=== PATIENT | male | born 1940 | race Caucasian/White ===

== ENCOUNTER 2018-07-14 10:20 | Inpatient (IN) | payer BC, MEDICARE ==
[~2018-07-14] VITALS: Ht 177.8 cm; Wt 67.9 kg
[2018-07-14] MEDS ORDERED: ALPRAZolam 0.25 MG (XANAX) TAB PO PRN (17:45)
[2018-07-14] MEDS ORDERED: CALCIUM CARBONATE 500 MG (TUMS) TAB.CHEW PO PRN (17:45)
[2018-07-14] MEDS ORDERED: LOPERAMIDE 2 MG (IMODIUM) CAP PO PRN (17:45)
[2018-07-14] MEDS ORDERED: DOCUSATE SODIUM 100 MG (COLACE) CAP PO PRN (17:45)
[2018-07-14] MEDS ORDERED: ACETAMINOPHEN 500 MG TAB (TYLENOL) PO PRN (17:45)
[2018-07-14] MEDS ORDERED: diphenhydrAMINE 25 MG TAB (BENADRYL) PO PRN (17:45)
--- NOTE | 2018-07-14 21:35 | NUR ---
Fahad Spears admitted to room 231-1, with an admitting diagnosis of status post brain abcess and craniotomy, on 07/14/18 from [facility] in [place] via private automobile, accompanied by and daughter. FAHAD SPEARS introduced to surroundings, call light, bed controls, phone, TV, temperature control, lights, meal times, smoking policy, visitor policy, side rail policy, bathrooms and showers. Patient Rights given to patient in the handbook. FAHAD SPEARS verbalizes understanding that [facility] is not responsible for the loss or damage to any personal effects or valuables that are kept in the patients posession during their hospitalization. The following Patient Care Plans were discussed with the patient: Discharge Planning, impaired mobility, and self care deficit. FAHAD SPEARS verbalizes understanding of Interdisciplinary Patient Education. Patient and family were informed about the Rapid Response Team and its purpose. Patient received Patient Rights Booklet, which includes Privacy Act Statement and Data Collection Information Summary.
[2018-07-14 21:45] VITALS: BP 156/71
[2018-07-14] MEDS ORDERED: MEROPENEM 1,000 MG in WATER (STERILE) FOR INJECTION 20 ML IV SCH (22:45)
[2018-07-15] MEDS ORDERED: SULFAMETHOXAZOLE IV SCH (06:00)
[2018-07-15] MEDS ORDERED: TRIMETHOPRIM IV SCH (06:00)
[2018-07-15] MEDS: MEROPENEM 1,000 MG in NS (IVPB) 100 ML IV SCH ×3 (06:11→21:20)
[2018-07-15 06:38] LABS: BASOPHILS % (AUTO) 1 % (0-10); EOSINOPHILS # (AUTO) 0.2 10^3/uL (0.0-0.3); EOSINOPHILS % (AUTO) 15 % (0-10); HEMATOCRIT 25 % (40-54); HEMOGLOBIN 7.9 G/DL (13.3-17.7); LYMPHOCYTES # (AUTO) 0.3 X 10^3 (1.0-4.0); LYMPHOCYTES % (AUTO) 17 % (12-44); MEAN CORPUSCULAR HEMOGLOBIN 26 PG (25-34); MEAN CORPUSCULAR HGB CONC 32 G/DL (32-36); MEAN CORPUSCULAR VOLUME 80 FL (80-99); MONOCYTES # (AUTO) 0.1 X 10^3 (0.0-1.0); MONOCYTES % (AUTO) 7 % (0-12); NEUTROPHILS # (AUTO) 0.9 X 10^3 (1.8-7.8); NEUTROPHILS % (AUTO) 60 % (42-75); PLATELET COUNT 144 10^3/uL (130-400); RED CELL DISTRIBUTION WIDTH 26.9 % (10.0-14.5); WHITE BLOOD COUNT 1.6 10^3/uL (4.3-11.0)
[2018-07-15 06:54] VITALS: BP 143/64
[2018-07-15 06:59] LABS: ALANINE AMINOTRANSFERASE 61 U/L (0-55); ALBUMIN 2.6 GM/DL (3.2-4.5); ALKALINE PHOSPHATASE 60 U/L (40-136); BILIRUBIN,TOTAL 0.4 MG/DL (0.1-1.0); BUN/CREATININE RATIO 15; CALCIUM 7.9 MG/DL (8.5-10.1); CARBON DIOXIDE 24 MMOL/L (21-32); CHLORIDE 99 MMOL/L (98-107); CREATININE SERUM 0.74 MG/DL (0.60-1.30); GFR ESTIMATED > 60; GLUCOSE 86 MG/DL (70-105); POTASSIUM 3.8 MMOL/L (3.6-5.0); SODIUM 130 MMOL/L (135-145); TOTAL PROTEIN 5.7 GM/DL (6.4-8.2)
[2018-07-15 07:15] LABS: ANISOCYTOSIS MARKED; BAND NEUTROPHILS 18 %; EOSINOPHILS % (MANUAL) 16 %; HYPOCHROMASIA MODERATE; LYMPHOCYTES % (MANUAL) 6 %; MONOCYTES % (MANUAL) 8 %; NEUTROPHILS % (MANUAL) 52 %
[2018-07-15] MEDS: TRIMETHO IV SCH ×2 (08:07→16:43)
[2018-07-15] MEDS: SULFAMETHOXAZOLE IV SCH ×2 (08:07→16:43)
[2018-07-15] MEDS: D5W IV SCH ×2 (08:07→16:43)
--- NOTE | 2018-07-15 08:52 | Physical Therapy Evaluation ---
PT Evaluation-General Medical Diagnosis Admission Date Jul 14, 2018 at 21:28 Medical Diagnosis: frontal lobe mass Onset Date: Jun 29, 2018 Therapy Diagnosis Therapy Diagnosis: abnormality of gait Height/Weight Height (Feet): 5 Height (Inches): 10.00 Weight (Pounds): 157 Weight (Ounces): 1.6 Precautions Precautions/Isolations: Fall Prevention, Standard Precautions Weight Bear Status Right Lower Extremity: Right Full Weight Bearing Left Lower Extremity: Left Full Weight Bearing Social History Home: Single Level Current Living Status: Spouse Entry Into Home: Stairs Without Railing PT Steps Into Home: 2 Prior/Core FIM Prior Level of Function Therapy Code Descriptions/Definitions Functional Loyal Measure: 0=Not Assessed/NA 4=Minimal Assistance 1=Total Assistance 5=Supervision or Setup 2=Maximal Assistance 6=Modified Loyal 3=Moderate Assistance 7=Complete Loyal Therapy Quality Codes: 6 Independent with activity with or without an assistive device 5 Patient requires set up or clean up by helper. Patient completes activity by themselves 4 Supervision or touching assist (CGA). [place] provide cues , steadying assist 3 The helper provides less than half the effort to complete the activity 2 The helper provides more than half the effort to complete the activity 1 Dependent. The helper does all the effort to complete an activity 7 Patient refused to complete or attempt activity 9 The patient did not perform the activity before the current illness or injury 88 Not attempted due to Medical conditions or safety concerns Functional Abilities and Goals: Independent: Patient completed the activities by him/herself, with or without an assistive device, with no assistance from a helper. Needed Some Help: Patient needed partial assistance from another person to complete activities. Dependent: A helper completed the activities for the patient. Unknown: Not Applicable: Bed Mobility: 7 Transfers (B,C,W/C) (FIM): 7 Gait: 7 Stairs: 7 Indoor Mobility (Ambulation): Independent Stairs: Independent PT Evaluation-Current Subjective States that he had an infection in his brain and had to have surgery. Pain Numeric Pain Scale: 0-No Pain Objective Patient Orientation: Person, Place, Time, Situation ROM/Strength ROM Upper Extremities WFL ROM Lower Extremities WFL Strenght Lower Extremities 4+/5 Sensory Vision: Functional Hand Dominance: Left Sensation Right Upper Extremit: Intact Sensation Left Upper Extremity: Intact Sensation Right Lower Extremit: Intact Sensation Left Lower Extremity: Intact Transfers Therapy Code Descriptions/Definitions Functional Loyal Measure: 0=Not Assessed/NA 4=Minimal Assistance 1=Total Assistance 5=Supervision or Setup 2=Maximal Assistance 6=Modified Loyal 3=Moderate Assistance 7=Complete Loyal Therapy Quality Codes: 6 Independent with activity with or without an assistive device 5 Patient requires set up or clean up by helper. Patient completes activity by themselves 4 Supervision or touching assist (CGA). [place] provide cues , steadying assist 3 The helper provides less than half the effort to complete the activity 2 The helper provides more than half the effort to complete the activity 1 Dependent. The helper does all the effort to complete an activity 7 Patient refused to complete or attempt activity 9 The patient did not perform the activity before the current illness or injury 88 Not attempted due to Medical conditions or safety concerns Transfers (B, C, W/C) (FIM): 4 Scootin Rollin Roll Left to Right (QC): 6 Supine to/from Sit: 4 Sit to/from Stand: 5 Sit to Lying (QC): 5 Lying to Sitting/Side of Bed(Q: 5 Sit to Stand (QC): 5 Gait Does the Patient Walk?: Yes Mode of Locomotion: Walk Anticipated Mode of Locomotion: Walk Gait (FIM): 5 Distance (FIM): 3=150 ft Walk 10 feet (QC): 5 Walk 50 ft with 2 Turns(QC): 5 Walk 150 ft (QC): 5 Distance: 200' Gait Level of Assist: 5 Gait Persons Needed: 1 Gait Assistive Device: FWW Wheelchair Training Does the Pt Use a Wheelchair?: No Stairs Stairs (FIM): 5 #of Steps: 4 Level of Assist: 5 1 Step (curb) (QC): 5 4 Steps (QC): 5 12 Steps (QC): 5 Balance Sitting Static: Good Sitting Dynamic: Fair Standing Static: Fair Standing Dynamic: Fair Picking up an Object (QC): 4 Assessment/Needs The patient has good rehab potential to meet goals and be able to return home safely with the assistance of his . Rehab Potential: Good PT Short Term Goals Short Term Goals Time Frame: Jul 29, 2018 Transfers (B,C,W/C) (FIM): 6 Gait (FIM): 6 Distance (FIM): 3=150 ft Gait Distance Comment: 350' Gait Level of Assist: 6 Gait Assistive Device: FWW Stairs (FIM): 6 # of Steps: 4 Stairs Level of Assist: 6 PT Senior Care Goals Melt Helper Goals PT Melt Helper Goals Time Frame: Aug 14, 2018 Transfers (B,C,W/C) (FIM): 7 Sit to Lying (QC): 7 Lying-Sitting on Side/Bed(QC): 7 Sit to Stand (QC): 7 Rollin Roll Left to Right (QC): 7 Chair/Uvp-qd-Xavly Xfer(QC): 7 Car Transfer (QC): 7 Does the Patient Walk: Yes Gait (FIM): 6 Gait distance (FIM): 3=150 ft Distance: 1000' Walk 10 feet (QC): 7 Walk 10ft-Uneven Surface(QC): 7 Walk 50ft with 2 Turns (QC): 7 Walk 150 ft (QC): 7 Gait Level of Assist: 6 Gait Assistive Device: FWW Does the Pt use WC or Scooter?: No Stairs (FIM): 6 # of Steps: 12 1 Step (curb) (QC): 7 4 Steps (QC): 7 12 Steps (QC): 7 Stairs Level Of Assist: 6 Picking up an Object (QC): 7 PT Plan Problem List Problem List: Activity Tolerance, Functional Strength, Safety, Balance, Gait, Transfer, Bed Mobility, ROM Treatment/Plan Treatment Plan: Continue Plan of Care Treatment Plan: Bed Mobility, Concurrent Therapy, Education, Functional Activity [place], Functional Strength, Group Therapy, Gait, Safety, Therapeutic Exercise, Transfers Treatment Duration: Aug 14, 2018 Frequency: At least 5 of 7 days/Wk (IRF) Estimated Hrs Per Day: 1.5 hours per day Patient and/or Family Agrees t: Yes Safety Risks/Education Patient Education: Gait Training, Transfer Techniques, Steps, Issued Written HEP, Safety Issues Teaching Recipient: Patient Discharge Recommendations Therapy D/C Recommendations: Physical Therapy Outpatient Time/GCodes Time In: 824 Time Out: 924 Total Billed Treatment Time: 60 Total Billed Treatment 1, EV Low C x 15, GT x 15, FA x 30 G Codes Necessary: STEPHANIE Hampton PT Jul 15, 2018 08:52
[2018-07-15] MEDS ORDERED: SODIUM CHLORIDE PO SCH (09:00)
[2018-07-15] MEDS ORDERED: FLORASTOR 250 MG PO SCH (09:00)
[2018-07-15] MEDS ORDERED: POTA20TA15 PO (10:13)
[2018-07-15] MEDS: KCL 20 MEQ TAB (K-DUR) PO SCH (10:33)
--- NOTE | 2018-07-15 11:00 | Occupational Therapy Eval ---
OT Evaluation-General/PLF Medical Diagnosis Admission Date Jul 14, 2018 at 21:28 Medical Diagnosis: frontal lobe mass Onset Date: Jun 29, 2018 Therapy Diagnosis Therapy Diagnosis: decreased self care skills Height/Weight Height (Feet): 5 Height (Inches): 10.00 Weight (Pounds): 157 Weight (Ounces): 1.6 Precautions Precautions/Isolations: Fall Prevention, Standard Precautions Safety Interventions: None Medical History Additional Medical History pyelonephritis Social History Home: Single Level Current Living Status: Spouse Entry Into Home: Stairs Without Railing Steps Into Home: 2 ADL-Prior Level of Function Therapy Code Descriptions/Definitions Functional [place] Measure: 0=Not Assessed/NA 4=Minimal Assistance 1=Total Assistance 5=Supervision or Setup 2=Maximal Assistance 6=Modified [place] 3=Moderate Assistance 7=Complete [place] Therapy Quality Codes: 6 Independent with activity with or without an assistive device 5 Patient requires set up or clean up by helper. Patient completes activity by themselves 4 Supervision or touching assist (CGA). [place] provide cues , steadying assist 3 The helper provides less than half the effort to complete the activity 2 The helper provides more than half the effort to complete the activity 1 Dependent. The helper does all the effort to complete an activity 7 Patient refused to complete or attempt activity 9 The patient did not perform the activity before the current illness or injury 88 Not attempted due to Medical conditions or safety concerns Functional Abilities and Goals: Independent: Patient completed the activities by him/herself, with or without an assistive device, with no assistance from a helper. Needed Some Help: Patient needed partial assistance from another person to complete activities. Dependent: A helper completed the activities for the patient. Unknown: Not Applicable: ADL PLOF Comments Pt states he has been receiving assist as needed at home. Using cane for mobility Self Care: Needed Some Help DME/Equipment: Shower OT Current Status Subjective Pt sitting in chair, agrees to therapy. Pt has no reports of pain. Mental Status/Objective Patient Orientation: Person, Place Attachments: Roberts Catheter, IV Current Glasses/Contacts: Yes Hearing Aids: No Hand Dominance: Left Upper Extremity ROM Grossly WFL Upper Extremity Strength Grossly 4/5 ADL-Treatment ADL-Current Pt completed sponge bath while seated. Upper body bathing completed with SBA. Pt required CGA for lower body bathing. Don pullover shirt with SBA. Pt required minimal assistance for LE dressing. Doff/don socks with SBA. Pt sit to stand with CGA. Gait to bathroom with FWW. Pt stood at sink to brush teeth with SBA. Pt demonstrated ability to complete toilet transfer with CGA for safety. Pt returned to chair with needs met after session. Eating (FIM): 5 (by report) Eating (QC): 5 Grooming (FIM): 5 Oral Hygiene (QC): 4 Bathing (FIM): 4 Shower/Bathe Self (QC): 4 Upper Body Dressing (FIM): 5 Upper Body Dressing (QC): 4 Lower Body Dressing (FIM): 4 Lower Body Dressing (QC): 4 On/Off Footwear (QC): 4 Toilet/Commode Transfer (FIM): 4 Toilet Transfer (QC): 4 Education OT Patient Education: Rehab process Teaching Recipient: Patient Teaching Methods: Discussion Response to Teaching: Verbalize Understanding OT Short Term Goals Short Term Goals Transfers (B,C,W/C) (FIM): 6 1=Demonstrate adherence to instructed precautions during ADL tasks. 2=Patient will verbalize/demonstrate understanding of assistive devices/ modifications for ADL. 3=Patient will improve strength/tolerance for activity to enable patient to perform ADL's. OT It Security Project Manager Goals Half-Way Goals Time Frame: Aug 05, 2018 Eating (FIM): 6 Eating (QC): 6 Groomin Oral Hygiene (QC): 6 Bathing(FIM): 6 Shower/Bathe Self (QC): 6 Upper Body Dressing(FIM): 6 Upper Body Dressing (QC): 6 Lower Body Dressing(FIM): 6 Lower Body Dressing (QC): 6 On/Off Footwear (QC): 6 Toileting(FIM): 6 Toileting Hygiene (QC): 6 Toilet/Commode Transfer(FIM): 6 Toilet/Commode Transfer (QC): 6 Shower Transfer(FIM): 6 Additional Goals: 1-Demonstrate ADL Tasks, 2-Verbalize Understanding, 3- ImproveStrength/[place] 1=Demonstrate adherence to instructed precautions during ADL tasks. 2=Patient will verbalize/demonstrate understanding of assistive devices/ modifications for ADL. 3=Patient will improve strength/tolerance for activity to enable patient to perform ADL's. OT Education/Plan Problem List/Assessment Assessment: Decreased Activ Tolerance, Decreased UE Strength, Dependent Transfers, Impaired Self-Care Skills Pt to benefit from skilled OT intervention for ADL training, transfers, strengthening, and safety education to increase independence and allow safe discharge. Discharge Recommendations Plan/Recommendations: Continue POC Treatment Plan/Plan of Care Treatment,Training & Education: Yes Patient would benefit from OT for education, treatment and training to promote independence in ADL's, mobility, safety and/or upper extremity function for ADL' s. Plan of Care: ADL Retraining, Functional Mobility, Group Exercise/Act as Ind, UE Funct Exercise/Act Treatment Duration: Aug 05, 2018 Frequency: Modified Program (IRF) Estimated Hrs Per Day: 1.5 hours per day Agreement: Yes Rehab Potential: Good Time/GCodes Start Time: 09:30 Stop Time: 10:30 Total Time Billed (hr/min): 60 Billed Treatment Time 1 visit, EVL(15minutes), ADLx3(45minutes) LUPIS MAZA OT Jul 15, 2018 11:00
--- NOTE | 2018-07-15 11:06 | PM&R H&P / Post Admit Assess ---
History of Present Illness HPI/Chief Complaint CC: Brain abscess status post craniotomy HPI: This is a 78-year-old white male clinic patient of in [facility] who presents from [facility] after admitted on 06/29/18 from [facility] then [facility] for renal abscess on the left then diagnosed brain abscess status post craniotomy and diagnosed Nocardia infection UTI and brain abscess. He was seen by multiple consultants while hospitalized and [place] and is currently in need of antibiotics for an additional 34 days and intense rehabilitation with physical therapy. He still remains with a Dhaliwal catheter in place and I consulted Dr. Monroe to facilitate retention resolution. I have also contacted cardiology for elevated BNP and right bundle branch block. I have also asked for Dr. Fenton for consultation for neutropenia and anemia. I have added on iron level. We're in the midst of reconciliation of home medications including IV antibiotics and nocardia treatment. Source: patient, old records Exam Limitations: clinical condition Date Seen 07/15/18 Time Seen by a Provider: 10:00 Attending Physician Martha Hernandes Pankaj K MD Referring Physician Date of Admission Jul 14, 2018 at 21:28 Home Medications & Allergies Home Medications Reviewed patient Home Medication Reconciliation performed by pharmacy medication reconciliations sterilization technician and/or nursing. Patients Allergies have been reviewed. Allergies Allergies Coded Allergies mushroom (Unverified Allergy, Mild, RASH, 07/15/18) Past Skcnbbg-Qvcoso-Juaiws Hx Past Med/Social Hx: Reviewed Nursing Past Med/Soc Hx, Reviewed and Corrections made Patient Social History Marrital Status: Employed/Student: retired ([employer] 27 years) Alcohol Use: Denies Use Recreational Drug Use: No Smoking Status: Never a Smoker Physical Abuse Screen: No Sexual Abuse: No Recent Foreign Travel: No Contact w/other who traveled: No Recent Hopitalizations: Yes Recent Infectious Disease Expo: No Immunizations Up To Date Date of Influenza Vaccine: Apr 13, 2018 Seasonal Allergies Seasonal Allergies: No Past Medical History Surgeries: Abdominal Currently Using CPAP: No Currently Using BIPAP: No Sexually Transmitted Disease: No HIV/AIDS: No Genitourinary: Kidney Infection, Prostate Problems, Bladder Infection Gastrointestinal: Hemorrhoids, Hiatal Hernia Musculoskeletal: Back Injury, Gout HEENT: Cataract, Glaucoma Psychosocial: Depression History of Blood Disorders: No Adverse Reaction to Blood Blake: No Family History Alzheimer's disease 19 MOTHER FH: breast cancer 19 MOTHER FH: leukemia 19 FATHER Hiatal hernia 19 FATHER Review of Systems Constitutional: see HPI, dizziness, malaise, weakness EENTM: no symptoms reported Respiratory: no symptoms reported Cardiovascular: no symptoms reported Gastrointestinal: no symptoms reported Genitourinary: other (retention) Musculoskeletal: no symptoms reported Skin: no symptoms reported Psychiatric/Neurological: Other (confusion) Physical Exam Exam Vital Signs Vital Signs Date Time Temp Pulse Resp B/P (MAP) Pulse Ox O2 Delivery O2 Flow Rate FiO2 07/15/18 09:00 94 Room Air 07/15/18 06:54 99.3 79 18 143/64 (90) Capillary Refill : General Appearance: No Apparent Distress, WD/WN, Chronically ill, Thin HEENT: PERRL/EOMI, Normal ENT Inspection, Pharynx Normal, Moist Mucous Membranes Neck: Full Range of Motion, Normal Inspection, Non Tender, Supple Respiratory: Chest Non Tender, Lungs Clear, Normal Breath Sounds, No Accessory Muscle Use, No Respiratory Distress Cardiovascular: Regular Rate, Rhythm, No Edema, No Gallop, No JVD, No Murmur Gastrointestinal: Normal Bowel Sounds, No Organomegaly, No Pulsatile Mass, Non Tender, Soft Rectal: Normal Exam, Normal Rectal Tone Genital/Rectal: Normal Genital Exam, Normal Rectal Exam, Normal Rectal Tone, Normal Vaginal Exam, Other (dhaliwal cath in place) Back: Normal Inspection, No CVA Tenderness, No Vertebral Tenderness Extremity: Normal Capillary Refill, Normal Inspection, Normal Range of Motion, Non Tender, No Calf Tenderness, No Pedal Edema Neurologic/Psychiatric: Alert, Oriented x3, No Motor/Sensory Deficits, Normal Mood/Affect, Disoriented (subtle) Skin: Normal Color, Warm/Dry Lymphatic: No Adenopathy Results Results/Procedures Labs Laboratory Tests 07/15/18 06:25 Patient resulted labs reviewed. Assessment/Plan Assessment and Plan Assess & Plan/Chief Complaint Assessment: Status post craniotomy Brain abscess Kidney abscess Nocardia infection Urinary retention Dhaliwal catheter in place Right bundle branch block Elevated BNP Neutropenia Anemia Hyponatremia Frail status Plan: Check labs in a.m. Cardiology consultation is appreciated Urology consultation is appreciated Hematology consultation is appreciated Check EKG Check ECHO in am Home meds IV abx Monitor closely (1) Brain abscess (2) Nocardia infection (3) Pyelonephritis (4) Renal abscess (5) Neutropenia (6) Anemia (7) Hyponatremia (8) Weakness acquired in ICU (9) UTI (urinary tract infection) (10) PICC (peripherally inserted central catheter) in place (11) Urinary retention (12) Dhaliwal catheter in place (13) Right bundle branch block (14) Elevated brain natriuretic peptide (BNP) level (15) Cerebral edema (16) Focal neurological deficit (17) S/P craniotomy Post Admission Physician Asses Date seen by provider: Jul 15, 2018 Time seen by provider: 10:00 The preadmission screen agrees with the post admission assessment that the patient is a good candidate for inpatient rehabilitation. The patient will have a comprehensive program of inpatient rehabilitation with a goal of maximizing level of functional independence prior to discharge home with family. The patient will have PT/OT ninety minutes per day, each discipline, five days a week for gait, strengthening, conditioning, balance, ADLs, any patient/family/caregiver training as necessary. Speech therapy to do cognitive assessment and treat as indicated. Rehabilitation nursing to assist with bowel, bladder, skin, wound care, medication administration, pain management. Bleach Mixer to assist with discharge planning, community reentry. SCD's for DVT prophylaxis. He appears to be well motivated to participate in three hours of therapy a day. He should be able to tolerate three hours of therapy a day from a medical standpoint. He should benefit from the three hours of therapy a day. He has a reasonable discharge plan, reasonable discharge rehabilitation goals and a supportive family. He has various comorbidities that need to be closely monitored with medications and treatments adjusted on a daily basis as needed. These include: Barriers to discharge for this patient who had been independent prior to this are for him to be modified independent to supervision for ADLs and mobility skills prior to discharge home with [family], so as to lessen the burden of the caregivers. Risks for this patient include: 1. Fall 2. Fracture 3. DVT 4. Pulmonary embolism 5. Wound infection 6. Skin breakdown 7. Contractures 8. Poorly controlled pain 9. Urinary retention 10. UTI 11. Respiratory infection 12. Aspiration Estimated Length of Stay: 21 days Prognosis: Rehab prognosis appears good for goal of discharge home with family modified independent to supervision for ADLs and mobility skills. General: Alert, Oriented X3, Cooperative, No Acute Distress, Other (subtle delay and misses social cues) HEENT: Atraumatic, PERRLA Neck: Supple, No JVD, No Thyromegaly, +2 Carotid Pulse No Bruit, No LAD Lungs: Clear to Auscultation, Normal Air Movement Heart: Regular Rate, Normal S1, Normal S2, No Murmurs Abdomen: Normal Bowel Sounds, Soft, No Tenderness, No Hepatosplenomegaly, No Masses Extremities: No Clubbing, No Cyanosis, No Edema, Normal Pulses, No Tenderness/ Swelling Skin: No Rashes, No Breakdown, No Significant Lesion Neuro: Normal Speech, Other (global weakness all extremities) Psych/Mental Status: Mood NL, Other (subtle cognitive deficit) MARTHA HERNANDES DO Jul 15, 2018 11:06
[2018-07-15] MEDS ORDERED: PATIENT MAY USE OWN MED,SINGLE MED PO SCH (11:15)
[2018-07-15] MEDS ORDERED: TOLVAPTAN 30 MG TAB PO SCH (12:00)
--- NOTE | 2018-07-15 12:00 | NUR ---
PHARMACY UNABLE TO GET TOLVAPTAN 15MG PO DAILY, INSTRUCTED NURSE NOT AVAILABLE FROM SUPPLIER OR AREA PHARMACIES, INSTRUCTED NURSE THAT THERE IS A REFILL ON PATIENTS BOTTLE AND SEE IF FAMILY COULD GO TO [place] AND HAVE IT FILLED. PATIENT INSTRUCTED NURSE THAT IT WOULD NOT BE POSSIBLE, ATTEMPTED TO CALL PATIENTS .
[2018-07-15] MEDS: SODIUM CHLORIDE 1 GM TAB (NON-FORMULARY) PO SCH ×2 (12:19→21:06)
[2018-07-15] MEDS: MINOCYCLINE 100 MG TABLET (NON-FORMULARY) PO SCH ×2 (12:20→21:05)
--- NOTE | 2018-07-15 15:40 | NUR ---
EKG DONE AND RESULTS FAXED TO DR HERNANDES, ATTEMPTED TO NOTIFY DR RADFORD OF NEW CONSULT, MESSAGE LEFT
[2018-07-15] MEDS: TAMSULOSIN 0.4 MG (FLOMAX) CAP PO SCH (16:44)
[2018-07-15] MEDS: LACTOBACILLUS ACIDOPHILUS (PROBIOTIC) CAPSULE PO SCH (16:45)
[2018-07-15 18:43] VITALS: BP 158/69
--- NOTE | 2018-07-15 19:53 | Consultation-Cardiology ---
HPI-Cardiology Cardiology Consultation: Date of Consultation 07/15/18 Time Seen by a Provider: 19:30 Date of Admission Attending Physician Martha Guevara DO Admitting Physician Kedar Guerrier MD Consulting Physician PAM TURPIN MD, MA, FACP, FACC, FSCAI, CCDS Physician requesting consult: Dr Guevara HPI: Chief Complaint: Reason for consultation: RBBB on ECG HPI: 78 yo man who is recovering from interventions for kidney and brain abscesses and is under the care of Dr Guevara who has asked us to see him for RBBB. Mr Spears does not report cp or palp or syncope or shortness of breath. Notes gen malaise. Denies leg swelling Review of Systems-Cardiology Review of Systems Constitutional: malaise, tiredness Eyes: No vision change Ears/Nose/Throat: No ear discharge, No nasal drainage, No recent hearing loss Respiratory: As described under HPI Cardiovascular: As described under HPI Gastrointestinal: No diarrhea, No nausea, No vomiting Genitourinary: No dysuria, No hematuria Musculoskeletal: No back pain, No joint pain Skin: No rash, No ulcerations Psychiatric/Neurological: No focal weakness Hematologic: No bleeding abnormalities ULZ-[id number]-Pvussj Hx Patient Social History Marrital Status: Employed/Student: retired ([employer] 27 years) Alcohol Use: Denies Use Recreational Drug Use: No Smoking Status: Never a Smoker Recent Foreign Travel: No Recent Infectious Disease Expo: No Hospitalization with Isolation: Denies Physical Abuse Screen: No Sexual Abuse: No Immunizations Up To Date Date of Influenza Vaccine: Apr 13, 2018 Past Medical History PMH As described under Assessment. Family Medical History Family History: Alzheimer's disease 19 MOTHER FH: breast cancer 19 MOTHER FH: leukemia 19 FATHER Hiatal hernia 19 FATHER Allergies and Home Medications Allergies Coded Allergies: mushroom (Unverified Allergy, Mild, RASH, 07/15/18) Home Medications Potassium Chloride 20 Meq Tab.er.prt, 20 MEQ PO DAILY, (Reported) Patient Home Medication List Home Medication List Reviewed: Yes Physical Exam-Cardiology Physical Exam Vital Signs/I&O 07/15/18 07/15/18 09:00 18:43 Temp 96.6 Pulse 91 Resp 18 B/P (MAP) 158/69 (98) Pulse Ox 94 94 O2 Delivery Room Air Room Air Capillary Refill : Constitutional: AAO x 3, well-developed, well-nourished HEENT: EOMI; No xanthelasmas are seen Neck: carotid pulses are 2 + bilaterally, with good upstrokes Respiratory: No accessory muscle use; lungs clear to percussion, lungs clear to auscultation Cardiovascular: regular rate-rhythm, S1 and S2, systolic murmur (soft YOMI at card base) Gastrointestinal: No tender; soft; No guarding, No rebound; audible bowel sounds Extremities: No clubbing, No cyanosis, No significant edema Neurologic/Psychiatric: oriented x 3, grossly intact Skin: No rash on exposed areas, No ulcerations on exposed areas Data Review Labs Laboratory Tests 07/15/18 06:25: White Blood Count 1.6L, Red Blood Count 3.10L, Hemoglobin 7.9L, Hematocrit 25L, Mean Corpuscular Volume 80, Mean Corpuscular Hemoglobin 26, Mean Corpuscular Hemoglobin Concent 32, Red Cell Distribution Width 26.9H, Platelet Count 144, Mean Platelet Volume , Neutrophils (%) (Auto) 60, Lymphocytes (%) (Auto) 17, Monocytes (%) (Auto) 7, Eosinophils (%) (Auto) 15H, Basophils (%) (Auto) 1, Neutrophils # (Auto) 0.9L, Lymphocytes # (Auto) 0.3L, Monocytes # (Auto) 0.1, Eosinophils # (Auto) 0.2, Basophils # (Auto) 0.0, Neutrophils % (Manual) 52, Lymphocytes % (Manual) 6, Monocytes % (Manual) 8, Eosinophils % (Manual) 16, Band Neutrophils 18, Hypochromasia MODERATE, Anisocytosis MARKED, Sodium Level 130L, Potassium Level 3.8, Chloride Level 99, Carbon Dioxide Level 24, Anion Gap 7, Blood Urea Nitrogen 11, Creatinine 0.74, Estimat Glomerular Filtration Rate > 60, BUN/Creatinine Ratio 15, Glucose Level 86, Calcium Level 7.9L, Corrected Calcium 9.0, Total Bilirubin 0.4, Aspartate Amino Transf (AST/SGOT) 96H, Alanine Aminotransferase (ALT/SGPT) 61H, Alkaline Phosphatase 60, Total Protein 5.7L, Albumin 2.6L Laboratory Tests 07/15/18 06:25 A/P-Cardiology Assessment/Admission Diagnosis 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 No clinical evidence of decomp CHF Neutropenia and anemia of undetermined etiology, managed by Dr Guevara Hyponatremia, managed by Dr Guevara Discussion and Recomendations * Multiple comorbidities that are outlined above * Monitor labs and correct abnormalities * Echo Clinical Quality Measures DVT/VTE Risk/Contraindication: Risk Factor Score Per Nursin RFS Level Per Nursing on Admit: 4+=Very High PAM TURPIN MD FACP FAC CCDS Jul 15, 2018 19:53
[2018-07-15] MEDS: MELATONIN 3 MG TABLET PO PRN (21:05)
[2018-07-16] MEDS: D5W IV SCH ×4 (00:03→23:58)
[2018-07-16] MEDS: TRIMETHO IV SCH ×4 (00:03→23:58)
[2018-07-16] MEDS: SULFAMETHOXAZOLE IV SCH ×4 (00:03→23:58)
[2018-07-16 06:00] VITALS: BP 148/70
[2018-07-16] MEDS: LACTOBACILLUS ACIDOPHILUS (PROBIOTIC) CAPSULE PO SCH ×2 (06:21→17:58)
[2018-07-16] MEDS: MEROPENEM 1,000 MG in NS (IVPB) 100 ML IV SCH ×3 (06:22→22:10)
[2018-07-16 07:11] LABS: BASOPHILS % (AUTO) 0 % (0-10); EOSINOPHILS # (AUTO) 0.3 10^3/uL (0.0-0.3); EOSINOPHILS % (AUTO) 12 % (0-10); HEMATOCRIT 24 % (40-54); HEMOGLOBIN 7.8 G/DL (13.3-17.7); LYMPHOCYTES # (AUTO) 0.3 X 10^3 (1.0-4.0); LYMPHOCYTES % (AUTO) 12 % (12-44); MEAN CORPUSCULAR HEMOGLOBIN 26 PG (25-34); MEAN CORPUSCULAR HGB CONC 32 G/DL (32-36); MEAN CORPUSCULAR VOLUME 80 FL (80-99); MONOCYTES # (AUTO) 0.2 X 10^3 (0.0-1.0); MONOCYTES % (AUTO) 7 % (0-12); NEUTROPHILS # (AUTO) 1.7 X 10^3 (1.8-7.8); NEUTROPHILS % (AUTO) 69 % (42-75); PLATELET COUNT 169 10^3/uL (130-400); RED CELL DISTRIBUTION WIDTH 27.6 % (10.0-14.5); WHITE BLOOD COUNT 2.4 10^3/uL (4.3-11.0)
[2018-07-16 07:18] LABS: ALANINE AMINOTRANSFERASE 61 U/L (0-55); ALBUMIN 2.6 GM/DL (3.2-4.5); ALKALINE PHOSPHATASE 67 U/L (40-136); BILIRUBIN,TOTAL 0.3 MG/DL (0.1-1.0); BUN/CREATININE RATIO 16; CALCIUM 7.7 MG/DL (8.5-10.1); CARBON DIOXIDE 22 MMOL/L (21-32); CHLORIDE 102 MMOL/L (98-107); CREATININE SERUM 0.77 MG/DL (0.60-1.30); GFR ESTIMATED > 60; GLUCOSE 87 MG/DL (70-105); POTASSIUM 3.8 MMOL/L (3.6-5.0); SODIUM 134 MMOL/L (135-145); TOTAL PROTEIN 5.5 GM/DL (6.4-8.2)
[2018-07-16] MEDS: KCL 20 MEQ TAB (K-DUR) PO SCH (08:55)
[2018-07-16 09:25] VITALS: BP 131/65
[2018-07-16] MEDS: SODIUM CHLORIDE 1 GM TAB (NON-FORMULARY) PO SCH ×3 (10:21→20:33)
[2018-07-16] MEDS: MINOCYCLINE 100 MG TABLET (NON-FORMULARY) PO SCH ×2 (10:22→20:32)
--- NOTE | 2018-07-16 12:17 | Oncology Consultation ---
Visit Information Visit Information Date of Admission Jul 14, 2018 at 21:28 Attending Physician Martha Guevara DO Admitting Physician Kedar Guerrier MD Chief Complaint Leukopenia, anemia and Nocardia abscess. Interval History Mr. 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 He presented to local hospital with cough, short of breath and weight loss and was hospitalized 04/2018 for antibiotics for pyelonephritis. He got better and then got worse. Further work up showed leukocytosis without left shift, anemia, hyponatremia, hyperglycemia, pyuria. Scan showed left frontal lobe lesion and multiple renal lesions/abscesses. He had multiple courses of antibiotics. No malignancy ever found anywhere. He was transferred to [place] for craniotomy with drainage. 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 Then changed to IV Bactrim and Meropenem. He had WBC 23.9, Hb 10 and Plt 368k MCV 84 and normal LFTs on 06-29-2018. Since he was transferred to her, family reported that he is more talkative and often repeating the same talking. This is new. I consulted the patient on: 07/16/18 12:11 Time Seen by Provider: 12:11 Review of Systems Constitutional: weakness Respiratory: see HPI Cardiovascular: no symptoms reported Genitourinary: other (dhaliwal) Psychiatric/Neurological: Other (somewhat confused per family report) Health Status Allergies Coded Allergies: mushroom (Unverified Allergy, Mild, RASH, 07/15/18) Home Medications No Active Prescriptions or Reported Meds [id number]-Oddqhu-Rtisbm Hx Patient Social History Marrital Status: Employed/Student: retired ([employer] 27 years) Alcohol Use: Denies Use Recreational Drug Use: No Smoking Status: Never a Smoker Recent Foreign Travel: No Contact w/other who traveled: No Recent Infectious Disease Expo: No Recent Hopitalizations: Yes Physical Abuse Screen: No Sexual Abuse: No Immunizations Up To Date Date of Influenza Vaccine: Apr 13, 2018 Family Medical History Family History: Alzheimer's disease 19 MOTHER FH: breast cancer 19 MOTHER FH: leukemia 19 FATHER Hiatal hernia 19 FATHER Physical Exam Vital Signs Vital Signs - First Documented 07/14/18 21:45 Temp 99.2 Pulse 96 Resp 20 B/P (MAP) 156/71 (99) Pulse Ox 94 O2 Delivery Room Air Capillary Refill : Height, Weight, BMI Height: 5'10.00" Weight: 157lbs. 1.6oz. 71.913489az; 22.5 BMI Method: General Appearance: No Apparent Distress HEENT: PERRL/EOMI Neck: Non Tender, Supple Respiratory: Chest Non Tender, Lungs Clear, No Accessory Muscle Use, No Respiratory Distress Cardiovascular: Regular Rate, Rhythm, No Edema Gastrointestinal: Non Tender, Soft Extremity: Non Tender, No Calf Tenderness, No Pedal Edema Neurologic/Psychiatric: Alert, Oriented x3 Data Review Labs Laboratory Tests 07/18/18 05:55 Laboratory Tests 07/16/18 06:28: White Blood Count 2.4L, Red Blood Count 3.05L, Hemoglobin 7.8L, Hematocrit 24L, Red Cell Distribution Width 27.6H, Eosinophils (%) (Auto) 12H, Neutrophils # ( Auto) 1.7L, Lymphocytes # (Auto) 0.3L, Sodium Level 134L, Calcium Level 7.7L, Aspartate Amino Transf (AST/SGOT) 83H, Alanine Aminotransferase (ALT/SGPT) 61H, Total Protein 5.5L, Albumin 2.6L 07/18/18 05:55: White Blood Count 2.3L, Red Blood Count 3.17L, Hemoglobin 8.1L, Hematocrit 25L, Red Cell Distribution Width 27.7H, Eosinophils (%) (Auto) 11H, Neutrophils # ( Auto) 1.5L, Lymphocytes # (Auto) 0.3L, Sodium Level 129L, Calcium Level 7.8L, Aspartate Amino Transf (AST/SGOT) 64H, Alanine Aminotransferase (ALT/SGPT) 58H, Total Protein 5.8L, Albumin 2.7L, Mean Corpuscular Volume 79L, Chloride Level 97L Impression & Plan Impression & Plan IMP: 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 On IV Bactrim and Meropenem. Pt is more confused per family report. 2. Leukopenia. Pt had WBC 23.9, Hb 10 and Plt 368k MCV 84 on 06-29-2018. I am concerning the leukopenia is related to IV Bactrim treatment. However, we need to consult to ID specialist and pharmacist what other treatment options we can use rather than Bactrim for Nocardia. We need to get the culture and sensitivity results. 4. Anemia, most likely chronic illness and infection. Transfuse RBC to keep Hb above 7. 5. Elevated LFTs, ?etiology. He had normal LFTs on 06-29-2018 with ALT 71, AST 16 and Bili 0.6. We may need liver ultra sound or CT scan evaluation to make sure pt is not progressing and developing new lesions in the liver. 6. Check serum Ig levels since this is an unusual infection. 7. This is a very complicated case and we need to have to review more records from previous hospitals, specially his antibiotics and culture sensitivities of nocardia. 8. I will be out off office on Tuesday and will be back on Tue. I will f/u with you. MORALES RADFORD MD Jul 16, 2018 12:17
--- NOTE | 2018-07-16 12:52 | PM&R Progress Note ---
Subjective HPI/CC On Admission Date Seen by Provider: Jul 16, 2018 Time Seen by Provider: 12:30 CC: Brain abscess status post craniotomy HPI: This is a 78-year-old white male clinic patient of in [facility] who presents from [facility] after admitted on 06/29/18 from [facility] then [facility] for renal abscess on the left then diagnosed brain abscess status post craniotomy and diagnosed Nocardia infection UTI and brain abscess. He was seen by multiple consultants while hospitalized and [place] and is currently in need of antibiotics for an additional 34 days and intense rehabilitation with physical therapy. He still remains with a Dhaliwal catheter in place and I consulted Dr. Monroe to facilitate retention resolution. I have also contacted cardiology for elevated BNP and right bundle branch block. I have also asked for Dr. Fenton for consultation for neutropenia and anemia. I have added on iron level. We're in the midst of reconciliation of home medications including IV antibiotics and nocardia treatment. Subjective/Events-last exam Patient doing well Poor appetite Frail status at baseline Appreciate Dr Fenton expertise wbc 2.4 and hgb 7.8 ECHO ordered RBBB on EKG Dr Monroe consulted and cysto will be performed this week Pt talks a lot about caodaism Doesn't tack picker on social cues with conversation likely residual from craniotomy Review of Systems General: Fatigue Neurological: Confusion Objective Exam Vital Signs Vital Signs Date Time Temp Pulse Resp B/P (MAP) Pulse Ox O2 Delivery O2 Flow Rate FiO2 07/16/18 09:32 Room Air 07/16/18 09:25 97.5 79 18 131/65 (87) 94 Capillary Refill : General Appearance: No Apparent Distress, WD/WN, Chronically ill, Thin HEENT: PERRL/EOMI, Normal ENT Inspection, Pharynx Normal, Moist Mucous Membranes Neck: Full Range of Motion, Normal Inspection, Non Tender, Supple Respiratory: Chest Non Tender, Lungs Clear, Normal Breath Sounds, No Accessory Muscle Use, No Respiratory Distress Cardiovascular: Regular Rate, Rhythm, No Edema, No Gallop, No JVD, No Murmur Gastrointestinal: Normal Bowel Sounds, No Organomegaly, No Pulsatile Mass, Non Tender, Soft Rectal: Normal Exam, Normal Rectal Tone Genital/Rectal: Normal Genital Exam, Normal Rectal Exam, Normal Rectal Tone, Normal Vaginal Exam, Other (dhaliwal cath in place) Back: Normal Inspection, No CVA Tenderness, No Vertebral Tenderness Extremity: Normal Capillary Refill, Normal Inspection, Normal Range of Motion, Non Tender, No Calf Tenderness, No Pedal Edema Neurologic/Psychiatric: Alert, Oriented x3, No Motor/Sensory Deficits, Normal Mood/Affect, Disoriented (subtle) Skin: Normal Color, Warm/Dry Lymphatic: No Adenopathy Results/Procedures Lab Laboratory Tests 07/16/18 06:28 Patient resulted labs reviewed. Assessment/Plan Assessment and Plan Assess & Plan/Chief Complaint Assessment: Status post craniotomy Brain abscess Kidney abscess Nocardia infection Urinary retention Dhaliwal catheter in place Right bundle branch block Elevated BNP Neutropenia Anemia Hyponatremia Frail status Plan: Check labs in a.m. Cardiology consultation is appreciated Urology consultation is appreciated Hematology consultation is appreciated Reviewed EKG Check ECHO Home meds IV abx Monitor closely Cysto tomorrow (1) Brain abscess (2) Nocardia infection (3) Pyelonephritis (4) Renal abscess (5) Neutropenia (6) Anemia (7) Hyponatremia (8) Weakness acquired in ICU (9) UTI (urinary tract infection) (10) PICC (peripherally inserted central catheter) in place (11) Urinary retention (12) Dhaliwal catheter in place (13) Right bundle branch block (14) Elevated brain natriuretic peptide (BNP) level (15) Cerebral edema (16) Focal neurological deficit (17) S/P craniotomy Clinical Quality Measures DVT/VTE Risk/Contraindication: Risk Factor Score Per Nursin RFS Level Per Nursing on Admit: 4+=Very High GERTRUDIS HERNANDES DO Jul 16, 2018 12:52
--- NOTE | 2018-07-16 14:52 | NUR ---
Pt states that he doesn't have an appetite, refused offers to eat breakfast, did agree to try chocolate milkshake at lunch, this was ordered, & pt taking drinks of it.. Pt had company earlier this AM, states that it was his ex-. They brought in food from [email or web address] for pt, which he states that he took a few bites.
--- NOTE | 2018-07-16 16:14 | Progress Note-Cardiology ---
Cardiology SOAP Progress Note Subjective: No cp or palp or syncope or shortness of breath Gen malaise and weakness present Objective: I&O/Vital Signs 07/16/18 07/16/18 07/16/18 06:00 09:25 09:32 Temp 97.7 97.5 Pulse 90 79 Resp 18 18 B/P (MAP) 148/70 (96) 131/65 (87) Pulse Ox 83 94 O2 Delivery Room Air Room Air Room Air 07/16/18 00:00 Intake Total 700 ml Output Total 1850 ml Balance -1150 ml Weight (Pounds): 157 Weight (Ounces): 1.6 Weight (Calculated Kilograms): 71.112017 Constitutional: AAO x 3, well-developed, well-nourished Respiratory: No accessory muscle use; lungs clear to percussion, lungs clear to auscultation Cardiovascular: regular rate-rhythm, S1 and S2, systolic murmur (soft YOMI at card base) Gastrointestional: No tender; soft; No guarding, No rebound; audible bowel sounds Extremities: No clubbing, No cyanosis, No significant edema Neurologic/Psychiatric: oriented x 3, grossly intact Skin: No rash on exposed areas, No ulcerations on exposed areas Results/Procedures: Labs Laboratory Tests 07/16/18 06:28: White Blood Count 2.4L, Red Blood Count 3.05L, Hemoglobin 7.8L, Hematocrit 24L, Mean Corpuscular Volume 80, Mean Corpuscular Hemoglobin 26, Mean Corpuscular Hemoglobin Concent 32, Red Cell Distribution Width 27.6H, Platelet Count 169, Mean Platelet Volume , Neutrophils (%) (Auto) 69, Lymphocytes (%) (Auto) 12, Monocytes (%) (Auto) 7, Eosinophils (%) (Auto) 12H, Basophils (%) (Auto) 0, Neutrophils # (Auto) 1.7L, Lymphocytes # (Auto) 0.3L, Monocytes # (Auto) 0.2, Eosinophils # (Auto) 0.3, Basophils # (Auto) 0.0, Sodium Level 134L, Potassium Level 3.8, Chloride Level 102, Carbon Dioxide Level 22, Anion Gap 10, Blood Urea Nitrogen 12, Creatinine 0.77, Estimat Glomerular Filtration Rate > 60, BUN/ Creatinine Ratio 16, Glucose Level 87, Calcium Level 7.7L, Corrected Calcium 8.8 , Total Bilirubin 0.3, Aspartate Amino Transf (AST/SGOT) 83H, Alanine Aminotransferase (ALT/SGPT) 61H, Alkaline Phosphatase 67, Total Protein 5.5L, Albumin 2.6L Laboratory Tests 07/15/18 06:25 07/16/18 06:28 A/P: Assessment: 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 No clinical evidence of decomp CHF Neutropenia and anemia of undetermined etiology, managed by Dr Guevara Hyponatremia, managed by Dr Guevara Plan: * Multiple comorbidities that are outlined above * Monitor labs and correct abnormalities * I discussed his echo findings with him and his and I answered their CV- related questions PAM TURPIN MD FACP FAC CCDS Jul 16, 2018 16:14
[2018-07-16 17:22] VITALS: BP 140/68
[2018-07-16] MEDS: TAMSULOSIN 0.4 MG (FLOMAX) CAP PO SCH (17:58)
--- NOTE | 2018-07-16 19:26 | NUR ---
bedside report received from JUAN EASON, assume care of pt
--- NOTE | 2018-07-16 20:00 | NUR ---
called orders for bedside cysto tomorrow, called informed her of bedside cysto, telephone consent obtained
--- NOTE | 2018-07-16 20:55 | CONSULTATION REPORT ---
DATE OF SERVICE: 07/16/2018 ATTENDING PHYSICIAN: Martha Guevara DO SUMMARY: This 78-year-old white man transferred for rehabilitation and IV antibiotic after he sustained a kidney abscess followed by brain abscess, treated in [facility] coming from [place]. The patient was feeling better. He is on IV Bactrim. He does take Flomax. He does admit to voiding symptoms prior to this episode. He has never seen a urologist. He has not had any surgery on his kidney bladder or prostate before. Physical examination was deferred at the time of cystoscopy. The patient has a Roberts catheter draining clear urine. ASSESSMENT: Benign prostatic hyperplasia with prostatism and urinary retention with history of renal abscess with brain abscess. PLAN: Continue the Flomax. Cystoscopy at bedside and flexible under local. Try to do that tomorrow or Tuesday at the latest depending on the surgical schedule. The plan was fully explained to the patient. Job ID: [id number] DocumentID: [id number] Dictated Date: 07/16/2018 16:26:34 [place] Date: 07/16/2018 20:54:39 Dictated By: CHAVA CERVANTES MD
--- NOTE | 2018-07-16 21:00 | NUR ---
assessments & interventions completed, see assessments & interventions, pt thought he was at [facility], advised in hospital at [place], [place] advised of date & time & that will do cystoscopy tomorrow, pt verbalized understanding but will need reinforcement of info
--- NOTE | 2018-07-16 21:30 | NUR ---
back to bed, side rails up x4, bed alarm on
[2018-07-17 05:00] VITALS: BP 145/74
--- NOTE | 2018-07-17 05:15 | NUR ---
bed bath with chlorhexidine completed, pt in gown for procedure, vital signs stable
[2018-07-17] MEDS: MEROPENEM 1,000 MG in NS (IVPB) 100 ML IV SCH ×3 (06:06→21:21)
--- NOTE | 2018-07-17 07:26 | NUR ---
bedside report given to FIDELIA EASON
[2018-07-17] MEDS: SULFAMETHOXAZOLE IV SCH ×3 (08:10→23:43)
[2018-07-17] MEDS: D5W IV SCH ×3 (08:10→23:43)
[2018-07-17] MEDS: TRIMETHO IV SCH ×3 (08:10→23:43)
[2018-07-17] MEDS ORDERED: LIDOCAINE UROJET 2% GEL 10 ML PKG ONE (08:18)
--- NOTE | 2018-07-17 08:18 | PM&R Progress Note ---
Subjective HPI/CC On Admission Date Seen by Provider: Jul 17, 2018 Time Seen by Provider: 08:00 CC: Brain abscess status post craniotomy HPI: This is a 78-year-old white male clinic patient of in [facility] who presents from [facility] after admitted on 06/29/18 from [facility] then [facility] for renal abscess on the left then diagnosed brain abscess status post craniotomy and diagnosed Nocardia infection UTI and brain abscess. He was seen by multiple consultants while hospitalized and [place] and is currently in need of antibiotics for an additional 34 days and intense rehabilitation with physical therapy. He still remains with a Dhaliwal catheter in place and I consulted Dr. Monroe to facilitate retention resolution. I have also contacted cardiology for elevated BNP and right bundle branch block. I have also asked for Dr. Fenton for consultation for neutropenia and anemia. I have added on iron level. We're in the midst of reconciliation of home medications including IV antibiotics and nocardia treatment. Subjective/Events-last exam Patient stable Poor appetite continues and that could certainly give rise to further decline Frail status at baseline Appreciate Dr Fenton expertise Wbc 2.4 and hgb 7.8 yesterday ECHO ordered RBBB on EKG Dr Monroe consulted and cysto will be performed today Pt talks a lot about methodist so druze support will be provided Doesn't sweet pickle maker on social cues with conversation likely residual from craniotomy Reviewing all records regarding the antibiotic duration and dosing and frequency Per dissipating in all therapies Needs cognitive cues Review of Systems General: Fatigue Neurological: Confusion Objective Exam Vital Signs Vital Signs Date Time Temp Pulse Resp B/P (MAP) Pulse Ox O2 Delivery O2 Flow Rate FiO2 07/17/18 05:00 97.7 83 18 145/74 (97) 92 Room Air Capillary Refill : General Appearance: No Apparent Distress, WD/WN, Chronically ill, Cachetic, Thin HEENT: PERRL/EOMI, Normal ENT Inspection, Pharynx Normal, Moist Mucous Membranes Neck: Full Range of Motion, Normal Inspection, Non Tender, Supple Respiratory: Chest Non Tender, Lungs Clear, Normal Breath Sounds, No Accessory Muscle Use, No Respiratory Distress Cardiovascular: Regular Rate, Rhythm, No Edema, No Gallop, No JVD, No Murmur Gastrointestinal: Normal Bowel Sounds, No Organomegaly, No Pulsatile Mass, Non Tender, Soft Rectal: Normal Exam, Normal Rectal Tone Genital/Rectal: Normal Genital Exam, Normal Rectal Exam, Normal Rectal Tone, Normal Vaginal Exam, Other (dhaliwal cath in place) Back: Normal Inspection, No CVA Tenderness, No Vertebral Tenderness Extremity: Normal Capillary Refill, Normal Inspection, Normal Range of Motion, Non Tender, No Calf Tenderness, No Pedal Edema Neurologic/Psychiatric: Alert, Oriented x3, No Motor/Sensory Deficits, Normal Mood/Affect, Disoriented (subtle) Skin: Normal Color, Warm/Dry Lymphatic: No Adenopathy Results/Procedures Lab Patient resulted labs reviewed. Assessment/Plan Assessment and Plan Assess & Plan/Chief Complaint Assessment: Status post craniotomy Brain abscess Kidney abscess Nocardia infection Urinary retention Dhaliwal catheter in place Right bundle branch block Elevated BNP Neutropenia Anemia Hyponatremia Frail status Plan: Check labs Cardiology consultation is appreciated Urology consultation is appreciated Hematology consultation is appreciated Check ECHO Home meds IV abx Monitor closely Cysto today (1) Brain abscess (2) Nocardia infection (3) Pyelonephritis (4) Renal abscess (5) Neutropenia (6) Anemia (7) Hyponatremia (8) Weakness acquired in ICU (9) UTI (urinary tract infection) (10) PICC (peripherally inserted central catheter) in place (11) Urinary retention (12) Dhaliwal catheter in place (13) Right bundle branch block (14) Elevated brain natriuretic peptide (BNP) level (15) Cerebral edema (16) Focal neurological deficit (17) S/P craniotomy Clinical Quality Measures DVT/VTE Risk/Contraindication: Risk Factor Score Per Nursin RFS Level Per Nursing on Admit: 4+=Very High GERTRUDIS HERNANDES DO Jul 17, 2018 08:18
--- NOTE | 2018-07-17 08:51 | Progress Note-Pre Operative ---
Pre-Operative Progress Note H&P Reviewed The H&P was reviewed, patient examined and no changes noted. Date Seen by Provider: Jul 17, 2018 Time Seen by Provider: 08:50 Date H&P Reviewed: Jul 17, 2018 Time H&P Reviewed: 08:50 Pre-Operative Diagnosis: URINE RETENTION CHAVA CERVANTES MD Jul 17, 2018 08:51
[2018-07-17] MEDS: ONDANSETRON 4 MG (ZOFRAN) ORAL DISSOLVE TAB PO PRN (09:15)
--- NOTE | 2018-07-17 10:24 | Progress Note-Post Operative ---
Post-Operative Progess Note Surgeon (s)/Healthcare Specialist (s) Surgeon CHAVA CERVANTES MD Healthcare Specialist: NONE Pre-Operative Diagnosis URINE RETENTION Post-Operative Diagnosis SAME Procedure & Operative Findings Date of Procedure 07/17/18 Procedure Performed/Findings CYSTOSCOPY Anesthesia Type LOCAL Estimated Blood Loss Estimated blood loss (mL): NONE Specimens/Packing Specimens Removed NONE Packing: NONE CHAVA CERVANTES MD Jul 17, 2018 10:23
[2018-07-17] MEDS: KCL 20 MEQ TAB (K-DUR) PO SCH (10:47)
[2018-07-17] MEDS: LACTOBACILLUS ACIDOPHILUS (PROBIOTIC) CAPSULE PO SCH ×2 (10:48→18:10)
[2018-07-17] MEDS: MINOCYCLINE 100 MG TABLET (NON-FORMULARY) PO SCH ×2 (10:48→21:19)
[2018-07-17] MEDS: SODIUM CHLORIDE 1 GM TAB (NON-FORMULARY) PO SCH ×3 (10:50→21:19)
--- NOTE | 2018-07-17 11:00 | Physical Therapy Daily Note ---
PT Daily Note-Current Subjective Patient in bed pre tx, sleep, hard to wake up. After waking, he agrees to PT, no complaints of pain. Patient needs to get dressed upper and lower, he puts on his shirt with SBA but needs assist with both legs on the pants and assist pulling pants up. Appearance Patient in bed post tx with nurse call, having a procedure done, nurse in the room. Mental Status Patient Orientation: Person, Confused Attachments: IV Transfers Therapy Code Descriptions/Definitions Functional [place] Measure: 0=Not Assessed/NA 4=Minimal Assistance 1=Total Assistance 5=Supervision or Setup 2=Maximal Assistance 6=Modified [place] 3=Moderate Assistance 7=Complete [place] Therapy Quality Codes: 6 Independent with activity with or without an assistive device 5 Patient requires set up or clean up by helper. Patient completes activity by themselves 4 Supervision or touching assist (CGA). [place] provide cues , steadying assist 3 The helper provides less than half the effort to complete the activity 2 The helper provides more than half the effort to complete the activity 1 Dependent. The helper does all the effort to complete an activity 7 Patient refused to complete or attempt activity 9 The patient did not perform the activity before the current illness or injury 88 Not attempted due to Medical conditions or safety concerns Transfers (B, C, W/C) (FIM): 3 Scootin Rollin Supine to/from Sit: 3 Bed to/from Chair: 5 Patient needs assist with both legs getting into bed, cues for hand placement and safety Weight Bearing Right Lower Extremity: Right Full Weight Bearing Left Lower Extremity: Left Full Weight Bearing Gait Training Gait (FIM): 5 Distance: 200'x2 Gait Level of Assist: 5 Gait Persons Needed: 1 Gait Assistive Device: FWW Patient ambulates slowly but steady, no LOB. Patient needs cues for direction and how to get around obstacles. Gets distracted easily. Exercises Standing: Heel/toe raises, Marching, Mini squats Standing Reps: 15 LAQ alternating for 5 min Treatments bed mobility and transfers, ambulation, functional strengthening Assessment Current Status: Fair Progress Patient is confused and needs constant cues to stay on task, gets distracted easily, needs cues on how to get around obstacles. Performs all mobility very slowly, needs extra time for all activities. PT Short Term Goals Short Term Goals Time Frame: Jul 29, 2018 Transfers (B,C,W/C) (FIM): 6 Gait (FIM): 6 Distance (FIM): 3=150 ft Gait Distance Comment: 350' Gait Level of Assist: 6 Gait Assistive Device: FWW Stairs (FIM): 6 # of Steps: 4 Stairs Level of Assist: 6 PT Feather Stitcher Goals Alf Goals PT Alf Goals Time Frame: Aug 14, 2018 Transfers (B,C,W/C) (FIM): 7 Sit to Lying (QC): 7 Lying-Sitting on Side/Bed(QC): 7 Sit to Stand (QC): 7 Rollin Roll Left to Right (QC): 7 Chair/Nfr-vm-Xlvtc Xfer(QC): 7 Car Transfer (QC): 7 Does the Patient Walk: Yes Gait (FIM): 6 Gait distance (FIM): 3=150 ft Distance: 1000' Walk 10 feet (QC): 7 Walk 10ft-Uneven Surface(QC): 7 Walk 50ft with 2 Turns (QC): 7 Walk 150 ft (QC): 7 Gait Level of Assist: 6 Gait Assistive Device: FWW Does the Pt use WC or Scooter?: No Stairs (FIM): 6 # of Steps: 12 1 Step (curb) (QC): 7 4 Steps (QC): 7 12 Steps (QC): 7 Stairs Level Of Assist: 6 Picking up an Object (QC): 7 PT Plan Problem List Problem List: Activity Tolerance, Functional Strength, Safety, Balance, Gait, Transfer, Bed Mobility Treatment/Plan Treatment Plan: Continue Plan of Care Treatment Plan: Bed Mobility, Concurrent Therapy, Education, Functional Activity [place], Functional Strength, Group Therapy, Gait, Safety, Therapeutic Exercise, Transfers Treatment Duration: Aug 14, 2018 Frequency: At least 5 of 7 days/Wk (IRF) Estimated Hrs Per Day: 1.5 hours per day Patient and/or Family Agrees t: Yes Safety Risks/Education Patient Education: Gait Training, Transfer Techniques, Correct Positioning, Safety Issues Teaching Recipient: Patient Teaching Methods: Demonstration, Discussion Response to Teaching: Reinforcement Needed Time/GCodes Time In: 0900 Time Out: 1000 Total Billed Treatment Time: 60 Total Billed Treatment 1 visit FA 15' EX 20' GT 25'' CHANDANA BANEGAS PT Jul 17, 2018 11:00
--- NOTE | 2018-07-17 12:02 | Occupational Ther Daily Note ---
OT Current Status-Daily Note Subjective Pt lying in bed , was sitting in recliner. Pt agree for OT. Pt's said he needs a shower today. When asked to the patient , he said yes I need a shower today. Pain Numeric Pain Scale: 0-No Pain Mental Status/Objective Patient Orientation: Person, Place, Time Therapy Code Descriptions/Definitions Functional [place] Measure: 0=Not Assessed/NA 4=Minimal Assistance 1=Total Assistance 5=Supervision or Setup 2=Maximal Assistance 6=Modified [place] 3=Moderate Assistance 7=Complete [place] Attachments: IV ADL-Treatment Pt walk with FWW with gait belt with SBA to the shower room. Transfered in to the bath Tub with min A & by holding grab bar. .Pt reached back & sits on bath bench with Min A. Pt undress Pajama & shirt & socks with min A . Pt needs max A in soaking bady , liquid soap & washing UB, LB chest, abdomen, back, buttock & perineal .Pt little confuse & was'nt able to hold shower-head in hand Or applying liquid soap on the body using wash rag. Pt needs max A in drying Upper & Lower body, back abdomen, chest, legs & buttocks, & mod A in LB dresssing & min A in UB dressing garments. Pt comb hairs with SBA. Participated in arm bike ex for 20 min & 25 reps x 2 sets x 2 lb wts, 30 reps with red theraband BUE in all planes of motion, Hand gripper ex to increase strength in Both hands . Pt & pt's been educated for safety precautions to prevent fall. Therapy Code Descriptions/Definitions Functional [place] Measure: 0=Not Assessed/NA 4=Minimal Assistance 1=Total Assistance 5=Supervision or Setup 2=Maximal Assistance 6=Modified [place] 3=Moderate Assistance 7=Complete [place] Therapy Quality Codes: 6 Independent with activity with or without an assistive device 5 Patient requires set up or clean up by helper. Patient completes activity by themselves 4 Supervision or touching assist (CGA). [place] provide cues , steadying assist 3 The helper provides less than half the effort to complete the activity 2 The helper provides more than half the effort to complete the activity 1 Dependent. The helper does all the effort to complete an activity 7 Patient refused to complete or attempt activity 9 The patient did not perform the activity before the current illness or injury 88 Not attempted due to Medical conditions or safety concerns Eating (FIM): 6 Eating (QC): 6 Grooming (FIM): 5 Oral Hygiene (QC): 5 Bathing (FIM): 2 Bathing Location: L Arm, R Arm, L Upper Leg, R Upper Leg, L Lower Leg ( including foot), R Lower Leg (including foot), Chest, Abdomen, Buttocks, Perineal Area Shower/Bathe Self (QC): 2 Upper Body (FIM): 4 Upper Body Dressing (QC): 4 Lower Body Dressing (FIM): 3 Lower Body Dressing (QC): 3 Transfers (B, C, W/C) (FIM): 5 Tub Transfer(FIM): 4 Shower Transfer(FIM): 4 Education OT Patient Education: Correct positioning, Instructions to caregiver, Safety issues, Transfer techniques Teaching Recipient: Patient, Family Teaching Methods: Demonstration, Discussion Response to Teaching: Verbalize Understanding OT Short Term Goals Short Term Goals Transfers (B,C,W/C) (FIM): 6 1=Demonstrate adherence to instructed precautions during ADL tasks. 2=Patient will verbalize/demonstrate understanding of assistive devices/ modifications for ADL. 3=Patient will improve strength/tolerance for activity to enable patient to perform ADL's. OT Safety Sitter Goals Residential Goals Time Frame: Aug 05, 2018 Eating (FIM): 6 Eating (QC): 6 Groomin Oral Hygiene (QC): 6 Bathing(FIM): 6 Shower/Bathe Self (QC): 6 Upper Body Dressing(FIM): 6 Upper Body Dressing (QC): 6 Lower Body Dressing(FIM): 6 Lower Body Dressing (QC): 6 On/Off Footwear (QC): 6 Toileting(FIM): 6 Toileting Hygiene (QC): 6 Toilet/Commode Transfer(FIM): 6 Toilet/Commode Transfer (QC): 6 Shower Transfer(FIM): 6 Additional Goals: 1-Demonstrate ADL Tasks, 2-Verbalize Understanding, 3- ImproveStrength/[place] 1=Demonstrate adherence to instructed precautions during ADL tasks. 2=Patient will verbalize/demonstrate understanding of assistive devices/ modifications for ADL. 3=Patient will improve strength/tolerance for activity to enable patient to perform ADL's. OT Education/Plan Problem List/Assessment Assessment: Decreased Activ Tolerance, Decreased Safety Aware, Decreased UE Strength, Dependent Transfers, Impaired Bed Mobility, Impaired Funct Balance, Impaired Self-Care Skills Pt to benefit from skilled OT intervention for ADL training, transfers, strengthening, and safety education to increase independence and allow safe discharge. Discharge Recommendations Plan/Recommendations: Continue POC Therapy D/C Recommendations: Home w/ Family Support, Occupational Therapy Home Care Equpiment Recommendations-D/C: Bath Chair, Extended Shower Sprayer, Crematory Operator Treatment Plan/Plan of Care Treatment,Training & Education: Yes Patient would benefit from OT for education, treatment and training to promote independence in ADL's, mobility, safety and/or upper extremity function for ADL' s. Plan of Care: ADL Retraining, Functional Mobility, Group Exercise/Act as Ind, UE Funct Exercise/Act Treatment Duration: Aug 05, 2018 Frequency: Modified Program (IRF) Estimated Hrs Per Day: 1.5 hours per day Agreement: Yes Rehab Potential: Good Time/GCodes Start Time: 10:00 (7194-6139 =90 min ) Stop Time: 13:30 (0206-4234 = 30 min) Total Time Billed (hr/min): 120 (90 min + 30 min = 120 min) Billed Treatment Time 1, ADLs 90 min, Ex 30 min 30 Total 120 min JEREMÍAS MACIAS OT Jul 17, 2018 12:02
--- NOTE | 2018-07-17 13:23 | ST Cognitive Linguistic Eval ---
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 He was independent for most of his daily needs. Subjective Patient was pleasant and cooperative during the cognitive evaluation. Language Eval: Auditory Comprehends Simple Yes/No Ques: Mild Indent/Objects Multiple Johnson: Functional Ident/Pics in Multiple Johnson: Functional Follows 1-Step Commands: Mild Follows Complex Directions: Moderate Follows General Conversations: Mild Language Eval: Verbal Language Completes Spontaneous Greeting: Functional Produces Auto, Serial Info: Mild Imitates Simple Words/Phrases: Functional Word Finding: Moderate Requests Basic Needs: Mild States Basic Personal Info: Moderate Expresses Complex Ideas: Moderate Objective Cognitive Domain Attention: Mild Memory: Moderate Problem Solving: Moderate Executive Functions: Moderate Objective Formal/Standardized Tests [facility] Cognitive/Communication Results Memory: Immediate 3/3, Delayed with cues 1/3, Orientation 2/5, Problem Solving: Simple 4/5, Complex 2/5, Auditory Processin/5 Oral Motor/Speech Production WIthin Functional Limits Impression Patient is a pleasant 78 year old man who was admitted to the ARU for skilled therapies post brain surgery. Patient was cooperative with clinician requests during the evaluation, He exhibits mild to moderate deficits in most areas of memory and problem solving. Patient is also noted to have difficulty with attention to task. Communication/Social Cognition Comprehension: 2 Speech-Plan Treatment Plan Rehab Potential: VISHNU Chandler Jul 17, 2018 13:23
--- NOTE | 2018-07-17 13:35 | ST Cognitive Linguistic Eval ---
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 Subjective Patient was pleasant and cooperative with the evaluation. Language Eval: Auditory Comprehends Simple Yes/No Ques: Mild Indent/Objects Multiple Johnson: Mild Ident/Pics in Multiple Johnson: Mild Follows 1-Step Commands: Functional Follows Complex Directions: Moderate Follows General Conversations: Mild Language Eval: Verbal Language Completes Spontaneous Greeting: Functional Produces Auto, Serial Info: Mild Imitates Simple Words/Phrases: Mild Word Finding: Moderate Requests Basic Needs: Mild States Basic Personal Info: Moderate Expresses Complex Ideas: Moderate Objective Cognitive Domain Attention: Moderate Memory: Moderate Problem Solving: Moderate Executive Functions: Moderate Objective Formal/Standardized Tests [facility] Cognitive-Communication Results Memory: Immediate 3/3, Delayed with cues /3, Orientation: 3/5, Problem Solving : Simple 4/5, Complex 2/5 Auditory Processin/5 Communication/Social Cognition Comprehension: 2 Expression: 2 Social Interaction: 5 Problem Solvin Memory: 2 Speech Patient Assess Expression of Ideas/Wants: Frequently (2) Understanding Verbal Content: Sometimes Understands(2) Brief Interview-Mental Status: Yes Repetition of Three Words: Two (2) Temporal Orientation: Year: Correct (3) Temporal Orientation: Day: Correct (1) Recall : Wear to say "Sock": Yes, no cue required (2) Recall : Color: Yes, after cueing (1) Recall : Bed: Yes,after cueing (1) Speech Short Term Goals Short Term Goals Short Term Goals 1) Patient will complete memory tasks at 80% or greater with minimal cues. 2) Patient willbe able to follow simple 2-3 step directions with 80% or greater with minimal cues. 3) Patient will be able to increase his attention to task with 80% or greater with minimal redirection. Speech Physical Therapist Goals Intermediate Goals Patient will increase cognitive communication skills for improved safety and independence. Speech-Plan Patient/Family Goals Patient/Family Goals: Patient plans to return home with his post rehab. Treatment Plan Speech Therapy Treatment Plan: Continue Plan of Care Patient is recommended for skilled therapy services. Treatment Duration: Jul 17, 2018 Frequency: 5 times per week Estimated Hrs Per Day: .5 hour per day Rehab Potential: Good Barriers to Learning: Patient has decreased cognition. Pt/Family Agrees to Plan: Yes Safety Risks/Education Teaching Recipient: Patient, Significant Other Teaching Methods: Discussion Response to Teaching: Verbalize Understanding Education Topics Provided: Safety within his room. Time Speech Therapy Time In: 11:30 Speech Therapy Time Out: 11:45 Total Billed Time: 15 Billed Treatment Time 1, VISHNU Kennedy Jul 17, 2018 13:35
--- NOTE | 2018-07-17 14:36 | Physical Therapy Daily Note ---
PT Daily Note-Current Subjective Pt sitting in Therapy Gym after just finishing OT tx. upon arrival. Pt agrees to PT. Pt is easily distracted and needs VC to stay on task per dx. Pain Location: No Pain Reported Mental Status Patient Orientation: Person, Confused Transfers Therapy Code Descriptions/Definitions Functional [place] Measure: 0=Not Assessed/NA 4=Minimal Assistance 1=Total Assistance 5=Supervision or Setup 2=Maximal Assistance 6=Modified [place] 3=Moderate Assistance 7=Complete [place] Therapy Quality Codes: 6 Independent with activity with or without an assistive device 5 Patient requires set up or clean up by helper. Patient completes activity by themselves 4 Supervision or touching assist (CGA). [place] provide cues , steadying assist 3 The helper provides less than half the effort to complete the activity 2 The helper provides more than half the effort to complete the activity 1 Dependent. The helper does all the effort to complete an activity 7 Patient refused to complete or attempt activity 9 The patient did not perform the activity before the current illness or injury 88 Not attempted due to Medical conditions or safety concerns Scootin Rollin Supine to/from Sit: 3 Sit to/from Stand: 4 Sit to Lying (QC): 4 Sit to Stand (QC): 4 Weight Bearing Right Lower Extremity: Right Full Weight Bearing Left Lower Extremity: Left Full Weight Bearing Gait Training Does the Patient Walk?: Yes Distance (FIM): 7=699-81 ft Distance: 100' Walk 10 feet (QC): 4 Walk 50 ft with 2 Turns(QC): 4 Gait Level of Assist: 4 Gait Persons Needed: 1 Gait Assistive Device: FWW Pt needs VC to stay on task or redirect. Wheelchair Training Does the Pt Use a Wheelchair?: No Exercises Supine Ex: Ankle pumps, Quad Set, Glut sets, Heel Slides, Straight leg raise, Hip abd/add Supine Reps: 15 Treatments Pt transfers from chair to standing and ambulates to EOM in Therapy Gym. Pt transfers to Supine on mat and completes Supine Ex with VC and at times AAROM. Pt transfers to standing and ambulates back to room. Wound Care & Nurse check pt's sacral wound. Pt transfers back to Supine in bed at end of tx with all needs met. Assessment Current Status: Fair Progress Pt is confused and needs redirection to complete tasks due to cognitive status of dx. PT Short Term Goals Short Term Goals Time Frame: Jul 29, 2018 Transfers (B,C,W/C) (FIM): 6 Gait (FIM): 6 Distance (FIM): 3=150 ft Gait Distance Comment: 350' Gait Level of Assist: 6 Gait Assistive Device: FWW Stairs (FIM): 6 # of Steps: 4 Stairs Level of Assist: 6 PT Axle Turner Goals Mcfp Goals PT Mcfp Goals Time Frame: Aug 14, 2018 Transfers (B,C,W/C) (FIM): 7 Sit to Lying (QC): 7 Lying-Sitting on Side/Bed(QC): 7 Sit to Stand (QC): 7 Rollin Roll Left to Right (QC): 7 Chair/Tkv-po-Dcrdm Xfer(QC): 7 Car Transfer (QC): 7 Does the Patient Walk: Yes Gait (FIM): 6 Gait distance (FIM): 3=150 ft Distance: 1000' Walk 10 feet (QC): 7 Walk 10ft-Uneven Surface(QC): 7 Walk 50ft with 2 Turns (QC): 7 Walk 150 ft (QC): 7 Gait Level of Assist: 6 Gait Assistive Device: FWW Does the Pt use WC or Scooter?: No Stairs (FIM): 6 # of Steps: 12 1 Step (curb) (QC): 7 4 Steps (QC): 7 12 Steps (QC): 7 Stairs Level Of Assist: 6 Picking up an Object (QC): 7 PT Plan Problem List Problem List: Activity Tolerance, Functional Strength, Safety, Balance, Gait, Transfer Treatment/Plan Treatment Plan: Continue Plan of Care Treatment Plan: Bed Mobility, Concurrent Therapy, Education, Functional Activity [place], Functional Strength, Group Therapy, Gait, Safety, Therapeutic Exercise, Transfers Treatment Duration: Aug 14, 2018 Frequency: At least 5 of 7 days/Wk (IRF) Estimated Hrs Per Day: 1.5 hours per day Patient and/or Family Agrees t: Yes Safety Risks/Education Patient Education: Gait Training, Transfer Techniques, Correct Positioning, Safety Issues Teaching Recipient: Patient Teaching Methods: Discussion Response to Teaching: Reinforcement Needed Time/GCodes Time In: 1330 Time Out: 1415 Total Billed Treatment Time: 45 Total Billed Treatment 1, EX (20m), GT (15m) & FA (10m) G Codes Necessary: BAILEY Dick ACOUSTICAL INSTALLER Jul 17, 2018 14:36
--- NOTE | 2018-07-17 16:13 | NUR ---
Pastoral care visit. I shared with pt the availability and support of Chaplains.
--- NOTE | 2018-07-17 17:58 | OPERATIVE REPORT ---
DATE OF SERVICE: 07/17/2018 PREOPERATIVE DIAGNOSIS: Urinary retention. POSTOPERATIVE DIAGNOSIS: Urinary retention. OPERATION PERFORMED: Cystoscopy. SURGEON: Esteban Cervantes MD. ANESTHESIA: Local. COMPLICATIONS: None. DESCRIPTION OF PROCEDURE: With the patient supine in his bed after removing the catheter, the genitalia were prepped and draped in the usual sterile fashion. The urethra was infiltrated with 2% lidocaine jelly and a penile clamp was applied. This was then removed and a flexible cystoscope was introduced under vision. Anterior urethra was normal. The prostate was somewhat enlarged not significantly with some bladder neck obstruction. Bladder revealed some trabeculation. Ureteric orifices were normal. No foreign body, bladder tumor or stone visualized. Cystoscopy confirmed an antegrade fashion. The cystoscope was removed. The patient tolerated the procedure and anesthesia well and remained in his bed in stable condition. I went ahead and examined him. The phallus has adequate meatus, uncircumcised, testes down the scrotum. He has a right inguinal hernia. Rectal exam; flat, benign, nontender elastic prostate. PLAN: Continue Flomax. Trial of voiding and manage accordingly. Plans were explained to the patient and his . Job ID: [id number] DocumentID: [id number] Dictated Date: 07/17/2018 10:26:02 Television Cabinet Finisher Date: 07/17/2018 17:57:33 Dictated By: ESTEBAN CERVANTES MD
[2018-07-17 18:00] VITALS: BP 142/74
--- NOTE | 2018-07-17 19:41 | Individualized Plan of Care ---
Individualized Plan of Care Rehab Nursing IPOC Order Admission Date Jul 14, 2018 at 21:28 Current Orders Orders Admission Order(Inpt,Obs,Sdc) (07/14/18 17:42) Vital Signs: Routine (Order) 08,16,00 (07/14/18 17:42) Film Composer-Inpt Rehab Con (07/14/18 17:42) Rehab Nursing Orders-Ipoc (07/14/18 17:42) Physical Therapy Rehab Orders (07/14/18 17:42) Occupational Therapy Rehab Ord (07/14/18 17:42) Speech Therapy Rehab Orders (07/14/18 17:42) Intake & Output 06,14,22 (07/14/18 17:42) Precautions (Aru) (07/14/18 17:42) Weekly Weight (Lbs) WEEK (07/14/18 17:42) Rehab-Intensity Of Therapy (07/14/18 17:42) Initiate Admission Nursing Pro .admission (07/14/18 17:42) Acetaminophen Tablet (Tylenol Tablet) (07/14/18 17:45) Alprazolam Tablet (Xanax Tablet) (07/14/18 17:45) Calcium Carbonate Chew Tablet (Antacid C (07/14/18 17:45) Diphenhydramine Tablet (Benadryl Tablet) (07/14/18 17:45) Docusate Sodium Capsule (Colace Capsule) (07/14/18 17:45) Loperamide Capsule (Imodium Capsule) (07/14/18 17:45) Melatonin Tablet (Melatonin Tablet) (07/14/18 17:45) Ondansetron Oral Dissolve Tab (Zofran (07/14/18 17:45) Cbc With Automated Diff (07/15/18 06:00) Comprehensive Metabolic Panel (07/15/18 06:00) Meropenem (Merrem 1000 Mg) (07/14/18 22:45) Minocycline (Non-Formulary) (Minocin (No (07/15/18 12:15) Potassium Chloride (Tablet) (K Dur Table (07/15/18 08:00) (Nf) Florastor (07/15/18 09:00) (Nf) Sodium Chloride (07/15/18 09:00) Tamsulosin Capsule (Flomax Capsule) (07/15/18 18:00) (Nf) Tolvaptan (07/15/18 09:00) (Nf) Bactrim (07/15/18 06:00) General/Regular (07/15/18 Breakfast) Ensure Plus (07/15/18 Breakfast) Meropenem (Merrem 1000 Mg) (07/15/18 06:00) Ambulate 08,12,20 (07/15/18 00:55) Sequential Compression Device 08,20 (07/15/18 00:55) Dvt/Vte Risk - Notifiy Physici 08 (07/15/18 00:55) Activity As Ordered (07/15/18 02:12) Nursing Communication (Order) (07/15/18 02:12) Rt Request For Service (07/15/18 02:12) Manual Differential (07/15/18 06:25) Sulfamethoxazole/Trimetho Inj (Bactrim I (07/15/18 08:00) Lactobacillus Acidophilus Cap (Acidophil (07/15/18 17:00) Patient May Use Own Med,Single (Patient (07/15/18 11:15) Na Chloride Tab (Non-Formulary (Sodium C (07/15/18 13:00) (Nf) Tolvaptan (07/15/18 12:00) Patient Visit (07/15/18 ) Pt Eval Low Complexity (07/15/18 ) Functional Activities, Ea 15 (07/15/18 ) Gait Training, Ea 15 Min (07/15/18 ) Exercise Therap, Ea 15 Min (07/15/18 ) Consult Physician (07/15/18 14:21) Cbc With Automated Diff (07/16/18 06:00) Comprehensive Metabolic Panel (07/16/18 06:00) Consult Physician (07/15/18 14:21) Iron Test (Fe) (07/15/18 14:22) Ekg Tracing (07/15/18 14:36) Echo W Doppler/Color Flow (07/16/18 06:00) Consult Cardiology (07/15/18 19:18) Consent-Obtain Consent For (07/16/18 11:12) Preop Checklist (07/16/18 11:12) Mrsa Screen (Icu,Preop,Cath) (07/16/18 19:53) Pastoral Consult (07/16/18 14:31) Lidocaine 2% (Urojet) (Xylocaine Urojet) (07/17/18 08:18) Patient Visit (07/17/18 ) Gait Training, Ea 15 Min (07/17/18 ) Functional Activities, Ea 15 (07/17/18 ) Exercise Therap, Ea 15 Min (07/17/18 ) Patient Visit (07/17/18 ) Speech Sound Lang Comp (07/17/18 ) Patient Visit (07/17/18 ) Exercise Therap, Ea 15 Min (07/17/18 ) Gait Training, Ea 15 Min (07/17/18 ) Functional Activities, Ea 15 (07/17/18 ) Straight Cath (Urinary) (07/17/18 17:51) Tamsulosin Capsule (Flomax Capsule) (07/17/18 18:00) Loratadine Tablet (Claritin Tablet) (07/17/18 21:00) Cbc With Automated Diff (07/18/18 06:00) Comprehensive Metabolic Panel (07/18/18 06:00) Rehab Nursing Orders: Ongoing Assess. of Function Status, Bladder Management, Bladder Scan, Bladder Training, Bowel Management, Bowel Training, Disease Management & Educaiton, DVT Prophylaxis, Fall Prevention, Fluid/Electrolyte/ Nutrition Mgmt, Infection Prevention, Medication Management & Education, Management of Skin Intergrity, Nutrition Management, Pain Management, Patient/ Family Support, Safety Management Intensity of Therapy to be met Patient to be seen: Min.3h per day/5 of 7d PT IPOC Problem List: Activity Tolerance, Functional Strength, Safety, Balance, Gait, Transfer Treatment Plan: Continue Plan of Care Bed Mobility, Concurrent Therapy, Education, Functional Activity [place], Functional Strength, Group Therapy, Gait, Safety, Therapeutic Exercise, Transfers Treatment Duration: Aug 14, 2018 Frequency: At least 5 of 7 days/Wk (IRF) Estimated Hrs Per Day: 1.5 hours per day OT IPOC Problems: Decreased Activ Tolerance, Decreased Safety Aware, Decreased UE Strength, Dependent Transfers, Impaired Bed Mobility, Impaired Funct Balance, Impaired Self-Care Skills OT Treatment, Training and Edu: Yes OT Problems Pt to benefit from skilled OT intervention for ADL training, transfers, strengthening, and safety education to increase independence and allow safe discharge. Plan of Care: ADL Retraining, Functional Mobility, Group Exercise/Act as Ind, UE Funct Exercise/Act Treatment Duration: Aug 05, 2018 Frequency: Modified Program (IRF) Estimated Hrs Per Day: 1.5 hours per day [facility] Speech Therapy Treatment Plan: Continue Plan of Care Treatment Duration: Jul 17, 2018 Frequency: 5 times per week Estimated Hrs Per Day: .5 hour per day Film Composer/Case Mgmt Film Composer/Case Managemen: Discharge Planning Dietitian/Salt Plant Operator Dietitian/Salt Plant Operator to monitor nutritional status and make changes and/or recommendations as needed and work with speech pathology on dietary upgrades as the occur. Physician [facility] Medical Issues being managed closely and that require the 24 hour availability of a physician: IV medication for infectious process along with bladder issues with urinary retention in addition to confusion with fall risk and poor nutrition and loss of appetite Medical Issues: Bowel/Bladder Function, DVT Prophylaxis, Falls Precautions, Fluid/Electrolyte/Nutrition Balance, Infection Protection, Pain Management Brief Synthesis of Preadmission Screen, Post-Admission Evaluation, and Therapy Evaluations: Physical therapy will work on ambulation and gait strengthening Occupational therapy will improve independent ADL function Speech therapy will work on cognition Medical Prognosis: Good Anticipated Length of Stay: 20 days GERTRUDIS HERNANDES DO Jul 17, 2018 19:41
--- NOTE | 2018-07-17 20:41 | NUR ---
Shift Summary: At Approximately 1600, Patient had not voided post catheter removal by Dr. Monroe. Bladder scan shows [address] Monroe gave orders to straight cath patient and increase Flomax to two tabs. 475 cc drained from bladder via straight cath at approx 1730. Patient has not had very much intake this shift. Staff and family have encouraged patient to drink and eat, without success. Alerted Dr. Guevara. Patient showing redness to arms and legs without fever, Dr. Guevara notified, orders received to start Claritin BID. Patient is confused intermittently and does not always answer questions appropriately. At times, is able to discern where he is at and why.
[2018-07-17] MEDS: TAMSULOSIN 0.4 MG (FLOMAX) CAP PO SCH (21:19)
[2018-07-17] MEDS: LORATADINE (CLARITIN) 10 MG TAB PO SCH (21:19)
--- NOTE | 2018-07-18 02:44 | NUR ---
Notified Dr. Monroe that patient had some incontinence and voided 100 ml in urinal but bladder scan still estimated > 900 ml. Order received to straight cath PRN. Patient straight cathed using sterile technique. 925 ml of clear julián urine obtained. Patient tolerated procedure well.
[2018-07-18] MEDS: MEROPENEM 1,000 MG in NS (IVPB) 100 ML IV SCH (05:42)
[2018-07-18] MEDS: LACTOBACILLUS ACIDOPHILUS (PROBIOTIC) CAPSULE PO SCH ×2 (05:43→16:28)
[2018-07-18 06:01] VITALS: BP 148/75
[2018-07-18 06:04] LABS: BASOPHILS % (AUTO) 0 % (0-10); EOSINOPHILS # (AUTO) 0.3 10^3/uL (0.0-0.3); EOSINOPHILS % (AUTO) 11 % (0-10); HEMATOCRIT 25 % (40-54); HEMOGLOBIN 8.1 G/DL (13.3-17.7); LYMPHOCYTES # (AUTO) 0.3 X 10^3 (1.0-4.0); LYMPHOCYTES % (AUTO) 13 % (12-44); MEAN CORPUSCULAR HEMOGLOBIN 26 PG (25-34); MEAN CORPUSCULAR HGB CONC 32 G/DL (32-36); MEAN CORPUSCULAR VOLUME 79 FL (80-99); MONOCYTES # (AUTO) 0.2 X 10^3 (0.0-1.0); MONOCYTES % (AUTO) 10 % (0-12); NEUTROPHILS # (AUTO) 1.5 X 10^3 (1.8-7.8); NEUTROPHILS % (AUTO) 66 % (42-75); PLATELET COUNT 155 10^3/uL (130-400); RED CELL DISTRIBUTION WIDTH 27.7 % (10.0-14.5); WHITE BLOOD COUNT 2.3 10^3/uL (4.3-11.0)
[2018-07-18 06:26] LABS: ALANINE AMINOTRANSFERASE 58 U/L (0-55); ALBUMIN 2.7 GM/DL (3.2-4.5); ALKALINE PHOSPHATASE 73 U/L (40-136); BILIRUBIN,TOTAL 0.4 MG/DL (0.1-1.0); BUN/CREATININE RATIO 15; CALCIUM 7.8 MG/DL (8.5-10.1); CARBON DIOXIDE 23 MMOL/L (21-32); CHLORIDE 97 MMOL/L (98-107); CREATININE SERUM 0.71 MG/DL (0.60-1.30); GFR ESTIMATED > 60; GLUCOSE 90 MG/DL (70-105); SODIUM 129 MMOL/L (135-145); TOTAL PROTEIN 5.8 GM/DL (6.4-8.2)
--- NOTE | 2018-07-18 08:30 | NUR ---
PATIENT DENIED NEEDING TO VOID, BUT WALKED TO BATHROOM TO TRY TO. UNABLE TO VOID. BLADDER SCANNER SHOWS 301 CC.
[2018-07-18] MEDS: LORATADINE (CLARITIN) 10 MG TAB PO SCH ×2 (08:39→21:14)
[2018-07-18] MEDS: MINOCYCLINE 100 MG TABLET (NON-FORMULARY) PO SCH ×2 (08:39→21:15)
[2018-07-18] MEDS: SODIUM CHLORIDE 1 GM TAB (NON-FORMULARY) PO SCH ×3 (08:39→21:14)
[2018-07-18] MEDS: TRIMETHO IV SCH ×3 (08:41→23:41)
[2018-07-18] MEDS: D5W IV SCH ×3 (08:41→23:41)
[2018-07-18] MEDS: SULFAMETHOXAZOLE IV SCH ×3 (08:41→23:41)
[2018-07-18] MEDS: KCL 20 MEQ TAB (K-DUR) PO SCH (08:49)
--- NOTE | 2018-07-18 09:09 | Speech Therapy Daily Note ---
Speech Daily Progress Note Subjective Date Seen by Provider: Jul 18, 2018 Time Seen by Provider: 00:30 Patient exhibited increased level of alert and orientation this am. Objective Patient was able to follow simple directions with 80% accuracy given minimal cues. Assessment Assessment Current Status: Good Progress Treatment Plan Continue Plan of Care Communication Comprehension: 2 Expression: 2 Social Cognition Social Interaction: 5 Problem Solvin Memory: 2 Speech Short Term Goals Short Term Goals Short Term Goals 1) Patient will complete memory tasks at 80% or greater with minimal cues. 2) Patient willbe able to follow simple 2-3 step directions with 80% or greater with minimal cues. 3) Patient will be able to increase his attention to task with 80% or greater with minimal redirection. Speech Shelter Goals Fiberglass Boat Maker Goals Patient will increase cognitive communication skills for improved safety and independence. Speech-Plan Patient/Family Goals Patient/Family Goals: Patient plans to return home with his post rehab. Treatment Plan Speech Therapy Treatment Plan: Continue Plan of Care Patient is making progress as a result of skilled ST services. Treatment Duration: Jul 21, 2018 Frequency: 5 times per week Estimated Hrs Per Day: .5 hour per day Rehab Potential: Good Barriers to Learning: Patient has some memory deficit. Pt/Family Agrees to Plan: Yes Safety Risks/Education Teaching Recipient: Patient Teaching Methods: Discussion Response to Teaching: Verbalize Understanding Education Topics Provided: Safety within his room and utilization of call light. Time Speech Therapy Time In: 08:30 Speech Therapy Time Out: 09:00 Total Billed Time: 30 Billed Treatment Time 1, VISHNU Merrill Jul 18, 2018 09:09
--- NOTE | 2018-07-18 09:31 | PM&R Progress Note ---
Subjective HPI/CC On Admission Date Seen by Provider: Jul 18, 2018 Time Seen by Provider: 09:00 CC: Brain abscess status post craniotomy HPI: This is a 78-year-old white male clinic patient of in [facility] who presents from [facility] after admitted on 06/29/18 from [facility] then [facility] for renal abscess on the left then diagnosed brain abscess status post craniotomy and diagnosed Nocardia infection UTI and brain abscess. He was seen by multiple consultants while hospitalized and [place] and is currently in need of antibiotics for an additional 34 days and intense rehabilitation with physical therapy. He still remains with a Dhaliwal catheter in place and I consulted Dr. Monroe to facilitate retention resolution. I have also contacted cardiology for elevated BNP and right bundle branch block. I have also asked for Dr. Fenton for consultation for neutropenia and anemia. I have added on iron level. We're in the midst of reconciliation of home medications including IV antibiotics and nocardia treatment. 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 Monroe consulted and Pt needed a catheter in and out type but failed that Pt denies pains Pt is walking around with physical therapy good Confusion persists Review of Systems General: Fatigue Genitourinary: Retention Objective Exam Vital Signs Vital Signs Date Time Temp Pulse Resp B/P (MAP) Pulse Ox O2 Delivery O2 Flow Rate FiO2 07/18/18 18:00 98.2 107 20 133/73 (93) 93 Room Air Capillary Refill : General Appearance: No Apparent Distress, WD/WN, Chronically ill, Cachetic, Thin HEENT: PERRL/EOMI, Normal ENT Inspection, Pharynx Normal, Moist Mucous Membranes Neck: Full Range of Motion, Normal Inspection, Non Tender, Supple Respiratory: Chest Non Tender, Lungs Clear, Normal Breath Sounds, No Accessory Muscle Use, No Respiratory Distress Cardiovascular: Regular Rate, Rhythm, No Edema, No Gallop, No JVD, No Murmur Gastrointestinal: Normal Bowel Sounds, No Organomegaly, No Pulsatile Mass, Non Tender, Soft Rectal: Normal Exam, Normal Rectal Tone Genital/Rectal: Normal Genital Exam, Normal Rectal Exam, Normal Rectal Tone, Normal Vaginal Exam, Other (dhaliwal cath in place) Back: Normal Inspection, No CVA Tenderness, No Vertebral Tenderness Extremity: Normal Capillary Refill, Normal Inspection, Normal Range of Motion, Non Tender, No Calf Tenderness, No Pedal Edema Neurologic/Psychiatric: Alert, Oriented x3, No Motor/Sensory Deficits, Normal Mood/Affect, Disoriented (subtle) Skin: Normal Color, Warm/Dry Lymphatic: No Adenopathy Results/Procedures Lab Laboratory Tests 07/18/18 05:55 Patient resulted labs reviewed. Assessment/Plan Assessment and Plan Assess & Plan/Chief Complaint Assessment: Status post craniotomy Brain abscess Kidney abscess Nocardia infection Urinary retention Dhaliwal catheter in place Right bundle branch block Elevated BNP Neutropenia Anemia Hyponatremia Frail status Plan: Monitor labs Cardiology consultation is appreciated Urology consultation is appreciated Hematology consultation is appreciated IV abx Monitor closely Cath replaced today since failed in/out cath (1) Brain abscess (2) Nocardia infection (3) Pyelonephritis (4) Renal abscess (5) Neutropenia (6) Anemia (7) Hyponatremia (8) Weakness acquired in ICU (9) UTI (urinary tract infection) (10) PICC (peripherally inserted central catheter) in place (11) Urinary retention (12) Dhaliwal catheter in place (13) Right bundle branch block (14) Elevated brain natriuretic peptide (BNP) level (15) Cerebral edema (16) Focal neurological deficit (17) S/P craniotomy Clinical Quality Measures DVT/VTE Risk/Contraindication: Risk Factor Score Per Nursin RFS Level Per Nursing on Admit: 4+=Very High GERTRUDIS HERNANDES DO Jul 18, 2018 09:31
--- NOTE | 2018-07-18 09:56 | Physical Therapy Daily Note ---
PT Daily Note-Current Subjective Patient in bed pre tx, no complaints of pain, doesn't want to participate in therapy. Patient wants therapist to help get him more comfortable in bed, doesn 't seem to understand that it is time for physical therapy. A lot of encouragement is required to get patient to participate and just sit up in bed. Needs dressed lowers, min assist. Appearance Patient in recliner post tx with nurse call, phone, tray, chair alarm on. Mental Status Patient Orientation: Person, Confused Attachments: IV Transfers Therapy Code Descriptions/Definitions Functional [place] Measure: 0=Not Assessed/NA 4=Minimal Assistance 1=Total Assistance 5=Supervision or Setup 2=Maximal Assistance 6=Modified [place] 3=Moderate Assistance 7=Complete [place] Therapy Quality Codes: 6 Independent with activity with or without an assistive device 5 Patient requires set up or clean up by helper. Patient completes activity by themselves 4 Supervision or touching assist (CGA). [place] provide cues , steadying assist 3 The helper provides less than half the effort to complete the activity 2 The helper provides more than half the effort to complete the activity 1 Dependent. The helper does all the effort to complete an activity 7 Patient refused to complete or attempt activity 9 The patient did not perform the activity before the current illness or injury 88 Not attempted due to Medical conditions or safety concerns Transfers (B, C, W/C) (FIM): 4 Scootin Rollin Supine to/from Sit: 4 Sit to/from Stand: 4 Bed to/from Chair: 4 Min assist for supine to sit, CGA for transfers. Patient needs cues for safety , poor hand positioning during transfers. Weight Bearing Right Lower Extremity: Right Full Weight Bearing Left Lower Extremity: Left Full Weight Bearing Gait Training Gait (FIM): 4 Distance: 200'x2 Gait Level of Assist: 4 Gait Persons Needed: 1 Gait Assistive Device: FWW Patient ambulates very slowly, tends to drift to the left side, needs constant cues for direction. No nausea today. Exercises NuStep Minutes: 15 NuStep Workload: 4 Treatments bed mobility and transfers, ambulation, functional strengthening Assessment Current Status: Poor Progress Patient seems more confused today and more resistant to participating in therapy , he need constant encouragement to participate and to stay on task. Needs extra time to complete any activity. PT Short Term Goals Short Term Goals Time Frame: Jul 29, 2018 Transfers (B,C,W/C) (FIM): 6 Gait (FIM): 6 Distance (FIM): 3=150 ft Gait Distance Comment: 350' Gait Level of Assist: 6 Gait Assistive Device: FWW Stairs (FIM): 6 # of Steps: 4 Stairs Level of Assist: 6 PT Half-Way Goals Syruper Goals PT Syruper Goals Time Frame: Aug 14, 2018 Transfers (B,C,W/C) (FIM): 7 Sit to Lying (QC): 7 Lying-Sitting on Side/Bed(QC): 7 Sit to Stand (QC): 7 Rollin Roll Left to Right (QC): 7 Chair/[id number] Xfer(QC): 7 Car Transfer (QC): 7 Does the Patient Walk: Yes Gait (FIM): 6 Gait distance (FIM): 3=150 ft Distance: 1000' Walk 10 feet (QC): 7 Walk 10ft-Uneven Surface(QC): 7 Walk 50ft with 2 Turns (QC): 7 Walk 150 ft (QC): 7 Gait Level of Assist: 6 Gait Assistive Device: FWW Does the Pt use WC or Scooter?: No Stairs (FIM): 6 # of Steps: 12 1 Step (curb) (QC): 7 4 Steps (QC): 7 12 Steps (QC): 7 Stairs Level Of Assist: 6 Picking up an Object (QC): 7 PT Plan Problem List Problem List: Activity Tolerance, Functional Strength, Safety, Balance, Gait, Transfer, Bed Mobility Treatment/Plan Treatment Plan: Continue Plan of Care Treatment Plan: Bed Mobility, Concurrent Therapy, Education, Functional Activity [place], Functional Strength, Group Therapy, Gait, Safety, Therapeutic Exercise, Transfers Treatment Duration: Aug 14, 2018 Frequency: At least 5 of 7 days/Wk (IRF) Estimated Hrs Per Day: 1.5 hours per day Patient and/or Family Agrees t: Yes Safety Risks/Education Patient Education: Gait Training, Transfer Techniques, Correct Positioning, Safety Issues Teaching Recipient: Patient Teaching Methods: Demonstration, Discussion Response to Teaching: Reinforcement Needed Time/GCodes Time In: 0900 Time Out: 1000 Total Billed Treatment Time: 60 Total Billed Treatment 1 visit GT 20' EX 15' FA 25' CHANDANA BANEGAS PT Jul 18, 2018 09:56
--- NOTE | 2018-07-18 10:45 | NUR ---
STILL UNABLE TO VOID AND WILL NOT TRY TO. BLADDER SCANNER SHOWS 550 CC. ATTEMPTED TO STRAIGHT CATH, BUT MET A LARGE AMOUNT OF RESISTANCE AND UNABLE TO. DR. CERVANTES NOTIFIED.
--- NOTE | 2018-07-18 11:03 | Progress Note-Urology ---
Progress Note-Urology Progress Notes/Assess & Plan Progress/Assessment & Plan UNABLE TO VOID ON HIS OWN NEEDING CATH. FLOMAX INCREASED TO 2 A DAY. PLAN INSERT SINGLETARY AND START URECHOLINE CHAVA CERVANTES MD Jul 18, 2018 11:03
--- NOTE | 2018-07-18 11:58 | Occupational Ther Daily Note ---
OT Current Status-Daily Note Subjective Pt in recliner & agree for OT . " Pt stated , I dont want shower today. Pt ready for sponge bath." Pain Numeric Pain Scale: 0-No Pain Mental Status/Objective Patient Orientation: Person, Place, Normal For Age Therapy Code Descriptions/Definitions Functional [place] Measure: 0=Not Assessed/NA 4=Minimal Assistance 1=Total Assistance 5=Supervision or Setup 2=Maximal Assistance 6=Modified [place] 3=Moderate Assistance 7=Complete [place] ADL-Treatment Patient participated in sponge bath. Pt wiped his body with warm READY-BATH Wipes UB & LB, around neck, abdomen, chest, back, perineal & buttock. Don shirt with CGA -Mod I , Pt comb hairs with set up. Sit to stand with SBA & ambulate with FWW to bed . Pt got in bed with SBA . Charge Nurse came & told patient that a Doctor is going to place dhaliwal's catheter now . Pt will be seen again by OT in afternoon after placement of Catheter. Afternoon session. Pt been positioned in recliner with comfortable position . Pt performed 30 reps x 2 sets x 2 lb wts ,, 30 reps with each arm using Hand gripper to strengthen hand resident care associate & 30 reps with red theraband in all planes of motion. Therapy Code Descriptions/Definitions Functional [place] Measure: 0=Not Assessed/NA 4=Minimal Assistance 1=Total Assistance 5=Supervision or Setup 2=Maximal Assistance 6=Modified [place] 3=Moderate Assistance 7=Complete [place] Therapy Quality Codes: 6 Independent with activity with or without an assistive device 5 Patient requires set up or clean up by helper. Patient completes activity by themselves 4 Supervision or touching assist (CGA). [place] provide cues , steadying assist 3 The helper provides less than half the effort to complete the activity 2 The helper provides more than half the effort to complete the activity 1 Dependent. The helper does all the effort to complete an activity 7 Patient refused to complete or attempt activity 9 The patient did not perform the activity before the current illness or injury 88 Not attempted due to Medical conditions or safety concerns Eating (FIM): 7 Eating (QC): 6 Grooming (FIM): 6 Oral Hygiene (QC): 6 Bathing (FIM): 4 Bathing Location: L Arm, R Arm, L Upper Leg, R Upper Leg, L Lower Leg ( including foot), R Lower Leg (including foot), Chest, Abdomen, Buttocks, Perineal Area Shower/Bathe Self (QC): 4 Upper Body (FIM): 5 Upper Body Dressing (QC): 5 Lower Body Dressing (FIM): 4 Lower Body Dressing (QC): 4 On/Off Footwear (QC): 4 Toileting (FIM): 4 Toileting Hygiene (QC): 4 Transfers (B, C, W/C) (FIM): 5 Toilet/Commode Transfer (FIM): 5 Toilet Transfer (QC): 5 Tub Transfer(FIM): 4 Shower Transfer(FIM): 4 Education OT Patient Education: Correct positioning, Safety issues Teaching Recipient: Patient Teaching Methods: Demonstration Response to Teaching: Verbalize Understanding OT Short Term Goals Short Term Goals Transfers (B,C,W/C) (FIM): 6 1=Demonstrate adherence to instructed precautions during ADL tasks. 2=Patient will verbalize/demonstrate understanding of assistive devices/ modifications for ADL. 3=Patient will improve strength/tolerance for activity to enable patient to perform ADL's. OT Correction Goals Trim Setter Helper Goals Time Frame: Aug 05, 2018 Eating (FIM): 6 Eating (QC): 6 Groomin Oral Hygiene (QC): 6 Bathing(FIM): 6 Shower/Bathe Self (QC): 6 Upper Body Dressing(FIM): 6 Upper Body Dressing (QC): 6 Lower Body Dressing(FIM): 6 Lower Body Dressing (QC): 6 On/Off Footwear (QC): 6 Toileting(FIM): 6 Toileting Hygiene (QC): 6 Toilet/Commode Transfer(FIM): 6 Toilet/Commode Transfer (QC): 6 Shower Transfer(FIM): 6 Additional Goals: 1-Demonstrate ADL Tasks, 2-Verbalize Understanding, 3- ImproveStrength/[place] 1=Demonstrate adherence to instructed precautions during ADL tasks. 2=Patient will verbalize/demonstrate understanding of assistive devices/ modifications for ADL. 3=Patient will improve strength/tolerance for activity to enable patient to perform ADL's. OT Education/Plan Problem List/Assessment Assessment: Decreased Activ Tolerance, Decreased Safety Aware, Decreased UE Strength, Dependent Transfers, Impaired Bed Mobility, Impaired Funct Balance, Impaired Self-Care Skills Pt to benefit from skilled OT intervention for ADL training, transfers, strengthening, and safety education to increase independence and allow safe discharge. Discharge Recommendations Plan/Recommendations: Continue POC Therapy D/C Recommendations: Home w/ Family Support, Occupational Therapy Home Care Equpiment Recommendations-D/C: Bath Chair, Extended Shower Sprayer, Retirement Sales Consultant Patient/Family Goals To return home with spouse Independently. Treatment Plan/Plan of Care Treatment,Training & Education: Yes Patient would benefit from OT for education, treatment and training to promote independence in ADL's, mobility, safety and/or upper extremity function for ADL' s. Plan of Care: ADL Retraining, Functional Mobility, Group Exercise/Act as Ind, UE Funct Exercise/Act Treatment Duration: Aug 05, 2018 Frequency: Modified Program (IRF) Estimated Hrs Per Day: 1.5 hours per day Agreement: Yes Rehab Potential: Good Time/GCodes Start Time: 10:00 (10:00 am-11:00am) Stop Time: 13:30 (1980-7770 = 30 min ) Total Time Billed (hr/min): 90 Billed Treatment Time 1, ADLs x 60 min , Ex 30 min. Total 90 min. JEREMÍAS MACIAS OT Jul 18, 2018 11:58
--- NOTE | 2018-07-18 12:10 | NUR ---
DR. CERVANTES HERE TO SEE PATIENT AND INSERTED #16 FR. SINGLETARY CATHETER TO DEPENDENT DRAINAGE. DERIAN'D WITH DR. HERNANDES FOR PATIENT TO START ON URECHOLINE.
--- NOTE | 2018-07-18 13:57 | Physical Therapy Daily Note ---
PT Daily Note-Current Subjective Patient in recliner pre tx, at first refuses stating that he was doing things his way and that he was backwards from everyone else and he would get stronger without therapy. No complaints of pain. Patient eventually agrees to PT after a lot of encouragement. Appearance Patient in recliner post tx with nurse call, phone, tray, all needs met, chair alarm on. Mental Status Patient Orientation: Person, Confused Transfers Therapy Code Descriptions/Definitions Functional [place] Measure: 0=Not Assessed/NA 4=Minimal Assistance 1=Total Assistance 5=Supervision or Setup 2=Maximal Assistance 6=Modified [place] 3=Moderate Assistance 7=Complete [place] Therapy Quality Codes: 6 Independent with activity with or without an assistive device 5 Patient requires set up or clean up by helper. Patient completes activity by themselves 4 Supervision or touching assist (CGA). [place] provide cues , steadying assist 3 The helper provides less than half the effort to complete the activity 2 The helper provides more than half the effort to complete the activity 1 Dependent. The helper does all the effort to complete an activity 7 Patient refused to complete or attempt activity 9 The patient did not perform the activity before the current illness or injury 88 Not attempted due to Medical conditions or safety concerns Transfers (B, C, W/C) (FIM): 4 Sit to/from Stand: 4 Bed to/from Chair: 4 cues for safety and hand placement, min assist to stand from low surfaces Weight Bearing Right Lower Extremity: Right Full Weight Bearing Left Lower Extremity: Left Full Weight Bearing Gait Training Gait (FIM): 4 Distance: 150'x2 Gait Level of Assist: 4 Gait Persons Needed: 1 Gait Assistive Device: FWW slow but steady ambulation Treatments transfers, ambulation Assessment Current Status: Poor Progress Patient much more confused and uncooperative. PT Short Term Goals Short Term Goals Time Frame: Jul 29, 2018 Transfers (B,C,W/C) (FIM): 6 Gait (FIM): 6 Distance (FIM): 3=150 ft Gait Distance Comment: 350' Gait Level of Assist: 6 Gait Assistive Device: FWW Stairs (FIM): 6 # of Steps: 4 Stairs Level of Assist: 6 PT Sap Data Analyst Goals Sap Data Analyst Goals PT Group Home Goals Time Frame: Aug 14, 2018 Transfers (B,C,W/C) (FIM): 7 Sit to Lying (QC): 7 Lying-Sitting on Side/Bed(QC): 7 Sit to Stand (QC): 7 Rollin Roll Left to Right (QC): 7 Chair/Jmh-ic-Uatli Xfer(QC): 7 Car Transfer (QC): 7 Does the Patient Walk: Yes Gait (FIM): 6 Gait distance (FIM): 3=150 ft Distance: 1000' Walk 10 feet (QC): 7 Walk 10ft-Uneven Surface(QC): 7 Walk 50ft with 2 Turns (QC): 7 Walk 150 ft (QC): 7 Gait Level of Assist: 6 Gait Assistive Device: FWW Does the Pt use WC or Scooter?: No Stairs (FIM): 6 # of Steps: 12 1 Step (curb) (QC): 7 4 Steps (QC): 7 12 Steps (QC): 7 Stairs Level Of Assist: 6 Picking up an Object (QC): 7 PT Plan Problem List Problem List: Activity Tolerance, Functional Strength, Safety, Balance, Gait, Transfer, Bed Mobility, ROM Treatment/Plan Treatment Plan: Continue Plan of Care Treatment Plan: Bed Mobility, Concurrent Therapy, Education, Functional Activity [place], Functional Strength, Group Therapy, Gait, Safety, Therapeutic Exercise, Transfers Treatment Duration: Aug 14, 2018 Frequency: At least 5 of 7 days/Wk (IRF) Estimated Hrs Per Day: 1.5 hours per day Patient and/or Family Agrees t: Yes Safety Risks/Education Patient Education: Gait Training, Transfer Techniques, Correct Positioning, Safety Issues Teaching Recipient: Patient Teaching Methods: Demonstration, Discussion Response to Teaching: Reinforcement Needed Time/GCodes Time In: 1330 Time Out: 1355 Total Billed Treatment Time: 25 Total Billed Treatment 1 visit GT 25' CHANDANA BANEGAS PT Jul 18, 2018 13:57
[2018-07-18] MEDS: MEROPENEM 1,000 MG in WATER (STERILE) FOR INJECTION 20 ML IV SCH ×2 (14:16→21:22)
[2018-07-18] MEDS: BETHANECHOL 25 MG (URECHOLINE) TAB PO SCH ×2 (16:28→21:13)
--- NOTE | 2018-07-18 16:38 | NUR ---
UPDATED MED REC TO NO HOME MEDS AT THIS TIME. THE DISCHARGE MED LIST FROM [facility] STATES TO START SEVERAL MEDICATIONS BUT THERE ARE NO ORDERS TO STOP OR CONTINUE ANYTHING. [facility] [place] [facility] ANYTHING MAINTENANCE, JUST ANTIBIOTICS. NOTE THE FOLLOWING CHANGES WERE MADE WHEN THE PATIENT WAS DISCHARGED THAT ARE NOT CURRENTLY REFLECTED ON THE HOME MED REC. START TAKING: MEROPENEM 1000MG IV Q8H MINOCYCLINE 100MG Q12H X 24 DAYS POTASSIUM 20MEQ DAILY FLORASTOR BID SODIUM CHLORIDE 1000MG TID TAMSULOSIN 0.4MG DAILY SAMSCA 15MG DAILY BACTRIM 350MG IV Q8H FOR 35 DAYS
--- NOTE | 2018-07-18 16:45 | NUR ---
DR. HERNANDES INFORMED OF PATIENT'S INCREASED CONFUSION. SAYING VERY INAPPROPRIATE THINGS. NOT MAKING ANY SENSE. TO START ON FLUID RESTRICTION. ON CALORIE COUNT. TALKED TO ABOUT A PEG - SHE STATES SHE WILL THINK ABOUT IT. BROUGHT IN 9 PILLS OF TOLVAPTAN TO START ON DAILY.
--- NOTE | 2018-07-18 17:00 | Physician Progress Note ---
Progress Note Assessment/Plan Date Seen by Provider: Jul 18, 2018 Time Seen by Provider: 16:58 Events since last exam Patient is more confused per family He is sitting up in a chair and talking almost non-stop. No fever. 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 On IV Bactrim and Meropenem. Pt is more confused per family report. 2. Leukopenia. Pt had WBC 23.9, Hb 10 and Plt 368k MCV 84 on 06-29-2018. I am concerning the leukopenia is related to IV Bactrim treatment. However, when I discussed with pharmacist Jose Roberto. He suggested the Bactrim is a main stage of treatment of Nocardia with TIRE CENTER SUPERVISOR involvement. I think we need to consult to ID specialist in [place] again what other treatment options we can use rather than Bactrim for Nocardia. 4. Anemia, most likely chronic illness and infection. Transfuse RBC to keep Hb above 7. 5. Elevated LFTs, ?etiology. He had normal LFTs on 06-29-2018 with ALT 71, AST 16 and Bili 0.6. We may need liver ultra sound or CT scan evaluation to make sure pt is not progressing and developing new lesions in the liver. 6. Check serum Ig levels since this is an unusual infection. 7. This is a very complicated case and we need to have to review more records from previous hospitals, specially his antibiotics and culture sensitivities of nocardia. Vitals Last set of Vitals Signs Vital Signs Date Time Temp Pulse Resp B/P (MAP) Pulse Ox O2 Delivery O2 Flow Rate FiO2 07/18/18 09:00 Room Air 07/18/18 06:01 97.7 77 18 148/75 (99) 90 I&O I&O Intake and Output 07/18/18 00:00 Intake Total 1171.875 ml Output Total 1325 ml Balance -153.125 ml Intake Oral 450 ml IV Total 721.875 ml Output Urine Total 1325 ml Labs Laboratory Tests 07/18/18 05:55 Laboratory Tests 07/18/18 05:55: White Blood Count 2.3L, Red Blood Count 3.17L, Hemoglobin 8.1L, Hematocrit 25L, Mean Corpuscular Volume 79L, Mean Corpuscular Hemoglobin 26, Mean Corpuscular Hemoglobin Concent 32, Red Cell Distribution Width 27.7H, Platelet Count 155, Mean Platelet Volume , Neutrophils (%) (Auto) 66, Lymphocytes (%) (Auto) 13, Monocytes (%) (Auto) 10, Eosinophils (%) (Auto) 11H, Basophils (%) (Auto) 0, Neutrophils # (Auto) 1.5L, Lymphocytes # (Auto) 0.3L, Monocytes # (Auto) 0.2, Eosinophils # (Auto) 0.3, Basophils # (Auto) 0.0, Sodium Level 129L, Potassium Level 4.0, Chloride Level 97L, Carbon Dioxide Level 23, Anion Gap 9, Blood Urea Nitrogen 11, Creatinine 0.71, Estimat Glomerular Filtration Rate > 60, BUN/ Creatinine Ratio 15, Glucose Level 90, Calcium Level 7.8L, Corrected Calcium 8.8 , Total Bilirubin 0.4, Aspartate Amino Transf (AST/SGOT) 64H, Alanine Aminotransferase (ALT/SGPT) 58H, Alkaline Phosphatase 73, Total Protein 5.8L, Albumin 2.7L Microbiology 07/16/18 MRSA Screen - Final, Complete MRSA not isolated Clinical Quality Measures DVT/VTE Risk/Contraindication: Risk Factor Score Per Nursin RFS Level Per Nursing on Admit: 4+=Very High MORALES RADFORD MD Jul 18, 2018 17:00
[2018-07-18] MEDS: TOLVAPTAN 15 MG TABLET PO SCH (17:36)
[2018-07-18] MEDS: TAMSULOSIN 0.4 MG (FLOMAX) CAP PO SCH (17:36)
[2018-07-18 18:00] VITALS: BP 133/73
--- NOTE | 2018-07-18 18:25 | NUR ---
SEPSIS SCREENING SHOWS A SEVERE RISK. DR. HERNANDES NOTIFIED. TO MONITOR ONLY.
[2018-07-19 05:12] VITALS: BP 146/85
[2018-07-19] MEDS: LACTOBACILLUS ACIDOPHILUS (PROBIOTIC) CAPSULE PO SCH ×2 (06:10→16:50)
[2018-07-19] MEDS: MEROPENEM 1,000 MG in WATER (STERILE) FOR INJECTION 20 ML IV SCH ×3 (06:10→21:17)
[2018-07-19] MEDS: BETHANECHOL 25 MG (URECHOLINE) TAB PO SCH ×4 (06:10→21:15)
--- NOTE | 2018-07-19 08:00 | NUR ---
MORE COOPERATIVE THIS AM COMPARED TO YESTERDAY AFTERNOON. REMAINS ON CALORIE COUNT. EATING POORLY. DENIES NAUSEA.
--- NOTE | 2018-07-19 08:30 | Progress Note-Urology ---
Progress Note-Urology Progress Notes/Assess & Plan Progress/Assessment & Plan TOLERATES URECHOLINE WELL. TOV TOMORROW Final Diagnosis URINE RETENTION CHAVA CERVANTES MD Jul 19, 2018 08:30
[2018-07-19] MEDS ORDERED: BISACODYL 10 MG SUPP (DULCOLAX) PR PRN (08:45)
[2018-07-19] MEDS: LORATADINE (CLARITIN) 10 MG TAB PO SCH ×2 (08:45→21:15)
[2018-07-19] MEDS: SODIUM CHLORIDE 1 GM TAB (NON-FORMULARY) PO SCH ×3 (08:45→21:15)
[2018-07-19] MEDS: KCL 20 MEQ TAB (K-DUR) PO SCH (08:45)
[2018-07-19] MEDS: MINOCYCLINE 100 MG TABLET (NON-FORMULARY) PO SCH ×2 (08:45→21:15)
[2018-07-19] MEDS: TRIMETHO IV SCH (08:48)
[2018-07-19] MEDS: SULFAMETHOXAZOLE IV SCH (08:48)
[2018-07-19] MEDS: D5W IV SCH (08:48)
[2018-07-19] MEDS ORDERED: BISACODYL 10 MG SUPP (DULCOLAX) PR NR (09:02)
[2018-07-19] MEDS: SENNA W/DOCUSATE (SENOKOT S) TABLET PO SCH ×2 (09:07→20:07)
--- NOTE | 2018-07-19 09:16 | PM&R Progress Note ---
Subjective HPI/CC On Admission Date Seen by Provider: Jul 19, 2018 Time Seen by Provider: 08:30 CC: Brain abscess status post craniotomy HPI: This is a 78-year-old white male clinic patient of in [facility] who presents from [facility] after admitted on 06/29/18 from [facility] then [facility] for renal abscess on the left then diagnosed brain abscess status post craniotomy and diagnosed Nocardia infection UTI and brain abscess. He was seen by multiple consultants while hospitalized and [place] and is currently in need of antibiotics for an additional 34 days and intense rehabilitation with physical therapy. He still remains with a Dhaliwal catheter in place and I consulted Dr. Monroe to facilitate retention resolution. I have also contacted cardiology for elevated BNP and right bundle branch block. I have also asked for Dr. Fenton for consultation for neutropenia and anemia. I have added on iron level. We're in the midst of reconciliation of home medications including IV antibiotics and nocardia treatment. Subjective/Events-last exam Pt will definitely need a a peg tube for nutrition or he will need skilled therapy because he needs nutrition and calories to be able to participate in therapy He had 4500 cc in his dhaliwal after medication was started for hyponatremia He was a little bit sexually inappropriate last night and with a frontal lobe brain abscess craniotomy that is not surprising BMP rechecked and sodium level from 129 to 134 Bactirm was discontinued after I spoke with Dr. Garnica at infectious disease out of [place] due to bone marrow suppression and I did speak with Dr. Eliceo Fowler regarding that update. Review of Systems General: Fatigue, Malaise Objective Exam Vital Signs Vital Signs Date Time Temp Pulse Resp B/P (MAP) Pulse Ox O2 Delivery O2 Flow Rate FiO2 07/19/18 18:00 98.4 101 18 150/84 (106) 93 Room Air Capillary Refill : General Appearance: No Apparent Distress, WD/WN, Chronically ill, Cachetic, Thin HEENT: PERRL/EOMI, Normal ENT Inspection, Pharynx Normal, Moist Mucous Membranes Neck: Full Range of Motion, Normal Inspection, Non Tender, Supple Respiratory: Chest Non Tender, Lungs Clear, Normal Breath Sounds, No Accessory Muscle Use, No Respiratory Distress Cardiovascular: Regular Rate, Rhythm, No Edema, No Gallop, No JVD, No Murmur Gastrointestinal: Normal Bowel Sounds, No Organomegaly, No Pulsatile Mass, Non Tender, Soft Rectal: Normal Exam, Normal Rectal Tone Genital/Rectal: Normal Genital Exam, Normal Rectal Exam, Normal Rectal Tone, Normal Vaginal Exam, Other (dhaliwal cath in place) Back: Normal Inspection, No CVA Tenderness, No Vertebral Tenderness Extremity: Normal Capillary Refill, Normal Inspection, Normal Range of Motion, Non Tender, No Calf Tenderness, No Pedal Edema Neurologic/Psychiatric: Alert, Oriented x3, No Motor/Sensory Deficits, Normal Mood/Affect, Disoriented (subtle) Skin: Normal Color, Warm/Dry Lymphatic: No Adenopathy Results/Procedures Lab Laboratory Tests 07/19/18 09:10 Patient resulted labs reviewed. Assessment/Plan Assessment and Plan Assess & Plan/Chief Complaint Assessment: Status post craniotomy Brain abscess Kidney abscess Nocardia infection Urinary retention Dhaliwal catheter in place Right bundle branch block Elevated BNP Neutropenia Anemia Hyponatremia Frail status Loss of weight and poor appetite Plan: Monitor labs Cardiology consultation is appreciated Urology consultation is appreciated Hematology consultation is appreciated IV abx Monitor closely Cath replaced today since failed in/out cath Dc Bactrim PEG tube to be placed tomorrow by Dr Arndt (1) Brain abscess (2) Nocardia infection (3) Pyelonephritis (4) Renal abscess (5) Neutropenia (6) Anemia (7) Hyponatremia (8) Weakness acquired in ICU (9) UTI (urinary tract infection) (10) PICC (peripherally inserted central catheter) in place (11) Urinary retention (12) Dhaliwal catheter in place (13) Right bundle branch block (14) Elevated brain natriuretic peptide (BNP) level (15) Cerebral edema (16) Focal neurological deficit (17) S/P craniotomy (18) Appetite loss (19) Weight loss (20) Cachexia (21) Malnutrition Clinical Quality Measures DVT/VTE Risk/Contraindication: Risk Factor Score Per Nursin RFS Level Per Nursing on Admit: 4+=Very High GERTRUDIS HERNANDES DO Jul 19, 2018 09:16
[2018-07-19 09:42] LABS: BUN/CREATININE RATIO 14; CALCIUM 8.4 MG/DL (8.5-10.1); CARBON DIOXIDE 25 MMOL/L (21-32); CHLORIDE 100 MMOL/L (98-107); CREATININE SERUM 0.87 MG/DL (0.60-1.30); GFR ESTIMATED > 60; GLUCOSE 100 MG/DL (70-105); POTASSIUM 4.3 MMOL/L (3.6-5.0); SODIUM 134 MMOL/L (135-145)
--- NOTE | 2018-07-19 10:41 | Occupational Ther Daily Note ---
OT Current Status-Daily Note Subjective Pt in bed ,RN present, given suppository . Pt ready for shower. Pain Numeric Pain Scale: 0-No Pain Mental Status/Objective Patient Orientation: Person, Confused, Place Therapy Code Descriptions/Definitions Functional [place] Measure: 0=Not Assessed/NA 4=Minimal Assistance 1=Total Assistance 5=Supervision or Setup 2=Maximal Assistance 6=Modified [place] 3=Moderate Assistance 7=Complete [place] Attachments: IV, Saline Lock ADL-Treatment Patient participated in bed mobility, func toilet transfers, toilet hyeigine, undressing, shower retraining , dressing garments & theraex BUE. Pt needs SBA - Min A supine to sit in bed today. Pt very week & fatigue. sit to stand with SBA & stand to sit on toilet comode Independently, Pt good amount of stool .Pt wiped buttock with set up & with warm wipes. Flush comode & walk back up to bath bench. Reached back & sit. Today pt mildly confused .Pt need Mod. A in shower, washing & drying UB, LB, Chest, abdomen, buttocks, back, face, hairs, legs . Pt back to his bed & dress shirt with SBA & Pajama with Mod A .Pt has dhaliwal"s catheter . Completed 25 repsx 2 sets x 2 lb wts Flex/ext of both elbow & shoulders , 30 reps with red theraband, & hand gripper ex 30 reps each hand. Therapy Code Descriptions/Definitions Functional [place]y Measure: 0=Not Assessed/NA 4=Minimal Assistance 1=Total Assistance 5=Supervision or Setup 2=Maximal Assistance 6=Modified [place] 3=Moderate Assistance 7=Complete [place] Therapy Quality Codes: 6 Independent with activity with or without an assistive device 5 Patient requires set up or clean up by helper. Patient completes activity by themselves 4 Supervision or touching assist (CGA). [place] provide cues , steadying assist 3 The helper provides less than half the effort to complete the activity 2 The helper provides more than half the effort to complete the activity 1 Dependent. The helper does all the effort to complete an activity 7 Patient refused to complete or attempt activity 9 The patient did not perform the activity before the current illness or injury 88 Not attempted due to Medical conditions or safety concerns Eating (FIM): 7 Eating (QC): 6 Grooming (FIM): 5 Oral Hygiene (QC): 5 Bathing (FIM): 3 Bathing Location: L Arm, R Arm, L Upper Leg, R Upper Leg, L Lower Leg ( including foot), R Lower Leg (including foot), Chest, Abdomen, Buttocks, Perineal Area Shower/Bathe Self (QC): 3 Upper Body (FIM): 5 Upper Body Dressing (QC): 3 Lower Body Dressing (FIM): 3 Lower Body Dressing (QC): 3 On/Off Footwear (QC): 3 Toileting (FIM): 5 Toileting Hygiene (QC): 5 Transfers (B, C, W/C) (FIM): 5 Toilet/Commode Transfer (FIM): 5 Toilet Transfer (QC): 5 Shower Transfer(FIM): 5 Education OT Patient Education: Correct positioning, Energy conservation, Safety issues Teaching Recipient: Patient Teaching Methods: Demonstration, Discussion Response to Teaching: Verbalize Understanding OT Short Term Goals Short Term Goals Transfers (B,C,W/C) (FIM): 6 1=Demonstrate adherence to instructed precautions during ADL tasks. 2=Patient will verbalize/demonstrate understanding of assistive devices/ modifications for ADL. 3=Patient will improve strength/tolerance for activity to enable patient to perform ADL's. OT Embroiderer Goals Usp Goals Time Frame: Aug 05, 2018 Eating (FIM): 6 Eating (QC): 6 Groomin Oral Hygiene (QC): 6 Bathing(FIM): 6 Shower/Bathe Self (QC): 6 Upper Body Dressing(FIM): 6 Upper Body Dressing (QC): 6 Lower Body Dressing(FIM): 6 Lower Body Dressing (QC): 6 On/Off Footwear (QC): 6 Toileting(FIM): 6 Toileting Hygiene (QC): 6 Toilet/Commode Transfer(FIM): 6 Toilet/Commode Transfer (QC): 6 Shower Transfer(FIM): 6 Additional Goals: 1-Demonstrate ADL Tasks, 2-Verbalize Understanding, 3- ImproveStrength/[place] 1=Demonstrate adherence to instructed precautions during ADL tasks. 2=Patient will verbalize/demonstrate understanding of assistive devices/ modifications for ADL. 3=Patient will improve strength/tolerance for activity to enable patient to perform ADL's. OT Education/Plan Problem List/Assessment Assessment: Decreased Activ Tolerance, Decreased Safety Aware, Decreased UE Strength, Dependent Transfers, Impaired Bed Mobility, Impaired Funct Balance, Impaired Self-Care Skills Pt to benefit from skilled OT intervention for ADL training, transfers, strengthening, and safety education to increase independence and allow safe discharge. Discharge Recommendations Plan/Recommendations: Continue POC Therapy D/C Recommendations: Home w/ Family Support, Occupational Therapy Home Care Equpiment Recommendations-D/C: Bath Chair, Extended Shower Sprayer, Planning Director Barriers to Progress confusion, weakness, unsteady standing balance., fatigue soon. Patient/Family Goals To return Home with spouse Independently.with AD. Treatment Plan/Plan of Care Treatment,Training & Education: Yes Patient would benefit from OT for education, treatment and training to promote independence in ADL's, mobility, safety and/or upper extremity function for ADL' s. Plan of Care: ADL Retraining, Functional Mobility, Group Exercise/Act as Ind, UE Funct Exercise/Act Treatment Duration: Aug 05, 2018 Frequency: Modified Program (IRF) Estimated Hrs Per Day: 1.5 hours per day Agreement: Yes Rehab Potential: Good Time/GCodes Start Time: 09:00 Stop Time: 10:30 Total Time Billed (hr/min): 90 Billed Treatment Time 1, ADLs 60 min, FA 30 min. Total 90 minutes. JEREMÍAS MACIAS OT Jul 19, 2018 10:41
--- NOTE | 2018-07-19 11:33 | Speech Therapy Daily Note ---
Speech Daily Progress Note Subjective Date Seen by Provider: Jul 19, 2018 Time Seen by Provider: 00:30 Patient was tired and required verbal prompts to stay awake. Objective Patient completed general information tasks at 60% with moderate verbal cues and /or repetitions. Assessment Assessment Current Status: Fair Progress Treatment Plan Continue Plan of Care Communication Comprehension: 2 Expression: 2 Social Cognition Social Interaction: 5 Problem Solvin Memory: 2 Speech Short Term Goals Short Term Goals Short Term Goals 1) Patient will complete memory tasks at 80% or greater with minimal cues. 2) Patient willbe able to follow simple 2-3 step directions with 80% or greater with minimal cues. 3) Patient will be able to increase his attention to task with 80% or greater with minimal redirection. Speech Mechanical Design Technician Goals Mechanical Design Technician Goals Patient will increase cognitive communication skills for improved safety and independence. Speech-Plan Patient/Family Goals Patient/Family Goals: Patient plans to return home with his post rehab. Treatment Plan Speech Therapy Treatment Plan: Continue Plan of Care Patient stated he was tired today. Treatment Duration: Jul 21, 2018 Frequency: 5 times per week Estimated Hrs Per Day: .5 hour per day Rehab Potential: Good Barriers to Learning: Patient has decreased memory for new information. Pt/Family Agrees to Plan: Yes Safety Risks/Education Teaching Recipient: Patient Teaching Methods: Discussion Response to Teaching: Verbalize Understanding Education Topics Provided: Safety within his room. Time Speech Therapy Time In: 10:30 Speech Therapy Time Out: 11:00 Total Billed Time: 30 Billed Treatment Time 1JESSIE BETHAN[address] ST Jul 19, 2018 11:33
[2018-07-19] MEDS: TOLVAPTAN 15 MG TABLET PO SCH (12:04)
--- NOTE | 2018-07-19 12:16 | Physical Therapy Daily Note ---
PT Daily Note-Current Subjective Pt laying Supine in bed upon arrival. Pt needs encouragement to participate with Therapy. Pt reports "he was told to stay in bed". MORGUE ATTENDANT explains benefits of PT and helping to get home, pt complies. Pain Location: No Pain Reported Mental Status Patient Orientation: Person, Confused, Place Transfers Therapy Code Descriptions/Definitions Functional [place] Measure: 0=Not Assessed/NA 4=Minimal Assistance 1=Total Assistance 5=Supervision or Setup 2=Maximal Assistance 6=Modified [place] 3=Moderate Assistance 7=Complete [place] Therapy Quality Codes: 6 Independent with activity with or without an assistive device 5 Patient requires set up or clean up by helper. Patient completes activity by themselves 4 Supervision or touching assist (CGA). [place] provide cues , steadying assist 3 The helper provides less than half the effort to complete the activity 2 The helper provides more than half the effort to complete the activity 1 Dependent. The helper does all the effort to complete an activity 7 Patient refused to complete or attempt activity 9 The patient did not perform the activity before the current illness or injury 88 Not attempted due to Medical conditions or safety concerns Scootin Rollin Supine to/from Sit: 5 Sit to/from Stand: 4 Sit to Lying (QC): 5 Sit to Stand (QC): 4 Weight Bearing Right Lower Extremity: Right Full Weight Bearing Left Lower Extremity: Left Full Weight Bearing Gait Training Does the Patient Walk?: Yes Distance (FIM): 3=150 ft Distance: 150' Walk 10 feet (QC): 5 Walk 50 ft with 2 Turns(QC): 5 Walk 150 ft (QC): 5 Gait Level of Assist: 5 Gait Persons Needed: 1 Gait Assistive Device: FWW MORGUE ATTENDANT stays close SBA while ambulating due to safety. Wheelchair Training Does the Pt Use a Wheelchair?: No Stair Training Stair Training: Handrails/: 2 handrails #of Steps: 4 1 Step (curb) (QC): 5 4 Steps (QC): 5 Stairs: Pattern: Reciprocal Level of Assist: 5 Pt fatigues and needs rest break after 1 set of 4 steps. Exercises Seated Therapy Exercises: Ankle pumps, Long arc quads, Hip flexion, Kicking activity Seated Reps: 20 NuStep Minutes: 10 NuStep Workload: 5 Treatments Pt transfers from bed to standing using FWW at [facility]. Pt ambulates in hallway to Therapy Gym. Pt uses NuStep for 10m at [facility] 5. Pt takes short rest break then completes Seated Ex in chair. Pt again ambulates in hallway on way to room. Pt returns to room to rest and order lunch. Pt has all needs met at end of tx. Assessment Current Status: Fair Progress Pt needs encouragement to complete tx. Pt wants to go home but continues to demonstrate cognitive deficits. PT Short Term Goals Short Term Goals Time Frame: Jul 29, 2018 Transfers (B,C,W/C) (FIM): 6 Gait (FIM): 6 Distance (FIM): 3=150 ft Gait Distance Comment: 350' Gait Level of Assist: 6 Gait Assistive Device: FWW Stairs (FIM): 6 # of Steps: 4 Stairs Level of Assist: 6 PT Skilled Nursing Goals Skilled Nursing Goals PT Behavioral Assistant Goals Time Frame: Aug 14, 2018 Transfers (B,C,W/C) (FIM): 7 Sit to Lying (QC): 7 Lying-Sitting on Side/Bed(QC): 7 Sit to Stand (QC): 7 Rollin Roll Left to Right (QC): 7 Chair/Sda-sf-Nqsyc Xfer(QC): 7 Car Transfer (QC): 7 Does the Patient Walk: Yes Gait (FIM): 6 Gait distance (FIM): 3=150 ft Distance: 1000' Walk 10 feet (QC): 7 Walk 10ft-Uneven Surface(QC): 7 Walk 50ft with 2 Turns (QC): 7 Walk 150 ft (QC): 7 Gait Level of Assist: 6 Gait Assistive Device: FWW Does the Pt use WC or Scooter?: No Stairs (FIM): 6 # of Steps: 12 1 Step (curb) (QC): 7 4 Steps (QC): 7 12 Steps (QC): 7 Stairs Level Of Assist: 6 Picking up an Object (QC): 7 PT Plan Problem List Problem List: Activity Tolerance, Functional Strength, Safety, Balance, Gait Treatment/Plan Treatment Plan: Continue Plan of Care Treatment Plan: Bed Mobility, Concurrent Therapy, Education, Functional Activity [place], Functional Strength, Group Therapy, Gait, Safety, Therapeutic Exercise, Transfers Treatment Duration: Aug 14, 2018 Frequency: At least 5 of 7 days/Wk (IRF) Estimated Hrs Per Day: 1.5 hours per day Patient and/or Family Agrees t: Yes Safety Risks/Education Patient Education: Gait Training, Transfer Techniques, Correct Positioning, Safety Issues Teaching Recipient: Patient Teaching Methods: Discussion Response to Teaching: Reinforcement Needed Time/GCodes Time In: 1100 Time Out: 1200 Total Billed Treatment Time: 60 Total Billed Treatment 1, GT (15m), EX x2 (30m) & FA (15m) G Codes Necessary: BAILEY Dick PTA Jul 19, 2018 12:16
--- NOTE | 2018-07-19 12:21 | NUR ---
CALORIE COUNT: (07/18) 895 KCAL, 49 GRAMS PROTEIN. PT FAR FROM MEETING NEEDS WITH PO INTAKE. PT DRINKING ENLIVE WHICH IS PROVIDING MOST OF NUTRITION. CONT TO DOCUMENT KCAL CT.
[2018-07-19] MEDS: ZINC OXIDE 16% OINT (BUTT PASTE) 113 GM TUBE TOP PRN ×2 (13:53→19:57)
--- NOTE | 2018-07-19 14:00 | NUR ---
DR. RADFORD HERE TO SEE PATIENT.
--- NOTE | 2018-07-19 14:16 | Physical Therapy Daily Note ---
PT Daily Note-Current Subjective Pt laying supine in bed upon arrival. Pt reports not wanting to complete PT today. TECHNICIAN AUTOMATIC encourages pt and pt reluctantly agrees. Pain Location: No Pain Reported Mental Status Patient Orientation: Person, Confused, Place Transfers Therapy Code Descriptions/Definitions Functional [place] Measure: 0=Not Assessed/NA 4=Minimal Assistance 1=Total Assistance 5=Supervision or Setup 2=Maximal Assistance 6=Modified [place] 3=Moderate Assistance 7=Complete [place] Therapy Quality Codes: 6 Independent with activity with or without an assistive device 5 Patient requires set up or clean up by helper. Patient completes activity by themselves 4 Supervision or touching assist (CGA). [place] provide cues , steadying assist 3 The helper provides less than half the effort to complete the activity 2 The helper provides more than half the effort to complete the activity 1 Dependent. The helper does all the effort to complete an activity 7 Patient refused to complete or attempt activity 9 The patient did not perform the activity before the current illness or injury 88 Not attempted due to Medical conditions or safety concerns Weight Bearing Right Lower Extremity: Right Full Weight Bearing Left Lower Extremity: Left Full Weight Bearing Exercises Supine Ex: Ankle pumps, Quad Set Supine Reps: 15 Treatments Pt completes AP & QS in bed for Supine EX. Nurse arrives to give Sodium pill and pt refuses to take. Pt then asks TECHNICIAN AUTOMATIC to leave. "I'm not doing anymore therapy today." TECHNICIAN AUTOMATIC explains benefits of PT and why pt is on ARU. Pt again refuses. TECHNICIAN AUTOMATIC will give pt some time and try again. TECHNICIAN AUTOMATIC returns at 1505 and pt again refuses anymore Therapy today. Pt has refused food, medication, water & Therapy this afternoon. Nurse is notified. Assessment Current Status: Fair Progress Pt is confused at times and is not socially aware of why pt is on ARU and deficits that are displayed. PT Short Term Goals Short Term Goals Time Frame: Jul 29, 2018 Transfers (B,C,W/C) (FIM): 6 Gait (FIM): 6 Distance (FIM): 3=150 ft Gait Distance Comment: 350' Gait Level of Assist: 6 Gait Assistive Device: FWW Stairs (FIM): 6 # of Steps: 4 Stairs Level of Assist: 6 PT Senior Living Goals Senior Living Goals PT Dean Of Student Services Goals Time Frame: Aug 14, 2018 Transfers (B,C,W/C) (FIM): 7 Sit to Lying (QC): 7 Lying-Sitting on Side/Bed(QC): 7 Sit to Stand (QC): 7 Rollin Roll Left to Right (QC): 7 Chair/Voz-vh-Nbrtt Xfer(QC): 7 Car Transfer (QC): 7 Does the Patient Walk: Yes Gait (FIM): 6 Gait distance (FIM): 3=150 ft Distance: 1000' Walk 10 feet (QC): 7 Walk 10ft-Uneven Surface(QC): 7 Walk 50ft with 2 Turns (QC): 7 Walk 150 ft (QC): 7 Gait Level of Assist: 6 Gait Assistive Device: FWW Does the Pt use WC or Scooter?: No Stairs (FIM): 6 # of Steps: 12 1 Step (curb) (QC): 7 4 Steps (QC): 7 12 Steps (QC): 7 Stairs Level Of Assist: 6 Picking up an Object (QC): 7 PT Plan Problem List Problem List: Activity Tolerance, Functional Strength, Safety Treatment/Plan Treatment Plan: Continue Plan of Care Treatment Plan: Bed Mobility, Concurrent Therapy, Education, Functional Activity [place], Functional Strength, Group Therapy, Gait, Safety, Therapeutic Exercise, Transfers Treatment Duration: Aug 14, 2018 Frequency: At least 5 of 7 days/Wk (IRF) Estimated Hrs Per Day: 1.5 hours per day Patient and/or Family Agrees t: Yes Safety Risks/Education Patient Education: Gait Training, Transfer Techniques, Correct Positioning, Safety Issues Teaching Recipient: Patient Teaching Methods: Discussion Response to Teaching: Reinforcement Needed Time/GCodes Time In: 1330 Time Out: 1340 Total Billed Treatment Time: 10 Total Billed Treatment 1, FA (10m) 1, no tx rendered (1505) BAILEY CALLAWAY TECHNICIAN AUTOMATIC Jul 19, 2018 14:16
--- NOTE | 2018-07-19 14:21 | Physician Progress Note ---
Progress Note Assessment/Plan Date Seen by Provider: Jul 19, 2018 Time Seen by Provider: 14:15 Events since last exam Pt was comfortably sleeping when I went into his room According to nurse report, he is less confused today, more coherent. Dr Guevraa stopped IV Bactrim today after consulting ID specialist in [place]. He is only on Meropenem single agent 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 IV Bactrim stopped 07-19-18 after consulting ID specialist in [place]. He is only IV Meropenem now. Will repeat CBC and CMP in 2 days to see if his CBC and LFTs improving after we stop the Bactrim. 2. Leukopenia. most likely related to IV Bactrim. Will repeat CBC in 2 days. 4. Anemia, most likely chronic illness and infection. Transfuse RBC to keep Hb above 7. 5. Elevated LFTs, ?etiology. He had normal LFTs on 06-29-2018 with ALT 71, AST 16 and Bili 0.6. We may need liver ultra sound or CT scan evaluation to make sure pt is not progressing and developing new lesions in the liver. 6. Check serum Ig levels since this is an unusual infection. 7. This is a very complicated case and we need to have to review more records from previous hospitals, specially his antibiotics and culture sensitivities of nocardia. Vitals Last set of Vitals Signs Vital Signs Date Time Temp Pulse Resp B/P (MAP) Pulse Ox O2 Delivery O2 Flow Rate FiO2 07/19/18 09:00 Room Air 07/19/18 05:12 98.5 93 16 146/85 (105) 93 I&O I&O Intake and Output 07/19/18 00:00 Intake Total 1451.875 ml Output Total 1975 ml Balance -523.125 ml Intake Oral 830 ml IV Total 621.875 ml Output Urine Total 1975 ml Bladder Scan Volume Amount 931 ml 301 ml 550 ml Labs Laboratory Tests 07/19/18 09:10: Sodium Level 134L, Potassium Level 4.3, Chloride Level 100, Carbon Dioxide Level 25, Anion Gap 9, Blood Urea Nitrogen 12, Creatinine 0.87, Estimat Glomerular Filtration Rate > 60, BUN/Creatinine Ratio 14, Glucose Level 100, Calcium Level 8.4L Microbiology 07/16/18 MRSA Screen - Final, Complete MRSA not isolated Clinical Quality Measures DVT/VTE Risk/Contraindication: Risk Factor Score Per Nursin RFS Level Per Nursing on Admit: 4+=Very High MORALES RADFORD MD Jul 19, 2018 14:21
--- NOTE | 2018-07-19 15:00 | NUR ---
AGREES TO PEG PLACEMENT.
--- NOTE | 2018-07-19 15:30 | NUR ---
DR. TORRES NOTIFIED OF CONSULT FOR PEG PLACEMENT BY DR. HERNANDES. PATIENT IS STARTING TO REFUSE MORE TREATMENTS. REFUSED SODIUM CHLORIDE TABLET, REFUSED TO TURN TO SIDE, AND REFUSED THERAPY. REFUSING TO EAT OR DRINK MUCH.
--- NOTE | 2018-07-19 15:33 | Physical Therapy Daily Note ---
PT Daily Note-Current Subjective Pt. in bed laying very still, refuses therapies repeatedly. Pt. speaks nonsensical stating at 1st he has been told to go home and he" will not be having anymore of these therapies" . Pt. was gently encouraged to participate explaining that participation is required and that the Physician has ordered PT OT and CLINICAL PHYSICIAN ASSISTANT for 3 hours a day with certain goals in mind before DC. Pt. states " I am in a state of wellbeing in my mind and spirit and Dr Guevara told me not to have any more therapy" Transfers Therapy Code Descriptions/Definitions Functional [place] Measure: 0=Not Assessed/NA 4=Minimal Assistance 1=Total Assistance 5=Supervision or Setup 2=Maximal Assistance 6=Modified [place] 3=Moderate Assistance 7=Complete [place] Therapy Quality Codes: 6 Independent with activity with or without an assistive device 5 Patient requires set up or clean up by helper. Patient completes activity by themselves 4 Supervision or touching assist (CGA). [place] provide cues , steadying assist 3 The helper provides less than half the effort to complete the activity 2 The helper provides more than half the effort to complete the activity 1 Dependent. The helper does all the effort to complete an activity 7 Patient refused to complete or attempt activity 9 The patient did not perform the activity before the current illness or injury 88 Not attempted due to Medical conditions or safety concerns Weight Bearing Right Lower Extremity: Right Full Weight Bearing Left Lower Extremity: Left Full Weight Bearing Assessment Current Status: Refused Treatment pt. adamantly refuses all attempts from 2 different therapists this PM. pt. uncooperative for medications, food and water per nursing PT Short Term Goals Short Term Goals Time Frame: Jul 29, 2018 Transfers (B,C,W/C) (FIM): 6 Gait (FIM): 6 Distance (FIM): 3=150 ft Gait Distance Comment: 350' Gait Level of Assist: 6 Gait Assistive Device: FWW Stairs (FIM): 6 # of Steps: 4 Stairs Level of Assist: 6 PT Penitentiary Goals Penitentiary Goals PT Penitentiary Goals Time Frame: Aug 14, 2018 Transfers (B,C,W/C) (FIM): 7 Sit to Lying (QC): 7 Lying-Sitting on Side/Bed(QC): 7 Sit to Stand (QC): 7 Rollin Roll Left to Right (QC): 7 Chair/Xhp-rh-Emzse Xfer(QC): 7 Car Transfer (QC): 7 Does the Patient Walk: Yes Gait (FIM): 6 Gait distance (FIM): 3=150 ft Distance: 1000' Walk 10 feet (QC): 7 Walk 10ft-Uneven Surface(QC): 7 Walk 50ft with 2 Turns (QC): 7 Walk 150 ft (QC): 7 Gait Level of Assist: 6 Gait Assistive Device: FWW Does the Pt use WC or Scooter?: No Stairs (FIM): 6 # of Steps: 12 1 Step (curb) (QC): 7 4 Steps (QC): 7 12 Steps (QC): 7 Stairs Level Of Assist: 6 Picking up an Object (QC): 7 PT Plan Treatment/Plan Treatment Plan: Continue Plan of Care Treatment Plan: Bed Mobility, Concurrent Therapy, Education, Functional Activity [place], Functional Strength, Group Therapy, Gait, Safety, Therapeutic Exercise, Transfers Treatment Duration: Aug 14, 2018 Frequency: At least 5 of 7 days/Wk (IRF) Estimated Hrs Per Day: 1.5 hours per day Patient and/or Family Agrees t: Yes Time/GCodes Time In: 1515 Time Out: 1530 Total Billed Treatment Time: 0 Total Billed Treatment 1, No Rx, no Chg G Codes Necessary: No LOW ARBOLEDA GASOLINE LOCOMOTIVE CRANE OPERATOR Jul 19, 2018 15:33
--- NOTE | 2018-07-19 16:51 | NUR ---
INFORMED OF PATIENT REFUSING FOOD, DRINK AND MEDS. SHE STATES SHE WILL CONSENT TO PEG PER PHONE CONSENT EVEN THOUGH PATIENT REFUSES IT. PATIENT REMAINS CONFUSED. STATES CONFUSION STARTED ON TUESDAY.
[2018-07-19 18:00] VITALS: BP 150/84
[2018-07-19] MEDS: TAMSULOSIN 0.4 MG (FLOMAX) CAP PO SCH (18:24)
--- NOTE | 2018-07-19 19:00 | NUR ---
SINCE PEG PLACEMENT IS SCHEDULED FOR TOMORROW, DR. CERVANTES STATES TO HOLD OFF ON DISCONTINUING SINGLETARY.
[2018-07-20] MEDS: LACTOBACILLUS ACIDOPHILUS (PROBIOTIC) CAPSULE PO SCH ×2 (02:18→17:01)
[2018-07-20] MEDS: BETHANECHOL 25 MG (URECHOLINE) TAB PO SCH ×4 (02:18→22:19)
[2018-07-20 05:01] VITALS: BP 117/70
[2018-07-20] MEDS: MEROPENEM 1,000 MG in WATER (STERILE) FOR INJECTION 20 ML IV SCH ×3 (05:45→22:41)
[2018-07-20] MEDS: LORATADINE (CLARITIN) 10 MG TAB PO SCH ×2 (09:00→22:19)
[2018-07-20] MEDS: SENNA W/DOCUSATE (SENOKOT S) TABLET PO SCH ×2 (09:00→22:19)
[2018-07-20] MEDS: SODIUM CHLORIDE 1 GM TAB (NON-FORMULARY) PO SCH ×3 (09:00→22:19)
--- NOTE | 2018-07-20 09:45 | Occupational Ther Daily Note ---
OT Current Status-Daily Note Subjective Pt in bed, alert, oriented & cheerful today. Pt states that < " I am doing good. " Agree for OT. Pain Numeric Pain Scale: 0-No Pain Mental Status/Objective Patient Orientation: Person, Place, Time, Situation Therapy Code Descriptions/Definitions Functional [place] Measure: 0=Not Assessed/NA 4=Minimal Assistance 1=Total Assistance 5=Supervision or Setup 2=Maximal Assistance 6=Modified [place] 3=Moderate Assistance 7=Complete [place] Attachments: Roberts Catheter, IV, Saline Lock ADL-Treatment Eating (FIM): 7 Grooming (FIM): 5 Bathing (FIM): 4 Bathing Location: L Arm, R Arm, L Upper Leg, R Upper Leg, L Lower Leg ( including foot), R Lower Leg (including foot), Chest, Abdomen, Buttocks, Perineal Area Upper Body (FIM): 6 Lower Body Dressing (FIM): 4 Toileting (FIM): 5 Transfers (B, C, W/C) (FIM): 5 Toilet/Commode Transfer (FIM): 5 Shower Transfer(FIM): 5 Education OT Patient Education: Correct positioning, Safety issues Teaching Recipient: Patient Teaching Methods: Demonstration Response to Teaching: Verbalize Understanding OT Short Term Goals Short Term Goals Transfers (B,C,W/C) (FIM): 6 1=Demonstrate adherence to instructed precautions during ADL tasks. 2=Patient will verbalize/demonstrate understanding of assistive devices/ modifications for ADL. 3=Patient will improve strength/tolerance for activity to enable patient to perform ADL's. OT Hotel Services Supervisor Goals Hotel Services Supervisor Goals Time Frame: Aug 05, 2018 Eating (FIM): 6 Grooming(FIM): 6 Bathing(FIM): 6 Upper Body Dressing(FIM): 6 Lower Body Dressing(FIM): 6 Toileting(FIM): 6 Toilet/Commode Transfer(FIM): 6 Shower Transfer(FIM): 6 Additional Goals: 1-Demonstrate ADL Tasks, 2-Verbalize Understanding, 3- ImproveStrength/[place] 1=Demonstrate adherence to instructed precautions during ADL tasks. 2=Patient will verbalize/demonstrate understanding of assistive devices/ modifications for ADL. 3=Patient will improve strength/tolerance for activity to enable patient to perform ADL's. OT Education/Plan Problem List/Assessment Assessment: Decreased Activ Tolerance, Decreased Safety Aware, Decreased UE Strength, Impaired Bed Mobility, Impaired Funct Balance, Impaired Self-Care Skills Pt to benefit from skilled OT intervention for ADL training, transfers, strengthening, and safety education to increase independence and allow safe discharge. Discharge Recommendations Plan/Recommendations: Continue POC Therapy D/C Recommendations: Home w/ Family Support, Occupational Therapy Home Care Equpiment Recommendations-D/C: Extended Bath Bench, Extended Shower Sprayer, Fuel Cell Engineer Barriers to Progress distracts very easily, fatigue soon, weakness & fair endurance. Patient/Family Goals To return home with spouse Independently. Treatment Plan/Plan of Care Treatment,Training & Education: Yes Patient would benefit from OT for education, treatment and training to promote independence in ADL's, mobility, safety and/or upper extremity function for ADL' s. Plan of Care: ADL Retraining, Functional Mobility, Group Exercise/Act as Ind, UE Funct Exercise/Act Treatment Duration: Aug 05, 2018 Frequency: Modified Program (IRF) Estimated Hrs Per Day: 1.5 hours per day Agreement: Yes Rehab Potential: Good Time/GCodes Start Time: 08:15 Stop Time: 09:30 Total Time Billed (hr/min): 75 Billed Treatment Time 1, ADLs 60 min , Ex 15 min. Total 75 min . JEREMÍAS MACIAS OT Jul 20, 2018 09:45
--- NOTE | 2018-07-20 09:45 | PM&R Progress Note ---
Subjective HPI/CC On Admission Date Seen by Provider: Jul 20, 2018 Time Seen by Provider: 09:30 CC: Brain abscess status post craniotomy HPI: This is a 78-year-old white male clinic patient of in [facility] who presents from [facility] after admitted on 06/29/18 from [facility] then [facility] for renal abscess on the left then diagnosed brain abscess status post craniotomy and diagnosed Nocardia infection UTI and brain abscess. He was seen by multiple consultants while hospitalized and [place] and is currently in need of antibiotics for an additional 34 days and intense rehabilitation with physical therapy. He still remains with a Dhaliwal catheter in place and I consulted Dr. Monroe to facilitate retention resolution. I have also contacted cardiology for elevated BNP and right bundle branch block. I have also asked for Dr. Fenton for consultation for neutropenia and anemia. I have added on iron level. We're in the midst of reconciliation of home medications including IV antibiotics and nocardia treatment. Subjective/Events-last exam Pt scheduled for a peg tube for nutrition today per Dr Arndt since he cannot tolerate enough nutrition to recover from neurological condition He had 4500 cc in his dhaliwal after medication was started for hyponatremia yesterday Confusion comes and goes s/p frontal lobe brain abscess craniotomy that is not surprising BMP will be rechecked periodically Review of Systems General: Fatigue Genitourinary: Retention Neurological: Confusion Objective Exam Vital Signs Vital Signs Date Time Temp Pulse Resp B/P (MAP) Pulse Ox O2 Delivery O2 Flow Rate FiO2 07/20/18 09:00 Room Air 07/20/18 05:01 98.7 98 16 117/70 (86) 91 Capillary Refill : General Appearance: No Apparent Distress, WD/WN, Chronically ill, Cachetic, Thin HEENT: PERRL/EOMI, Normal ENT Inspection, Pharynx Normal, Moist Mucous Membranes Neck: Full Range of Motion, Normal Inspection, Non Tender, Supple Respiratory: Chest Non Tender, Lungs Clear, Normal Breath Sounds, No Accessory Muscle Use, No Respiratory Distress Cardiovascular: Regular Rate, Rhythm, No Edema, No Gallop, No JVD, No Murmur Gastrointestinal: Normal Bowel Sounds, No Organomegaly, No Pulsatile Mass, Non Tender, Soft Rectal: Normal Exam, Normal Rectal Tone Genital/Rectal: Normal Genital Exam, Normal Rectal Exam, Normal Rectal Tone, Normal Vaginal Exam, Other (dhaliwal cath in place) Back: Normal Inspection, No CVA Tenderness, No Vertebral Tenderness Extremity: Normal Capillary Refill, Normal Inspection, Normal Range of Motion, Non Tender, No Calf Tenderness, No Pedal Edema Neurologic/Psychiatric: Alert, Oriented x3, No Motor/Sensory Deficits, Normal Mood/Affect, Disoriented (subtle) Skin: Normal Color, Warm/Dry Lymphatic: No Adenopathy Results/Procedures Lab Patient resulted labs reviewed. Assessment/Plan Assessment and Plan Assess & Plan/Chief Complaint Assessment: Status post craniotomy Brain abscess Kidney abscess Nocardia infection Urinary retention Dhaliwal catheter in place Right bundle branch block Elevated BNP Neutropenia Anemia Hyponatremia Frail status Loss of weight and poor appetite s/p PEG tube placement Plan: Monitor labs Cardiology consultation is appreciated Urology consultation is appreciated Hematology consultation is appreciated IV abx Monitor closely Cath replaced today since failed in/out cath DC Bactrim PEG tube per Dr Arndt Check labs in am (1) Brain abscess (2) Nocardia infection (3) Pyelonephritis (4) Renal abscess (5) Neutropenia (6) Anemia (7) Hyponatremia (8) Weakness acquired in ICU (9) UTI (urinary tract infection) (10) PICC (peripherally inserted central catheter) in place (11) Urinary retention (12) Dhaliwal catheter in place (13) Right bundle branch block (14) Elevated brain natriuretic peptide (BNP) level (15) Cerebral edema (16) Focal neurological deficit (17) S/P craniotomy (18) Appetite loss (19) Weight loss (20) Cachexia (21) Malnutrition (22) Status post insertion of percutaneous endoscopic gastrostomy (PEG) tube Clinical Quality Measures DVT/VTE Risk/Contraindication: Risk Factor Score Per Nursin RFS Level Per Nursing on Admit: 4+=Very High GERTRUDIS HERNANDES DO Jul 20, 2018 09:45
--- NOTE | 2018-07-20 10:50 | Consultation ---
History of Present Illness History of Present Illness Patient Consulted On(mic/time) 07/20/18 10:44 Time Seen by Provider: 10:31 History of Present Illness Surgery asked to consult regarding Malnutrition, Inability to eat secondary to Neurologic deficit. HPI per IM: HPI: This is a 78-year-old white male clinic patient of in [facility] who presents from [facility] after admitted on 06/29 from [facility] then [facility] for renal abscess on the left then diagnosed brain abscess status post craniotomy and diagnosed Nocardia infection UTI and brain abscess. He was seen by multiple consultants while hospitalized and [place] and is currently in need of antibiotics for an additional 34 days and intense rehabilitation with physical therapy. He still remains with a Roberts catheter in place and I consulted Dr. Monroe to facilitate retention resolution. I have also contacted cardiology for elevated BNP and right bundle branch block. I have also asked for Dr. Fenton for consultation for neutropenia and anemia. I have added on iron level. We're in the midst of reconciliation of home medications including IV antibiotics and nocardia treatment. When I spoke to pt today he actually seemed alert and was answering questions, he said he understood why we were doing procedure. According to nurses he was very confused yesterday and refusing everything. Pt denies pain. Allergies and Home Medications Allergies Coded Allergies: mushroom (Unverified Allergy, Mild, RASH, 07/15/18) Home Medications No Active Prescriptions or Reported Meds Patient Home Medication List Home Medication List Reviewed: Yes Past Xcpzmrj-Wolwvo-Mruzta Hx Patient Social History Alcohol Use: Denies Use Recreational Drug Use: No Smoking Status: Never a Smoker Recent Foreign Travel: No Contact w/Someone Who Travel: No Recent Infectious Disease Expo: No Recent Hopitalizations: Yes Physical Abuse Screen: No Sexual Abuse: No Immunizations Up To Date Date of Influenza Vaccine: Apr 13, 2018 Seasonal Allergies Seasonal Allergies: No Surgeries History of Surgeries: Yes (craniotomy) Surgeries: Abdominal Respiratory History of Respiratory Disorde: No Cardiovascular History of Cardiac Disorders: No Neurological History of Neurological Disord: Yes Reproductive System Sexually Transmitted Disease: No HIV/AIDS: No Genitourinary History of Genitourinary Disor: Yes Genitourinary Disorders: Kidney Infection, Prostate Problems, Bladder Infection Gastrointestinal History of Gastrointestinal Di: Yes Gastrointestinal Disorders: Hemorrhoids, Hiatal Hernia Musculoskeletal History of Musculoskeletal Dis: Yes Musculoskeletal Disorders: Back Injury, Gout Endocrine History of Endocrine Disorders: No HEENT History of HEENT Disorders: Yes HEENT Disorders: Cataract, Glaucoma Cancer History of Cancer: No Psychosocial History of Psychiatric Problem: Yes Behavioral Health Disorders: Depression Integumentary History of Skin or Integumenta: No Blood Transfusions History of Blood Disorders: No Adverse Reaction to a Blood Tr: No Family Medical History Significant Family History: Cancer (Father Leukemia), Diabetes (Mother) Family Medial History: Alzheimer's disease 19 MOTHER FH: breast cancer 19 MOTHER FH: leukemia 19 FATHER Hiatal hernia 19 FATHER Review of Systems-General Constitutional: No chills, No diaphoresis; malaise, weakness, weight loss EENTM: No blurred vision, No double vision, No mouth pain, No mouth swelling, No epistaxis Respiratory: No cough, No dyspnea on exertion, No hemoptysis Cardiovascular: No chest pain, No edema, No palpitations Gastrointestinal: No abdominal pain, No constipation; dysphagia; No jaundice Genitourinary: dysuria, frequency; No hematuria; hesitancy, incontinence Musculoskeletal: joint pain, joint swelling, muscle pain, muscle stiffness Skin: dryness; No lesions, No pruritus Psychiatric/Neurological: Emotional Problems, Pre-Existing Deficit; Denies Weakness Other pt does not have history of abnormal bleeding or bruising Physical Exam-General Problems Physical Exam Vital Signs Vital Signs - First Documented 07/14/18 21:45 Temp 99.2 Pulse 96 Resp 20 B/P (MAP) 156/71 (99) Pulse Ox 94 O2 Delivery Room Air Capillary Refill : General Appearance: no apparent distress, cachetic Eyes: Bilateral Eye PERRL, Bilateral Eye EOMI HEENT: pharynx normal; No scleral icterus (R), No scleral icterus (L) Respiratory: chest non-tender, lungs clear, normal breath sounds, no respiratory distress, no accessory muscle use Cardiovascular: regular rate, rhythm, no murmur Gastrointestinal: normal bowel sounds, non tender, soft, no organomegaly, no pulsatile mass Back: no CVA tenderness, no vertebral tenderness Extremities: no pedal edema, no calf tenderness, normal capillary refill Neurologic/Psychiatric: alert, normal mood/affect Skin: normal color, warm/dry Lymphatic: no adenopathy (neck, axilla or groin) Data Review Labs Microbiology 2/19 MRSA Screen - Final, Complete MRSA not isolated Assessment/Plan Assessment/Plan Assessment/Plan Malnutrition Inability to eat secondary to Neurologic Deficit. Plan for PEG tube placement so pt can get nutrition; which will help healing. Maximum medical care. 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 IV Bactrim stopped 07-19-18 after consulting ID specialist in [place]. He is only IV Meropenem now. Will repeat CBC and CMP in 2 days to see if his CBC and LFTs improving after we stop the Bactrim. 2. Leukopenia. most likely related to IV Bactrim. Will repeat CBC in 2 days. 4. Anemia, most likely chronic illness and infection. Transfuse RBC to keep Hb above 7. 5. Elevated LFTs, ?etiology. He had normal LFTs on 06-29-2018 with ALT 71, AST 16 and Bili 0.6. We may need liver ultra sound or CT scan evaluation to make sure pt is not progressing and developing new lesions in the liver. 6. Check serum Ig levels since this is an unusual infection. 7. This is a very complicated case and we need to have to review more records from previous hospitals, specially his antibiotics and culture sensitivities of nocardia. Clinical Quality Measures DVT/VTE Risk/Contraindication: Risk Factor Score Per Nursin RFS Level Per Nursing on Admit: 4+=Very High SAWYER TORRES DO Jul 20, 2018 10:50
[2018-07-20] MEDS ORDERED: PROPOFOL INJECTION 50 ML IV ONE (11:42)
[2018-07-20] MEDS ORDERED: ceFAZolin INJECTION 1,000 MG ONE (11:58)
[2018-07-20] MEDS ORDERED: ceFAZolin INJECTION 1,000 MG in WATER (STERILE) FOR INJECTION 10 ML IV ONE (12:15)
--- NOTE | 2018-07-20 12:15 | Physical Therapy Daily Note ---
PT Daily Note-Current Subjective Pt laying Supine in bed upon arrival. Pt is pleasant and agrees to PT. Mental Status Patient Orientation: Person, Confused, Place Transfers Therapy Code Descriptions/Definitions Functional [place] Measure: 0=Not Assessed/NA 4=Minimal Assistance 1=Total Assistance 5=Supervision or Setup 2=Maximal Assistance 6=Modified [place] 3=Moderate Assistance 7=Complete [place] Therapy Quality Codes: 6 Independent with activity with or without an assistive device 5 Patient requires set up or clean up by helper. Patient completes activity by themselves 4 Supervision or touching assist (CGA). [place] provide cues , steadying assist 3 The helper provides less than half the effort to complete the activity 2 The helper provides more than half the effort to complete the activity 1 Dependent. The helper does all the effort to complete an activity 7 Patient refused to complete or attempt activity 9 The patient did not perform the activity before the current illness or injury 88 Not attempted due to Medical conditions or safety concerns Scootin Rollin Supine to/from Sit: 5 Sit to/from Stand: 5 Sit to Lying (QC): 5 Sit to Stand (QC): 5 Weight Bearing Right Lower Extremity: Right Full Weight Bearing Left Lower Extremity: Left Full Weight Bearing Gait Training Does the Patient Walk?: Yes Distance (FIM): 3=150 ft Distance: 250' Walk 10 feet (QC): 5 Walk 50 ft with 2 Turns(QC): 5 Walk 150 ft (QC): 5 Gait Level of Assist: 5 Gait Persons Needed: 1 Gait Assistive Device: FWW Wheelchair Training Does the Pt Use a Wheelchair?: No Exercises Seated Therapy Exercises: Ankle pumps, Long arc quads, Hip flexion, Kicking activity, Hip abd/add Seated Reps: 15 NuStep Minutes: 10 NuStep Workload: 5 Treatments Pt transfers at [facility] and pt ambulates in hallway using FWW at [facility]. Pt uses NuStep for 10m at [facility] 5 then completes Seated Ex. After rest, pt again ambulates then returns to room to rest before procedure. Pt has all needs met at end of tx. Assessment Current Status: Good Progress Pt remains confused. PT Short Term Goals Short Term Goals Time Frame: Jul 29, 2018 Transfers (B,C,W/C) (FIM): 6 Gait (FIM): 6 Distance (FIM): 3=150 ft Gait Distance Comment: 350' Gait Level of Assist: 6 Gait Assistive Device: FWW Stairs (FIM): 6 # of Steps: 4 Stairs Level of Assist: 6 PT Asphalt Plant Operator Goals Asphalt Plant Operator Goals PT Custodial Goals Time Frame: Aug 14, 2018 Transfers (B,C,W/C) (FIM): 7 Sit to Lying (QC): 7 Lying-Sitting on Side/Bed(QC): 7 Sit to Stand (QC): 7 Rollin Roll Left to Right (QC): 7 Chair/Irp-gp-Pkape Xfer(QC): 7 Car Transfer (QC): 7 Does the Patient Walk: Yes Gait (FIM): 6 Gait distance (FIM): 3=150 ft Distance: 1000' Walk 10 feet (QC): 7 Walk 10ft-Uneven Surface(QC): 7 Walk 50ft with 2 Turns (QC): 7 Walk 150 ft (QC): 7 Gait Level of Assist: 6 Gait Assistive Device: FWW Does the Pt use WC or Scooter?: No Stairs (FIM): 6 # of Steps: 12 1 Step (curb) (QC): 7 4 Steps (QC): 7 12 Steps (QC): 7 Stairs Level Of Assist: 6 Picking up an Object (QC): 7 PT Plan Problem List Problem List: Activity Tolerance, Functional Strength, Safety Treatment/Plan Treatment Plan: Continue Plan of Care Treatment Plan: Bed Mobility, Concurrent Therapy, Education, Functional Activity [place], Functional Strength, Group Therapy, Gait, Safety, Therapeutic Exercise, Transfers Treatment Duration: Aug 14, 2018 Frequency: At least 5 of 7 days/Wk (IRF) Estimated Hrs Per Day: 1.5 hours per day Patient and/or Family Agrees t: Yes Safety Risks/Education Patient Education: Gait Training, Transfer Techniques, Correct Positioning Teaching Recipient: Patient Teaching Methods: Discussion Response to Teaching: Verbalize Understanding Time/GCodes Time In: 930 Time Out: 1030 Total Billed Treatment Time: 60 Total Billed Treatment 1, GT (15m), EX x2 (30m) & FA (15m) G Codes Necessary: BAIELY Dick FREIGHT FLOW SALES LEADER Jul 20, 2018 12:15
[2018-07-20] MEDS ORDERED: LIDOCAINE 1% INJ 20 ML 20 ML VIAL ONE (12:22)
[2018-07-20] MEDS ORDERED: BUP/EPI 0.5% 1:200,000 (SENSORCAINE) 30 ML VIAL ONE (12:22)
[2018-07-20] MEDS ORDERED: PHENYLEPHRINE 100 MCG/ML 10 ML (ANESTHESIA) SYR ONE (12:28)
[2018-07-20] MEDS ORDERED: ONDANSETRON 4 MG/2 ML (SDV) Z0FRAN ONE (12:28)
[2018-07-20] MEDS ORDERED: SUCCINYLCHOLINE INJ 100 MG/5 ML SYR ONE (12:28)
[2018-07-20] MEDS ORDERED: SEVOFLURANE (ULTANE) 15 ML INHAL SOLN ONE ×2 (12:31)
[2018-07-20] MEDS ORDERED: ROCURONIUM 10 MG/ML 5 ML SYRINGE IV ONE (12:35)
[2018-07-20] MEDS ORDERED: NEOSTIGMINE 1 MG/ML 5 ML SYRINGE ONE (12:35)
[2018-07-20] MEDS ORDERED: GLYCOPYRROLATE 0.2 MG/ML (ROBINUL) 2 ML VIAL ONE (12:35)
--- NOTE | 2018-07-20 12:49 | Progress Note-Post Operative ---
Post-Operative Progess Note Surgeon (s)/Woodworking Machine Offbearer (s) Surgeon SAWYER TORRES DO Woodworking Machine Offbearer: Dr. Bentley Pre-Operative Diagnosis Malnutrition, Inability to eat secondary to Neurologic disorder Post-Operative Diagnosis Same Procedure & Operative Findings Date of Procedure 07/20/18 Procedure Performed/Findings Laparoscopic Assisted PEG tube placement Anesthesia Type GET Estimated Blood Loss Estimated blood loss (mL): scant Specimens/Packing Specimens Removed none SAWYER TORRES DO Jul 20, 2018 12:49
[2018-07-20] MEDS ORDERED: HYDROmorphone 2 MG/ML VIAL (DILAUDID) IV ONE (13:00)
[2018-07-20] MEDS ORDERED: ONDANSETRON 4 MG/2 ML (SDV) Z0FRAN IVP PRN (13:00)
--- NOTE | 2018-07-20 14:25 | Physical Therapy Progress Note ---
Therapy Progress Note Pt out for procedure at afternoon scheduled PT time. Pt returns for Peg tube procedure. Nurse advises pt is given General anesthesia and is sleeping right now. PT will attempt later this afternoon to check on pt. 1 visit, no tx rendered BAILEY CALLAWAY PTA Jul 20, 2018 14:25
--- NOTE | 2018-07-20 15:06 | Physician Progress Note ---
Progress Note Assessment/Plan Date Seen by Provider: Jul 20, 2018 Time Seen by Provider: 14:00 Events since last exam Pt is gone for PEG tube placement for inadequate PO intake and malnutrition Assessment/Plan 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 He is on IV Meropenem. 2. Leukopenia. most likely related to IV Bactrim. IV Bactrim stopped 07-19-18 after consulting ID specialist in [place]. Will repeat CBC and CMP tomorrow. 4. Anemia, most likely chronic illness and infection. Transfuse RBC to keep Hb above 7. 5. Elevated LFTs, ?etiology. He had normal LFTs on 06-29-2018 with ALT 71, AST 16 and Bili 0.6. We may need liver ultra sound or CT scan evaluation to make sure pt is not progressing and developing new lesions in the liver. Vitals Last set of Vitals Signs Vital Signs Date Time Temp Pulse Resp B/P (MAP) Pulse Ox O2 Delivery O2 Flow Rate FiO2 07/20/18 09:00 Room Air 07/20/18 05:01 98.7 98 16 117/70 (86) 91 I&O I&O Intake and Output 07/20/18 00:00 Intake Total 1220 ml Output Total 6100 ml Balance -4880 ml Intake Oral 700 ml IV Total 520 ml Output Urine Total 6100 ml # Bowel Movements 1 Labs Microbiology 07/16/18 MRSA Screen - Final, Complete MRSA not isolated Clinical Quality Measures DVT/VTE Risk/Contraindication: Risk Factor Score Per Nursin RFS Level Per Nursing on Admit: 4+=Very High MORALES RADFORD MD Jul 20, 2018 15:06
[2018-07-20] MEDS: MINOCYCLINE 100 MG TABLET (NON-FORMULARY) PO SCH ×2 (15:34→22:19)
[2018-07-20] MEDS: KCL 20 MEQ TAB (K-DUR) PO SCH (15:35)
[2018-07-20] MEDS: TOLVAPTAN 15 MG TABLET PO SCH (15:35)
--- NOTE | 2018-07-20 15:42 | Speech Therapy Daily Note ---
Speech Daily Progress Note Subjective Date Seen by Provider: Jul 20, 2018 Time Seen by Provider: 00:30 Patient was just waking up from having a PEG tube placement. He was pleasant and very talkative. Assessment Assessment Current Status: Good Progress Treatment Plan Continue Plan of Care Communication Comprehension: 2 Expression: 2 Social Cognition Social Interaction: 5 Problem Solvin Memory: 2 Speech Short Term Goals Short Term Goals Short Term Goals 1) Patient will complete memory tasks at 80% or greater with minimal cues. 2) Patient willbe able to follow simple 2-3 step directions with 80% or greater with minimal cues. 3) Patient will be able to increase his attention to task with 80% or greater with minimal redirection. Speech Director Drug Goals Fpc Goals Patient will increase cognitive communication skills for improved safety and independence. Speech-Plan Patient/Family Goals Patient/Family Goals: Patient plans to return home with his post rehab. Treatment Plan Speech Therapy Treatment Plan: Continue Plan of Care Patient is progressing well as a result of skilled ST services. Treatment Duration: Jul 26, 2018 Frequency: 5 times per week Estimated Hrs Per Day: .5 hour per day Rehab Potential: Good Barriers to Learning: Patient has decreased short term memory. Pt/Family Agrees to Plan: Yes Safety Risks/Education Teaching Recipient: Patient Teaching Methods: Discussion Response to Teaching: Verbalize Understanding Education Topics Provided: Safety procedures within his room. Time Speech Therapy Time In: 14:30 Speech Therapy Time Out: 15:15 Total Billed Time: 45 Billed Treatment Time 1JESSIE BETHANIA ST Jul 20, 2018 15:41
[2018-07-20] MEDS ORDERED: LACTATED RINGERS 1,000 ML IV SCH (15:45)
--- NOTE | 2018-07-20 15:56 | NUR ---
Patient taken to Surgery for PEG placement at 1130. Returned at 1355 on Room Air. Patient alert and able to answer questions appropriately. Instructions from Dr. Arndt include to start LR at 125 ml/hr and maintain NPO, meds with sips of water until 24 hrs. post op (1300 on 07/21/18). Patient's , Kiley, updated on patient status before and after surgery.
[2018-07-20] MEDS: TAMSULOSIN 0.4 MG (FLOMAX) CAP PO SCH (18:02)
[2018-07-20] MEDS: NS IV 1000 ML 1,000 ML IV SCH (18:02)
[2018-07-20 18:22] VITALS: BP 152/80
--- NOTE | 2018-07-20 19:53 | OPERATIVE REPORT ---
DATE OF SERVICE: PREOPERATIVE DIAGNOSES: 1. Malnutrition. 2. Inability to eat secondary to neurologic deficit, brain abscess. POSTOPERATIVE DIAGNOSES: 1. Malnutrition. 2. Inability to eat secondary to neurologic deficit, brain abscess. PROCEDURE: Laparoscopic-assisted PEG tube placement. SURGEON: Donato Arndt DO. SENIOR BEHAVIORAL SCIENTIST: Mauro Bentley DO. ANESTHESIA: General endotracheal tube. BLOOD LOSS: Scant. FLUIDS: Per anesthesia. POSTOPERATIVE CONDITION: Stable. SPECIMENS: None. INDICATION FOR PROCEDURE: The patient is a 78-year-old male who unfortunately with the brain surgery and he has been able to eat enough to maintain his weight much less recovered becoming malnourished and needs a PEG tube for nutrition. FINDINGS: The patient had attempted PEG tube placement and unable to get the needle go into the stomach, so laparoscopic-assisted PEG gastrostomy tube placement. PROCEDURE NOTE: After informed consent was obtained, the patient was brought to the operating room, placed on the table in supine position. First attempted, got an EGD pushed down the mouth through the esophagus into the stomach, insufflated the stomach. Dr. Bentley then prepped to the stomach and made a small stab incision with #11 blade and then advanced to the needle, but after multiple attempts advancing at least 3 attempts could not get the needle into the stomach even and had a buried had a hard time visualizing the light from the inside and because we placed the needle and a few times elected to now make changed over to a laparoscopic-assisted. The patient was then sterilely prepped and draped in normal fashion and made an incision above the umbilicus with a #11 blade, carried down to the skin into subcutaneous tissue, then deepened down to subcutaneous tissue with Bovie electrocautery down to fascia. Fascia incised with Bovie electrocautery, placed 11 mm trocar port under direct visualization, created pneumoperitoneum. Placed the scope into abdomen could see the stomach. Placed a grasper through the 10-port and used a 5 mm camera and a 5 mm grasper, able to grasp the stomach. Dr. Bentley then went and placed the EGD scope down the mouth, passed the esophagus into the stomach. You could see the light from the inside. I then directed the needle watched to come through the abdominal wall and then watched it go into the stomach had pulled the stomach down a little bit to pull it closer and make cannulation easier. Once we saw the needle, Dr. Bentley then able to grasp around the needle and I placed a wire through the needle easily, he grasped the wire and then pulled this out through the mouth. Then attached this to the PEG tube in place a PEG tube down the mouth and pull this gently into the mouth, down the esophagus into the stomach and pulled it out through the abdominal wall. It came in nicely, took 2 pictures on the inside to easily rotate this PEG tube and could see it moved. It was said about 3 cm looked saw what looked like some small petechia from where the needle had missed one right in between the stomach and the transverse colon. At this point, I elected the pneumoperitoneum out, the stomach was nicely adhered to the abdominal wall. Did not appear to have any tension and at this point, then placed the bolster on to hold the PEG tube in place. Again, it was about 3 cm, possibly 2-1/2 and then removed the balloon trocar port and then closed the fascia was closed with 0 Vicryl [id number] suture. Obtained hemostasis and incision and then closed the incision with 4-0 undyed Monocryl. Two interrupted subcuticular stitches. Area was cleaned and dried and Dermabond placed as well as a Band-Aid. The patient tolerated procedure and transferred to recovery room in stable condition. Sponge, instrument and needle count correct at the end of the case. Dr. Bentley assisted in this case helping with the making the incision and then during the EGD portion of the top to get the PEG tube in place. Job ID: [id number] DocumentID: [id number] Dictated Date: 07/20/2018 12:48:21 Radar Systems Engineer Date: 07/20/2018 19:52:46 Dictated By: DO JHONATHAN HARRIS
[2018-07-21] MEDS: NS IV 1000 ML 1,000 ML IV SCH ×2 (04:13→13:03)
[2018-07-21 05:20] VITALS: BP 147/75
[2018-07-21] MEDS: LACTOBACILLUS ACIDOPHILUS (PROBIOTIC) CAPSULE PO SCH ×2 (05:58→17:04)
[2018-07-21] MEDS: MEROPENEM 1,000 MG in WATER (STERILE) FOR INJECTION 20 ML IV SCH ×3 (05:58→22:00)
[2018-07-21] MEDS: BETHANECHOL 25 MG (URECHOLINE) TAB PO SCH ×4 (05:58→21:58)
[2018-07-21 06:14] LABS: BASOPHILS % (AUTO) 0 % (0-10); EOSINOPHILS # (AUTO) 0.3 10^3/uL (0.0-0.3); EOSINOPHILS % (AUTO) 5 % (0-10); HEMATOCRIT 29 % (40-54); HEMOGLOBIN 9.1 G/DL (13.3-17.7); LYMPHOCYTES # (AUTO) 0.7 X 10^3 (1.0-4.0); LYMPHOCYTES % (AUTO) 14 % (12-44); MEAN CORPUSCULAR HEMOGLOBIN 25 PG (25-34); MEAN CORPUSCULAR HGB CONC 31 G/DL (32-36); MEAN CORPUSCULAR VOLUME 82 FL (80-99); MEAN PLATELET VOLUME 10.8 FL (7.4-10.4); MONOCYTES # (AUTO) 0.6 X 10^3 (0.0-1.0); MONOCYTES % (AUTO) 12 % (0-12); NEUTROPHILS # (AUTO) 3.1 X 10^3 (1.8-7.8); NEUTROPHILS % (AUTO) 68 % (42-75); PLATELET COUNT 197 10^3/uL (130-400); RED CELL DISTRIBUTION WIDTH 27.9 % (10.0-14.5); WHITE BLOOD COUNT 4.6 10^3/uL (4.3-11.0)
[2018-07-21 06:34] LABS: ALANINE AMINOTRANSFERASE 36 U/L (0-55); ALKALINE PHOSPHATASE 75 U/L (40-136); BILIRUBIN,TOTAL 0.9 MG/DL (0.1-1.0); BUN/CREATININE RATIO 24; CALCIUM 8.1 MG/DL (8.5-10.1); CARBON DIOXIDE 25 MMOL/L (21-32); CHLORIDE 101 MMOL/L (98-107); CREATININE SERUM 0.72 MG/DL (0.60-1.30); GFR ESTIMATED > 60; GLUCOSE 84 MG/DL (70-105); POTASSIUM 4.3 MMOL/L (3.6-5.0); SODIUM 135 MMOL/L (135-145); TOTAL PROTEIN 6.1 GM/DL (6.4-8.2)
[2018-07-21] MEDS: KCL 20 MEQ TAB (K-DUR) PO SCH (08:36)
[2018-07-21] MEDS: LORATADINE (CLARITIN) 10 MG TAB PO SCH ×2 (08:36→21:58)
[2018-07-21] MEDS: SENNA W/DOCUSATE (SENOKOT S) TABLET PO SCH ×2 (08:36→21:58)
[2018-07-21] MEDS: TOLVAPTAN 15 MG TABLET PO SCH (08:37)
[2018-07-21] MEDS: MINOCYCLINE 100 MG TABLET (NON-FORMULARY) PO SCH ×2 (08:46→21:59)
--- NOTE | 2018-07-21 08:47 | PM&R Progress Note ---
Subjective HPI/CC On Admission Date Seen by Provider: Jul 21, 2018 Time Seen by Provider: 09:00 CC: Brain abscess status post craniotomy HPI: This is a 78-year-old white male clinic patient of in [facility] who presents from [facility] after admitted on 06/29/18 from [facility] then [facility] for renal abscess on the left then diagnosed brain abscess status post craniotomy and diagnosed Nocardia infection UTI and brain abscess. He was seen by multiple consultants while hospitalized and [place] and is currently in need of antibiotics for an additional 34 days and intense rehabilitation with physical therapy. He still remains with a Dhaliwal catheter in place and I consulted Dr. Monroe to facilitate retention resolution. I have also contacted cardiology for elevated BNP and right bundle branch block. I have also asked for Dr. Fenton for consultation for neutropenia and anemia. I have added on iron level. We're in the midst of reconciliation of home medications including IV antibiotics and nocardia treatment. Subjective/Events-last exam Pt s/p peg tube for nutrition yesterday per Dr Arndt since he could not tolerate enough nutrition to recover from neurological condition Dhaliwal cath maintained Confusion comes and goes s/p frontal lobe brain abscess craniotomy that is not surprising but appears improved Maintained on IV abx and minocycline Patient appears to be more lucid today TF to begin today Coccyx hurts and there is a pressure area that will be closely monitored Sodium level 135 today CBC much improved since stopping the Bactrim Review of Systems General: Fatigue, Appetite (loss) Neurological: Confusion Objective Exam Vital Signs Vital Signs Date Time Temp Pulse Resp B/P (MAP) Pulse Ox O2 Delivery O2 Flow Rate FiO2 07/21/18 09:39 Room Air 07/21/18 05:20 98.2 89 18 147/75 (99) 92 Capillary Refill : General Appearance: No Apparent Distress, WD/WN, Chronically ill, Cachetic, Thin HEENT: PERRL/EOMI, Normal ENT Inspection, Pharynx Normal, Moist Mucous Membranes Neck: Full Range of Motion, Normal Inspection, Non Tender, Supple Respiratory: Chest Non Tender, Lungs Clear, Normal Breath Sounds, No Accessory Muscle Use, No Respiratory Distress Cardiovascular: Regular Rate, Rhythm, No Edema, No Gallop, No JVD, No Murmur Gastrointestinal: Normal Bowel Sounds, No Organomegaly, No Pulsatile Mass, Non Tender, Soft, Other (PEG site without erythema) Rectal: Normal Exam, Normal Rectal Tone Genital/Rectal: Normal Genital Exam, Normal Rectal Exam, Normal Rectal Tone, Normal Vaginal Exam, Other (dhaliwal cath in place) Back: Normal Inspection, No CVA Tenderness, No Vertebral Tenderness Extremity: Normal Capillary Refill, Normal Inspection, Normal Range of Motion, Non Tender, No Calf Tenderness, No Pedal Edema Neurologic/Psychiatric: Alert, Oriented x3, No Motor/Sensory Deficits, Normal Mood/Affect, Disoriented (subtle) Skin: Normal Color, Warm/Dry Lymphatic: No Adenopathy Results/Procedures Lab Laboratory Tests 07/21/18 06:00 Patient resulted labs reviewed. Assessment/Plan Assessment and Plan Assess & Plan/Chief Complaint Assessment: Status post craniotomy Brain abscess Kidney abscess Nocardia infection Urinary retention Dhaliwal catheter in place Right bundle branch block Elevated BNP Neutropenia Anemia Hyponatremia Frail status Loss of weight and poor appetite s/p PEG tube placement Plan: Monitor labs occasionally Cardiology consultation is appreciated Urology consultation is appreciated Hematology consultation is appreciated IV abx Monitor closely Cath dhaliwal maintained since failed in/out cath DC Bactrim due to bone marrow suppression PEG tube per Dr Arndt will start PEG tube feedings today Checked labs today and reviewed (1) Brain abscess (2) Nocardia infection (3) Pyelonephritis (4) Renal abscess (5) Neutropenia (6) Anemia (7) Hyponatremia (8) Weakness acquired in ICU (9) UTI (urinary tract infection) (10) PICC (peripherally inserted central catheter) in place (11) Urinary retention (12) Dhaliwal catheter in place (13) Right bundle branch block (14) Elevated brain natriuretic peptide (BNP) level (15) Cerebral edema (16) Focal neurological deficit (17) S/P craniotomy (18) Appetite loss (19) Weight loss (20) Cachexia (21) Malnutrition (22) Status post insertion of percutaneous endoscopic gastrostomy (PEG) tube Clinical Quality Measures DVT/VTE Risk/Contraindication: Risk Factor Score Per Nursin RFS Level Per Nursing on Admit: 4+=Very High GERTRUDIS HERNANDES DO Jul 21, 2018 08:47
[2018-07-21] MEDS: SODIUM CHLORIDE 1 GM TAB (NON-FORMULARY) PO SCH ×3 (09:55→21:59)
--- NOTE | 2018-07-21 09:57 | Physician Progress Note ---
Progress Note Assessment/Plan Date Seen by Provider: Jul 21, 2018 Time Seen by Provider: 09:51 Events since last exam Pt is doing better, more alter. WBC is coming up to 4.0 and Hb is up from 7.8 to 9.1 today LFTs are also improving to almost normal. PEG tube placed yesterday. A/P It is clear now that the leukopenia and abnormal LFTs are related to Bactrim toxicity. I anticipate these will continue improving after we stopped the Bactrim. His anemia should resolve once the infection resolves. If not, we can do work up later time. He is on the right track. I will sign off for now. Please call me if you ever need any more help. Thank you for the consultation. Assessment/Plan 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 He is on IV Meropenem. 2. Leukopenia. most likely related to IV Bactrim. IV Bactrim stopped 07-19-18 after consulting ID specialist in [place]. Will repeat CBC and CMP tomorrow. 4. Anemia, most likely chronic illness and infection. Transfuse RBC to keep Hb above 7. 5. Elevated LFTs, ?etiology. He had normal LFTs on 06-29-2018 with ALT 71, AST 16 and Bili 0.6. We may need liver ultra sound or CT scan evaluation to make sure pt is not progressing and developing new lesions in the liver. Vitals Last set of Vitals Signs Vital Signs Date Time Temp Pulse Resp B/P (MAP) Pulse Ox O2 Delivery O2 Flow Rate FiO2 07/21/18 09:39 Room Air 07/21/18 05:20 98.2 89 18 147/75 (99) 92 I&O I&O Intake and Output 07/21/18 00:00 Intake Total 665 ml Output Total 800 ml Balance -135 ml Intake Oral 530 ml IV Total 135 ml Output Urine Total 800 ml # Bowel Movements 1 Labs Laboratory Tests 07/21/18 06:00 Laboratory Tests 07/21/18 06:00: White Blood Count 4.6, Red Blood Count 3.58L, Hemoglobin 9.1L, Hematocrit 29L, Mean Corpuscular Volume 82, Mean Corpuscular Hemoglobin 25, Mean Corpuscular Hemoglobin Concent 31L, Red Cell Distribution Width 27.9H, Platelet Count 197, Mean Platelet Volume 10.8H, Neutrophils (%) (Auto) 68, Lymphocytes (%) (Auto) 14 , Monocytes (%) (Auto) 12, Eosinophils (%) (Auto) 5, Basophils (%) (Auto) 0, Neutrophils # (Auto) 3.1, Lymphocytes # (Auto) 0.7L, Monocytes # (Auto) 0.6, Eosinophils # (Auto) 0.3, Basophils # (Auto) 0.0, Sodium Level 135, Potassium Level 4.3, Chloride Level 101, Carbon Dioxide Level 25, Anion Gap 9, Blood Urea Nitrogen 17, Creatinine 0.72, Estimat Glomerular Filtration Rate > 60, BUN/ Creatinine Ratio 24, Glucose Level 84, Calcium Level 8.1L, Corrected Calcium 8.9 , Total Bilirubin 0.9, Aspartate Amino Transf (AST/SGOT) 36H, Alanine Aminotransferase (ALT/SGPT) 36, Alkaline Phosphatase 75, Total Protein 6.1L, Albumin 3.0L Microbiology 07/19/18 MRSA Screen - Final, Complete MRSA not isolated Clinical Quality Measures DVT/VTE Risk/Contraindication: Risk Factor Score Per Nursin RFS Level Per Nursing on Admit: 4+=Very High MORALES RADFORD MD Jul 21, 2018 09:57
--- NOTE | 2018-07-21 10:00 | Occupational Ther Daily Note ---
OT Current Status-Daily Note Subjective Pt in bed , not very cheerful due to Peg Tube in placed surgically yesterday. Pt not ready for shower but agreed for sponge-Bath in Bed. Pain Numeric Pain Scale: 4 Location: Soft Tissue Location Body Site: Sacrum Pain Description: Ache, Acute Mental Status/Objective Patient Orientation: Person, Place, Time, Situation Therapy Code Descriptions/Definitions Functional [place] Measure: 0=Not Assessed/NA 4=Minimal Assistance 1=Total Assistance 5=Supervision or Setup 2=Maximal Assistance 6=Modified [place] 3=Moderate Assistance 7=Complete [place] Attachments: Roberts Catheter, IV, Polar Pack, Saline Lock ADL-Treatment Patient got up from supine to sit at corner of bed with min A . Wash UB, LB, around neck, face , hairs, chest with warm Ready-Wash Warm Wipes. [place] his hairs, & participated gently in strengthening Ex to BUE to increase strength, endurance & activity tolerance to participate in BADL. Completed 20 reps x 2 sets x 2 lb wts, , 20 reps with red theraband & hand gripper ex to strengthen hand rn flight. . Pt has a pressure sore on sacral area.& thus positioned on side lying to avoid pressure on back . Every two hours pt needs to be reposition side to side . Therapy Code Descriptions/Definitions Functional [place] Measure: 0=Not Assessed/NA 4=Minimal Assistance 1=Total Assistance 5=Supervision or Setup 2=Maximal Assistance 6=Modified [place] 3=Moderate Assistance 7=Complete [place] Therapy Quality Codes: 6 Independent with activity with or without an assistive device 5 Patient requires set up or clean up by helper. Patient completes activity by themselves 4 Supervision or touching assist (CGA). [place] provide cues , steadying assist 3 The helper provides less than half the effort to complete the activity 2 The helper provides more than half the effort to complete the activity 1 Dependent. The helper does all the effort to complete an activity 7 Patient refused to complete or attempt activity 9 The patient did not perform the activity before the current illness or injury 88 Not attempted due to Medical conditions or safety concerns Oral Hygiene (QC): 6 Bathing (FIM): 4 Bathing Location: L Arm, R Arm, L Upper Leg, R Upper Leg, L Lower Leg ( including foot), R Lower Leg (including foot), Chest, Abdomen Upper Body (FIM): 6 Upper Body Dressing (QC): 6 Lower Body Dressing (FIM): 4 Lower Body Dressing (QC): 4 Toileting (FIM): 6 Toileting Hygiene (QC): 5 Transfers (B, C, W/C) (FIM): 5 Toilet/Commode Transfer (FIM): 5 Toilet Transfer (QC): 5 Education OT Patient Education: Correct positioning, Purpose of tx/functional activities , Reviewed precautions, Safety issues Teaching Recipient: Patient Teaching Methods: Demonstration, Discussion Response to Teaching: Verbalize Understanding, Return Demonstration OT Short Term Goals Short Term Goals Transfers (B,C,W/C) (FIM): 6 1=Demonstrate adherence to instructed precautions during ADL tasks. 2=Patient will verbalize/demonstrate understanding of assistive devices/ modifications for ADL. 3=Patient will improve strength/tolerance for activity to enable patient to perform ADL's. OT Global Transportation Manager Goals Global Transportation Manager Goals Time Frame: Aug 05, 2018 Eating (FIM): 6 Eating (QC): 6 Groomin Oral Hygiene (QC): 6 Bathing(FIM): 6 Shower/Bathe Self (QC): 6 Upper Body Dressing(FIM): 6 Upper Body Dressing (QC): 6 Lower Body Dressing(FIM): 6 Lower Body Dressing (QC): 6 On/Off Footwear (QC): 6 Toileting(FIM): 6 Toileting Hygiene (QC): 6 Toilet/Commode Transfer(FIM): 6 Toilet/Commode Transfer (QC): 6 Shower Transfer(FIM): 6 Additional Goals: 1-Demonstrate ADL Tasks, 2-Verbalize Understanding, 3- ImproveStrength/[place] 1=Demonstrate adherence to instructed precautions during ADL tasks. 2=Patient will verbalize/demonstrate understanding of assistive devices/ modifications for ADL. 3=Patient will improve strength/tolerance for activity to enable patient to perform ADL's. OT Education/Plan Problem List/Assessment Assessment: Decreased Activ Tolerance, Decreased Safety Aware, Decreased UE Strength, Impaired Bed Mobility, Impaired Funct Balance, Impaired Self-Care Skills Pt to benefit from skilled OT intervention for ADL training, transfers, strengthening, and safety education to increase independence and allow safe discharge. Discharge Recommendations Plan/Recommendations: Continue POC Therapy D/C Recommendations: Home w/ Family Support, Occupational Therapy Home Care Equpiment Recommendations-D/C: Extended Bath Bench, Extended Shower Sprayer, University Registrar Treatment Plan/Plan of Care Treatment,Training & Education: Yes Patient would benefit from OT for education, treatment and training to promote independence in ADL's, mobility, safety and/or upper extremity function for ADL' s. Plan of Care: ADL Retraining, Functional Mobility, Group Exercise/Act as Ind, UE Funct Exercise/Act Treatment Duration: Aug 05, 2018 Frequency: Modified Program (IRF) Estimated Hrs Per Day: 1.5 hours per day Agreement: Yes Rehab Potential: Good Time/GCodes Start Time: 08:30 Stop Time: 09:30 Total Time Billed (hr/min): 60 Billed Treatment Time 1, ADLs 45 min. FA 15 min . Total 60 minutes. JEREMÍAS MACIAS OT Jul 21, 2018 10:00
--- NOTE | 2018-07-21 10:51 | Physical Therapy Daily Note ---
PT Daily Note-Current Subjective Patient in bed pre tx, initially refuses therapy because he says he needs to stay in bed laying on his side. Apparently the OT who saw him earlier correctly told him that he needs to lay on his side when in bed for pressure relief and the patient now thinks he cannot get out of bed. Patient refuses to listen to PT and the OT who told him to lay on his side originally has to come in and tell him that he does not have to stay in bed and needs to participate in therapies. Patient then agrees to PT. Patient has no complaints of pain at rest. Appearance Patient in recliner post tx with nurse call, phone, tray, chair alarm on. Mental Status Patient Orientation: Person, Confused Attachments: PEG Tube, Roberts Catheter, IV Transfers Therapy Code Descriptions/Definitions Functional [place] Measure: 0=Not Assessed/NA 4=Minimal Assistance 1=Total Assistance 5=Supervision or Setup 2=Maximal Assistance 6=Modified [place] 3=Moderate Assistance 7=Complete [place] Therapy Quality Codes: 6 Independent with activity with or without an assistive device 5 Patient requires set up or clean up by helper. Patient completes activity by themselves 4 Supervision or touching assist (CGA). [place] provide cues , steadying assist 3 The helper provides less than half the effort to complete the activity 2 The helper provides more than half the effort to complete the activity 1 Dependent. The helper does all the effort to complete an activity 7 Patient refused to complete or attempt activity 9 The patient did not perform the activity before the current illness or injury 88 Not attempted due to Medical conditions or safety concerns Transfers (B, C, W/C) (FIM): 5 Scootin Rollin Supine to/from Sit: 5 Sit to/from Stand: 5 Bed to/from Chair: 5 Weight Bearing Right Lower Extremity: Right Full Weight Bearing Left Lower Extremity: Left Full Weight Bearing Gait Training Gait (FIM): 5 Distance: 200'x2 Gait Level of Assist: 5 Gait Persons Needed: 1 Gait Assistive Device: FWW Slow but steady ambulation, occasional cues for direction. Exercises LAQ alternating for 5 min. NuStep Minutes: 15 NuStep Workload: 5 Treatments bed mobility and transfers, ambulation, functional strengthening Assessment Current Status: Fair Progress improving endurance and strength PT Short Term Goals Short Term Goals Time Frame: Jul 29, 2018 Transfers (B,C,W/C) (FIM): 6 Gait (FIM): 6 Distance (FIM): 3=150 ft Gait Distance Comment: 350' Gait Level of Assist: 6 Gait Assistive Device: FWW Stairs (FIM): 6 # of Steps: 4 Stairs Level of Assist: 6 PT Top Precipitator Operator Helper Goals Senior Living Goals PT Top Precipitator Operator Helper Goals Time Frame: Aug 14, 2018 Transfers (B,C,W/C) (FIM): 7 Sit to Lying (QC): 7 Lying-Sitting on Side/Bed(QC): 7 Sit to Stand (QC): 7 Rollin Roll Left to Right (QC): 7 Chair/Kyj-ku-Sliit Xfer(QC): 7 Car Transfer (QC): 7 Does the Patient Walk: Yes Gait (FIM): 6 Gait distance (FIM): 3=150 ft Distance: 1000' Walk 10 feet (QC): 7 Walk 10ft-Uneven Surface(QC): 7 Walk 50ft with 2 Turns (QC): 7 Walk 150 ft (QC): 7 Gait Level of Assist: 6 Gait Assistive Device: FWW Does the Pt use WC or Scooter?: No Stairs (FIM): 6 # of Steps: 12 1 Step (curb) (QC): 7 4 Steps (QC): 7 12 Steps (QC): 7 Stairs Level Of Assist: 6 Picking up an Object (QC): 7 PT Plan Problem List Problem List: Activity Tolerance, Functional Strength, Safety, Balance, Gait, Transfer, Bed Mobility Treatment/Plan Treatment Plan: Continue Plan of Care Treatment Plan: Bed Mobility, Concurrent Therapy, Education, Functional Activity [place], Functional Strength, Group Therapy, Gait, Safety, Therapeutic Exercise, Transfers Treatment Duration: Aug 14, 2018 Frequency: At least 5 of 7 days/Wk (IRF) Estimated Hrs Per Day: 1.5 hours per day Patient and/or Family Agrees t: Yes Safety Risks/Education Patient Education: Gait Training, Transfer Techniques, Correct Positioning, Safety Issues Teaching Recipient: Patient Teaching Methods: Demonstration, Discussion Response to Teaching: Reinforcement Needed Time/GCodes Time In: 1000 Time Out: 1055 Total Billed Treatment Time: 55 Total Billed Treatment 1 visit EX 20' FA 10' GT 25' CHANDANA BANEGAS PT Jul 21, 2018 10:51
--- NOTE | 2018-07-21 12:02 | NUR ---
PT S/P PEG PLACEMENT. TO CONTINUE TO ENCOURAGE PO INTAKE, WE WILL PROVIDE JEVITY 1.5, 1 CAN AFTER EACH MEAL, AND 1 CAN AT BEDTIME (4 CANS EACH DAY), TO PROVIDE 1420 KCAL, 60 GRAMS PROTEIN, 720 ML FREE WATER. PT IS ON IVF, SO FLUSH TO KEEP LINE CLEAN. WILL REASSESS NEXT WEEK AND ADJUST NEEDED.
--- NOTE | 2018-07-21 14:38 | Progress Note-Urology ---
Progress Note-Urology Progress Notes/Assess & Plan Progress/Assessment & Plan TOV TOMORROW Final Diagnosis URINE RETENTION CHAVA CERVANTES MD Jul 21, 2018 14:38
--- NOTE | 2018-07-21 14:52 | Therapy Group Daily Note ---
Therapy Daily Group Note Patient Education Topic Home Safety Exercises LE Seated Exercise, UE Exercise Other/Notes Pt participated in group therapy with 4 to 1 ratio. Goals of session: Verbalize or acknowledge understanding of ARU description/ expectation, (met). Complete UE/LE seated exercises without difficulty, (met). Verbalize or acknowledge understanding of home safety and home equipment, ( ongoing) OT/PT group consisted of introductions (name, place living, reason for being at ARU), socialization, UE/LE seated exercises, home safety education and equipment that can be used and home safety trivia game. Pt introduced self appropriately then actively listened to peers. Pt contributed to conversations and initiated questions/answers throughout group. Pt completed UE/LE exercises without difficulty. Pt was able to verbalize understanding of educational topics by answering questions accurately and giving stating own experiences. Pt acknowledged understanding of ARU by gestures in agreement. Pt benefitted from group by using knowledge gained during daily activity and situations at home. After therapy, pt sitting in ARU commons area with visitor. All needs met. Start Time: 13:00 Stop Time: 14:05 Total Billed Treatment Time: 65 Total Billed Treatment 1-GRP DAIJA BELLE Jul 21, 2018 14:52
--- NOTE | 2018-07-21 15:41 | Speech Therapy Daily Note ---
Speech Daily Progress Note Subjective Date Seen by Provider: Jul 21, 2018 Time Seen by Provider: 00:30 Patient is doing very well today. Objective Patient completed memory activities at 90% accuracy with decreased verbal cues. Assessment Assessment Current Status: Good Progress Treatment Plan Continue Plan of Care Communication Comprehension: 2 Expression: 2 Social Cognition Social Interaction: 5 Problem Solvin Memory: 2 Speech Short Term Goals Short Term Goals Short Term Goals 1) Patient will complete memory tasks at 80% or greater with minimal cues. 2) Patient willbe able to follow simple 2-3 step directions with 80% or greater with minimal cues. 3) Patient will be able to increase his attention to task with 80% or greater with minimal redirection. Speech Retirement Goals Retirement Goals Patient will increase cognitive communication skills for improved safety and independence. Speech-Plan Patient/Family Goals Patient/Family Goals: Patient plans to return home with his post rehab. Treatment Plan Speech Therapy Treatment Plan: Continue Plan of Care Patient is making good progress as a result of skilled ST. Treatment Duration: Jul 26, 2018 Frequency: 5 times per week Estimated Hrs Per Day: .5 hour per day Rehab Potential: Good Barriers to Learning: Patient has memory and problem solving deficits. Pt/Family Agrees to Plan: Yes Safety Risks/Education Teaching Recipient: Patient Teaching Methods: Discussion Response to Teaching: Verbalize Understanding Education Topics Provided: Safety within his room. Time Speech Therapy Time In: 14:30 Speech Therapy Time Out: 15:00 Total Billed Time: 30 Billed Treatment Time 1JESSIE BETHANIA ST Jul 21, 2018 15:41
[2018-07-21] MEDS: TAMSULOSIN 0.4 MG (FLOMAX) CAP PO SCH (17:04)
[2018-07-21 18:36] VITALS: BP 142/72
[2018-07-22] MEDS: NS IV 1000 ML 1,000 ML IV SCH ×2 (00:01→09:05)
[2018-07-22] MEDS: BETHANECHOL 25 MG (URECHOLINE) TAB PO SCH ×4 (06:09→21:20)
[2018-07-22] MEDS: LACTOBACILLUS ACIDOPHILUS (PROBIOTIC) CAPSULE PO SCH ×2 (06:09→17:28)
[2018-07-22] MEDS: MEROPENEM 1,000 MG in WATER (STERILE) FOR INJECTION 20 ML IV SCH ×3 (06:10→21:20)
[2018-07-22 06:30] VITALS: BP 158/82
[2018-07-22] MEDS: KCL 20 MEQ TAB (K-DUR) PO SCH (08:58)
[2018-07-22] MEDS: LORATADINE (CLARITIN) 10 MG TAB PO SCH ×2 (08:59→21:20)
[2018-07-22] MEDS: SENNA W/DOCUSATE (SENOKOT S) TABLET PO SCH ×2 (08:59→21:21)
[2018-07-22] MEDS: MINOCYCLINE 100 MG TABLET (NON-FORMULARY) PO SCH ×2 (08:59→21:21)
[2018-07-22] MEDS: SODIUM CHLORIDE 1 GM TAB (NON-FORMULARY) PO SCH ×3 (08:59→21:20)
[2018-07-22] MEDS: TOLVAPTAN 15 MG TABLET PO SCH (09:00)
--- NOTE | 2018-07-22 10:48 | PM&R Progress Note ---
Subjective HPI/CC On Admission Date Seen by Provider: Jul 22, 2018 Time Seen by Provider: 10:45 CC: Brain abscess status post craniotomy HPI: This is a 78-year-old white male clinic patient of in [facility] who presents from [facility] after admitted on 06/29/18 from [facility] then [facility] for renal abscess on the left then diagnosed brain abscess status post craniotomy and diagnosed Nocardia infection UTI and brain abscess. He was seen by multiple consultants while hospitalized and [place] and is currently in need of antibiotics for an additional 34 days and intense rehabilitation with physical therapy. He still remains with a Dhaliwal catheter in place and I consulted Dr. Monroe to facilitate retention resolution. I have also contacted cardiology for elevated BNP and right bundle branch block. I have also asked for Dr. Fenton for consultation for neutropenia and anemia. I have added on iron level. We're in the midst of reconciliation of home medications including IV antibiotics and nocardia treatment. Subjective/Events-last exam Pt s/p peg tube for nutrition per Dr Arndt since he could not tolerate enough nutrition to recover from neurological condition and now he is eating on his own 100% of his meals and we are supplementing him with tube feedings Dhaliwal cath DC today and patient now able to void on his own so will monitor that very closely Confusion comes and goes s/p frontal lobe brain abscess craniotomy that is not surprising but appears improved and today he is very lucid Maintained on IV abx and minocycline TF tolerated well Coccyx hurts and there is a pressure area that will be closely monitored CBC much improved since stopping the Bactrim Review of Systems General: Fatigue Genitourinary: Retention Neurological: Weakness, Confusion Objective Exam Vital Signs Vital Signs Date Time Temp Pulse Resp B/P (MAP) Pulse Ox O2 Delivery O2 Flow Rate FiO2 07/22/18 09:00 Room Air 07/22/18 06:30 98.0 95 18 158/82 (107) 95 Capillary Refill : General Appearance: No Apparent Distress, WD/WN, Chronically ill, Cachetic, Thin, Other (much improved Tuesday) HEENT: PERRL/EOMI, Normal ENT Inspection, Pharynx Normal, Moist Mucous Membranes Neck: Full Range of Motion, Normal Inspection, Non Tender, Supple Respiratory: Chest Non Tender, Lungs Clear, Normal Breath Sounds, No Accessory Muscle Use, No Respiratory Distress Cardiovascular: Regular Rate, Rhythm, No Edema, No Gallop, No JVD, No Murmur Gastrointestinal: Normal Bowel Sounds, No Organomegaly, No Pulsatile Mass, Non Tender, Soft, Other (PEG site without erythema) Genital/Rectal: Other (dhaliwal cath in place) Back: Normal Inspection, No CVA Tenderness, No Vertebral Tenderness Extremity: Normal Capillary Refill, Normal Inspection, Normal Range of Motion, Non Tender, No Calf Tenderness, No Pedal Edema Neurologic/Psychiatric: Alert, Oriented x3, No Motor/Sensory Deficits, Normal Mood/Affect, Disoriented (subtle) Skin: Normal Color, Warm/Dry Lymphatic: No Adenopathy Results/Procedures Lab Patient resulted labs reviewed. Assessment/Plan Assessment and Plan Assess & Plan/Chief Complaint Assessment: Status post craniotomy Brain abscess Kidney abscess Nocardia infection Urinary retention will monitor closely and we appreciate Dr Monroe s/p Dhaliwal catheter now DC 07/22/18 Right bundle branch block Elevated BNP Neutropenia-improved since DC Bactrim Anemia Hyponatremia improved on fluid restriction and meds Frail status Loss of weight and poor appetite s/p PEG tube placement POD # 2 Plan: Monitor labs occasionally Cardiology consultation is appreciated Urology consultation is appreciated Hematology consultation is appreciated IV abx Monitor closely DC dhaliwal DC Bactrim due to bone marrow suppression PEG tube per Dr Arndt will started PEG tube feedings yesterday and now eating 100% of meals (1) Brain abscess (2) Nocardia infection (3) Pyelonephritis (4) Renal abscess (5) Neutropenia (6) Anemia (7) Hyponatremia (8) Weakness acquired in ICU (9) UTI (urinary tract infection) (10) PICC (peripherally inserted central catheter) in place (11) Urinary retention (12) Dhaliwal catheter in place (13) Right bundle branch block (14) Elevated brain natriuretic peptide (BNP) level (15) Cerebral edema (16) Focal neurological deficit (17) S/P craniotomy (18) Appetite loss (19) Weight loss (20) Cachexia (21) Malnutrition (22) Status post insertion of percutaneous endoscopic gastrostomy (PEG) tube Clinical Quality Measures DVT/VTE Risk/Contraindication: Risk Factor Score Per Nursin RFS Level Per Nursing on Admit: 4+=Very High GERTRUDIS HERNANDES DO Jul 22, 2018 10:48
--- NOTE | 2018-07-22 11:18 | Physical Therapy Daily Note ---
PT Daily Note-Current Subjective Pt agreeable to PT this morning Pain Numeric Pain Scale: 0-No Pain Appearance At beginning of session, pt in bed resting, easily aroused At end of session, pt sitting up in recliner with chair alarm set and call light , phone and bedside table within reach Transfers Therapy Code Descriptions/Definitions Functional [place] Measure: 0=Not Assessed/NA 4=Minimal Assistance 1=Total Assistance 5=Supervision or Setup 2=Maximal Assistance 6=Modified [place] 3=Moderate Assistance 7=Complete [place] Therapy Quality Codes: 6 Independent with activity with or without an assistive device 5 Patient requires set up or clean up by helper. Patient completes activity by themselves 4 Supervision or touching assist (CGA). [place] provide cues , steadying assist 3 The helper provides less than half the effort to complete the activity 2 The helper provides more than half the effort to complete the activity 1 Dependent. The helper does all the effort to complete an activity 7 Patient refused to complete or attempt activity 9 The patient did not perform the activity before the current illness or injury 88 Not attempted due to Medical conditions or safety concerns Transfers (B, C, W/C) (FIM): 5 Supine to/from Sit: 5 (bed flat, uses bedrail) Sit to/from Stand: 5 Pt demonstrating bed mobility and transfers safely and correctly requiring only supervision this date Weight Bearing Right Lower Extremity: Right Full Weight Bearing Left Lower Extremity: Left Full Weight Bearing Gait Training Does the Patient Walk?: Yes Gait (FIM): 5 Distance (FIM): 3=150 ft Distance: 300 Gait Level of Assist: 5 Gait Persons Needed: 1 Gait Assistive Device: FWW smooth steady gait SBA, not LOB or unsteadiness, pt demonstrating ability to maneuver walker while opening and walking through doorways Treatments safety gait and transfer training, bed mobility Assessment Current Status: Good Progress PT Short Term Goals Short Term Goals Time Frame: Jul 29, 2018 Transfers (B,C,W/C) (FIM): 6 Gait (FIM): 6 Distance (FIM): 3=150 ft Gait Distance Comment: 350' Gait Level of Assist: 6 Gait Assistive Device: FWW Stairs (FIM): 6 # of Steps: 4 Stairs Level of Assist: 6 PT Skilled Nursing Goals Elevator Repairer Helper Goals PT Skilled Nursing Goals Time Frame: Aug 14, 2018 Transfers (B,C,W/C) (FIM): 7 Sit to Lying (QC): 7 Lying-Sitting on Side/Bed(QC): 7 Sit to Stand (QC): 7 Rollin Roll Left to Right (QC): 7 Chair/Ajv-hj-Acgbf Xfer(QC): 7 Car Transfer (QC): 7 Does the Patient Walk: Yes Gait (FIM): 6 Gait distance (FIM): 3=150 ft Distance: 1000' Walk 10 feet (QC): 7 Walk 10ft-Uneven Surface(QC): 7 Walk 50ft with 2 Turns (QC): 7 Walk 150 ft (QC): 7 Gait Level of Assist: 6 Gait Assistive Device: FWW Does the Pt use WC or Scooter?: No Stairs (FIM): 6 # of Steps: 12 1 Step (curb) (QC): 7 4 Steps (QC): 7 12 Steps (QC): 7 Stairs Level Of Assist: 6 Picking up an Object (QC): 7 PT Plan Problem List Problem List: Safety, Transfer Treatment/Plan Treatment Plan: Continue Plan of Care Treatment Plan: Bed Mobility, Concurrent Therapy, Education, Functional Activity [place], Functional Strength, Group Therapy, Gait, Safety, Therapeutic Exercise, Transfers Treatment Duration: Aug 14, 2018 Frequency: At least 5 of 7 days/Wk (IRF) Estimated Hrs Per Day: 1.5 hours per day Patient and/or Family Agrees t: Yes Safety Risks/Education Patient Education: Gait Training, Transfer Techniques, Safety Issues Teaching Recipient: Patient Teaching Methods: Demonstration, Discussion Response to Teaching: Verbalize Understanding, Return Demonstration Time/GCodes Time In: 825 Time Out: 850 Total Billed Treatment Time: 25 Total Billed Treatment 1 visit GT x15' FA x10' BERRY WILLIAM PARTITION MAKING MACHINE OPERATOR Jul 22, 2018 11:18
[2018-07-22] MEDS: TAMSULOSIN 0.4 MG (FLOMAX) CAP PO SCH (17:28)
[2018-07-22 18:09] VITALS: BP 112/71
[2018-07-23 05:14] VITALS: BP 137/71
[2018-07-23] MEDS: MEROPENEM 1,000 MG in WATER (STERILE) FOR INJECTION 20 ML IV SCH ×3 (06:12→21:06)
[2018-07-23] MEDS: LACTOBACILLUS ACIDOPHILUS (PROBIOTIC) CAPSULE PO SCH ×2 (06:12→17:16)
[2018-07-23] MEDS: BETHANECHOL 25 MG (URECHOLINE) TAB PO SCH ×4 (06:12→21:07)
--- NOTE | 2018-07-23 06:29 | PM&R Progress Note ---
Subjective HPI/CC On Admission Date Seen by Provider: Jul 23, 2018 Time Seen by Provider: 06:15 CC: Brain abscess status post craniotomy HPI: This is a 78-year-old white male clinic patient of in [facility] who presents from [facility] after admitted on 06/29/18 from [facility] then [facility] for renal abscess on the left then diagnosed brain abscess status post craniotomy and diagnosed Nocardia infection UTI and brain abscess. He was seen by multiple consultants while hospitalized and [place] and is currently in need of antibiotics for an additional 34 days and intense rehabilitation with physical therapy. He still remains with a Dhaliwal catheter in place and I consulted Dr. Monroe to facilitate retention resolution. I have also contacted cardiology for elevated BNP and right bundle branch block. I have also asked for Dr. Fenton for consultation for neutropenia and anemia. I have added on iron level. We're in the midst of reconciliation of home medications including IV antibiotics and nocardia treatment. Subjective/Events-last exam Pt s/p peg tube for nutrition per Dr Arndt since he could not tolerate enough nutrition to recover from neurological condition and now he is eating on his own 100% of his meals and we are supplementing him with tube feedings and he has already made a dramatic improvement Dhaliwal cath DC yesterday and patient now able to void on his own so will monitor that very closely Confusion comes and goes s/p frontal lobe brain abscess craniotomy that is not surprising but appears improved and continues to be lucid Maintained on IV Meropenem and minocycline TF tolerated well Coccyx hurts and there is a pressure area that will be closely monitored CBC much improved since stopping the Bactrim but will check labs in am Review of Systems General: Fatigue Neurological: Confusion Objective Exam Vital Signs Vital Signs Date Time Temp Pulse Resp B/P (MAP) Pulse Ox O2 Delivery O2 Flow Rate FiO2 07/23/18 09:00 Room Air 07/23/18 05:14 99.6 105 18 137/71 (93) 90 Capillary Refill : General Appearance: No Apparent Distress, WD/WN, Chronically ill, Cachetic, Thin, Other (much improved Tuesday) HEENT: PERRL/EOMI, Normal ENT Inspection, Pharynx Normal, Moist Mucous Membranes Neck: Full Range of Motion, Normal Inspection, Non Tender, Supple Respiratory: Chest Non Tender, Lungs Clear, Normal Breath Sounds, No Accessory Muscle Use, No Respiratory Distress Cardiovascular: Regular Rate, Rhythm, No Edema, No Gallop, No JVD, No Murmur Gastrointestinal: Normal Bowel Sounds, No Organomegaly, No Pulsatile Mass, Non Tender, Soft, Other (PEG site without erythema) Genital/Rectal: Other (dhaliwal cath in place) Back: Normal Inspection, No CVA Tenderness, No Vertebral Tenderness Extremity: Normal Capillary Refill, Normal Inspection, Normal Range of Motion, Non Tender, No Calf Tenderness, No Pedal Edema Neurologic/Psychiatric: Alert, Oriented x3, No Motor/Sensory Deficits, Normal Mood/Affect, Disoriented (subtle) Skin: Normal Color, Warm/Dry Lymphatic: No Adenopathy Results/Procedures Lab Patient resulted labs reviewed. Assessment/Plan Assessment and Plan Assess & Plan/Chief Complaint Assessment: Status post craniotomy Brain abscess Kidney abscess Nocardia infection Urinary retention will monitor closely and we appreciate Dr Monroe but now voiding well since catheter removed s/p Dhaliwal catheter now DC 07/22/18 Right bundle branch block Elevated BNP Neutropenia-improved since DC Bactrim Anemia Hyponatremia improved on fluid restriction and meds Frail status Loss of weight and poor appetite s/p PEG tube placement POD # 3 Plan: Monitor labs occasionally and will check tomorrow Cardiology consultation is appreciated Urology consultation is appreciated Hematology consultation is appreciated IV abx Monitor closely DC'ed Bactrim due to bone marrow suppression PEG tube per Dr Arndt and will maintain PEG tube feedings and now eating 100% of meals (1) Brain abscess (2) Nocardia infection (3) Pyelonephritis (4) Renal abscess (5) Neutropenia (6) Anemia (7) Hyponatremia (8) Weakness acquired in ICU (9) UTI (urinary tract infection) (10) PICC (peripherally inserted central catheter) in place (11) Urinary retention (12) Dhaliwal catheter in place (13) Right bundle branch block (14) Elevated brain natriuretic peptide (BNP) level (15) Cerebral edema (16) Focal neurological deficit (17) S/P craniotomy (18) Appetite loss (19) Weight loss (20) Cachexia (21) Malnutrition (22) Status post insertion of percutaneous endoscopic gastrostomy (PEG) tube Clinical Quality Measures DVT/VTE Risk/Contraindication: Risk Factor Score Per Nursin RFS Level Per Nursing on Admit: 4+=Very High GERTRUDIS HERNANDES DO Jul 23, 2018 06:29
[2018-07-23] MEDS: SENNA W/DOCUSATE (SENOKOT S) TABLET PO SCH ×2 (09:00→21:07)
[2018-07-23] MEDS: KCL 20 MEQ TAB (K-DUR) PO SCH (09:55)
[2018-07-23] MEDS: LORATADINE (CLARITIN) 10 MG TAB PO SCH ×2 (09:55→21:07)
[2018-07-23] MEDS: TOLVAPTAN 15 MG TABLET PO SCH (09:55)
[2018-07-23] MEDS: SODIUM CHLORIDE 1 GM TAB (NON-FORMULARY) PO SCH ×3 (09:56→21:07)
[2018-07-23] MEDS: MINOCYCLINE 100 MG TABLET (NON-FORMULARY) PO SCH ×2 (11:41→21:07)
[2018-07-23] MEDS: TAMSULOSIN 0.4 MG (FLOMAX) CAP PO SCH (17:16)
[2018-07-23 18:04] VITALS: BP 122/74
--- NOTE | 2018-07-23 18:36 | NUR ---
Dr. Monroe called for update on patient. Patient has been voiding on his own in large amounts. No complaint or signs of pain, distention, or discomfort. Dr. Monroe requested a post-void scan. Post void amount was greater than [address] Monroe. Dr. Monroe would like for staff to continue to monitor output and perform another post void bladder scan on 07/24/18 and report results to him.
[2018-07-24 05:20] VITALS: BP 141/77
[2018-07-24] MEDS: MEROPENEM 1,000 MG in WATER (STERILE) FOR INJECTION 20 ML IV SCH ×3 (06:13→21:10)
[2018-07-24] MEDS: BETHANECHOL 25 MG (URECHOLINE) TAB PO SCH ×4 (06:13→21:09)
[2018-07-24] MEDS: LACTOBACILLUS ACIDOPHILUS (PROBIOTIC) CAPSULE PO SCH ×2 (06:13→16:13)
[2018-07-24 06:41] LABS: BASOPHILS % (AUTO) 1 % (0-10); EOSINOPHILS # (AUTO) 0.1 10^3/uL (0.0-0.3); EOSINOPHILS % (AUTO) 3 % (0-10); HEMATOCRIT 28 % (40-54); HEMOGLOBIN 8.7 G/DL (13.3-17.7); LYMPHOCYTES # (AUTO) 1.1 X 10^3 (1.0-4.0); LYMPHOCYTES % (AUTO) 29 % (12-44); MEAN CORPUSCULAR HEMOGLOBIN 26 PG (25-34); MEAN CORPUSCULAR HGB CONC 31 G/DL (32-36); MEAN CORPUSCULAR VOLUME 83 FL (80-99); MEAN PLATELET VOLUME 10.6 FL (7.4-10.4); MONOCYTES # (AUTO) 0.7 X 10^3 (0.0-1.0); MONOCYTES % (AUTO) 17 % (0-12); NEUTROPHILS # (AUTO) 1.9 X 10^3 (1.8-7.8); NEUTROPHILS % (AUTO) 50 % (42-75); PLATELET COUNT 247 10^3/uL (130-400); RED CELL DISTRIBUTION WIDTH 28.2 % (10.0-14.5); WHITE BLOOD COUNT 3.8 10^3/uL (4.3-11.0)
[2018-07-24 06:59] LABS: ALANINE AMINOTRANSFERASE 26 U/L (0-55); ALBUMIN 3.2 GM/DL (3.2-4.5); ALKALINE PHOSPHATASE 82 U/L (40-136); BILIRUBIN,TOTAL 1.2 MG/DL (0.1-1.0); BUN/CREATININE RATIO 30; CALCIUM 8.7 MG/DL (8.5-10.1); CARBON DIOXIDE 27 MMOL/L (21-32); CHLORIDE 103 MMOL/L (98-107); CREATININE SERUM 0.67 MG/DL (0.60-1.30); GFR ESTIMATED > 60; GLUCOSE 93 MG/DL (70-105); SODIUM 140 MMOL/L (135-145); TOTAL PROTEIN 6.4 GM/DL (6.4-8.2)
--- NOTE | 2018-07-24 08:05 | NUR ---
Dr. Monroe notified pt voided 325ml and post void bladder scan results 875. Per Dr. Monroe, straight cath pt and increase urecholine to 50 mg QID, AC/HS.
--- NOTE | 2018-07-24 08:23 | NUR ---
Dr. Guevara notified pt eating 100-75% meals. Order obtained to continue Jevity as ordered. Fluid restriction D/C'd.
--- NOTE | 2018-07-24 08:45 | PM&R Progress Note ---
Subjective HPI/CC On Admission Date Seen by Provider: Jul 24, 2018 Time Seen by Provider: 08:30 CC: Brain abscess status post craniotomy HPI: This is a 78-year-old white male clinic patient of in [facility] who presents from [facility] after admitted on 06/29/18 from [facility] then [facility] [place] for renal abscess on the left then diagnosed brain abscess status post craniotomy and diagnosed Nocardia infection UTI and brain abscess. He was seen by multiple consultants while hospitalized and [place] and is currently in need of antibiotics for an additional 34 days and intense rehabilitation with physical therapy. He still remains with a Dhaliwal catheter in place and I consulted Dr. Monroe to facilitate retention resolution. I have also contacted cardiology for elevated BNP and right bundle branch block. I have also asked for Dr. Fenton for consultation for neutropenia and anemia. I have added on iron level. We're in the midst of reconciliation of home medications including IV antibiotics and nocardia treatment. Subjective/Events-last exam Dramatic improvement since he is now eating 100% of his meals supplemented with tube feedings. Labs were normal although Neutropenia is still persisting at times. Urinary retention will be managed with post void residual checks and in and out catheter and increased Urecholine by Dr. Monroe. We will lift the sodium restrictions since his sodium level is 140. Pt reports doing much better. Minimal confusion. Review of Systems General: Fatigue Objective Exam Vital Signs Vital Signs Date Time Temp Pulse Resp B/P (MAP) Pulse Ox O2 Delivery O2 Flow Rate FiO2 07/24/18 18:07 98.6 109 20 125/71 (89) 96 Room Air Capillary Refill : General Appearance: No Apparent Distress, WD/WN, Chronically ill, Cachetic, Thin, Other (much improved Tuesday) HEENT: PERRL/EOMI, Normal ENT Inspection, Pharynx Normal, Moist Mucous Membranes Neck: Full Range of Motion, Normal Inspection, Non Tender, Supple Respiratory: Chest Non Tender, Lungs Clear, Normal Breath Sounds, No Accessory Muscle Use, No Respiratory Distress Cardiovascular: Regular Rate, Rhythm, No Edema, No Gallop, No JVD, No Murmur Gastrointestinal: Normal Bowel Sounds, No Organomegaly, No Pulsatile Mass, Non Tender, Soft, Other (PEG site without erythema) Genital/Rectal: Other (dhaliwal cath in place) Back: Normal Inspection, No CVA Tenderness, No Vertebral Tenderness Extremity: Normal Capillary Refill, Normal Inspection, Normal Range of Motion, Non Tender, No Calf Tenderness, No Pedal Edema Neurologic/Psychiatric: Alert, Oriented x3, No Motor/Sensory Deficits, Normal Mood/Affect Skin: Normal Color, Warm/Dry Lymphatic: No Adenopathy Results/Procedures Lab Laboratory Tests 07/24/18 06:25 Patient resulted labs reviewed. Assessment/Plan Assessment and Plan Assess & Plan/Chief Complaint Assessment: Status post craniotomy Brain abscess Kidney abscess Nocardia infection Urinary retention will monitor closely and we appreciate Dr Monroe but now voiding well since catheter removed but still with retention and requiring in/ out caths s/p Dhaliwal catheter now DC 07/22/18 Right bundle branch block Elevated BNP Neutropenia-improved since DC Bactrim Anemia Hyponatremia improved on fluid restriction and meds Frail status Loss of weight and poor appetite s/p PEG tube placement POD # 4 Plan: Monitor labs occasionally and will check tomorrow Cardiology consultation is appreciated Urology consultation is appreciated Hematology consultation is appreciated IV abx Monitor closely DC'ed Bactrim due to bone marrow suppression PEG tube per Dr Arndt and will maintain PEG tube feedings and now eating 100% of meals In/Out cath (1) Brain abscess (2) Nocardia infection (3) Pyelonephritis (4) Renal abscess (5) Neutropenia (6) Anemia (7) Hyponatremia (8) Weakness acquired in ICU (9) UTI (urinary tract infection) (10) PICC (peripherally inserted central catheter) in place (11) Urinary retention (12) Dhaliwal catheter in place (13) Right bundle branch block (14) Elevated brain natriuretic peptide (BNP) level (15) Cerebral edema (16) Focal neurological deficit (17) S/P craniotomy (18) Appetite loss (19) Weight loss (20) Cachexia (21) Malnutrition (22) Status post insertion of percutaneous endoscopic gastrostomy (PEG) tube Clinical Quality Measures DVT/VTE Risk/Contraindication: Risk Factor Score Per Nursin RFS Level Per Nursing on Admit: 4+=Very High GERTRUDIS HERNANDES DO Jul 24, 2018 08:45
--- NOTE | 2018-07-24 09:31 | Occupational Ther Daily Note ---
OT Current Status-Daily Note Subjective Pt in bed, alert, cooperative. Agreed for OT treatment. Pt states that, " I am doing very good today compare to other days." Pain Numeric Pain Scale: 0-No Pain Mental Status/Objective Patient Orientation: Person, Place, Time, Eyes Open, Situation Therapy Code Descriptions/Definitions Functional [place] Measure: 0=Not Assessed/NA 4=Minimal Assistance 1=Total Assistance 5=Supervision or Setup 2=Maximal Assistance 6=Modified [place] 3=Moderate Assistance 7=Complete [place] Attachments: PEG Tube ADL-Treatment Patient participated in bathin/shower retraining , dressing/undressing garments , bed mobility, func transfers, grooming activity, safety education to prevent fall & strengthening Ex to BUE .& mobility with FWW. Pt needs min A in bathing & drying body with towels, Set up with grooming activity, SBA in supine to sit in bed, fatigue soon. 20 min on arm sales secretary & 20 reps x 2 sets x 2 lb wts, 25 reps with red theraband with BUE in all plane of motion. Pt needs frequent rest periods between each activity. Therapy Code Descriptions/Definitions Functional [place] Measure: 0=Not Assessed/NA 4=Minimal Assistance 1=Total Assistance 5=Supervision or Setup 2=Maximal Assistance 6=Modified [place] 3=Moderate Assistance 7=Complete [place] Therapy Quality Codes: 6 Independent with activity with or without an assistive device 5 Patient requires set up or clean up by helper. Patient completes activity by themselves 4 Supervision or touching assist (CGA). [place] provide cues , steadying assist 3 The helper provides less than half the effort to complete the activity 2 The helper provides more than half the effort to complete the activity 1 Dependent. The helper does all the effort to complete an activity 7 Patient refused to complete or attempt activity 9 The patient did not perform the activity before the current illness or injury 88 Not attempted due to Medical conditions or safety concerns Eating (FIM): 7 Eating (QC): 6 Grooming (FIM): 6 Oral Hygiene (QC): 5 Bathing (FIM): 4 Bathing Location: L Arm, R Arm, L Upper Leg, R Upper Leg, L Lower Leg ( including foot), R Lower Leg (including foot), Chest, Abdomen, Buttocks, Perineal Area Shower/Bathe Self (QC): 4 Upper Body (FIM): 6 Upper Body Dressing (QC): 6 Lower Body Dressing (FIM): 5 Lower Body Dressing (QC): 5 On/Off Footwear (QC): 5 Toileting (FIM): 5 Toileting Hygiene (QC): 5 Transfers (B, C, W/C) (FIM): 5 Toilet/Commode Transfer (FIM): 5 Toilet Transfer (QC): 5 Tub Transfer(FIM): 5 Shower Transfer(FIM): 5 Education OT Patient Education: Correct positioning, Energy conservation, Safety issues Teaching Recipient: Patient Teaching Methods: Demonstration, Discussion Response to Teaching: Verbalize Understanding, Return Demonstration OT Short Term Goals Short Term Goals Transfers (B,C,W/C) (FIM): 6 1=Demonstrate adherence to instructed precautions during ADL tasks. 2=Patient will verbalize/demonstrate understanding of assistive devices/ modifications for ADL. 3=Patient will improve strength/tolerance for activity to enable patient to perform ADL's. OT Fci Goals Fci Goals Time Frame: Aug 05, 2018 Eating (FIM): 6 Eating (QC): 6 Groomin Oral Hygiene (QC): 6 Bathing(FIM): 6 Shower/Bathe Self (QC): 6 Upper Body Dressing(FIM): 6 Upper Body Dressing (QC): 6 Lower Body Dressing(FIM): 6 Lower Body Dressing (QC): 6 On/Off Footwear (QC): 6 Toileting(FIM): 6 Toileting Hygiene (QC): 6 Toilet/Commode Transfer(FIM): 6 Toilet/Commode Transfer (QC): 6 Shower Transfer(FIM): 6 Additional Goals: 1-Demonstrate ADL Tasks, 2-Verbalize Understanding, 3- ImproveStrength/[place] 1=Demonstrate adherence to instructed precautions during ADL tasks. 2=Patient will verbalize/demonstrate understanding of assistive devices/ modifications for ADL. 3=Patient will improve strength/tolerance for activity to enable patient to perform ADL's. OT Education/Plan Problem List/Assessment Assessment: Decreased Activ Tolerance, Decreased Safety Aware, Decreased UE Strength, Impaired Bed Mobility, Impaired Funct Balance, Impaired Self-Care Skills Pt to benefit from skilled OT intervention for ADL training, transfers, strengthening, and safety education to increase independence and allow safe discharge. Discharge Recommendations Plan/Recommendations: Continue POC Therapy D/C Recommendations: Home w/ Family Support, Occupational Therapy Home Care Equpiment Recommendations-D/C: Extended Bath Bench, Extended Shower Sprayer, Community Outreach Advocate Barriers to Progress Fatigue soon, Needs frequent rest periods between each activity. ,Weakness. Patient/Family Goals To return home with spouse Independently. Treatment Plan/Plan of Care Treatment,Training & Education: Yes Patient would benefit from OT for education, treatment and training to promote independence in ADL's, mobility, safety and/or upper extremity function for ADL' s. Plan of Care: ADL Retraining, Functional Mobility, Group Exercise/Act as Ind, UE Funct Exercise/Act Treatment Duration: Aug 05, 2018 Frequency: Modified Program (IRF) Estimated Hrs Per Day: 1.5 hours per day Agreement: Yes Rehab Potential: Good Time/GCodes Start Time: 08:00 Stop Time: 09:30 Total Time Billed (hr/min): 90 Billed Treatment Time 1, ADLs 60 min , FA 30 min. Total 90 minutes. JEREMÍAS MACIAS OT Jul 24, 2018 09:30
[2018-07-24] MEDS ORDERED: LIDOCAINE UROJET 2% GEL 10 ML PKG ONE ×2 (09:57→10:12)
[2018-07-24] MEDS: SENNA W/DOCUSATE (SENOKOT S) TABLET PO SCH ×2 (10:14→21:10)
[2018-07-24] MEDS: KCL 20 MEQ TAB (K-DUR) PO SCH (10:14)
[2018-07-24] MEDS: LORATADINE (CLARITIN) 10 MG TAB PO SCH ×2 (10:15→21:09)
[2018-07-24] MEDS: MINOCYCLINE 100 MG TABLET (NON-FORMULARY) PO SCH ×2 (10:16→21:08)
[2018-07-24] MEDS: TOLVAPTAN 15 MG TABLET PO SCH (10:16)
[2018-07-24] MEDS: SODIUM CHLORIDE 1 GM TAB (NON-FORMULARY) PO SCH ×3 (10:17→21:09)
--- NOTE | 2018-07-24 11:10 | NUR ---
Dr. Monroe unable to straight cath patient after attempts x [address] Monroe advised not to cause further trauma and encourage pt to void.
--- NOTE | 2018-07-24 11:37 | NUR ---
HAND TIRE TRIMMER send updated clinical information to insurance, [facility]. Discharge date will be discussed at team conference on 07/26. Patient continues to require tube feeding, IV antibiotics and supervision for therapy tasks. HAND TIRE TRIMMER will send team conference updates to insurance provider.
--- NOTE | 2018-07-24 11:56 | Physical Therapy Daily Note ---
PT Daily Note-Current Subjective Patient in bed pre tx, agrees to PT, has some discomfort in his groin due to multiple attempts by nursing to cath him. Appearance Patient sitting in recliner post tx with nurse call, phone, tray, all needs met. Chair alarm on. Mental Status Patient Orientation: Person, Confused, Situation Transfers Therapy Code Descriptions/Definitions Functional [place] Measure: 0=Not Assessed/NA 4=Minimal Assistance 1=Total Assistance 5=Supervision or Setup 2=Maximal Assistance 6=Modified [place] 3=Moderate Assistance 7=Complete [place] Therapy Quality Codes: 6 Independent with activity with or without an assistive device 5 Patient requires set up or clean up by helper. Patient completes activity by themselves 4 Supervision or touching assist (CGA). [place] provide cues , steadying assist 3 The helper provides less than half the effort to complete the activity 2 The helper provides more than half the effort to complete the activity 1 Dependent. The helper does all the effort to complete an activity 7 Patient refused to complete or attempt activity 9 The patient did not perform the activity before the current illness or injury 88 Not attempted due to Medical conditions or safety concerns Transfers (B, C, W/C) (FIM): 5 Scootin Rollin Supine to/from Sit: 5 Sit to/from Stand: 5 Bed to/from Chair: 5 Weight Bearing Right Lower Extremity: Right Full Weight Bearing Left Lower Extremity: Left Full Weight Bearing Gait Training Gait (FIM): 5 Distance: 400'x2 Gait Level of Assist: 5 Gait Persons Needed: 1 Gait Assistive Device: FWW Slow but steady ambulation, no LOB, occasional cues for direction. Exercises LAQ alternating for 5 min NuStep Minutes: 15 NuStep Workload: 4 Treatments bed mobility and transfers, ambulation, functional strengthening Assessment Current Status: Fair Progress improving general mobility and strength. Patient gets SOB with activity ( ambulatio, NuStep), even more so when he is talking PT Short Term Goals Short Term Goals Time Frame: Jul 29, 2018 Transfers (B,C,W/C) (FIM): 6 Gait (FIM): 6 Distance (FIM): 3=150 ft Gait Distance Comment: 350' Gait Level of Assist: 6 Gait Assistive Device: FWW Stairs (FIM): 6 # of Steps: 4 Stairs Level of Assist: 6 PT Mcfp Goals Mcfp Goals PT Grain Trimmer Goals Time Frame: Aug 14, 2018 Transfers (B,C,W/C) (FIM): 7 Sit to Lying (QC): 7 Lying-Sitting on Side/Bed(QC): 7 Sit to Stand (QC): 7 Rollin Roll Left to Right (QC): 7 Chair/Djq-fq-Fzvay Xfer(QC): 7 Car Transfer (QC): 7 Does the Patient Walk: Yes Gait (FIM): 6 Gait distance (FIM): 3=150 ft Distance: 1000' Walk 10 feet (QC): 7 Walk 10ft-Uneven Surface(QC): 7 Walk 50ft with 2 Turns (QC): 7 Walk 150 ft (QC): 7 Gait Level of Assist: 6 Gait Assistive Device: FWW Does the Pt use WC or Scooter?: No Stairs (FIM): 6 # of Steps: 12 1 Step (curb) (QC): 7 4 Steps (QC): 7 12 Steps (QC): 7 Stairs Level Of Assist: 6 Picking up an Object (QC): 7 PT Plan Problem List Problem List: Activity Tolerance, Functional Strength, Safety, Balance, Gait, Transfer, Bed Mobility Treatment/Plan Treatment Plan: Continue Plan of Care Treatment Plan: Bed Mobility, Concurrent Therapy, Education, Functional Activity [place], Functional Strength, Group Therapy, Gait, Safety, Therapeutic Exercise, Transfers Treatment Duration: Aug 14, 2018 Frequency: At least 5 of 7 days/Wk (IRF) Estimated Hrs Per Day: 1.5 hours per day Patient and/or Family Agrees t: Yes Safety Risks/Education Patient Education: Gait Training, Transfer Techniques, Correct Positioning, Safety Issues Teaching Recipient: Patient Teaching Methods: Demonstration, Discussion Response to Teaching: Reinforcement Needed Time/GCodes Time In: 1100 Time Out: 1200 Total Billed Treatment Time: 60 Total Billed Treatment 1 visit EX 20' FA 10' GT 30' CHANDANA BANEGAS PT Jul 24, 2018 11:56
--- NOTE | 2018-07-24 12:00 | NUR ---
Pt voided 400ml.
--- NOTE | 2018-07-24 14:08 | Speech Therapy Daily Note ---
Speech Daily Progress Note Subjective Date Seen by Provider: Jul 24, 2018 Time Seen by Provider: 00:30 Patient was sitting up in his recliner resting while waiting for the ST session to begin. Patient c/o tailbone hurting. Objective Patient completed memory tasks at 80% with minimal cues. Assessment Assessment Current Status: Good Progress Treatment Plan Continue Plan of Care Communication Comprehension: 2 Expression: 2 Social Cognition Social Interaction: 5 Problem Solvin Memory: 2 Speech Short Term Goals Short Term Goals Short Term Goals 1) Patient will complete memory tasks at 80% or greater with minimal cues. 2) Patient willbe able to follow simple 2-3 step directions with 80% or greater with minimal cues. 3) Patient will be able to increase his attention to task with 80% or greater with minimal redirection. Speech Circle Saw Operator Goals Circle Saw Operator Goals Patient will increase cognitive communication skills for improved safety and independence. Speech-Plan Patient/Family Goals Patient/Family Goals: Patient plans on returning home with his and other family support post rehab. Treatment Plan Speech Therapy Treatment Plan: Continue Plan of Care Patient is progressing as a result of skilled ST services. Treatment Duration: Aug 02, 2018 Frequency: 5 times per week Estimated Hrs Per Day: .5 hour per day Rehab Potential: Good Barriers to Learning: Patient has a complex medical history. Pt/Family Agrees to Plan: Yes Safety Risks/Education Teaching Recipient: Patient Teaching Methods: Discussion Response to Teaching: Verbalize Understanding Education Topics Provided: Safety Time Speech Therapy Time In: 13:00 Speech Therapy Time Out: 13:30 Total Billed Time: 30 Billed Treatment Time 1, VISHNU Merrill Jul 24, 2018 14:08
--- NOTE | 2018-07-24 16:05 | Physical Therapy Daily Note ---
PT Daily Note-Current Subjective Agrees to PT., No complaints. Transfers Therapy Code Descriptions/Definitions Functional [place] Measure: 0=Not Assessed/NA 4=Minimal Assistance 1=Total Assistance 5=Supervision or Setup 2=Maximal Assistance 6=Modified [place] 3=Moderate Assistance 7=Complete [place] Therapy Quality Codes: 6 Independent with activity with or without an assistive device 5 Patient requires set up or clean up by helper. Patient completes activity by themselves 4 Supervision or touching assist (CGA). [place] provide cues , steadying assist 3 The helper provides less than half the effort to complete the activity 2 The helper provides more than half the effort to complete the activity 1 Dependent. The helper does all the effort to complete an activity 7 Patient refused to complete or attempt activity 9 The patient did not perform the activity before the current illness or injury 88 Not attempted due to Medical conditions or safety concerns Weight Bearing Right Lower Extremity: Right Full Weight Bearing Left Lower Extremity: Left Full Weight Bearing Treatments SBA with all sit to stand transfers. Pt ambulated x 200 ft x 2; up/down a curb step x 6 with FWW with CGA. Pt then walked 50 ft x 3 with FWW with CGA. Pt transferred sit to supine wiht SBA. Pt in bed, turned to his left post treatment with needs met. Assessment Current Status: Good Progress Progressing well. Increasing safety and functional mobiltiy. PT Short Term Goals Short Term Goals Time Frame: Jul 29, 2018 Transfers (B,C,W/C) (FIM): 6 Gait (FIM): 6 Distance (FIM): 3=150 ft Gait Distance Comment: 350' Gait Level of Assist: 6 Gait Assistive Device: FWW Stairs (FIM): 6 # of Steps: 4 Stairs Level of Assist: 6 PT Health Education Specialist Goals Health Education Specialist Goals PT Residential Goals Time Frame: Aug 14, 2018 Transfers (B,C,W/C) (FIM): 7 Sit to Lying (QC): 7 Lying-Sitting on Side/Bed(QC): 7 Sit to Stand (QC): 7 Rollin Roll Left to Right (QC): 7 Chair/Buv-ta-Trctw Xfer(QC): 7 Car Transfer (QC): 7 Does the Patient Walk: Yes Gait (FIM): 6 Gait distance (FIM): 3=150 ft Distance: 1000' Walk 10 feet (QC): 7 Walk 10ft-Uneven Surface(QC): 7 Walk 50ft with 2 Turns (QC): 7 Walk 150 ft (QC): 7 Gait Level of Assist: 6 Gait Assistive Device: FWW Does the Pt use WC or Scooter?: No Stairs (FIM): 6 # of Steps: 12 1 Step (curb) (QC): 7 4 Steps (QC): 7 12 Steps (QC): 7 Stairs Level Of Assist: 6 Picking up an Object (QC): 7 PT Plan Problem List Problem List: Activity Tolerance, Functional Strength, Safety, Balance, Gait, Transfer, Bed Mobility Treatment/Plan Treatment Plan: Continue Plan of Care Treatment Plan: Bed Mobility, Concurrent Therapy, Education, Functional Activity [place], Functional Strength, Group Therapy, Gait, Safety, Therapeutic Exercise, Transfers Treatment Duration: Aug 14, 2018 Frequency: At least 5 of 7 days/Wk (IRF) Estimated Hrs Per Day: 1.5 hours per day Patient and/or Family Agrees t: Yes Safety Risks/Education Patient Education: Safety Issues Teaching Recipient: Patient Teaching Methods: Discussion Response to Teaching: Reinforcement Needed Time/GCodes Time In: 1345 Time Out: 1409 Total Billed Treatment Time: 24 Total Billed Treatment visit GT 24 DAIJA BRASWELL PT Jul 24, 2018 16:05
[2018-07-24] MEDS: ZINC OXIDE 16% OINT (BUTT PASTE) 113 GM TUBE TOP PRN (16:20)
--- NOTE | 2018-07-24 17:00 | NUR ---
Bladder scan shows 713cc. [address] Monroe notified.
--- NOTE | 2018-07-24 17:30 | NUR ---
#16 fr. dhaliwal catheter inserted by Dr. Monroe.
[2018-07-24] MEDS: TAMSULOSIN 0.4 MG (FLOMAX) CAP PO SCH (17:42)
[2018-07-24 18:07] VITALS: BP 125/71
[2018-07-25 05:48] VITALS: BP 134/71
[2018-07-25] MEDS: LACTOBACILLUS ACIDOPHILUS (PROBIOTIC) CAPSULE PO SCH ×2 (06:10→16:20)
[2018-07-25] MEDS: MEROPENEM 1,000 MG in WATER (STERILE) FOR INJECTION 20 ML IV SCH ×3 (06:10→21:09)
[2018-07-25] MEDS: BETHANECHOL 25 MG (URECHOLINE) TAB PO SCH ×4 (06:11→21:23)
[2018-07-25] MEDS: KCL 20 MEQ TAB (K-DUR) PO SCH (07:39)
[2018-07-25] MEDS: LORATADINE (CLARITIN) 10 MG TAB PO SCH ×2 (07:39→21:09)
[2018-07-25] MEDS: TOLVAPTAN 15 MG TABLET PO SCH (07:40)
[2018-07-25] MEDS: SENNA W/DOCUSATE (SENOKOT S) TABLET PO SCH ×2 (07:40→21:09)
[2018-07-25] MEDS: MINOCYCLINE 100 MG TABLET (NON-FORMULARY) PO SCH ×2 (07:42→21:22)
[2018-07-25] MEDS: SODIUM CHLORIDE 1 GM TAB (NON-FORMULARY) PO SCH ×3 (07:42→21:22)
--- NOTE | 2018-07-25 08:22 | NUR ---
Dr. Guevara here and aware of increased appetite. Eating 75-100% of meals. States that patient will need double feedings for awhile. Continue with current tube feeding schedule.
--- NOTE | 2018-07-25 08:38 | PM&R Progress Note ---
Subjective HPI/CC On Admission Date Seen by Provider: Jul 25, 2018 Time Seen by Provider: 08:30 CC: Brain abscess status post craniotomy HPI: This is a 78-year-old white male clinic patient of in [facility] who presents from [facility] after admitted on 06/29/18 from [facility] then [facility] for renal abscess on the left then diagnosed brain abscess status post craniotomy and diagnosed Nocardia infection UTI and brain abscess. He was seen by multiple consultants while hospitalized and [place] and is currently in need of antibiotics for an additional 34 days and intense rehabilitation with physical therapy. He still remains with a Dhaliwal catheter in place and I consulted Dr. Monroe to facilitate retention resolution. I have also contacted cardiology for elevated BNP and right bundle branch block. I have also asked for Dr. Fenton for consultation for neutropenia and anemia. I have added on iron level. We're in the midst of reconciliation of home medications including IV antibiotics and nocardia treatment. Subjective/Events-last exam Dhaliwal catheter was placed back in Increased Urecholine dosing Eating much better Initiating tube feedings after meals Overall dramatic improvement Review of Systems General: Fatigue Genitourinary: Retention Objective Exam Vital Signs Vital Signs Date Time Temp Pulse Resp B/P (MAP) Pulse Ox O2 Delivery O2 Flow Rate FiO2 07/25/18 17:18 98.1 117 18 131/69 (89) 95 Room Air Capillary Refill : General Appearance: No Apparent Distress, WD/WN, Chronically ill, Cachetic, Thin, Other (much improved Tuesday) HEENT: PERRL/EOMI, Normal ENT Inspection, Pharynx Normal, Moist Mucous Membranes Neck: Full Range of Motion, Normal Inspection, Non Tender, Supple Respiratory: Chest Non Tender, Lungs Clear, Normal Breath Sounds, No Accessory Muscle Use, No Respiratory Distress Cardiovascular: Regular Rate, Rhythm, No Edema, No Gallop, No JVD, No Murmur Gastrointestinal: Normal Bowel Sounds, No Organomegaly, No Pulsatile Mass, Non Tender, Soft, Other (PEG site without erythema) Genital/Rectal: Other (dhaliwal cath in place) Back: Normal Inspection, No CVA Tenderness, No Vertebral Tenderness Extremity: Normal Capillary Refill, Normal Inspection, Normal Range of Motion, Non Tender, No Calf Tenderness, No Pedal Edema Neurologic/Psychiatric: Alert, Oriented x3, No Motor/Sensory Deficits, Normal Mood/Affect Skin: Normal Color, Warm/Dry Lymphatic: No Adenopathy Results/Procedures Lab Patient resulted labs reviewed. Assessment/Plan Assessment and Plan Assess & Plan/Chief Complaint Assessment: Status post craniotomy Brain abscess Kidney abscess Nocardia infection Urinary retention will monitor closely and we appreciate Dr Monroe but now voiding well since catheter removed but still with retention and requiring another catheter placement s/p Dhaliwal catheter now DC 07/22/18 Right bundle branch block Elevated BNP Neutropenia-improved since DC Bactrim Anemia Hyponatremia improved on fluid restriction and meds Frail status Loss of weight and poor appetite s/p PEG tube placement POD # 5 Plan: Monitor labs occasionally and will check tomorrow Cardiology consultation is appreciated Urology consultation is appreciated Hematology consultation is appreciated IV abx Monitor closely DC'ed Bactrim due to bone marrow suppression PEG tube per Dr Arndt and will maintain PEG tube feedings and now eating 100% of meals Dhaliwal cath (1) Brain abscess (2) Nocardia infection (3) Pyelonephritis (4) Renal abscess (5) Neutropenia (6) Anemia (7) Hyponatremia (8) Weakness acquired in ICU (9) UTI (urinary tract infection) (10) PICC (peripherally inserted central catheter) in place (11) Urinary retention (12) Dhaliwal catheter in place (13) Right bundle branch block (14) Elevated brain natriuretic peptide (BNP) level (15) Cerebral edema (16) Focal neurological deficit (17) S/P craniotomy (18) Appetite loss (19) Weight loss (20) Cachexia (21) Malnutrition (22) Status post insertion of percutaneous endoscopic gastrostomy (PEG) tube Clinical Quality Measures DVT/VTE Risk/Contraindication: Risk Factor Score Per Nursin RFS Level Per Nursing on Admit: 4+=Very High GERTRUDIS HERNANDES DO Jul 25, 2018 08:38
--- NOTE | 2018-07-25 09:13 | Progress Note-Urology ---
Progress Note-Urology Progress Notes/Assess & Plan Progress/Assessment & Plan DOING WELL AFTER I INSERTED SINGLETARY IN LAST EVENING. TOLERATES URECHOLINE 50 WELL. TOV IN AM TOMORROW Final Diagnosis URINE RETENTION CHAVA CERVANTES MD Jul 25, 2018 09:13
--- NOTE | 2018-07-25 09:26 | Occupational Ther Daily Note ---
OT Current Status-Daily Note Subjective Patient in recliner, cheerful mood, alert, oriented . Pt stated , " I am feeling different & lot better today." Pain Numeric Pain Scale: 0-No Pain Mental Status/Objective Patient Orientation: Person, Place, Time, Situation Therapy Code Descriptions/Definitions Functional [place] Measure: 0=Not Assessed/NA 4=Minimal Assistance 1=Total Assistance 5=Supervision or Setup 2=Maximal Assistance 6=Modified [place] 3=Moderate Assistance 7=Complete [place] Attachments: Roberts Catheter, PEG Tube ADL-Treatment Therapy Code Descriptions/Definitions Functional [place] Measure: 0=Not Assessed/NA 4=Minimal Assistance 1=Total Assistance 5=Supervision or Setup 2=Maximal Assistance 6=Modified [place] 3=Moderate Assistance 7=Complete [place] Therapy Quality Codes: 6 Independent with activity with or without an assistive device 5 Patient requires set up or clean up by helper. Patient completes activity by themselves 4 Supervision or touching assist (CGA). [place] provide cues , steadying assist 3 The helper provides less than half the effort to complete the activity 2 The helper provides more than half the effort to complete the activity 1 Dependent. The helper does all the effort to complete an activity 7 Patient refused to complete or attempt activity 9 The patient did not perform the activity before the current illness or injury 88 Not attempted due to Medical conditions or safety concerns Bathing (FIM): 4 Bathing Location: L Arm, R Arm, L Upper Leg, R Upper Leg, L Lower Leg ( including foot), R Lower Leg (including foot), Chest, Abdomen, Buttocks, Perineal Area Shower/Bathe Self (QC): 4 Upper Body (FIM): 7 Upper Body Dressing (QC): 6 Lower Body Dressing (FIM): 4 Lower Body Dressing (QC): 4 On/Off Footwear (QC): 5 Toileting (FIM): 6 Toileting Hygiene (QC): 5 Transfers (B, C, W/C) (FIM): 6 Toilet/Commode Transfer (FIM): 6 Toilet Transfer (QC): 5 Tub Transfer(FIM): 5 Shower Transfer(FIM): 6 Education OT Patient Education: Correct positioning, Reviewed precautions, Safety issues Teaching Recipient: Patient Teaching Methods: Demonstration Response to Teaching: Verbalize Understanding, Return Demonstration OT Short Term Goals Short Term Goals Transfers (B,C,W/C) (FIM): 6 1=Demonstrate adherence to instructed precautions during ADL tasks. 2=Patient will verbalize/demonstrate understanding of assistive devices/ modifications for ADL. 3=Patient will improve strength/tolerance for activity to enable patient to perform ADL's. OT Fdc Goals Fdc Goals Time Frame: Aug 05, 2018 Eating (FIM): 6 Eating (QC): 6 Groomin Oral Hygiene (QC): 6 Bathing(FIM): 6 Shower/Bathe Self (QC): 6 Upper Body Dressing(FIM): 6 Upper Body Dressing (QC): 6 Lower Body Dressing(FIM): 6 Lower Body Dressing (QC): 6 On/Off Footwear (QC): 6 Toileting(FIM): 6 Toileting Hygiene (QC): 6 Toilet/Commode Transfer(FIM): 6 Toilet/Commode Transfer (QC): 6 Shower Transfer(FIM): 6 Additional Goals: 1-Demonstrate ADL Tasks, 2-Verbalize Understanding, 3- ImproveStrength/[place] 1=Demonstrate adherence to instructed precautions during ADL tasks. 2=Patient will verbalize/demonstrate understanding of assistive devices/ modifications for ADL. 3=Patient will improve strength/tolerance for activity to enable patient to perform ADL's. OT Education/Plan Problem List/Assessment Assessment: Decreased Activ Tolerance, Decreased Safety Aware, Decreased UE Strength, Impaired Bed Mobility, Impaired Self-Care Skills Pt to benefit from skilled OT intervention for ADL training, transfers, strengthening, and safety education to increase independence and allow safe discharge. Discharge Recommendations Plan/Recommendations: Continue POC Therapy D/C Recommendations: Home w/ Family Support, Occupational Therapy Home Care Equpiment Recommendations-D/C: Extended Shower Sprayer, Sustainability Director Barriers to Progress fatigue soon, weakness. Patient/Family Goals To return home with spouse Independently with AD. Treatment Plan/Plan of Care Treatment,Training & Education: Yes Patient would benefit from OT for education, treatment and training to promote independence in ADL's, mobility, safety and/or upper extremity function for ADL' s. Plan of Care: ADL Retraining, Functional Mobility, Group Exercise/Act as Ind, UE Funct Exercise/Act, UE Neuromus Re-Ed/Coord Treatment Duration: Aug 05, 2018 Frequency: Modified Program (IRF) Estimated Hrs Per Day: 1.5 hours per day Agreement: Yes Rehab Potential: Good Time/GCodes Start Time: 08:00 Stop Time: 09:30 Total Time Billed (hr/min): 90 Billed Treatment Time 1, ADLs 58 min , FA 32 min. Total 90 min. JEREMÍAS MACIAS OT Jul 25, 2018 09:26
--- NOTE | 2018-07-25 10:04 | Speech Therapy Daily Note ---
Speech Daily Progress Note Subjective Date Seen by Provider: Jul 25, 2018 Time Seen by Provider: 00:30 Patient was up in his recliner. He stated he was able to get the catheter put in yesterday and was feeling much better. Objective Patient completed memory tasks with 90% accuracy with minimal verbal cues. Assessment Assessment Current Status: Excellent Progress Treatment Plan Continue Plan of Care Communication Comprehension: 2 Expression: 2 Social Cognition Social Interaction: 5 Problem Solvin Memory: 2 Speech Short Term Goals Short Term Goals Short Term Goals 1) Patient will complete memory tasks at 80% or greater with minimal cues. 2) Patient willbe able to follow simple 2-3 step directions with 80% or greater with minimal cues. 3) Patient will be able to increase his attention to task with 80% or greater with minimal redirection. Speech Lamination Assembler Goals Shelter Goals Patient will increase cognitive communication skills for improved safety and independence. Speech-Plan Patient/Family Goals Patient/Family Goals: Patient plans to return home with his post rehab. Treatment Plan Speech Therapy Treatment Plan: Continue Plan of Care Patient is making excellent progress as a result of skilled therapy. Treatment Duration: Aug 02, 2018 Frequency: 5 times per week Estimated Hrs Per Day: .5 hour per day Rehab Potential: Good Barriers to Learning: Patient continues to recover from his bacterial infection. Pt/Family Agrees to Plan: Yes Safety Risks/Education Teaching Recipient: Patient Teaching Methods: Discussion Response to Teaching: Verbalize Understanding Education Topics Provided: Safety within his room. Time Speech Therapy Time In: 09:30 Speech Therapy Time Out: 10:00 Total Billed Time: 30 Billed Treatment Time 1JESSIE BETHANIA ST Jul 25, 2018 10:04
--- NOTE | 2018-07-25 10:20 | NUR ---
Pastoral care visit, offered support and prayer, pt shared much of life story and struggles with recent illness.
--- NOTE | 2018-07-25 10:30 | NUR ---
PT STARTED ON FEEDINGS, 4 CANS PER DAY, BUT NOT ALL FEEDINGS BEING DOCUMENTED. PT NOW EATING MUCH BETTER, 83% MEALS AND ORDERING NORMAL AMOUNTS OF FOOD. NO INCREASE IN WEIGHT YET. CONTINUE FEEDINGS ORDERED (AND DOCUMENT APPROPRIATELY) AND WILL REASSESS PERIODICALLY TO DETERMINE IF APPROPRIATE TO DC ENTERAL FEEDINGS.
--- NOTE | 2018-07-25 11:39 | NUR ---
EYEGLASS LENS GRINDER met with patient to discuss any concerns or questions to be brought up tomorrow in team conference meeting. Patient believes he is progressing well in therapy and has requested a day pass on Tuesday. EYEGLASS LENS GRINDER spoke with therapy staff regarding safety of day pass, therapy is in agreement. EYEGLASS LENS GRINDER has conveyed request to Dr. Guevara. EYEGLASS LENS GRINDER also contacted insurance claims examiner to ensure updated clinical information was received yesterday, tentative discharge date will be discussed tomorrow in team conference.
--- NOTE | 2018-07-25 12:07 | Physical Therapy Daily Note ---
PT Daily Note-Current Subjective Pt sitting in recliner upon arrival. Pt remains confused, trying to make phone call through call light as OUTSIDE [employer] SALES arrives. Pt agrees to PT. Mental Status Patient Orientation: Person, Confused, Place Attachments: PEG Tube, Roberts Catheter Transfers Therapy Code Descriptions/Definitions Functional [place] Measure: 0=Not Assessed/NA 4=Minimal Assistance 1=Total Assistance 5=Supervision or Setup 2=Maximal Assistance 6=Modified [place] 3=Moderate Assistance 7=Complete [place] Therapy Quality Codes: 6 Independent with activity with or without an assistive device 5 Patient requires set up or clean up by helper. Patient completes activity by themselves 4 Supervision or touching assist (CGA). [place] provide cues , steadying assist 3 The helper provides less than half the effort to complete the activity 2 The helper provides more than half the effort to complete the activity 1 Dependent. The helper does all the effort to complete an activity 7 Patient refused to complete or attempt activity 9 The patient did not perform the activity before the current illness or injury 88 Not attempted due to Medical conditions or safety concerns Scootin Sit to/from Stand: 5 Sit to Stand (QC): 5 Weight Bearing Right Lower Extremity: Right Full Weight Bearing Left Lower Extremity: Left Full Weight Bearing Gait Training Does the Patient Walk?: Yes Distance (FIM): 3=150 ft Distance: 150' Walk 10 feet (QC): 5 Walk 50 ft with 2 Turns(QC): 5 Walk 150 ft (QC): 5 Gait Level of Assist: 5 Gait Persons Needed: 1 Gait Assistive Device: FWW Wheelchair Training Does the Pt Use a Wheelchair?: No Exercises NuStep Minutes: 15 NuStep Workload: 5 Treatments Pt transfers and ambulates using FWW at A. Pt uses NuStep for 15m at 5. Pt ambulates in hallway before returning to room at end of tx with all needs met. Assessment Current Status: Good Progress Pt continues to demonstrate confusion at times. PT Short Term Goals Short Term Goals Time Frame: Jul 29, 2018 Transfers (B,C,W/C) (FIM): 6 Gait (FIM): 6 Distance (FIM): 3=150 ft Gait Distance Comment: 350' Gait Level of Assist: 6 Gait Assistive Device: FWW Stairs (FIM): 6 # of Steps: 4 Stairs Level of Assist: [address] Administrator Goals Long-Term Goals PT Long-Term Goals Time Frame: Aug 14, 2018 Transfers (B,C,W/C) (FIM): 7 Sit to Lying (QC): 7 Lying-Sitting on Side/Bed(QC): 7 Sit to Stand (QC): 7 Rollin Roll Left to Right (QC): 7 Chair/Vwt-zt-Fbcpm Xfer(QC): 7 Car Transfer (QC): 7 Does the Patient Walk: Yes Gait (FIM): 6 Gait distance (FIM): 3=150 ft Distance: 1000' Walk 10 feet (QC): 7 Walk 10ft-Uneven Surface(QC): 7 Walk 50ft with 2 Turns (QC): 7 Walk 150 ft (QC): 7 Gait Level of Assist: 6 Gait Assistive Device: FWW Does the Pt use WC or Scooter?: No Stairs (FIM): 6 # of Steps: 12 1 Step (curb) (QC): 7 4 Steps (QC): 7 12 Steps (QC): 7 Stairs Level Of Assist: 6 Picking up an Object (QC): 7 PT Plan Problem List Problem List: Activity Tolerance, Safety Treatment/Plan Treatment Plan: Continue Plan of Care Treatment Plan: Bed Mobility, Concurrent Therapy, Education, Functional Activity [place], Functional Strength, Group Therapy, Gait, Safety, Therapeutic Exercise, Transfers Treatment Duration: Aug 14, 2018 Frequency: At least 5 of 7 days/Wk (IRF) Estimated Hrs Per Day: 1.5 hours per day Patient and/or Family Agrees t: Yes Safety Risks/Education Patient Education: Gait Training, Transfer Techniques, Correct Positioning, Safety Issues Teaching Recipient: Patient Teaching Methods: Discussion Response to Teaching: Verbalize Understanding, Reinforcement Needed Time/GCodes Time In: 1115 Time Out: 1200 Total Billed Treatment Time: 45 Total Billed Treatment 1, GT (20m), EX (15m) & FA (10m) G Codes Necessary: BAILEY Dick OUTSIDE B2[employer] SALES Jul 25, 2018 12:07
--- NOTE | 2018-07-25 15:35 | Physical Therapy Daily Note ---
PT Daily Note-Current Subjective Pt sitting in recliner upon arrival. Pt is receiving Antibiotics from Nurse upon arrival. Pt agrees to PT. Pain Numeric Pain Scale: 3 Location Body Site: Sacrum Pain Description: Ache, Pressure Mental Status Patient Orientation: Person, Place, Situation Attachments: Roberts Catheter Transfers Therapy Code Descriptions/Definitions Functional [place] Measure: 0=Not Assessed/NA 4=Minimal Assistance 1=Total Assistance 5=Supervision or Setup 2=Maximal Assistance 6=Modified [place] 3=Moderate Assistance 7=Complete [place] Therapy Quality Codes: 6 Independent with activity with or without an assistive device 5 Patient requires set up or clean up by helper. Patient completes activity by themselves 4 Supervision or touching assist (CGA). [place] provide cues , steadying assist 3 The helper provides less than half the effort to complete the activity 2 The helper provides more than half the effort to complete the activity 1 Dependent. The helper does all the effort to complete an activity 7 Patient refused to complete or attempt activity 9 The patient did not perform the activity before the current illness or injury 88 Not attempted due to Medical conditions or safety concerns Scootin Weight Bearing Right Lower Extremity: Right Full Weight Bearing Left Lower Extremity: Left Full Weight Bearing Wheelchair Training Does the Pt Use a Wheelchair?: No Exercises Seated Therapy Exercises: Ankle pumps, Long arc quads, Hip flexion, Kicking activity Seated Reps: 15 Treatments Pt completes Seated Ex in recliner. Pt is able to reposition self in chair. Pt , Nurse & PLANT INSPECTOR discuss education items such as pt's diet and eating habits affecting Peg tube. Pt is resting in recliner at end of tx with all needs met. Assessment Current Status: Good Progress Pt reports wanting to DC YOLANDA. Pt is trying to take steps to improve for DC. PT Short Term Goals Short Term Goals Time Frame: Jul 29, 2018 Transfers (B,C,W/C) (FIM): 6 Gait (FIM): 6 Distance (FIM): 3=150 ft Gait Distance Comment: 350' Gait Level of Assist: 6 Gait Assistive Device: FWW Stairs (FIM): 6 # of Steps: 4 Stairs Level of Assist: 6 PT Residential Goals Workforce Development Assistant Goals PT Workforce Development Assistant Goals Time Frame: Aug 14, 2018 Transfers (B,C,W/C) (FIM): 7 Sit to Lying (QC): 7 Lying-Sitting on Side/Bed(QC): 7 Sit to Stand (QC): 7 Rollin Roll Left to Right (QC): 7 Chair/Doe-gq-Zeurj Xfer(QC): 7 Car Transfer (QC): 7 Does the Patient Walk: Yes Gait (FIM): 6 Gait distance (FIM): 3=150 ft Distance: 1000' Walk 10 feet (QC): 7 Walk 10ft-Uneven Surface(QC): 7 Walk 50ft with 2 Turns (QC): 7 Walk 150 ft (QC): 7 Gait Level of Assist: 6 Gait Assistive Device: FWW Does the Pt use WC or Scooter?: No Stairs (FIM): 6 # of Steps: 12 1 Step (curb) (QC): 7 4 Steps (QC): 7 12 Steps (QC): 7 Stairs Level Of Assist: 6 Picking up an Object (QC): 7 PT Plan Problem List Problem List: Activity Tolerance, Safety Treatment/Plan Treatment Plan: Continue Plan of Care Treatment Plan: Bed Mobility, Concurrent Therapy, Education, Functional Activity [place], Functional Strength, Group Therapy, Gait, Safety, Therapeutic Exercise, Transfers Treatment Duration: Aug 14, 2018 Frequency: At least 5 of 7 days/Wk (IRF) Estimated Hrs Per Day: 1.5 hours per day Patient and/or Family Agrees t: Yes Safety Risks/Education Patient Education: Transfer Techniques, Correct Positioning, Disease Process, Safety Issues Teaching Recipient: Patient Teaching Methods: Discussion Response to Teaching: Verbalize Understanding Time/GCodes Time In: 1330 Time Out: 1400 Total Billed Treatment Time: 30 Total Billed Treatment 1, FA (10m) & EX (20m) G Codes Necessary: BAILEY Dick PTA Jul 25, 2018 15:35
[2018-07-25 17:18] VITALS: BP 131/69
[2018-07-25] MEDS: TAMSULOSIN 0.4 MG (FLOMAX) CAP PO SCH (17:19)
[2018-07-25] MEDS: ZINC OXIDE 16% OINT (BUTT PASTE) 113 GM TUBE TOP PRN (18:25)
[2018-07-26] MEDS: LACTOBACILLUS ACIDOPHILUS (PROBIOTIC) CAPSULE PO SCH ×2 (05:18→16:58)
[2018-07-26] MEDS: BETHANECHOL 25 MG (URECHOLINE) TAB PO SCH ×4 (05:18→21:28)
[2018-07-26] MEDS: MEROPENEM 1,000 MG in WATER (STERILE) FOR INJECTION 20 ML IV SCH ×3 (05:18→21:28)
[2018-07-26 05:43] VITALS: BP 137/71
[2018-07-26] MEDS: ONDANSETRON 4 MG (ZOFRAN) ORAL DISSOLVE TAB PO PRN (07:26)
--- NOTE | 2018-07-26 08:35 | PM&R Progress Note ---
Subjective HPI/CC On Admission Date Seen by Provider: Jul 26, 2018 Time Seen by Provider: 08:45 CC: Brain abscess status post craniotomy HPI: This is a 78-year-old white male clinic patient of in [facility] who presents from [facility] after admitted on 06/29/18 from [facility] then [facility] for renal abscess on the left then diagnosed brain abscess status post craniotomy and diagnosed Nocardia infection UTI and brain abscess. He was seen by multiple consultants while hospitalized and [place] and is currently in need of antibiotics for an additional 34 days and intense rehabilitation with physical therapy. He still remains with a Dhaliwal catheter in place and I consulted Dr. Monroe to facilitate retention resolution. I have also contacted cardiology for elevated BNP and right bundle branch block. I have also asked for Dr. Fenton for consultation for neutropenia and anemia. I have added on iron level. We're in the midst of reconciliation of home medications including IV antibiotics and nocardia treatment. Subjective/Events-last exam Discharge date: 08/01/18 if [place] antibiotic is arranged. Once a day past this weekend. Will stop tube feeding on Tuesday and allow him to go to [facility]. Pt is on standby assist. OT is standby assist. Speech is working with him. Antibiotics last day is August 19. Pt complains and dizziness and not feeling well today. Labs were checked and all were stable. Discontinue catheter today by urology. Review of Systems General: Fatigue Genitourinary: Retention Neurological: Weakness, Incoordination, Confusion Objective Exam Vital Signs Vital Signs Date Time Temp Pulse Resp B/P (MAP) Pulse Ox O2 Delivery O2 Flow Rate FiO2 07/26/18 18:00 97.9 111 18 128/73 (91) 92 Room Air Capillary Refill : General Appearance: No Apparent Distress, WD/WN, Chronically ill, Cachetic, Thin, Other (much improved Tuesday) HEENT: PERRL/EOMI, Normal ENT Inspection, Pharynx Normal, Moist Mucous Membranes Neck: Full Range of Motion, Normal Inspection, Non Tender, Supple Respiratory: Chest Non Tender, Lungs Clear, Normal Breath Sounds, No Accessory Muscle Use, No Respiratory Distress Cardiovascular: Regular Rate, Rhythm, No Edema, No Gallop, No JVD, No Murmur Gastrointestinal: Normal Bowel Sounds, No Organomegaly, No Pulsatile Mass, Non Tender, Soft, Other (PEG site without erythema) Genital/Rectal: Other (dhaliwal cath in place) Back: Normal Inspection, No CVA Tenderness, No Vertebral Tenderness Extremity: Normal Capillary Refill, Normal Inspection, Normal Range of Motion, Non Tender, No Calf Tenderness, No Pedal Edema Neurologic/Psychiatric: Alert, Oriented x3, No Motor/Sensory Deficits, Normal Mood/Affect Skin: Normal Color, Warm/Dry Lymphatic: No Adenopathy Results/Procedures Lab Laboratory Tests 07/26/18 09:00 Patient resulted labs reviewed. Assessment/Plan Assessment and Plan Assess & Plan/Chief Complaint Assessment: Status post craniotomy Brain abscess Kidney abscess Nocardia infection Urinary retention will monitor closely and we appreciate Dr Monroe but now voiding well since catheter removed but still with retention and requiring another catheter placement s/p Dhaliwal catheter now DC 07/22/18 Right bundle branch block Elevated BNP Neutropenia-improved since DC Bactrim Anemia Hyponatremia improved on fluid restriction and meds Frail status Loss of weight and poor appetite s/p PEG tube placement POD # 6 Plan: Monitor labs occasionally Cardiology consultation is appreciated Urology consultation is appreciated Hematology consultation is appreciated IV abx Monitor closely DC'ed Bactrim due to bone marrow suppression PEG tube per Dr Arndt and will maintain PEG tube feedings and now eating 100% of meals Dhaliwal cath DC and replacement per Urology (1) Brain abscess (2) Nocardia infection (3) Pyelonephritis (4) Renal abscess (5) Neutropenia (6) Anemia (7) Hyponatremia (8) Weakness acquired in ICU (9) UTI (urinary tract infection) (10) PICC (peripherally inserted central catheter) in place (11) Urinary retention (12) Dhaliwal catheter in place (13) Right bundle branch block (14) Elevated brain natriuretic peptide (BNP) level (15) Cerebral edema (16) Focal neurological deficit (17) S/P craniotomy (18) Appetite loss (19) Weight loss (20) Cachexia (21) Malnutrition (22) Status post insertion of percutaneous endoscopic gastrostomy (PEG) tube Clinical Quality Measures DVT/VTE Risk/Contraindication: Risk Factor Score Per Nursin RFS Level Per Nursing on Admit: 4+=Very High GERTRUDIS HERNANDES DO Jul 26, 2018 08:35
[2018-07-26] MEDS: SENNA W/DOCUSATE (SENOKOT S) TABLET PO SCH ×2 (08:52→21:29)
[2018-07-26] MEDS: KCL 20 MEQ TAB (K-DUR) PO SCH (08:52)
[2018-07-26] MEDS: LORATADINE (CLARITIN) 10 MG TAB PO SCH ×2 (08:52→21:28)
[2018-07-26] MEDS: SODIUM CHLORIDE 1 GM TAB (NON-FORMULARY) PO SCH ×3 (08:54→21:28)
[2018-07-26] MEDS: TOLVAPTAN 15 MG TABLET PO SCH (08:54)
[2018-07-26] MEDS: MINOCYCLINE 100 MG TABLET (NON-FORMULARY) PO SCH ×2 (08:57→21:29)
[2018-07-26 09:08] LABS: BASOPHILS # (AUTO) 0.1 10^3/uL (0.0-0.1); BASOPHILS % (AUTO) 2 % (0-10); EOSINOPHILS # (AUTO) 0.1 10^3/uL (0.0-0.3); EOSINOPHILS % (AUTO) 2 % (0-10); HEMATOCRIT 29 % (40-54); HEMOGLOBIN 9.2 G/DL (13.3-17.7); LYMPHOCYTES % (AUTO) 19 % (12-44); MEAN CORPUSCULAR HEMOGLOBIN 26 PG (25-34); MEAN CORPUSCULAR HGB CONC 32 G/DL (32-36); MEAN CORPUSCULAR VOLUME 83 FL (80-99); MEAN PLATELET VOLUME 10.5 FL (7.4-10.4); MONOCYTES # (AUTO) 0.9 X 10^3 (0.0-1.0); MONOCYTES % (AUTO) 16 % (0-12); NEUTROPHILS # (AUTO) 3.3 X 10^3 (1.8-7.8); NEUTROPHILS % (AUTO) 61 % (42-75); PLATELET COUNT 333 10^3/uL (130-400); RED CELL DISTRIBUTION WIDTH 28.6 % (10.0-14.5); WHITE BLOOD COUNT 5.4 10^3/uL (4.3-11.0)
--- NOTE | 2018-07-26 09:16 | Progress Note-Urology ---
Progress Note-Urology Progress Notes/Assess & Plan Progress/Assessment & Plan TOV TODAY Final Diagnosis URINE RETENTION CHAVA CERVANTES MD Jul 26, 2018 09:16
[2018-07-26 09:27] LABS: ALANINE AMINOTRANSFERASE 27 U/L (0-55); ALBUMIN 3.4 GM/DL (3.2-4.5); ALKALINE PHOSPHATASE 104 U/L (40-136); BILIRUBIN,TOTAL 0.9 MG/DL (0.1-1.0); BUN/CREATININE RATIO 27; CALCIUM 8.9 MG/DL (8.5-10.1); CARBON DIOXIDE 29 MMOL/L (21-32); CHLORIDE 101 MMOL/L (98-107); CREATININE SERUM 0.78 MG/DL (0.60-1.30); GFR ESTIMATED > 60; GLUCOSE 98 MG/DL (70-105); POTASSIUM 3.8 MMOL/L (3.6-5.0); SODIUM 138 MMOL/L (135-145); TOTAL PROTEIN 7.1 GM/DL (6.4-8.2)
--- NOTE | 2018-07-26 10:09 | Speech Therapy Daily Note ---
Speech Daily Progress Note Subjective Date Seen by Provider: Jul 26, 2018 Time Seen by Provider: 00:30 Patient is having a lot of pain and noted weakness this am. Objective Patient completed memory/problem solving within his room at 80% with minimal verbal cues. Assessment Assessment Current Status: Good Progress Treatment Plan Continue Plan of Care Communication Comprehension: 2 Expression: 2 Social Cognition Social Interaction: 5 Problem Solvin Memory: 2 Speech Short Term Goals Short Term Goals Short Term Goals 1) Patient will complete memory tasks at 80% or greater with minimal cues. 2) Patient willbe able to follow simple 2-3 step directions with 80% or greater with minimal cues. 3) Patient will be able to increase his attention to task with 80% or greater with minimal redirection. Speech Mcc Goals Union Contract Representative Goals Patient will increase cognitive communication skills for improved safety and independence. Speech-Plan Patient/Family Goals Patient/Family Goals: Patient plans to return home with his post rehab. Treatment Plan Speech Therapy Treatment Plan: Continue Plan of Care Patient is noted to be greatly declined due to not having a very good day and removal of the catheter this am. Treatment Duration: Aug 02, 2018 Frequency: 5 times per week Estimated Hrs Per Day: .5 hour per day Rehab Potential: Good Barriers to Learning: Patient's current medical status Pt/Family Agrees to Plan: Yes Safety Risks/Education Teaching Recipient: Patient Teaching Methods: Discussion Response to Teaching: Verbalize Understanding Education Topics Provided: Safety and calling the nurse as needed. Time Speech Therapy Time In: 09:30 Speech Therapy Time Out: 10:00 Total Billed Time: 30 Billed Treatment Time 1JESSIE BETHANIA ST Jul 26, 2018 10:09
--- NOTE | 2018-07-26 11:55 | Occupational Ther Daily Note ---
OT Current Status-Daily Note Subjective Pt in recliner , this time agreed for OT treatment. At inspector final assembly electrical pt was'nt feeling good after breakfast . Had nausea & weakness & shaky while standing. Physician has seen him & prescribed medicine. After two hours pt ready for therapy. Pain Numeric Pain Scale: 4 Location Body Site: Generalized Pain Description: Ache, Throbbing Mental Status/Objective Patient Orientation: Person, Place, Time, Situation Therapy Code Descriptions/Definitions Functional [place] Measure: 0=Not Assessed/NA 4=Minimal Assistance 1=Total Assistance 5=Supervision or Setup 2=Maximal Assistance 6=Modified [place] 3=Moderate Assistance 7=Complete [place] Attachments: Central Line ADL-Treatment Patient participated in shower retraining , grooming, dressing/undressing UB & LB garments , func toilet transfers & strengthening ex to BUE. Pt wash & shampoo his UB, LB, face, head , abdomen ,chest, buttock & perineum with SBA & BACK with Mod A. Dry his ub, lb head & back with SBA, Dress shirt Independently & pajama with SBA .Pt func ambulate with FWW to therapy Gym & performed 15 min on Arm-Bike Ex. Pt fatigue soon. Therapy Code Descriptions/Definitions Functional [place] Measure: 0=Not Assessed/NA 4=Minimal Assistance 1=Total Assistance 5=Supervision or Setup 2=Maximal Assistance 6=Modified [place] 3=Moderate Assistance 7=Complete [place] Therapy Quality Codes: 6 Independent with activity with or without an assistive device 5 Patient requires set up or clean up by helper. Patient completes activity by themselves 4 Supervision or touching assist (CGA). [place] provide cues , steadying assist 3 The helper provides less than half the effort to complete the activity 2 The helper provides more than half the effort to complete the activity 1 Dependent. The helper does all the effort to complete an activity 7 Patient refused to complete or attempt activity 9 The patient did not perform the activity before the current illness or injury 88 Not attempted due to Medical conditions or safety concerns Eating (FIM): 7 Eating (QC): 6 Grooming (FIM): 6 Oral Hygiene (QC): 5 Bathing (FIM): 4 Bathing Location: L Arm, R Arm, L Upper Leg, R Upper Leg, L Lower Leg ( including foot), R Lower Leg (including foot), Chest, Abdomen, Perineal Area Shower/Bathe Self (QC): 5 Upper Body (FIM): 7 Upper Body Dressing (QC): 6 Lower Body Dressing (FIM): 5 Lower Body Dressing (QC): 5 On/Off Footwear (QC): 5 Toileting (FIM): 7 Toileting Hygiene (QC): 6 Transfers (B, C, W/C) (FIM): 6 Toilet/Commode Transfer (FIM): 6 Toilet Transfer (QC): 5 Tub Transfer(FIM): 5 Shower Transfer(FIM): 5 Education OT Patient Education: Correct positioning, Safety issues Teaching Recipient: Patient Teaching Methods: Demonstration, Discussion Response to Teaching: Verbalize Understanding, Return Demonstration OT Short Term Goals Short Term Goals Transfers (B,C,W/C) (FIM): 6 1=Demonstrate adherence to instructed precautions during ADL tasks. 2=Patient will verbalize/demonstrate understanding of assistive devices/ modifications for ADL. 3=Patient will improve strength/tolerance for activity to enable patient to perform ADL's. OT Chcf Goals Chcf Goals Time Frame: Aug 05, 2018 Eating (FIM): 6 Eating (QC): 6 Groomin Oral Hygiene (QC): 6 Bathing(FIM): 6 Shower/Bathe Self (QC): 6 Upper Body Dressing(FIM): 6 Upper Body Dressing (QC): 6 Lower Body Dressing(FIM): 6 Lower Body Dressing (QC): 6 On/Off Footwear (QC): 6 Toileting(FIM): 6 Toileting Hygiene (QC): 6 Toilet/Commode Transfer(FIM): 6 Toilet/Commode Transfer (QC): 6 Shower Transfer(FIM): 6 Additional Goals: 1-Demonstrate ADL Tasks, 2-Verbalize Understanding, 3- ImproveStrength/[place] 1=Demonstrate adherence to instructed precautions during ADL tasks. 2=Patient will verbalize/demonstrate understanding of assistive devices/ modifications for ADL. 3=Patient will improve strength/tolerance for activity to enable patient to perform ADL's. OT Education/Plan Problem List/Assessment Assessment: Decreased Activ Tolerance, Decreased Safety Aware, Decreased UE Strength, Impaired Bed Mobility, Impaired Funct Balance, Impaired Self-Care Skills Pt to benefit from skilled OT intervention for ADL training, transfers, strengthening, and safety education to increase independence and allow safe discharge. Discharge Recommendations Plan/Recommendations: Continue POC Therapy D/C Recommendations: Home w/ Family Support, Occupational Therapy Home Care Equpiment Recommendations-D/C: Extended Shower Sprayer, Roofer [place] Patient/Family Goals To return home with spouse Independently with AD. Treatment Plan/Plan of Care Treatment,Training & Education: Yes Patient would benefit from OT for education, treatment and training to promote independence in ADL's, mobility, safety and/or upper extremity function for ADL' s. Plan of Care: ADL Retraining, Functional Mobility, Group Exercise/Act as Ind, UE Funct Exercise/Act, UE Neuromus Re-Ed/Coord Treatment Duration: Aug 05, 2018 Frequency: Modified Program (IRF) Estimated Hrs Per Day: 1.5 hours per day Agreement: Yes Rehab Potential: Good Time/GCodes Start Time: 10:00 Stop Time: 11:00 Total Time Billed (hr/min): 60 Billed Treatment Time 1, ADLs 45 min, FA 15 min. Total 60 min. JEREMÍAS MACIAS OT Jul 26, 2018 11:55
--- NOTE | 2018-07-26 12:19 | Physical Therapy Daily Note ---
PT Daily Note-Current Subjective Pt sitting in recliner upon arrival. Pt reports not feeling well this morning but feeling a little better now, still weak though. Pt agrees to PT. Pain Location: No Pain Reported Mental Status Patient Orientation: Person, Confused, Place Transfers Therapy Code Descriptions/Definitions Functional [place] Measure: 0=Not Assessed/NA 4=Minimal Assistance 1=Total Assistance 5=Supervision or Setup 2=Maximal Assistance 6=Modified [place] 3=Moderate Assistance 7=Complete [place] Therapy Quality Codes: 6 Independent with activity with or without an assistive device 5 Patient requires set up or clean up by helper. Patient completes activity by themselves 4 Supervision or touching assist (CGA). [place] provide cues , steadying assist 3 The helper provides less than half the effort to complete the activity 2 The helper provides more than half the effort to complete the activity 1 Dependent. The helper does all the effort to complete an activity 7 Patient refused to complete or attempt activity 9 The patient did not perform the activity before the current illness or injury 88 Not attempted due to Medical conditions or safety concerns Scootin Sit to/from Stand: 5 Sit to Stand (QC): 5 Weight Bearing Right Lower Extremity: Right Full Weight Bearing Left Lower Extremity: Left Full Weight Bearing Gait Training Does the Patient Walk?: Yes Distance (FIM): 3=150 ft Distance: 150' Walk 10 feet (QC): 5 Walk 50 ft with 2 Turns(QC): 5 Walk 150 ft (QC): 5 Gait Level of Assist: 5 Gait Persons Needed: 1 Gait Assistive Device: FWW Wheelchair Training Does the Pt Use a Wheelchair?: No Exercises NuStep Minutes: 11 NuStep Workload: 4 Treatments Pt transfers from recliner to standing using FWW at [facility]. Pt ambulates in hallway using FWW at [facility]. Pt uses NuStep for 11m at [facility] 4 then takes short rest before ambulating back to room at end of tx. Pt resting in recliner with all needs met, INDUSTRIAL PAINTER assists with ordering pt's lunch. Assessment Current Status: Good Progress Pt's cognition is improving although pt still struggles with safety at times due to dx. PT Short Term Goals Short Term Goals Time Frame: Jul 29, 2018 Transfers (B,C,W/C) (FIM): 6 Gait (FIM): 6 Distance (FIM): 3=150 ft Gait Distance Comment: 350' Gait Level of Assist: 6 Gait Assistive Device: FWW Stairs (FIM): 6 # of Steps: 4 Stairs Level of Assist: 6 PT Water Pollution Control Inspector Goals Senior Living Goals PT Senior Living Goals Time Frame: Aug 14, 2018 Transfers (B,C,W/C) (FIM): 7 Sit to Lying (QC): 7 Lying-Sitting on Side/Bed(QC): 7 Sit to Stand (QC): 7 Rollin Roll Left to Right (QC): 7 Chair/Fez-mg-Ojunx Xfer(QC): 7 Car Transfer (QC): 7 Does the Patient Walk: Yes Gait (FIM): 6 Gait distance (FIM): 3=150 ft Distance: 1000' Walk 10 feet (QC): 7 Walk 10ft-Uneven Surface(QC): 7 Walk 50ft with 2 Turns (QC): 7 Walk 150 ft (QC): 7 Gait Level of Assist: 6 Gait Assistive Device: FWW Does the Pt use WC or Scooter?: No Stairs (FIM): 6 # of Steps: 12 1 Step (curb) (QC): 7 4 Steps (QC): 7 12 Steps (QC): 7 Stairs Level Of Assist: 6 Picking up an Object (QC): 7 PT Plan Problem List Problem List: Activity Tolerance, Safety Treatment/Plan Treatment Plan: Continue Plan of Care Treatment Plan: Bed Mobility, Concurrent Therapy, Education, Functional Activity [place], Functional Strength, Group Therapy, Gait, Safety, Therapeutic Exercise, Transfers Treatment Duration: Aug 14, 2018 Frequency: At least 5 of 7 days/Wk (IRF) Estimated Hrs Per Day: 1.5 hours per day Patient and/or Family Agrees t: Yes Safety Risks/Education Patient Education: Gait Training, Transfer Techniques, Correct Positioning, Safety Issues Teaching Recipient: Patient Teaching Methods: Discussion Response to Teaching: Reinforcement Needed Time/GCodes Time In: 1130 Time Out: 1215 Total Billed Treatment Time: 45 Total Billed Treatment 1, GT (15m), FA (15m) & EX (15m) G Codes Necessary: BAILEY Dick INDUSTRIAL PAINTER Jul 26, 2018 12:19
--- NOTE | 2018-07-26 15:50 | Therapy Group Daily Note ---
Therapy Daily Group Note Patient Education Topic Other List Below (Handwashing) Exercises Fine Motor, UE Exercise Other/Notes Pt participated in group therapy with 4 to 1 ratio. Goals of Session: Acknowledge understanding of ARU expectations, met. Acknowledge and demonstrate knowledge of benefits of handwashing, met. Complete multi-step fine motor exercise using dynamic sitting to increase stock grader/ pinch and core strength, met. OT/PT group consisted of introductions (name, place living, Knott's memory) , handwashing benefits/education, fine motor/UE exercises and benefits of handwashing. Pt introduced self appropriately and actively listened to peers. Pt then demonstrated ability to complete fine motor activity and UE strengthening without difficulty. Pt was able to demonstrate understanding of effective handwashing techniques and contributed to strategies for handwashing education. Pt contributed to conversations throughout group and initiated conversations with peers. Pt will benefit from group by using handwashing techniques daily to prevent illness and increase UE strength for daily functional tasks. After group, pt ambulated back to room and sat in recliner. Call light/phone in reach. All needs met in room. Start Time: 13:00 Stop Time: 14:15 Total Billed Treatment 1,GRP BAILEY CALLAWAY XRAY TECH Jul 26, 2018 15:50
[2018-07-26] MEDS: TAMSULOSIN 0.4 MG (FLOMAX) CAP PO SCH (16:58)
[2018-07-26 18:00] VITALS: BP 128/73
--- NOTE | 2018-07-26 18:49 | NUR ---
Pt is eating well and states he does not want the tube feedings in addition to his meals. No further nausea since this am when zofran was given. Pt a/ox3. Talkative and friendly. Assisted to bed via FWW/gait belt/1 staff. Bladder scan PVD 200.
--- NOTE | 2018-07-26 21:40 | NUR ---
Patient refused 2200 tube feeding.
[2018-07-27] MEDS: MEROPENEM 1,000 MG in WATER (STERILE) FOR INJECTION 20 ML IV SCH ×3 (05:08→21:32)
[2018-07-27] MEDS: BETHANECHOL 25 MG (URECHOLINE) TAB PO SCH ×4 (05:08→21:33)
[2018-07-27] MEDS: LACTOBACILLUS ACIDOPHILUS (PROBIOTIC) CAPSULE PO SCH ×2 (05:09→18:07)
[2018-07-27 05:30] VITALS: BP 130/71
--- NOTE | 2018-07-27 08:49 | PM&R Progress Note ---
Subjective HPI/CC On Admission Date Seen by Provider: Jul 27, 2018 Time Seen by Provider: 09:00 CC: Brain abscess status post craniotomy HPI: This is a 78-year-old white male clinic patient of in [facility] who presents from [facility] after admitted on 06/29/18 from [facility] then [facility] for renal abscess on the left then diagnosed brain abscess status post craniotomy and diagnosed Nocardia infection UTI and brain abscess. He was seen by multiple consultants while hospitalized and [facility] and is currently in need of antibiotics for an additional 34 days and intense rehabilitation with physical therapy. He still remains with a Dhaliwal catheter in place and I consulted Dr. Monroe to facilitate retention resolution. I have also contacted cardiology for elevated BNP and right bundle branch block. I have also asked for Dr. Fenton for consultation for neutropenia and anemia. I have added on iron level. We're in the midst of reconciliation of home medications including IV antibiotics and nocardia treatment. Subjective/Events-last exam Discharge date: 08/01/18 if Meropenem antibiotic is arranged. Order written. Wants a day pass this weekend. Will stop tube feeding on Tuesday and allow him to go to day pass. PT is on standby assist. OT is standby assist. Speech is working with him. Antibiotics last day is August 19. Patient feels good today. Labs were checked and all were stable. Catheter managed by urology. Review of Systems General: Fatigue Genitourinary: Retention Neurological: Confusion Objective Exam Vital Signs Vital Signs Date Time Temp Pulse Resp B/P (MAP) Pulse Ox O2 Delivery O2 Flow Rate FiO2 07/27/18 09:00 Room Air 07/27/18 05:30 98.0 90 18 130/71 (90) 92 Capillary Refill : General Appearance: No Apparent Distress, WD/WN, Chronically ill, Cachetic, Thin, Other (much improved Tuesday) HEENT: PERRL/EOMI, Normal ENT Inspection, Pharynx Normal, Moist Mucous Membranes Neck: Full Range of Motion, Normal Inspection, Non Tender, Supple Respiratory: Chest Non Tender, Lungs Clear, Normal Breath Sounds, No Accessory Muscle Use, No Respiratory Distress Cardiovascular: Regular Rate, Rhythm, No Edema, No Gallop, No JVD, No Murmur Gastrointestinal: Normal Bowel Sounds, No Organomegaly, No Pulsatile Mass, Non Tender, Soft, Other (PEG site without erythema) Genital/Rectal: Other (dhaliwal cath in place) Back: Normal Inspection, No CVA Tenderness, No Vertebral Tenderness Extremity: Normal Capillary Refill, Normal Inspection, Normal Range of Motion, Non Tender, No Calf Tenderness, No Pedal Edema Neurologic/Psychiatric: Alert, Oriented x3, No Motor/Sensory Deficits, Normal Mood/Affect Skin: Normal Color, Warm/Dry Lymphatic: No Adenopathy Results/Procedures Lab Patient resulted labs reviewed. Assessment/Plan Assessment and Plan Assess & Plan/Chief Complaint Assessment: Status post craniotomy Brain abscess Kidney abscess Nocardia infection Urinary retention will monitor closely and we appreciate Dr Monroe but now voiding well since catheter removed but still with retention and requiring another catheter placement but now DC will monitor closely Right bundle branch block Elevated BNP Neutropenia-improved since DC Bactrim Anemia Hyponatremia improved on fluid restriction and meds Frail status Loss of weight and poor appetite s/p PEG tube placement POD # 7 Plan: Monitor labs occasionally Cardiology consultation is appreciated Urology consultation is appreciated Hematology consultation is appreciated IV abx Monitor closely DC'ed Bactrim due to bone marrow suppression PEG tube per Dr Arndt and will maintain PEG tube feedings and now eating 100% of meals Dhaliwal cath DC and replacement per Urology but now out so will monitor closely DC planning (1) Brain abscess (2) Nocardia infection (3) Pyelonephritis (4) Renal abscess (5) Neutropenia (6) Anemia (7) Hyponatremia (8) Weakness acquired in ICU (9) UTI (urinary tract infection) (10) PICC (peripherally inserted central catheter) in place (11) Urinary retention (12) Dhaliwal catheter in place (13) Right bundle branch block (14) Elevated brain natriuretic peptide (BNP) level (15) Cerebral edema (16) Focal neurological deficit (17) S/P craniotomy (18) Appetite loss (19) Weight loss (20) Cachexia (21) Malnutrition (22) Status post insertion of percutaneous endoscopic gastrostomy (PEG) tube Clinical Quality Measures DVT/VTE Risk/Contraindication: Risk Factor Score Per Nursin RFS Level Per Nursing on Admit: 4+=Very High GERTRUDIS HERNANDES DO Jul 27, 2018 08:49
[2018-07-27] MEDS: KCL 20 MEQ TAB (K-DUR) PO SCH (09:43)
[2018-07-27] MEDS: TOLVAPTAN 15 MG TABLET PO SCH ×2 (09:44→16:51)
[2018-07-27] MEDS: SODIUM CHLORIDE 1 GM TAB (NON-FORMULARY) PO SCH ×3 (09:44→21:33)
[2018-07-27] MEDS: LORATADINE (CLARITIN) 10 MG TAB PO SCH ×2 (09:44→21:33)
[2018-07-27] MEDS: SENNA W/DOCUSATE (SENOKOT S) TABLET PO SCH ×2 (09:44→21:38)
[2018-07-27] MEDS: MINOCYCLINE 100 MG TABLET (NON-FORMULARY) PO SCH ×2 (09:45→21:33)
[2018-07-27] MEDS ORDERED: MERO1PIG IV (09:46)
--- NOTE | 2018-07-27 10:50 | Physical Therapy Daily Note ---
PT Daily Note-Current Subjective Pt sitting in recliner upon arrival. Pt agrees to PT. Pain Location: No Pain Reported Mental Status Patient Orientation: Person, Place, Situation Transfers Therapy Code Descriptions/Definitions Functional [place] Measure: 0=Not Assessed/NA 4=Minimal Assistance 1=Total Assistance 5=Supervision or Setup 2=Maximal Assistance 6=Modified [place] 3=Moderate Assistance 7=Complete [place] Therapy Quality Codes: 6 Independent with activity with or without an assistive device 5 Patient requires set up or clean up by helper. Patient completes activity by themselves 4 Supervision or touching assist (CGA). [place] provide cues , steadying assist 3 The helper provides less than half the effort to complete the activity 2 The helper provides more than half the effort to complete the activity 1 Dependent. The helper does all the effort to complete an activity 7 Patient refused to complete or attempt activity 9 The patient did not perform the activity before the current illness or injury 88 Not attempted due to Medical conditions or safety concerns Scootin Sit to/from Stand: 6 Sit to Stand (QC): 6 Weight Bearing Right Lower Extremity: Right Full Weight Bearing Left Lower Extremity: Left Full Weight Bearing Gait Training Does the Patient Walk?: Yes Distance (FIM): 3=150 ft Distance: 250' Walk 10 feet (QC): 5 Walk 50 ft with 2 Turns(QC): 5 Walk 150 ft (QC): 5 Gait Level of Assist: 5 Gait Persons Needed: 1 Gait Assistive Device: FWW Wheelchair Training Does the Pt Use a Wheelchair?: No Exercises Seated Therapy Exercises: Ankle pumps, Long arc quads, Hip flexion, Kicking activity, Hip abd/add Treatments Pt transfers using FWW at Mod I then ambulates in hallway using FWW at Mod I. Pt uses NuStep for 11m at WL 5 then completes Seated Ex. Pt returns to room at end of tx with all needs met. Assessment Current Status: Good Progress Pt is gaining strength and independence with tasks but has occasional problem solving deficits demonstrated. PT Short Term Goals Short Term Goals Time Frame: Jul 29, 2018 Transfers (B,C,W/C) (FIM): 6 Gait (FIM): 6 Distance (FIM): 3=150 ft Gait Distance Comment: 350' Gait Level of Assist: 6 Gait Assistive Device: FWW Stairs (FIM): 6 # of Steps: 4 Stairs Level of Assist: 6 PT Inventory Coordinator Goals Inventory Coordinator Goals PT Inventory Coordinator Goals Time Frame: Aug 14, 2018 Transfers (B,C,W/C) (FIM): 7 Sit to Lying (QC): 7 Lying-Sitting on Side/Bed(QC): 7 Sit to Stand (QC): 7 Rollin Roll Left to Right (QC): 7 Chair/Shu-tw-Mpoqi Xfer(QC): 7 Car Transfer (QC): 7 Does the Patient Walk: Yes Gait (FIM): 6 Gait distance (FIM): 3=150 ft Distance: 1000' Walk 10 feet (QC): 7 Walk 10ft-Uneven Surface(QC): 7 Walk 50ft with 2 Turns (QC): 7 Walk 150 ft (QC): 7 Gait Level of Assist: 6 Gait Assistive Device: FWW Does the Pt use WC or Scooter?: No Stairs (FIM): 6 # of Steps: 12 1 Step (curb) (QC): 7 4 Steps (QC): 7 12 Steps (QC): 7 Stairs Level Of Assist: 6 Picking up an Object (QC): 7 PT Plan Problem List Problem List: Activity Tolerance Treatment/Plan Treatment Plan: Continue Plan of Care Treatment Plan: Bed Mobility, Concurrent Therapy, Education, Functional Activity [place], Functional Strength, Group Therapy, Gait, Safety, Therapeutic Exercise, Transfers Treatment Duration: Aug 14, 2018 Frequency: At least 5 of 7 days/Wk (IRF) Estimated Hrs Per Day: 1.5 hours per day Patient and/or Family Agrees t: Yes Safety Risks/Education Patient Education: Gait Training, Transfer Techniques, Correct Positioning, Safety Issues Teaching Recipient: Patient Teaching Methods: Discussion Response to Teaching: Verbalize Understanding Time/GCodes Time In: 1000 Time Out: 1045 Total Billed Treatment Time: 45 Total Billed Treatment 1, GT (20m) & EX x2 (25m) G Codes Necessary: No BAILEY CALLAWAY EXPERIMENTAL ROCKET SLED MECHANIC Jul 27, 2018 10:49
--- NOTE | 2018-07-27 11:14 | Occupational Ther Daily Note ---
OT Current Status-Daily Note Subjective Pt in his room ,in bed with bedrails on.. Agree for OT Treatment.. Pt states that, ' I am doing better than yesterday." Pain Numeric Pain Scale: 0-No Pain Location: No Pain Reported Mental Status/Objective Patient Orientation: Person, Place, Time, Situation Therapy Code Descriptions/Definitions Functional [place] Measure: 0=Not Assessed/NA 4=Minimal Assistance 1=Total Assistance 5=Supervision or Setup 2=Maximal Assistance 6=Modified [place] 3=Moderate Assistance 7=Complete [place] Attachments: Central Line, [place] ADL-Treatment Pt participated in toileting activity, grooming, bathing, dressing & strengthening ex..Pt needs min A in shower activity, & SBA in LB dressing garments, Unsteady standing balance due to weakness & fatigue.endurance fair.. Pt worked on Arm Bike for 20 min, & 20 reps x 2 sets x 2 lb wt with BUE , 30 reps with BUE using red theraband in all plane of motion. Therapy Code Descriptions/Definitions Functional [place] Measure: 0=Not Assessed/NA 4=Minimal Assistance 1=Total Assistance 5=Supervision or Setup 2=Maximal Assistance 6=Modified [place] 3=Moderate Assistance 7=Complete [place] Therapy Quality Codes: 6 Independent with activity with or without an assistive device 5 Patient requires set up or clean up by helper. Patient completes activity by themselves 4 Supervision or touching assist (CGA). [place] provide cues , steadying assist 3 The helper provides less than half the effort to complete the activity 2 The helper provides more than half the effort to complete the activity 1 Dependent. The helper does all the effort to complete an activity 7 Patient refused to complete or attempt activity 9 The patient did not perform the activity before the current illness or injury 88 Not attempted due to Medical conditions or safety concerns Eating (FIM): 7 Eating (QC): 6 Grooming (FIM): 6 Oral Hygiene (QC): 5 Bathing (FIM): 4 Bathing Location: L Arm, R Arm, L Upper Leg, R Upper Leg, L Lower Leg ( including foot), R Lower Leg (including foot), Chest, Abdomen, Buttocks, Perineal Area Shower/Bathe Self (QC): 4 Upper Body (FIM): 7 Upper Body Dressing (QC): 6 Lower Body Dressing (FIM): 5 Lower Body Dressing (QC): 5 On/Off Footwear (QC): 5 Toileting (FIM): 7 Toileting Hygiene (QC): 7 Transfers (B, C, W/C) (FIM): 7 Toilet/Commode Transfer (FIM): 7 Toilet Transfer (QC): 7 Tub Transfer(FIM): 5 Shower Transfer(FIM): 7 Education OT Patient Education: Correct positioning Teaching Recipient: Patient Teaching Methods: Demonstration, Discussion Response to Teaching: Verbalize Understanding, Return Demonstration OT Short Term Goals Short Term Goals Transfers (B,C,W/C) (FIM): 6 1=Demonstrate adherence to instructed precautions during ADL tasks. 2=Patient will verbalize/demonstrate understanding of assistive devices/ modifications for ADL. 3=Patient will improve strength/tolerance for activity to enable patient to perform ADL's. OT Skilled Nursing Goals Skilled Nursing Goals Time Frame: Aug 05, 2018 Eating (FIM): 6 Eating (QC): 6 Groomin Oral Hygiene (QC): 6 Bathing(FIM): 6 Shower/Bathe Self (QC): 6 Upper Body Dressing(FIM): 6 Upper Body Dressing (QC): 6 Lower Body Dressing(FIM): 6 Lower Body Dressing (QC): 6 On/Off Footwear (QC): 6 Toileting(FIM): 6 Toileting Hygiene (QC): 6 Toilet/Commode Transfer(FIM): 6 Toilet/Commode Transfer (QC): 6 Shower Transfer(FIM): 6 Additional Goals: 1-Demonstrate ADL Tasks, 2-Verbalize Understanding, 3- ImproveStrength/[place] 1=Demonstrate adherence to instructed precautions during ADL tasks. 2=Patient will verbalize/demonstrate understanding of assistive devices/ modifications for ADL. 3=Patient will improve strength/tolerance for activity to enable patient to perform ADL's. OT Education/Plan Problem List/Assessment Assessment: Decreased Activ Tolerance, Decreased Safety Aware, Decreased UE Strength, Impaired Bed Mobility, Impaired Funct Balance, Impaired Self-Care Skills Pt to benefit from skilled OT intervention for ADL training, transfers, strengthening, and safety education to increase independence and allow safe discharge. Discharge Recommendations Plan/Recommendations: Continue POC Therapy D/C Recommendations: Home w/ Family Support, Occupational Therapy Home Care Equpiment Recommendations-D/C: Extended Bath Bench, Extended Shower Sprayer, Student Life Dean Treatment Plan/Plan of Care Treatment,Training & Education: Yes Patient would benefit from OT for education, treatment and training to promote independence in ADL's, mobility, safety and/or upper extremity function for ADL' s. Plan of Care: ADL Retraining, Functional Mobility, Group Exercise/Act as Ind, UE Funct Exercise/Act, UE Neuromus Re-Ed/Coord Treatment Duration: Aug 05, 2018 Frequency: Modified Program (IRF) Estimated Hrs Per Day: 1.5 hours per day Agreement: Yes Rehab Potential: Good Time/GCodes Start Time: 08:00 Stop Time: 09:30 Total Time Billed (hr/min): 90 Billed Treatment Time 1, ADL 75 min, FA 15 min. Total 90 min. JEREMÍAS MACIAS OT Jul 27, 2018 11:14
--- NOTE | 2018-07-27 11:22 | Progress Note-Urology ---
Progress Note-Urology Progress Notes/Assess & Plan Progress/Assessment & Plan VOIDING ON OWN. PVR AROUND 200CC Final Diagnosis URINE RETENTION CHAVA CERVANTES MD Jul 27, 2018 11:22
--- NOTE | 2018-07-27 12:34 | NUR ---
INSURANCE PROCESSING CLERK met with patient to review team conference summary. As patient continues to progress physically team has recommended discharge on 08/01. Team has also improved day pass on Tuesday 216. Dietitian intends to discontinue tube feeding on 07-29 prior to home visit. As patient has scheduled IV meropenem Q8 through 39 INSURANCE PROCESSING CLERK has sent information to [place] for benefit coverage and [place] quote. Patient has all necessary equipment and home. INSURANCE PROCESSING CLERK will recheck to patient's to discuss discharge plans as well. Patient identifies no further needs at this time. INSURANCE PROCESSING CLERK has provided patient with home health provider list for RN, PT, OT. Addendum: 07/27/18 at 1440 by KELSEA CUMMINGS INSURANCE PROCESSING CLERK received notification from [facility] infusions 100 percent coverage for home IV antibiotics. Addendum: 07/27/18 at 2124 by KELSEA CUMMINGS INSURANCE PROCESSING CLERK met with patient and spouse to review discharge plans as patient's was not present earlier. Spouse has no concerns regarding discharge plans for Tuesday. Addendum: 07/28/18 at 0801 by KELSEA CUMMINGS Dependent upon weather on Tuesday, patient may not complete home visit, but will continue with discharge on 08/01
--- NOTE | 2018-07-27 14:11 | Speech Therapy Daily Note ---
Speech Daily Progress Note Subjective Date Seen by Provider: Jul 27, 2018 Time Seen by Provider: 00:30 Patient was laying in his bed resting. He was alert and talkative during the session. He states he's been able to urinate without difficulty and has no bladder pain following the removal of his catheter yesterday morning. Objective Patient completed memory tasks with 90% accuracy given minimal verbal cues. Assessment Assessment Current Status: Good Progress Treatment Plan Continue Plan of Care Communication Comprehension: 2 Expression: 2 Social Cognition Social Interaction: 5 Problem Solvin Memory: 2 Speech Short Term Goals Short Term Goals Short Term Goals 1) Patient will complete memory tasks at 80% or greater with minimal cues. 2) Patient willbe able to follow simple 2-3 step directions with 80% or greater with minimal cues. 3) Patient will be able to increase his attention to task with 80% or greater with minimal redirection. Speech Glassworker Goals Glassworker Goals Patient will increase cognitive communication skills for improved safety and independence. Speech-Plan Patient/Family Goals Patient/Family Goals: Patient is going home with his post rehab. He is scheduled for a day pass on Tuesday. Treatment Plan Speech Therapy Treatment Plan: Continue Plan of Care Patient is progressing well as a result of skilled ST services. Treatment Duration: Aug 02, 2018 Frequency: 5 times per week Estimated Hrs Per Day: .5 hour per day Rehab Potential: Good Barriers to Learning: Patient has pain intermittently. Pt/Family Agrees to Plan: Yes Safety Risks/Education Teaching Recipient: Patient Teaching Methods: Discussion Response to Teaching: Verbalize Understanding Education Topics Provided: Safety upon his return home. Time Speech Therapy Time In: 13:00 Speech Therapy Time Out: 13:30 Total Billed Time: 30 Billed Treatment Time 1JESSIE BETHANIA ST Jul 27, 2018 14:11
--- NOTE | 2018-07-27 15:03 | Physical Therapy Daily Note ---
PT Daily Note-Current Subjective Pt in restroom upon arrival. Pt agrees to PT. Pain Location: No Pain Reported Mental Status Patient Orientation: Person, Place, Situation Transfers Therapy Code Descriptions/Definitions Functional [place] Measure: 0=Not Assessed/NA 4=Minimal Assistance 1=Total Assistance 5=Supervision or Setup 2=Maximal Assistance 6=Modified [place] 3=Moderate Assistance 7=Complete [place] Therapy Quality Codes: 6 Independent with activity with or without an assistive device 5 Patient requires set up or clean up by helper. Patient completes activity by themselves 4 Supervision or touching assist (CGA). [place] provide cues , steadying assist 3 The helper provides less than half the effort to complete the activity 2 The helper provides more than half the effort to complete the activity 1 Dependent. The helper does all the effort to complete an activity 7 Patient refused to complete or attempt activity 9 The patient did not perform the activity before the current illness or injury 88 Not attempted due to Medical conditions or safety concerns Scootin Rollin Supine to/from Sit: 6 Sit to/from Stand: 6 Sit to Lying (QC): 6 Sit to Stand (QC): 6 Pt still demonstrates safety concerns with occasional problem solving deficits. Weight Bearing Right Lower Extremity: Right Full Weight Bearing Left Lower Extremity: Left Full Weight Bearing Gait Training Does the Patient Walk?: Yes Distance (FIM): 3=150 ft Gait Assistive Device: FWW Exercises Supine Ex: Ankle pumps, Quad Set, Glut sets, Heel Slides, Straight leg raise, Hip abd/add Supine Reps: 20 Treatments Pt uses restroom then ambulates back to bed to rest. Pt completes Supine Ex in bed then pt rests. Pt has all needs met. PT Short Term Goals Short Term Goals Time Frame: Jul 29, 2018 Transfers (B,C,W/C) (FIM): 6 Gait (FIM): 6 Distance (FIM): 3=150 ft Gait Distance Comment: 350' Gait Level of Assist: 6 Gait Assistive Device: FWW Stairs (FIM): 6 # of Steps: 4 Stairs Level of Assist: 6 PT Waiter/Waitress Economy Class Goals Waiter/Waitress Economy Class Goals PT Shelter Goals Time Frame: Aug 14, 2018 Transfers (B,C,W/C) (FIM): 7 Sit to Lying (QC): 7 Lying-Sitting on Side/Bed(QC): 7 Sit to Stand (QC): 7 Rollin Roll Left to Right (QC): 7 Chair/Wft-kr-Nsgyq Xfer(QC): 7 Car Transfer (QC): 7 Does the Patient Walk: Yes Gait (FIM): 6 Gait distance (FIM): 3=150 ft Distance: 1000' Walk 10 feet (QC): 7 Walk 10ft-Uneven Surface(QC): 7 Walk 50ft with 2 Turns (QC): 7 Walk 150 ft (QC): 7 Gait Level of Assist: 6 Gait Assistive Device: FWW Does the Pt use WC or Scooter?: No Stairs (FIM): 6 # of Steps: 12 1 Step (curb) (QC): 7 4 Steps (QC): 7 12 Steps (QC): 7 Stairs Level Of Assist: 6 Picking up an Object (QC): 7 PT Plan Problem List Problem List: Activity Tolerance, Safety Treatment/Plan Treatment Plan: Continue Plan of Care Treatment Plan: Bed Mobility, Concurrent Therapy, Education, Functional Activity [place], Functional Strength, Group Therapy, Gait, Safety, Therapeutic Exercise, Transfers Treatment Duration: Aug 14, 2018 Frequency: At least 5 of 7 days/Wk (IRF) Estimated Hrs Per Day: 1.5 hours per day Patient and/or Family Agrees t: Yes Safety Risks/Education Patient Education: Transfer Techniques, Correct Positioning, Safety Issues Teaching Recipient: Patient Teaching Methods: Discussion Time/GCodes Time In: 1400 Time Out: 1430 Total Billed Treatment Time: 30 Total Billed Treatment 1, FA (10m) & EX (20m) G Codes Necessary: BAILEY Dick PTA Jul 27, 2018 15:03
[2018-07-27 17:59] VITALS: BP 126/71
[2018-07-27] MEDS: TAMSULOSIN 0.4 MG (FLOMAX) CAP PO SCH (18:07)
[2018-07-28] MEDS: MEROPENEM 1,000 MG in WATER (STERILE) FOR INJECTION 20 ML IV SCH ×3 (06:10→22:15)
[2018-07-28] MEDS: BETHANECHOL 25 MG (URECHOLINE) TAB PO SCH ×4 (06:10→20:44)
[2018-07-28] MEDS: LACTOBACILLUS ACIDOPHILUS (PROBIOTIC) CAPSULE PO SCH ×2 (06:10→16:54)
[2018-07-28 06:26] VITALS: BP 158/75
[2018-07-28] MEDS: KCL 20 MEQ TAB (K-DUR) PO SCH (08:19)
[2018-07-28] MEDS: SENNA W/DOCUSATE (SENOKOT S) TABLET PO SCH ×2 (08:20→20:47)
[2018-07-28] MEDS: TOLVAPTAN 15 MG TABLET PO SCH (08:20)
[2018-07-28] MEDS: SODIUM CHLORIDE 1 GM TAB (NON-FORMULARY) PO SCH ×3 (08:20→20:46)
[2018-07-28] MEDS: LORATADINE (CLARITIN) 10 MG TAB PO SCH ×2 (08:20→20:44)
[2018-07-28] MEDS: MINOCYCLINE 100 MG TABLET (NON-FORMULARY) PO SCH ×2 (08:20→20:45)
--- NOTE | 2018-07-28 09:59 | PM&R Progress Note ---
Subjective HPI/CC On Admission Date Seen by Provider: Jul 28, 2018 Time Seen by Provider: 10:00 CC: Brain abscess status post craniotomy HPI: This is a 78-year-old white male clinic patient of in [facility] who presents from [facility] after admitted on 06/29/18 from [facility] then [facility] for renal abscess on the left then diagnosed brain abscess status post craniotomy and diagnosed Nocardia infection UTI and brain abscess. He was seen by multiple consultants while hospitalized and [place] and is currently in need of antibiotics for an additional 34 days and intense rehabilitation with physical therapy. He still remains with a Dhaliwal catheter in place and I consulted Dr. Monroe to facilitate retention resolution. I have also contacted cardiology for elevated BNP and right bundle branch block. I have also asked for Dr. Fenton for consultation for neutropenia and anemia. I have added on iron level. We're in the midst of reconciliation of home medications including IV antibiotics and nocardia treatment. Subjective/Events-last exam Discharge date: 08/01/18 if Meropenem antibiotic is arranged. Order written. Wants a day pass this weekend but ice on roads may delay this plan Will stop tube feeding on Tuesday and allow him to go to day pass but he is refusing the tube feedings anyway so may need to DC that as long as he continues to improve PT is on standby assist. OT is standby assist. Speech is working with him and cognition is doing better Antibiotics last day is August 19. Patient feels good today. Labs were checked and all were stable. Catheter managed by urology and DC and voiding well Review of Systems General: Fatigue Objective Exam Vital Signs Vital Signs Date Time Temp Pulse Resp B/P (MAP) Pulse Ox O2 Delivery O2 Flow Rate FiO2 07/28/18 18:29 98.1 115 18 121/74 (90) 96 Room Air Capillary Refill : General Appearance: No Apparent Distress, WD/WN, Chronically ill, Cachetic, Thin, Other (much improved Tuesday) HEENT: PERRL/EOMI, Normal ENT Inspection, Pharynx Normal, Moist Mucous Membranes Neck: Full Range of Motion, Normal Inspection, Non Tender, Supple Respiratory: Chest Non Tender, Lungs Clear, Normal Breath Sounds, No Accessory Muscle Use, No Respiratory Distress Cardiovascular: Regular Rate, Rhythm, No Edema, No Gallop, No JVD, No Murmur Gastrointestinal: Normal Bowel Sounds, No Organomegaly, No Pulsatile Mass, Non Tender, Soft, Other (PEG site without erythema) Genital/Rectal: Other (dhaliwal cath in place) Back: Normal Inspection, No CVA Tenderness, No Vertebral Tenderness Extremity: Normal Capillary Refill, Normal Inspection, Normal Range of Motion, Non Tender, No Calf Tenderness, No Pedal Edema Neurologic/Psychiatric: Alert, Oriented x3, No Motor/Sensory Deficits, Normal Mood/Affect Skin: Normal Color, Warm/Dry Lymphatic: No Adenopathy Results/Procedures Lab Patient resulted labs reviewed. Assessment/Plan Assessment and Plan Assess & Plan/Chief Complaint Assessment: Status post craniotomy Brain abscess Kidney abscess Nocardia infection Urinary retention will monitor closely and we appreciate Dr Monroe but now voiding well since catheter removed but still with retention and requiring another catheter placement but now DC will monitor closely Right bundle branch block Elevated BNP Neutropenia-improved since DC Bactrim Anemia Hyponatremia improved on fluid restriction and meds Frail status Loss of weight and poor appetite s/p PEG tube placement POD # 8 Plan: Monitor labs occasionally Cardiology consultation is appreciated Urology consultation is appreciated Hematology consultation is appreciated IV abx Monitor closely DC'ed Bactrim due to bone marrow suppression PEG tube per Dr Arndt and will maintain PEG tube feedings and now eating 100% of meals Dhaliwal cath DC and replacement per Urology but now out so will monitor closely DC planning (1) Brain abscess (2) Nocardia infection (3) Pyelonephritis (4) Renal abscess (5) Neutropenia (6) Anemia (7) Hyponatremia (8) Weakness acquired in ICU (9) UTI (urinary tract infection) (10) PICC (peripherally inserted central catheter) in place (11) Urinary retention (12) Dhaliwal catheter in place (13) Right bundle branch block (14) Elevated brain natriuretic peptide (BNP) level (15) Cerebral edema (16) Focal neurological deficit (17) S/P craniotomy (18) Appetite loss (19) Weight loss (20) Cachexia (21) Malnutrition (22) Status post insertion of percutaneous endoscopic gastrostomy (PEG) tube Clinical Quality Measures DVT/VTE Risk/Contraindication: Risk Factor Score Per Nursin RFS Level Per Nursing on Admit: 4+=Very High GERTRUDIS HERNANDES DO Jul 28, 2018 09:59
--- NOTE | 2018-07-28 10:14 | Physical Therapy Daily Note ---
PT Daily Note-Current Subjective Pt. agrees to Rx. Very pleasant this date, agreeable and cognitively sound. No c/o pain or discomfort Pain Location: No Pain Reported Mental Status Patient Orientation: Normal For Age Transfers Therapy Code Descriptions/Definitions Functional [place] Measure: 0=Not Assessed/NA 4=Minimal Assistance 1=Total Assistance 5=Supervision or Setup 2=Maximal Assistance 6=Modified [place] 3=Moderate Assistance 7=Complete [place] Therapy Quality Codes: 6 Independent with activity with or without an assistive device 5 Patient requires set up or clean up by helper. Patient completes activity by themselves 4 Supervision or touching assist (CGA). [place] provide cues , steadying assist 3 The helper provides less than half the effort to complete the activity 2 The helper provides more than half the effort to complete the activity 1 Dependent. The helper does all the effort to complete an activity 7 Patient refused to complete or attempt activity 9 The patient did not perform the activity before the current illness or injury 88 Not attempted due to Medical conditions or safety concerns Transfers (B, C, W/C) (FIM): 5 Scootin Rollin Supine to/from Sit: 6 Sit to/from Stand: 6 Bed to/from Chair: 5 needs supervision for TRFs, near up ad paulie Weight Bearing Right Lower Extremity: Right Full Weight Bearing Left Lower Extremity: Left Full Weight Bearing Gait Training Does the Patient Walk?: Yes Gait (FIM): 5 Distance (FIM): 3=150 ft (175x2,100) Gait Level of Assist: 5 Gait Persons Needed: 1 Gait Assistive Device: FWW some kyphosis noted, no LOB, careful , manages FWW well Stair Training Stair Training: Handrails/: 2 handrails Stairs (FIM): 5 #of Steps: 4 Stairs: Pattern: Reciprocal Level of Assist: 5 household exception Exercises Supine Ex: Bridging, Ankle pumps, Quad Set, Rolling, Glut sets, Heel Slides, Short Arc Quads, Scooting, Straight leg raise, Hip abd/add Supine Reps: 12 Seated Therapy Exercises: Ankle pumps, Sit to stand, Long arc quads, Hip flexion, Hip abd/add Seated Reps: 12 NuStep Minutes: 10 NuStep Workload: 3 Assessment Current Status: Good Progress PT Short Term Goals Short Term Goals Time Frame: Jul 29, 2018 Transfers (B,C,W/C) (FIM): 6 Gait (FIM): 6 Distance (FIM): 3=150 ft Gait Distance Comment: 350' Gait Level of Assist: 6 Gait Assistive Device: FWW Stairs (FIM): 6 # of Steps: 4 Stairs Level of Assist: 6 PT Shelter Goals Shelter Goals PT Metal Door Assembler Goals Time Frame: Aug 14, 2018 Transfers (B,C,W/C) (FIM): 7 Sit to Lying (QC): 7 Lying-Sitting on Side/Bed(QC): 7 Sit to Stand (QC): 7 Rollin Roll Left to Right (QC): 7 Chair/Rsb-xy-Gketp Xfer(QC): 7 Car Transfer (QC): 7 Does the Patient Walk: Yes Gait (FIM): 6 Gait distance (FIM): 3=150 ft Distance: 1000' Walk 10 feet (QC): 7 Walk 10ft-Uneven Surface(QC): 7 Walk 50ft with 2 Turns (QC): 7 Walk 150 ft (QC): 7 Gait Level of Assist: 6 Gait Assistive Device: FWW Does the Pt use WC or Scooter?: No Stairs (FIM): 6 # of Steps: 12 1 Step (curb) (QC): 7 4 Steps (QC): 7 12 Steps (QC): 7 Stairs Level Of Assist: 6 Picking up an Object (QC): 7 PT Plan Treatment/Plan Treatment Plan: Continue Plan of Care Treatment Plan: Bed Mobility, Concurrent Therapy, Education, Functional Activity [place], Functional Strength, Group Therapy, Gait, Safety, Therapeutic Exercise, Transfers Treatment Duration: Aug 14, 2018 Frequency: At least 5 of 7 days/Wk (IRF) Estimated Hrs Per Day: 1.5 hours per day Patient and/or Family Agrees t: Yes Safety Risks/Education Patient Education: Gait Training, Transfer Techniques, Steps, Correct Positioning, Disease Process, Safety Issues Teaching Recipient: Patient Teaching Methods: Demonstration, Discussion Response to Teaching: Verbalize Understanding, Return Demonstration, Reinforcement Needed Time/GCodes Time In: 915 Time Out: 1015 Total Billed Treatment Time: 60 Total Billed Treatment 1,EX25m,FA15m,Gt20m G Codes Necessary: LOW Prasad EXERCISER Jul 28, 2018 10:14
--- NOTE | 2018-07-28 10:22 | NUR ---
PT EATING VERY WELL AND REFUSING TUBE FEEDINGS IN ADDITION TO MEALS. WILL DC TUBE FEEDINGS TOMORROW WHEN GOES ON HOME PASS. IF CONTINUES TO EAT WELL, NO NEED TO REINITIATE TUBE FEEDINGS WHEN HE RETURNS.
--- NOTE | 2018-07-28 10:38 | Occupational Ther Daily Note ---
OT Current Status-Daily Note Subjective Pt in recliner , alert, cheerful, oriented. Pain Numeric Pain Scale: 0-No Pain Location: No Pain Reported Mental Status/Objective Patient Orientation: Person, Place, Time, Situation Therapy Code Descriptions/Definitions Functional [place] Measure: 0=Not Assessed/NA 4=Minimal Assistance 1=Total Assistance 5=Supervision or Setup 2=Maximal Assistance 6=Modified [place] 3=Moderate Assistance 7=Complete [place] Attachments: IV ADL-Treatment Pt participated in bath sponge , needs min A in wiping back only otherwise pt Independent in Sponge bath, Supine to sit Independently, [place] hairs Independently, sit to stand from EOB with CGA due to dizziness. Pt walk with FWW under supervisin to therapy gym. Completed 15 min on Arm Bike to strengthen BUE. Therapy Code Descriptions/Definitions Functional [place] Measure: 0=Not Assessed/NA 4=Minimal Assistance 1=Total Assistance 5=Supervision or Setup 2=Maximal Assistance 6=Modified [place] 3=Moderate Assistance 7=Complete [place] Therapy Quality Codes: 6 Independent with activity with or without an assistive device 5 Patient requires set up or clean up by helper. Patient completes activity by themselves 4 Supervision or touching assist (CGA). [place] provide cues , steadying assist 3 The helper provides less than half the effort to complete the activity 2 The helper provides more than half the effort to complete the activity 1 Dependent. The helper does all the effort to complete an activity 7 Patient refused to complete or attempt activity 9 The patient did not perform the activity before the current illness or injury 88 Not attempted due to Medical conditions or safety concerns Eating (FIM): 7 Eating (QC): 6 Grooming (FIM): 6 Oral Hygiene (QC): 5 Bathing (FIM): 5 Bathing Location: L Arm, R Arm, L Upper Leg, R Upper Leg, L Lower Leg ( including foot), Chest, Abdomen, Buttocks, Perineal Area Shower/Bathe Self (QC): 5 Upper Body (FIM): 5 Upper Body Dressing (QC): 7 Lower Body Dressing (FIM): 5 Lower Body Dressing (QC): 5 On/Off Footwear (QC): 5 Toileting (FIM): 7 Toileting Hygiene (QC): 6 Transfers (B, C, W/C) (FIM): 6 Toilet/Commode Transfer (FIM): 6 Toilet Transfer (QC): 6 Tub Transfer(FIM): 4 Shower Transfer(FIM): 6 Education OT Patient Education: Correct positioning, Safety issues Teaching Recipient: Patient Teaching Methods: Demonstration Response to Teaching: Verbalize Understanding, Return Demonstration OT Short Term Goals Short Term Goals Transfers (B,C,W/C) (FIM): 6 1=Demonstrate adherence to instructed precautions during ADL tasks. 2=Patient will verbalize/demonstrate understanding of assistive devices/ modifications for ADL. 3=Patient will improve strength/tolerance for activity to enable patient to perform ADL's. OT Apprenticeship Representative Goals Senior Care Goals Time Frame: Aug 05, 2018 Eating (FIM): 6 Eating (QC): 6 Groomin Oral Hygiene (QC): 6 Bathing(FIM): 6 Shower/Bathe Self (QC): 6 Upper Body Dressing(FIM): 6 Upper Body Dressing (QC): 6 Lower Body Dressing(FIM): 6 Lower Body Dressing (QC): 6 On/Off Footwear (QC): 6 Toileting(FIM): 6 Toileting Hygiene (QC): 6 Toilet/Commode Transfer(FIM): 6 Toilet/Commode Transfer (QC): 6 Shower Transfer(FIM): 6 Additional Goals: 1-Demonstrate ADL Tasks, 2-Verbalize Understanding, 3- ImproveStrength/[place] 1=Demonstrate adherence to instructed precautions during ADL tasks. 2=Patient will verbalize/demonstrate understanding of assistive devices/ modifications for ADL. 3=Patient will improve strength/tolerance for activity to enable patient to perform ADL's. OT Education/Plan Problem List/Assessment Assessment: Decreased Activ Tolerance, Decreased Safety Aware, Decreased UE Strength, Impaired Bed Mobility, Impaired Funct Balance, Impaired Self-Care Skills Pt to benefit from skilled OT intervention for ADL training, transfers, strengthening, and safety education to increase independence and allow safe discharge. Discharge Recommendations Plan/Recommendations: Continue POC Therapy D/C Recommendations: Home w/ Family Support Equpiment Recommendations-D/C: Extended Bath Bench, Extended Shower Sprayer, Music Autographer Treatment Plan/Plan of Care Treatment,Training & Education: Yes Patient would benefit from OT for education, treatment and training to promote independence in ADL's, mobility, safety and/or upper extremity function for ADL' s. Plan of Care: ADL Retraining, Functional Mobility, Group Exercise/Act as Ind, UE Funct Exercise/Act, UE Neuromus Re-Ed/Coord Treatment Duration: Aug 05, 2018 Frequency: Modified Program (IRF) Estimated Hrs Per Day: 1.5 hours per day Agreement: Yes Rehab Potential: Good Time/GCodes Start Time: 08:00 Stop Time: 09:00 Total Time Billed (hr/min): 60 Billed Treatment Time 1, ADL 45 min, FA 15 min. Total 60 min. JEREMÍAS MACIAS OT Jul 28, 2018 10:38
--- NOTE | 2018-07-28 12:35 | Progress Note-Urology ---
Progress Note-Urology Progress Notes/Assess & Plan Progress/Assessment & Plan CHECK PVR TODAY Final Diagnosis URINE RETENTION CHAAV CERVANTES MD Jul 28, 2018 12:35
--- NOTE | 2018-07-28 14:03 | Therapy Group Daily Note ---
Therapy Daily Group Note Patient Education Topic Fall Prevention, Home Safety, Energy Cons Other/Notes Pt participated in group therapy with 4 to 1 ratio. Goals of Session: Demonstrates ability to use fine motor skills to open packages/containers, ongoing. Acknowledge or verbalize understanding of winter safety, met. OT/PT group consisted of introductions (name and place), socialization, educational topics (winter safety) and UE gross/fine motor functional tasks. Pt introduced self appropriately and actively listened to peers. Pt contributed to discussions and contributed to conversations with peers. Pt was able to demonstrate good B UE gross/fine motor skills during functional tasks while eating lunch pt indep to open packages/containers. Pt giving own strategies and experiences during educational topics. Pt will benefit from group by using resources and topics discussed to improve awareness and safety. Pt benefits by being independent and increasing strength in B UE's. After therapy, pt transported via CGA with FWW to room and in recliner. Call light/ phone in reach. All needs met in room. Start Time: 12:00 Stop Time: 13:10 Total Billed Treatment Time: 70 Total Billed Treatment 1 visit GRP 70 min JUAN FRANCISCO SEGURA PT Jul 28, 2018 14:03
[2018-07-28] MEDS: TAMSULOSIN 0.4 MG (FLOMAX) CAP PO SCH (16:54)
[2018-07-28 18:29] VITALS: BP 121/74
--- NOTE | 2018-07-28 18:50 | NUR ---
bedside report received from DIEGO EASON, assume care of pt
[2018-07-28] MEDS: MELATONIN 3 MG TABLET PO PRN (20:44)
--- NOTE | 2018-07-28 21:00 | NUR ---
assessments & interventions completed, see assessments & interventions, pt refused Senokot 1 tab, also refusing tube feeding, has been eating better 75% of meals
--- NOTE | 2018-07-28 22:00 | NUR ---
refused 2200 tube feeding
--- NOTE | 2018-07-29 05:45 | NUR ---
post void bladder scan 176
[2018-07-29 06:36] VITALS: BP 156/84
[2018-07-29] MEDS: BETHANECHOL 25 MG (URECHOLINE) TAB PO SCH ×4 (06:41→21:23)
[2018-07-29] MEDS: MEROPENEM 1,000 MG in WATER (STERILE) FOR INJECTION 20 ML IV SCH ×3 (06:41→22:21)
[2018-07-29] MEDS: LACTOBACILLUS ACIDOPHILUS (PROBIOTIC) CAPSULE PO SCH ×2 (06:42→16:34)
--- NOTE | 2018-07-29 07:22 | NUR ---
bedside report given to JORGE EASON
[2018-07-29] MEDS: LORATADINE (CLARITIN) 10 MG TAB PO SCH ×2 (08:17→21:23)
[2018-07-29] MEDS: MINOCYCLINE 100 MG TABLET (NON-FORMULARY) PO SCH ×2 (08:18→21:23)
[2018-07-29] MEDS: SODIUM CHLORIDE 1 GM TAB (NON-FORMULARY) PO SCH ×3 (08:19→21:24)
[2018-07-29] MEDS: KCL 20 MEQ TAB (K-DUR) PO SCH (08:21)
[2018-07-29] MEDS: SENNA W/DOCUSATE (SENOKOT S) TABLET PO SCH ×2 (08:22→21:00)
--- NOTE | 2018-07-29 10:00 | NUR ---
CLARIFIED WITH DR. HERNANDES THAT PATIENT CONTINUES TO EAT WELL AND HE FEELS HE DOESN'T NEED JEVITY, BUT IS WILLING TO TAKE IT. DR. HERNANDES PREFERS FOR NURSES TO GIVE JEVITY LONG PATIENT IS WILLING TO TAKE IT. CONTINUES TO VOID WELL.
[2018-07-29] MEDS: ZINC OXIDE 16% OINT (BUTT PASTE) 113 GM TUBE TOP PRN ×2 (10:31→21:35)
--- NOTE | 2018-07-29 10:52 | Physical Therapy Daily Note ---
PT Daily Note-Current Subjective Agrees to PT. Reports he feels he is doing very good. Transfers Therapy Code Descriptions/Definitions Functional [place] Measure: 0=Not Assessed/NA 4=Minimal Assistance 1=Total Assistance 5=Supervision or Setup 2=Maximal Assistance 6=Modified [place] 3=Moderate Assistance 7=Complete [place] Therapy Quality Codes: 6 Independent with activity with or without an assistive device 5 Patient requires set up or clean up by helper. Patient completes activity by themselves 4 Supervision or touching assist (CGA). [place] provide cues , steadying assist 3 The helper provides less than half the effort to complete the activity 2 The helper provides more than half the effort to complete the activity 1 Dependent. The helper does all the effort to complete an activity 7 Patient refused to complete or attempt activity 9 The patient did not perform the activity before the current illness or injury 88 Not attempted due to Medical conditions or safety concerns Weight Bearing Right Lower Extremity: Right Full Weight Bearing Left Lower Extremity: Left Full Weight Bearing Treatments Pt is SBA with all transfers. Pt ambulated x 350 ft with FWW with SBA. Up/ down 4 steps with SBA. Pt then walked an additional 300 ft with FWW with SBA. Pt up in chair post treatment with needs met. Assessment Current Status: Good Progress Safe with all transfers and giat. Excellent functional gains noted. PT Short Term Goals Short Term Goals Time Frame: Jul 29, 2018 Transfers (B,C,W/C) (FIM): 6 Gait (FIM): 6 Distance (FIM): 3=150 ft Gait Distance Comment: 350' Gait Level of Assist: 6 Gait Assistive Device: FWW Stairs (FIM): 6 # of Steps: 4 Stairs Level of Assist: 6 PT Fdc Goals Fdc Goals PT Fdc Goals Time Frame: Aug 14, 2018 Transfers (B,C,W/C) (FIM): 7 Sit to Lying (QC): 7 Lying-Sitting on Side/Bed(QC): 7 Sit to Stand (QC): 7 Rollin Roll Left to Right (QC): 7 Chair/Btj-nc-Aeval Xfer(QC): 7 Car Transfer (QC): 7 Does the Patient Walk: Yes Gait (FIM): 6 Gait distance (FIM): 3=150 ft Distance: 1000' Walk 10 feet (QC): 7 Walk 10ft-Uneven Surface(QC): 7 Walk 50ft with 2 Turns (QC): 7 Walk 150 ft (QC): 7 Gait Level of Assist: 6 Gait Assistive Device: FWW Does the Pt use WC or Scooter?: No Stairs (FIM): 6 # of Steps: 12 1 Step (curb) (QC): 7 4 Steps (QC): 7 12 Steps (QC): 7 Stairs Level Of Assist: 6 Picking up an Object (QC): 7 PT Plan Problem List Problem List: Activity Tolerance, Functional Strength, Safety, Balance, Gait, Transfer Treatment/Plan Treatment Plan: Continue Plan of Care Treatment Plan: Bed Mobility, Concurrent Therapy, Education, Functional Activity [place], Functional Strength, Group Therapy, Gait, Safety, Therapeutic Exercise, Transfers Treatment Duration: Aug 14, 2018 Frequency: At least 5 of 7 days/Wk (IRF) Estimated Hrs Per Day: 1.5 hours per day Patient and/or Family Agrees t: Yes Safety Risks/Education Patient Education: Safety Issues Teaching Recipient: Patient Teaching Methods: Discussion Response to Teaching: Reinforcement Needed Time/GCodes Time In: 1030 Time Out: 1046 Total Billed Treatment Time: 16 Total Billed Treatment visit GT 16 DAIJA BRASWELL PT Jul 29, 2018 10:52
--- NOTE | 2018-07-29 10:56 | Progress Note-Urology ---
Progress Note-Urology Progress Notes/Assess & Plan Progress/Assessment & Plan PVR YESTERDAY 0 Final Diagnosis URINE RETENTION RESOLVING CHAVA CERVANTES MD Jul 29, 2018 10:56
--- NOTE | 2018-07-29 11:16 | PM&R Progress Note ---
Subjective HPI/CC On Admission Date Seen by Provider: Jul 29, 2018 Time Seen by Provider: 11:30 CC: Brain abscess status post craniotomy HPI: This is a 78-year-old white male clinic patient of in [facility] who presents from [facility] after admitted on 06/29/18 from [facility] then [facility] for renal abscess on the left then diagnosed brain abscess status post craniotomy and diagnosed Nocardia infection UTI and brain abscess. He was seen by multiple consultants while hospitalized and [place] and is currently in need of antibiotics for an additional 34 days and intense rehabilitation with physical therapy. He still remains with a Dhaliwal catheter in place and I consulted Dr. Monroe to facilitate retention resolution. I have also contacted cardiology for elevated BNP and right bundle branch block. I have also asked for Dr. Fenton for consultation for neutropenia and anemia. I have added on iron level. We're in the midst of reconciliation of home medications including IV antibiotics and nocardia treatment. Subjective/Events-last exam Discharge date: 08/01/18 if Meropenem antibiotic is arranged. Order written. Tube feedings will be maintained Participating in therapies Antibiotics last day is August 19. Patient feels good today. Labs were checked and all were stable. Catheter managed by urology and DC and voiding well Review of Systems General: Fatigue Objective Exam Vital Signs Vital Signs Date Time Temp Pulse Resp B/P (MAP) Pulse Ox O2 Delivery O2 Flow Rate FiO2 07/29/18 17:08 Room Air 07/29/18 16:28 96.3 89 14 129/74 (92) 94 Capillary Refill : General Appearance: No Apparent Distress, WD/WN, Chronically ill, Cachetic, Thin, Other (much improved Tuesday) HEENT: PERRL/EOMI, Normal ENT Inspection, Pharynx Normal, Moist Mucous Membranes Neck: Full Range of Motion, Normal Inspection, Non Tender, Supple Respiratory: Chest Non Tender, Lungs Clear, Normal Breath Sounds, No Accessory Muscle Use, No Respiratory Distress Cardiovascular: Regular Rate, Rhythm, No Edema, No Gallop, No JVD, No Murmur Gastrointestinal: Normal Bowel Sounds, No Organomegaly, No Pulsatile Mass, Non Tender, Soft, Other (PEG site without erythema) Genital/Rectal: Other (dhaliwal cath in place) Back: Normal Inspection, No CVA Tenderness, No Vertebral Tenderness Extremity: Normal Capillary Refill, Normal Inspection, Normal Range of Motion, Non Tender, No Calf Tenderness, No Pedal Edema Neurologic/Psychiatric: Alert, Oriented x3, No Motor/Sensory Deficits, Normal Mood/Affect Skin: Normal Color, Warm/Dry Lymphatic: No Adenopathy Results/Procedures Lab Patient resulted labs reviewed. Assessment/Plan Assessment and Plan Assess & Plan/Chief Complaint Assessment: Status post craniotomy Brain abscess Kidney abscess Nocardia infection Urinary retention will monitor closely and we appreciate Dr Monroe but now voiding well since catheter removed but still with retention and requiring another catheter placement but now DC will monitor closely Right bundle branch block Elevated BNP Neutropenia-improved since DC Bactrim Anemia Hyponatremia improved on fluid restriction and meds Frail status Loss of weight and poor appetite s/p PEG tube placement POD # 9 Plan: Monitor labs occasionally Cardiology consultation is appreciated Urology consultation is appreciated Hematology consultation is appreciated IV abx Monitor closely DC'ed Bactrim due to bone marrow suppression PEG tube per Dr Arndt and will maintain PEG tube feedings and now eating 100% of meals Dhaliwal cath DC and replacement per Urology but now out so will monitor closely DC planning (1) Brain abscess (2) Nocardia infection (3) Pyelonephritis (4) Renal abscess (5) Neutropenia (6) Anemia (7) Hyponatremia (8) Weakness acquired in ICU (9) UTI (urinary tract infection) (10) PICC (peripherally inserted central catheter) in place (11) Urinary retention (12) Dhaliwal catheter in place (13) Right bundle branch block (14) Elevated brain natriuretic peptide (BNP) level (15) Cerebral edema (16) Focal neurological deficit (17) S/P craniotomy (18) Appetite loss (19) Weight loss (20) Cachexia (21) Malnutrition (22) Status post insertion of percutaneous endoscopic gastrostomy (PEG) tube Clinical Quality Measures DVT/VTE Risk/Contraindication: Risk Factor Score Per Nursin RFS Level Per Nursing on Admit: 4+=Very High GERTRUDIS HERNANDES DO Jul 29, 2018 11:16
[2018-07-29 16:28] VITALS: BP 129/74
[2018-07-29] MEDS: TAMSULOSIN 0.4 MG (FLOMAX) CAP PO SCH (17:28)
--- NOTE | 2018-07-29 18:00 | NUR ---
VOIDED 300 CC. POST VOID BLADDER SCAN SHOWED 166 CC.
--- NOTE | 2018-07-29 19:13 | NUR ---
bedside report received from JORGE EASON, assume care of pt
--- NOTE | 2018-07-29 21:00 | NUR ---
assessments & interventions completed, see assessments & interventions, refused Senokot 1 tab, had medium liq brown BM already justine
[2018-07-29] MEDS: MELATONIN 3 MG TABLET PO PRN (21:23)
--- NOTE | 2018-07-29 22:00 | NUR ---
refused tube feeding stated he did not feel he needed it he was eating just fine
[2018-07-30 05:23] LABS: BASOPHILS # (AUTO) 0.2 10^3/uL (0.0-0.1); BASOPHILS % (AUTO) 3 % (0-10); EOSINOPHILS # (AUTO) 0.2 10^3/uL (0.0-0.3); EOSINOPHILS % (AUTO) 4 % (0-10); HEMATOCRIT 25 % (40-54); HEMOGLOBIN 7.8 G/DL (13.3-17.7); LYMPHOCYTES % (AUTO) 21 % (12-44); MEAN CORPUSCULAR HEMOGLOBIN 26 PG (25-34); MEAN CORPUSCULAR HGB CONC 31 G/DL (32-36); MEAN CORPUSCULAR VOLUME 83 FL (80-99); MEAN PLATELET VOLUME 10.2 FL (7.4-10.4); MONOCYTES # (AUTO) 0.8 X 10^3 (0.0-1.0); MONOCYTES % (AUTO) 17 % (0-12); NEUTROPHILS # (AUTO) 2.7 X 10^3 (1.8-7.8); NEUTROPHILS % (AUTO) 56 % (42-75); PLATELET COUNT 309 10^3/uL (130-400); RED CELL DISTRIBUTION WIDTH 28.3 % (10.0-14.5); WHITE BLOOD COUNT 4.8 10^3/uL (4.3-11.0)
--- NOTE | 2018-07-30 05:50 | NUR ---
bath pack bath done with assist then helped to change clothes
[2018-07-30 05:59] LABS: ALANINE AMINOTRANSFERASE 22 U/L (0-55); ALKALINE PHOSPHATASE 89 U/L (40-136); BILIRUBIN,TOTAL 0.7 MG/DL (0.1-1.0); BUN/CREATININE RATIO 30; CALCIUM 8.3 MG/DL (8.5-10.1); CARBON DIOXIDE 26 MMOL/L (21-32); CHLORIDE 103 MMOL/L (98-107); CREATININE SERUM 0.64 MG/DL (0.60-1.30); GFR ESTIMATED > 60; GLUCOSE 76 MG/DL (70-105); SODIUM 136 MMOL/L (135-145); TOTAL PROTEIN 6.2 GM/DL (6.4-8.2)
--- NOTE | 2018-07-30 06:05 | NUR ---
voided 350ml of clear light julián urine the bladder scan, reading 235ml
[2018-07-30 06:22] VITALS: BP 129/74
[2018-07-30] MEDS: MEROPENEM 1,000 MG in WATER (STERILE) FOR INJECTION 20 ML IV SCH ×3 (06:38→22:18)
[2018-07-30] MEDS: BETHANECHOL 25 MG (URECHOLINE) TAB PO SCH ×4 (06:47→20:26)
[2018-07-30] MEDS: LACTOBACILLUS ACIDOPHILUS (PROBIOTIC) CAPSULE PO SCH ×2 (06:48→16:26)
--- NOTE | 2018-07-30 07:18 | NUR ---
bedside report given to JORGE EASON
[2018-07-30] MEDS: KCL 20 MEQ TAB (K-DUR) PO SCH (08:27)
[2018-07-30] MEDS: LORATADINE (CLARITIN) 10 MG TAB PO SCH ×2 (08:27→20:27)
[2018-07-30] MEDS: SODIUM CHLORIDE 1 GM TAB (NON-FORMULARY) PO SCH ×3 (08:28→20:27)
[2018-07-30] MEDS: SENNA W/DOCUSATE (SENOKOT S) TABLET PO SCH ×2 (08:28→20:29)
[2018-07-30] MEDS: MINOCYCLINE 100 MG TABLET (NON-FORMULARY) PO SCH ×2 (08:28→20:27)
--- NOTE | 2018-07-30 10:00 | NUR ---
ATE BREAKFAST 100%. ENCOURAGED TO TAKE JEVITY AND AGREEABLE. TUBE FEEDING GIVEN WITHOUT DIFFICULTY. DR. HERNANDES AWARE OF HGB 7.8 THIS AM.
--- NOTE | 2018-07-30 10:28 | PM&R Progress Note ---
Subjective HPI/CC On Admission Date Seen by Provider: Jul 30, 2018 Time Seen by Provider: 10:30 CC: Brain abscess status post craniotomy HPI: This is a 78-year-old white male clinic patient of in [facility] who presents from [facility] after admitted on 06/29/18 from [facility] then [place] for renal abscess on the left then diagnosed brain abscess status post craniotomy and diagnosed Nocardia infection UTI and brain abscess. He was seen by multiple consultants while hospitalized and [place] and is currently in need of antibiotics for an additional 34 days and intense rehabilitation with physical therapy. He still remains with a Dhaliwal catheter in place and I consulted Dr. Monroe to facilitate retention resolution. I have also contacted cardiology for elevated BNP and right bundle branch block. I have also asked for Dr. Fenton for consultation for neutropenia and anemia. I have added on iron level. We're in the midst of reconciliation of home medications including IV antibiotics and nocardia treatment. Subjective/Events-last exam Discharge date: 08/01/18 if Meropenem antibiotic is arranged. Order written. Tube feedings will be maintained since albumin still very low since he had lost 20 pounds even before the abscesses managed Resting today since no therapies Antibiotics last day is August 19. Patient feels good today. Labs were checked and all were stable. Catheter managed by urology and DC and voiding well Review of Systems General: Fatigue Objective Exam Vital Signs Vital Signs Date Time Temp Pulse Resp B/P (MAP) Pulse Ox O2 Delivery O2 Flow Rate FiO2 07/30/18 09:00 Room Air 07/30/18 06:22 96.5 79 16 129/74 (92) 93 Capillary Refill : General Appearance: No Apparent Distress, WD/WN, Chronically ill, Cachetic, Thin, Other (much improved Tuesday) HEENT: PERRL/EOMI, Normal ENT Inspection, Pharynx Normal, Moist Mucous Membranes Neck: Full Range of Motion, Normal Inspection, Non Tender, Supple Respiratory: Chest Non Tender, Lungs Clear, Normal Breath Sounds, No Accessory Muscle Use, No Respiratory Distress Cardiovascular: Regular Rate, Rhythm, No Edema, No Gallop, No JVD, No Murmur Gastrointestinal: Normal Bowel Sounds, No Organomegaly, No Pulsatile Mass, Non Tender, Soft, Other (PEG site without erythema) Genital/Rectal: Other (dhaliwal cath in place) Back: Normal Inspection, No CVA Tenderness, No Vertebral Tenderness Extremity: Normal Capillary Refill, Normal Inspection, Normal Range of Motion, Non Tender, No Calf Tenderness, No Pedal Edema Neurologic/Psychiatric: Alert, Oriented x3, No Motor/Sensory Deficits, Normal Mood/Affect Skin: Normal Color, Warm/Dry Lymphatic: No Adenopathy Results/Procedures Lab Laboratory Tests 07/30/18 05:10 Patient resulted labs reviewed. Assessment/Plan Assessment and Plan Assess & Plan/Chief Complaint Assessment: Status post craniotomy Brain abscess Kidney abscess Nocardia infection Urinary retention will monitor closely and we appreciate Dr Monroe but now voiding well since catheter removed but still with retention and requiring another catheter placement but now DC will monitor closely Right bundle branch block Elevated BNP Neutropenia-improved since DC Bactrim Anemia Hyponatremia improved on fluid restriction and meds Frail status Loss of weight and poor appetite s/p PEG tube placement POD # 10 Plan: Monitor labs occasionally Cardiology consultation is appreciated Urology consultation is appreciated Hematology consultation is appreciated IV abx Monitor closely DC'ed Bactrim due to bone marrow suppression PEG tube per Dr Arndt and will maintain PEG tube feedings and now eating 100% of meals Dhaliwal cath DC and replacement per Urology but now out so will monitor closely DC planning (1) Brain abscess (2) Nocardia infection (3) Pyelonephritis (4) Renal abscess (5) Neutropenia (6) Anemia (7) Hyponatremia (8) Weakness acquired in ICU (9) UTI (urinary tract infection) (10) PICC (peripherally inserted central catheter) in place (11) Urinary retention (12) Dhaliwal catheter in place (13) Right bundle branch block (14) Elevated brain natriuretic peptide (BNP) level (15) Cerebral edema (16) Focal neurological deficit (17) S/P craniotomy (18) Appetite loss (19) Weight loss (20) Cachexia (21) Malnutrition (22) Status post insertion of percutaneous endoscopic gastrostomy (PEG) tube Clinical Quality Measures DVT/VTE Risk/Contraindication: Risk Factor Score Per Nursin RFS Level Per Nursing on Admit: 4+=Very High GERTRUDIS HERNANDES DO Jul 30, 2018 10:28
--- NOTE | 2018-07-30 13:39 | Progress Note-Urology ---
Progress Note-Urology Progress Notes/Assess & Plan Progress/Assessment & Plan PVR UNDER 200 Final Diagnosis URINE RETENTION CHAVA CERVANTES MD Jul 30, 2018 13:39
[2018-07-30] MEDS: ZINC OXIDE 16% OINT (BUTT PASTE) 113 GM TUBE TOP PRN ×2 (14:14→20:31)
--- NOTE | 2018-07-30 16:30 | NUR ---
HAS AMBULATED IN [place] WITH STAND BY ASST. STATES "FEELS GOOD" TODAY. VOIDED 225 CC AND THEN BLADDER SCANNED 80 CC.
[2018-07-30 17:16] VITALS: BP 150/82
[2018-07-30] MEDS: TAMSULOSIN 0.4 MG (FLOMAX) CAP PO SCH (18:00)
--- NOTE | 2018-07-30 18:00 | NUR ---
TOLERATING TUBE FEEDINGS WELL WITH NO NAUSEA.
--- NOTE | 2018-07-30 19:06 | NUR ---
bedside report received from JORGE EASON, assume care of pt
[2018-07-30] MEDS: MELATONIN 3 MG TABLET PO PRN (20:27)
--- NOTE | 2018-07-30 21:00 | NUR ---
assessments & interventions completed, see assessments & interventions, meds taken without difficulty, refused Senokot 1 tab
--- NOTE | 2018-07-30 22:00 | NUR ---
gastric residual 0, took jevity 1.5 tube feeding tolerated well
--- NOTE | 2018-07-30 22:20 | NUR ---
voided 400ml clear light julián colored urine
--- NOTE | 2018-07-30 22:35 | NUR ---
bladder scan showed 222ml
[2018-07-31 05:30] VITALS: BP 136/69
[2018-07-31] MEDS: MEROPENEM 1,000 MG in WATER (STERILE) FOR INJECTION 20 ML IV SCH ×3 (06:08→21:33)
[2018-07-31] MEDS: LACTOBACILLUS ACIDOPHILUS (PROBIOTIC) CAPSULE PO SCH ×2 (06:12→16:39)
[2018-07-31] MEDS: BETHANECHOL 25 MG (URECHOLINE) TAB PO SCH ×4 (06:12→21:34)
--- NOTE | 2018-07-31 07:23 | NUR ---
bedside report given to BAILEY EASON
--- NOTE | 2018-07-31 08:07 | Speech Therapy Progress Note ---
Therapy Progress Note Speech Therapy unavailable on 07/28/18 due to inclement weather. VISHNU SIDDIQI Jul 31, 2018 08:07
[2018-07-31] MEDS: MINOCYCLINE 100 MG TABLET (NON-FORMULARY) PO SCH ×2 (08:49→21:34)
[2018-07-31] MEDS: SODIUM CHLORIDE 1 GM TAB (NON-FORMULARY) PO SCH ×3 (08:49→21:33)
[2018-07-31] MEDS: KCL 20 MEQ TAB (K-DUR) PO SCH (08:49)
[2018-07-31] MEDS: SENNA W/DOCUSATE (SENOKOT S) TABLET PO SCH ×2 (08:49→21:34)
[2018-07-31] MEDS: LORATADINE (CLARITIN) 10 MG TAB PO SCH ×2 (08:49→21:34)
[2018-07-31] MEDS: ZINC OXIDE 16% OINT (BUTT PASTE) 113 GM TUBE TOP PRN (08:50)
--- NOTE | 2018-07-31 08:54 | Physical Therapy Daily Note ---
PT Daily Note-Current Subjective Pt. pleased that he is doing well and will be going home tomorrow if the weather is good. "I have been in the hospital for 4 months" Pain Numeric Pain Scale: 0-No Pain Location: No Pain Reported Mental Status Patient Orientation: Normal For Age Transfers Therapy Code Descriptions/Definitions Functional [place] Measure: 0=Not Assessed/NA 4=Minimal Assistance 1=Total Assistance 5=Supervision or Setup 2=Maximal Assistance 6=Modified [place] 3=Moderate Assistance 7=Complete [place] Therapy Quality Codes: 6 Independent with activity with or without an assistive device 5 Patient requires set up or clean up by helper. Patient completes activity by themselves 4 Supervision or touching assist (CGA). [place] provide cues , steadying assist 3 The helper provides less than half the effort to complete the activity 2 The helper provides more than half the effort to complete the activity 1 Dependent. The helper does all the effort to complete an activity 7 Patient refused to complete or attempt activity 9 The patient did not perform the activity before the current illness or injury 88 Not attempted due to Medical conditions or safety concerns Transfers (B, C, W/C) (FIM): 6 Scootin Rollin Roll Left to Right (QC): 6 Supine to/from Sit: 6 Sit to/from Stand: 6 Sit to Lying (QC): 6 Sit to Stand (QC): 6 Chair/Hau-kt-Atrin Xfer(QC): 6 Bed to/from Chair: 6 Car Transfer (QC): 6 Weight Bearing Right Lower Extremity: Right Full Weight Bearing Left Lower Extremity: Left Full Weight Bearing Gait Training Does the Patient Walk?: Yes Gait (FIM): 6 Distance (FIM): 3=150 ft (175x2,50) Walk 10 feet (QC): 6 Walk 50 ft with 2 Turns(QC): 6 Walk 150 ft (QC): 6 Walking 10ft/uneven surface-QC: 6 Gait Level of Assist: 6 Gait Persons Needed: 0 Gait Assistive Device: FWW no LOB, safe habits noted Stair Training Stair Training: Handrails/: 2 handrails Stairs (FIM): 6 #of Steps: 12 1 Step (curb) (QC): 6 4 Steps (QC): 6 12 Steps (QC): 6 Stairs: Pattern: Reciprocal Level of Assist: 6 instructed pt. regarding having take FWW up and down for him Balance Picking up an Object (QC): 6 Exercises Supine Ex: Rolling, Scooting, Straight leg raise, Hip abd/add Supine Reps: 10 Seated Therapy Exercises: Sit to stand, Long arc quads Seated Reps: 10 Assessment Current Status: Good Progress meets goals PT Short Term Goals Short Term Goals Time Frame: Jul 29, 2018 Transfers (B,C,W/C) (FIM): 6 Gait (FIM): 6 Distance (FIM): 3=150 ft Gait Distance Comment: 350' Gait Level of Assist: 6 Gait Assistive Device: FWW Stairs (FIM): 6 # of Steps: 4 Stairs Level of Assist: 6 PT Design Eng Goals Design Eng Goals PT Fdc Goals Time Frame: Aug 14, 2018 Transfers (B,C,W/C) (FIM): 7 Sit to Lying (QC): 7 Lying-Sitting on Side/Bed(QC): 7 Sit to Stand (QC): 7 Rollin Roll Left to Right (QC): 7 Chair/Vsk-bc-Xgnpx Xfer(QC): 7 Car Transfer (QC): 7 Does the Patient Walk: Yes Gait (FIM): 6 Gait distance (FIM): 3=150 ft Distance: 1000' Walk 10 feet (QC): 7 Walk 10ft-Uneven Surface(QC): 7 Walk 50ft with 2 Turns (QC): 7 Walk 150 ft (QC): 7 Gait Level of Assist: 6 Gait Assistive Device: FWW Does the Pt use WC or Scooter?: No Stairs (FIM): 6 # of Steps: 12 1 Step (curb) (QC): 7 4 Steps (QC): 7 12 Steps (QC): 7 Stairs Level Of Assist: 6 Picking up an Object (QC): 7 PT Plan Treatment/Plan Treatment Plan: Continue Plan of Care Treatment Plan: Bed Mobility, Concurrent Therapy, Education, Functional Activity [place], Functional Strength, Group Therapy, Gait, Safety, Therapeutic Exercise, Transfers Treatment Duration: Aug 14, 2018 Frequency: At least 5 of 7 days/Wk (IRF) Estimated Hrs Per Day: 1.5 hours per day Patient and/or Family Agrees t: Yes Safety Risks/Education Patient Education: Gait Training, Transfer Techniques, Steps, Correct Positioning, Disease Process, Safety Issues Teaching Recipient: Patient Teaching Methods: Demonstration, Discussion Response to Teaching: Verbalize Understanding, Return Demonstration Time/GCodes Time In: 755 Time Out: 855 Total Billed Treatment Time: 60 Total Billed Treatment 1,FA35m,GT15m,EX10m G Codes Necessary: LOW Prasad NUTRITION PROGRAM INSTRUCTOR Jul 31, 2018 08:54
--- NOTE | 2018-07-31 09:26 | NUR ---
dr pal here to see patient. states he will perform cysto in a.m. tani, wound care notified of assessment to coccyx wound. cont to monitor patient.
--- NOTE | 2018-07-31 09:29 | PM&R Progress Note ---
Subjective HPI/CC On Admission Date Seen by Provider: Jul 31, 2018 Time Seen by Provider: 08:45 CC: Brain abscess status post craniotomy HPI: This is a 78-year-old white male clinic patient of in [facility] who presents from [facility] after admitted on 06/29/18 from [facility] then [facility] for renal abscess on the left then diagnosed brain abscess status post craniotomy and diagnosed Nocardia infection UTI and brain abscess. He was seen by multiple consultants while hospitalized and [place] and is currently in need of antibiotics for an additional 34 days and intense rehabilitation with physical therapy. He still remains with a Dhaliwal catheter in place and I consulted Dr. Monroe to facilitate retention resolution. I have also contacted cardiology for elevated BNP and right bundle branch block. I have also asked for Dr. Fenton for consultation for neutropenia and anemia. I have added on iron level. We're in the midst of reconciliation of home medications including IV antibiotics and nocardia treatment. Subjective/Events-last exam Pt doing well today Subtle confusion about the plan for discharge IV antibiotics maintained and there is a question of whether he will stop antibiotics two weeks prior than his previous records show, so we will evaluate that with infectious disease in [place] Bowels are moving Tolerating tube feedings after regular diet and he is doing very well with that Pt denies any pain Subtle confusion noted but that is baseline Review of Systems General: Fatigue Neurological: Confusion Objective Exam Vital Signs Vital Signs Date Time Temp Pulse Resp B/P (MAP) Pulse Ox O2 Delivery O2 Flow Rate FiO2 08/01/18 09:00 Room Air 08/01/18 05:07 97.6 102 20 146/75 (98) 91 Capillary Refill : General Appearance: No Apparent Distress, WD/WN, Chronically ill, Cachetic, Thin, Other (much improved Tuesday) HEENT: PERRL/EOMI, Normal ENT Inspection, Pharynx Normal, Moist Mucous Membranes Neck: Full Range of Motion, Normal Inspection, Non Tender, Supple Respiratory: Chest Non Tender, Lungs Clear, Normal Breath Sounds, No Accessory Muscle Use, No Respiratory Distress Cardiovascular: Regular Rate, Rhythm, No Edema, No Gallop, No JVD, No Murmur Gastrointestinal: Normal Bowel Sounds, No Organomegaly, No Pulsatile Mass, Non Tender, Soft, Other (PEG site without erythema) Genital/Rectal: Other (dhaliwal cath in place) Back: Normal Inspection, No CVA Tenderness, No Vertebral Tenderness Extremity: Normal Capillary Refill, Normal Inspection, Normal Range of Motion, Non Tender, No Calf Tenderness, No Pedal Edema Neurologic/Psychiatric: Alert, Oriented x3, No Motor/Sensory Deficits, Normal Mood/Affect Skin: Normal Color, Warm/Dry Lymphatic: No Adenopathy Results/Procedures Lab Patient resulted labs reviewed. Assessment/Plan Assessment and Plan Assess & Plan/Chief Complaint Assessment: Status post craniotomy Brain abscess Kidney abscess Nocardia infection Urinary retention will monitor closely and we appreciate Dr Monroe but now voiding well since catheter removed but still with retention and requiring another catheter placement but now DC will monitor closely Right bundle branch block Elevated BNP Neutropenia-improved since DC Bactrim Anemia Hyponatremia improved on fluid restriction and meds Frail status Loss of weight and poor appetite s/p PEG tube placement POD # 11 Plan: Monitor labs occasionally Cardiology consultation is appreciated Urology consultation is appreciated Hematology consultation is appreciated IV abx Monitor closely DC'ed Bactrim due to bone marrow suppression PEG tube per Dr Arndt and will maintain PEG tube feedings and now eating 100% of meals Dhaliwal cath DC and replacement per Urology but now out so will monitor closely DC planning (1) Brain abscess (2) Nocardia infection (3) Pyelonephritis (4) Renal abscess (5) Neutropenia (6) Anemia (7) Hyponatremia (8) Weakness acquired in ICU (9) UTI (urinary tract infection) (10) PICC (peripherally inserted central catheter) in place (11) Urinary retention (12) Dhaliwal catheter in place (13) Right bundle branch block (14) Elevated brain natriuretic peptide (BNP) level (15) Cerebral edema (16) Focal neurological deficit (17) S/P craniotomy (18) Appetite loss (19) Weight loss (20) Cachexia (21) Malnutrition (22) Status post insertion of percutaneous endoscopic gastrostomy (PEG) tube Clinical Quality Measures DVT/VTE Risk/Contraindication: Risk Factor Score Per Nursin RFS Level Per Nursing on Admit: 4+=Very High GERTRUDIS HERNANDES DO Jul 31, 2018 09:29
--- NOTE | 2018-07-31 09:32 | Progress Note-Urology ---
Progress Note-Urology Progress Notes/Assess & Plan Progress/Assessment & Plan CONTINUES WELL [place] Final Diagnosis URINE RETENTION CHAVA CERVANTES MD Jul 31, 2018 09:32
--- NOTE | 2018-07-31 10:48 | Occupational Ther Daily Note ---
OT Current Status-Daily Note Subjective Pt in room, sitted in recliner. Alert, oriented & very cooperative. Pt agree for OT Treatment. Pain Numeric Pain Scale: 0-No Pain Location: No Pain Reported Mental Status/Objective Patient Orientation: Person, Place, Time, Eyes Open, Situation, Normal For Age Therapy Code Descriptions/Definitions Functional [place] Measure: 0=Not Assessed/NA 4=Minimal Assistance 1=Total Assistance 5=Supervision or Setup 2=Maximal Assistance 6=Modified [place] 3=Moderate Assistance 7=Complete [place] Attachments: PEG Tube ADL-Treatment Patient seen today for FIM Score as per Medicare requirement. Pt participated in shower activity, dressing, undressing, bed mobility, func transfers, func ambulation , balance reaction & strengthening ex to BUE. Pt Indepenedent in UB, LB bathing, washes his legs, foot, buttocks, back ,chest, hairs, face ,arms , perineals, shampoo & Rinse Independently. UB & LB dressing Independently, Bed mobility, func transfers & ambulation without FWW Independently. MS in BUE increased to 4+/5 as per his age. Pt met all goals. Therapy Code Descriptions/Definitions Functional [place] Measure: 0=Not Assessed/NA 4=Minimal Assistance 1=Total Assistance 5=Supervision or Setup 2=Maximal Assistance 6=Modified [place] 3=Moderate Assistance 7=Complete [place] Therapy Quality Codes: 6 Independent with activity with or without an assistive device 5 Patient requires set up or clean up by helper. Patient completes activity by themselves 4 Supervision or touching assist (CGA). [place] provide cues , steadying assist 3 The helper provides less than half the effort to complete the activity 2 The helper provides more than half the effort to complete the activity 1 Dependent. The helper does all the effort to complete an activity 7 Patient refused to complete or attempt activity 9 The patient did not perform the activity before the current illness or injury 88 Not attempted due to Medical conditions or safety concerns Eating (FIM): 7 Eating (QC): 6 Grooming (FIM): 7 Oral Hygiene (QC): 6 Bathing (FIM): 7 Bathing Location: L Arm, R Arm, L Upper Leg, R Upper Leg, L Lower Leg ( including foot), R Lower Leg (including foot), Chest, Abdomen, Buttocks, Perineal Area Shower/Bathe Self (QC): 6 Upper Body (FIM): 7 Upper Body Dressing (QC): 6 Lower Body Dressing (FIM): 7 Lower Body Dressing (QC): 6 On/Off Footwear (QC): 6 Toileting (FIM): 7 Toileting Hygiene (QC): 6 Transfers (B, C, W/C) (FIM): 7 Toilet/Commode Transfer (FIM): 7 Toilet Transfer (QC): 6 Tub Transfer(FIM): 7 Shower Transfer(FIM): 7 Education OT Patient Education: Energy conservation, Safety issues Teaching Recipient: Patient Teaching Methods: Demonstration Response to Teaching: Verbalize Understanding, Return Demonstration OT Short Term Goals Short Term Goals Transfers (B,C,W/C) (FIM): 6 1=Demonstrate adherence to instructed precautions during ADL tasks. 2=Patient will verbalize/demonstrate understanding of assistive devices/ modifications for ADL. 3=Patient will improve strength/tolerance for activity to enable patient to perform ADL's. OT Jig Grinder Set Up Operator Goals Fpc Goals Time Frame: Aug 05, 2018 Eating (FIM): 6 (7) Eating (QC): 6 (6) Groomin (7) Oral Hygiene (QC): 6 (6) Bathing(FIM): 6 (7) Bathing Location: L Arm, R Arm, L Upper Leg, R Upper Leg, L Lower Leg ( including foot), R Lower Leg (including foot), Chest, Abdomen, Buttocks, Perineal Area Shower/Bathe Self (QC): 6 (6) Upper Body Dressing(FIM): 6 (7) Upper Body Dressing (QC): 6 (6) Lower Body Dressing(FIM): 6 (7) Lower Body Dressing (QC): 6 (6) On/Off Footwear (QC): 6 (6) Toileting(FIM): 6 (7) Toileting Hygiene (QC): 6 (6) Transfers (B,C,W/C) (FIM): 6 (7) Toilet/Commode Transfer(FIM): 6 (7) Toilet/Commode Transfer (QC): 6 (6) Tub Transfer(FIM): 6 (7) Shower Transfer(FIM): 6 (7) Additional Goals: 1-Demonstrate ADL Tasks, 2-Verbalize Understanding, 3- ImproveStrength/[place] 1=Demonstrate adherence to instructed precautions during ADL tasks. 2=Patient will verbalize/demonstrate understanding of assistive devices/ modifications for ADL. 3=Patient will improve strength/tolerance for activity to enable patient to perform ADL's. OT Education/Plan Problem List/Assessment Pt to benefit from skilled OT intervention for ADL training, transfers, strengthening, and safety education to increase independence and allow safe discharge. Discharge Recommendations Plan/Recommendations: Discharge/Goals Met Therapy D/C Recommendations: Home w/ Family Support, Occupational Therapy Home Care Equpiment Recommendations-D/C: Extended Shower Sprayer, Bridge Game Director Patient/Family Goals To return Home with spouse Independently with AD. Treatment Plan/Plan of Care Treatment,Training & Education: Yes Patient would benefit from OT for education, treatment and training to promote independence in ADL's, mobility, safety and/or upper extremity function for ADL' s. Plan of Care: ADL Retraining, Functional Mobility, Group Exercise/Act as Ind, UE Funct Exercise/Act, UE Neuromus Re-Ed/Coord Treatment Duration: Aug 05, 2018 Frequency: Modified Program (IRF) Estimated Hrs Per Day: 1.5 hours per day Agreement: Yes Rehab Potential: Good Time/GCodes Start Time: 09:00 Stop Time: 10:00 Total Time Billed (hr/min): 60 Billed Treatment Time 1, ADLs 45min, , FA 15 min. Total 60 min. JEREMÍAS MACIAS OT Jul 31, 2018 10:48
--- NOTE | 2018-07-31 14:00 | Speech Therapy Daily Note ---
Speech Daily Progress Note Subjective Date Seen by Provider: Jul 31, 2018 Time Seen by Provider: 00:30 Patient alert and oriented. He is very excited to be going home possibly tomorrow. Objective Patient completed problem solving tasks with 90% accuracy given minimal cues. Assessment Assessment Current Status: Excellent Progress Treatment Plan Continue Plan of Care Communication Comprehension: 7 Expression: 7 Social Cognition Social Interaction: 7 Problem Solvin Memory: 7 Speech Short Term Goals Short Term Goals Short Term Goals 1) Patient will complete memory tasks at 80% or greater with minimal cues. 2) Patient willbe able to follow simple 2-3 step directions with 80% or greater with minimal cues. 3) Patient will be able to increase his attention to task with 80% or greater with minimal redirection. Speech Care Home Goals Care Home Goals Patient will increase cognitive communication skills for improved safety and independence. Speech-Plan Patient/Family Goals Patient/Family Goals: Patient plans to return home with his as soon as he is able with home health services as needed. Treatment Plan Speech Therapy Treatment Plan: Continue Plan of Care Patient is progressing as a result of skilled ST services. Treatment Duration: Aug 02, 2018 Frequency: 5 times per week Estimated Hrs Per Day: .5 hour per day Rehab Potential: Good Barriers to Learning: Patient continues to have multiple health issues. He will continue with home health services. Pt/Family Agrees to Plan: Yes Safety Risks/Education Teaching Recipient: Patient, Significant Other Teaching Methods: Discussion Response to Teaching: Verbalize Understanding Education Topics Provided: Safety within his room and when he returns home. Time Speech Therapy Time In: 10:00 Speech Therapy Time Out: 10:30 Total Billed Time: 30 Billed Treatment Time JESSIE Marmolejo [facility] [address] Jul 31, 2018 14:00
--- NOTE | 2018-07-31 14:36 | Therapy Group Daily Note ---
Therapy Daily Group Note Patient Education Topic Other List Below (memory) Exercises LE Seated Exercise, UE Exercise Other/Notes Pt participated in group therapy with 3 to 1 ratio. Goals of Session: Acknowledges understanding of memory strategies for daily use , met. Participated in UE/LE seated exercises to increase strength for functional tasks, met. OT/PT group consisted of introductions (name, place, UE strengthening to choose question), socialization, educational topics (memory strategies) and seated UE/ LE exercises. Pt introduced self appropriately and actively listened to peers. Pt contributed to discussions and contributed to conversations with peers. Pt was able to demonstrate understanding of UE/LE seated exercises. Pt able to demonstrate good memory skills with memory activity. Pt will benefit from group by using resources and topics discussed to improve awareness and memory. Pt benefits by being independent and increasing strength in B UE's. After therapy, pt ambulated back to room and laid in bed. Call light/phone in reach. All needs met in room. Start Time: 13:00 Stop Time: 14:05 Total Billed Treatment Time: 65 Total Billed Treatment 1-GRP DAIJA BELLE Jul 31, 2018 14:36
[2018-07-31] MEDS: TAMSULOSIN 0.4 MG (FLOMAX) CAP PO SCH (16:39)
[2018-07-31 17:47] VITALS: BP 148/76
[2018-08-01 05:07] VITALS: BP 146/75
[2018-08-01] MEDS: LACTOBACILLUS ACIDOPHILUS (PROBIOTIC) CAPSULE PO SCH (06:05)
[2018-08-01] MEDS: BETHANECHOL 25 MG (URECHOLINE) TAB PO SCH ×2 (06:05→12:31)
[2018-08-01] MEDS: MEROPENEM 1,000 MG in WATER (STERILE) FOR INJECTION 20 ML IV SCH ×2 (06:05→13:13)
[2018-08-01] MEDS: SODIUM CHLORIDE 1 GM TAB (NON-FORMULARY) PO SCH ×2 (08:26→13:12)
[2018-08-01] MEDS: KCL 20 MEQ TAB (K-DUR) PO SCH (08:26)
[2018-08-01] MEDS: LORATADINE (CLARITIN) 10 MG TAB PO SCH (08:26)
[2018-08-01] MEDS: SENNA W/DOCUSATE (SENOKOT S) TABLET PO SCH (08:26)
[2018-08-01] MEDS: MINOCYCLINE 100 MG TABLET (NON-FORMULARY) PO SCH (08:28)
[2018-08-01] MEDS ORDERED: MERO1PIG IV (08:39)
[2018-08-01] MEDS ORDERED: MINO100T10 PO (08:39)
[2018-08-01] MEDS ORDERED: BETH25TA PO (08:43)
[2018-08-01] MEDS ORDERED: LACT1CAP7 PO (08:43)
[2018-08-01] MEDS ORDERED: TAMS0.4C98 PO (08:43)
[2018-08-01] MEDS ORDERED: POTA20TA8 PO (08:43)
[2018-08-01] MEDS ORDERED: NF-NACL1GT PO (08:43)
--- NOTE | 2018-08-01 08:45 | D/C HH Face to Face Order ---
D/C Face to Face Orders Instructions for Patient Via [facility], Patient Instructions/FollowUp: Dr Youssef in 1 week Physician to follow Patient: Dr Youssef Discharge Diet for Home: Regular Diet, Tube Feeding (1 can of Jevity 1.5 after meals and at bedtime followed with 30cc tap water) Patient Problems: Brain and kidney abscess Pancytopenia Malnutrition Patient Data-Allergies,Ht & Wt Patient Allergies: Coded Allergies: mushroom (Unverified Allergy, Mild, RASH, 07/15/18) Height (Feet): 5 Height (Inches): 10.00 Weight (Pounds): 149 Weight (Ounces): 9.6 Home Health Need/Face to Face Date of Face to Face: Aug 01, 2018 Clinical Findings: Generalized weakness and fatigue, Muscle weakness, Unsteady gait I have seen Pt [id number]: Yes Discharged To: Home Diagnosis/Conditions: Brain and kidney abscess Pancytopenia Malnutrition Patient is Homebound due to: CognItive deficits, Muscle weakness Homebound Status Due to the above stated illness, injury or surgical procedure (medical condition or diagnosis) and associated clinical findings, the patient is homebound because of his/her inability to leave home except with aid of a supportive device and/or person AND leaving the home requires a considerable and taxing effort or is medically contraindicated. Pt req the following assistanc: [facility] Nursing Orders Home Health Services Order: Nursing Services, Children'S Literature Professor-Evaluate & Treat, Physical Therapy-Evaluate & Treat, Wound Care-Eval/Treat (stage 2 decubitus ulcer coccyx) Home Health Infusion Therapy Line Type: PICC Site Location: Arm-Upper Type of Feeding Tube: PEJG Formula: Jevity 1.5 Certify Stmt I certify that this patient is under my care and that I, a nurse practitioner or a physician; a customer marketing assistant working with me, had a face to face encounter that - meets the physician face to face encounter requirements with this patient as dated. GERTRUDIS HERNANDES DO Aug 01, 2018 08:45
--- NOTE | 2018-08-01 08:45 | Progress Note-Urology ---
Progress Note-Urology Progress Notes/Assess & Plan Progress/Assessment & Plan PLAN TO SEE HIM IN OFFICE IN 2 WEEKS FOR COMPLETE WORK UP Final Diagnosis URINE RETENTION CHAVA CERVANTES MD Aug 01, 2018 08:45
--- NOTE | 2018-08-01 08:47 | Discharge Summary ---
Diagnosis/Chief Complaint Date of Admission Jul 14, 2018 at 21:28 Date of Discharge Discharge Date: Aug 01, 2018 Discharge Diagnosis Assessment: Status post craniotomy Brain abscess Kidney abscess Nocardia infection Urinary retention will monitor closely and we appreciate Dr Monroe but now voiding well since catheter removed but still with retention and requiring another catheter placement but now DC will monitor closely Right bundle branch block Elevated BNP Neutropenia-improved since DC Bactrim Anemia Hyponatremia improved on fluid restriction and meds Frail status Loss of weight and poor appetite s/p PEG tube placement POD # 12 Discharge Summary Discharge Physical Examination Allergies: Coded Allergies: mushroom (Unverified Allergy, Mild, RASH, 07/15/18) Vitals & I&Os Vital Signs Date Time Temp Pulse Resp B/P (MAP) Pulse Ox O2 Delivery O2 Flow Rate FiO2 08/01/18 15:45 102 20 146/75 91 Room Air 08/01/18 05:07 97.6 Hospital Course Was the Problem List Reviewed?: Yes Hospital Course: Pt had a lengthy and standard hospital course during inpatient rehab, he was maintained on Meropenem and Bactrim and Minocycline for the brain and kidney abscesses per [facility] s/p frontal craniotomy. Pancytopenia appeared so oncology and hematology was consulted and they recommended to use the Bactrim, and I did speak with infectious disease which supported that. He was maintained on Meropenem 1g Q8hrs along with the Minocycline and tolerated that well. Pt did require a feeding tube placement due to inability to maintain nutrition for any type of recovery and shortly after that he resumed 100% eating every meal and that was supplemented with tube feedings after his meals. Lab work was monitored, hyponatremia doing well on the salt tablets TID and fluid restriction. Pt will go home on home health with nurse and PT and OT and complete the Meropenem through his picc line in addition to the Minocycline and all days were adjusted to the stop date recommended by infectious disease and that was confirmed. Pt overall did very well, confusion was lifted and overall felt good enough to return home. Labs (last 24 hrs) Laboratory Tests 07/15/18 06:25: White Blood Count 1.6L, Red Blood Count 3.10L, Hemoglobin 7.9L, Hematocrit 25L, Mean Corpuscular Volume 80, Mean Corpuscular Hemoglobin 26, Mean Corpuscular Hemoglobin Concent 32, Red Cell Distribution Width 26.9H, Platelet Count 144, Mean Platelet Volume , Neutrophils (%) (Auto) 60, Lymphocytes (%) (Auto) 17, Monocytes (%) (Auto) 7, Eosinophils (%) (Auto) 15H, Basophils (%) (Auto) 1, Neutrophils # (Auto) 0.9L, Lymphocytes # (Auto) 0.3L, Monocytes # (Auto) 0.1, Eosinophils # (Auto) 0.2, Basophils # (Auto) 0.0, Neutrophils % (Manual) 52, Lymphocytes % (Manual) 6, Monocytes % (Manual) 8, Eosinophils % (Manual) 16, Band Neutrophils 18, Hypochromasia MODERATE, Anisocytosis MARKED, Sodium Level 130L, Potassium Level 3.8, Chloride Level 99, Carbon Dioxide Level 24, Anion Gap 7, Blood Urea Nitrogen 11, Creatinine 0.74, Estimat Glomerular Filtration Rate > 60, BUN/Creatinine Ratio 15, Glucose Level 86, Calcium Level 7.9L, Corrected Calcium 9.0, Iron Level 40, Total Bilirubin 0.4, Aspartate Amino Transf (AST/SGOT) 96H, Alanine Aminotransferase (ALT/SGPT) 61H, Alkaline Phosphatase 60, Total Protein 5.7L, Albumin 2.6L 07/16/18 06:28: White Blood Count 2.4L, Red Blood Count 3.05L, Hemoglobin 7.8L, Hematocrit 24L, Mean Corpuscular Volume 80, Mean Corpuscular Hemoglobin 26, Mean Corpuscular Hemoglobin Concent 32, Red Cell Distribution Width 27.6H, Platelet Count 169, Mean Platelet Volume , Neutrophils (%) (Auto) 69, Lymphocytes (%) (Auto) 12, Monocytes (%) (Auto) 7, Eosinophils (%) (Auto) 12H, Basophils (%) (Auto) 0, Neutrophils # (Auto) 1.7L, Lymphocytes # (Auto) 0.3L, Monocytes # (Auto) 0.2, Eosinophils # (Auto) 0.3, Basophils # (Auto) 0.0, Sodium Level 134L, Potassium Level 3.8, Chloride Level 102, Carbon Dioxide Level 22, Anion Gap 10, Blood Urea Nitrogen 12, Creatinine 0.77, Estimat Glomerular Filtration Rate > 60, BUN/ Creatinine Ratio 16, Glucose Level 87, Calcium Level 7.7L, Corrected Calcium 8.8 , Total Bilirubin 0.3, Aspartate Amino Transf (AST/SGOT) 83H, Alanine Aminotransferase (ALT/SGPT) 61H, Alkaline Phosphatase 67, Total Protein 5.5L, Albumin 2.6L 07/18/18 05:55: White Blood Count 2.3L, Red Blood Count 3.17L, Hemoglobin 8.1L, Hematocrit 25L, Mean Corpuscular Volume 79L, Mean Corpuscular Hemoglobin 26, Mean Corpuscular Hemoglobin Concent 32, Red Cell Distribution Width 27.7H, Platelet Count 155, Mean Platelet Volume , Neutrophils (%) (Auto) 66, Lymphocytes (%) (Auto) 13, Monocytes (%) (Auto) 10, Eosinophils (%) (Auto) 11H, Basophils (%) (Auto) 0, Neutrophils # (Auto) 1.5L, Lymphocytes # (Auto) 0.3L, Monocytes # (Auto) 0.2, Eosinophils # (Auto) 0.3, Basophils # (Auto) 0.0, Sodium Level 129L, Potassium Level 4.0, Chloride Level 97L, Carbon Dioxide Level 23, Anion Gap 9, Blood Urea Nitrogen 11, Creatinine 0.71, Estimat Glomerular Filtration Rate > 60, BUN/ Creatinine Ratio 15, Glucose Level 90, Calcium Level 7.8L, Corrected Calcium 8.8 , Total Bilirubin 0.4, Aspartate Amino Transf (AST/SGOT) 64H, Alanine Aminotransferase (ALT/SGPT) 58H, Alkaline Phosphatase 73, Total Protein 5.8L, Albumin 2.7L 07/19/18 09:10: Sodium Level 134L, Potassium Level 4.3, Chloride Level 100, Carbon Dioxide Level 25, Anion Gap 9, Blood Urea Nitrogen 12, Creatinine 0.87, Estimat Glomerular Filtration Rate > 60, BUN/Creatinine Ratio 14, Glucose Level 100, Calcium Level 8.4L 07/21/18 06:00: White Blood Count 4.6, Red Blood Count 3.58L, Hemoglobin 9.1L, Hematocrit 29L, Mean Corpuscular Volume 82, Mean Corpuscular Hemoglobin 25, Mean Corpuscular Hemoglobin Concent 31L, Red Cell Distribution Width 27.9H, Platelet Count 197, Mean Platelet Volume 10.8H, Neutrophils (%) (Auto) 68, Lymphocytes (%) (Auto) 14 , Monocytes (%) (Auto) 12, Eosinophils (%) (Auto) 5, Basophils (%) (Auto) 0, Neutrophils # (Auto) 3.1, Lymphocytes # (Auto) 0.7L, Monocytes # (Auto) 0.6, Eosinophils # (Auto) 0.3, Basophils # (Auto) 0.0, Sodium Level 135, Potassium Level 4.3, Chloride Level 101, Carbon Dioxide Level 25, Anion Gap 9, Blood Urea Nitrogen 17, Creatinine 0.72, Estimat Glomerular Filtration Rate > 60, BUN/ Creatinine Ratio 24, Glucose Level 84, Calcium Level 8.1L, Corrected Calcium 8.9 , Total Bilirubin 0.9, Aspartate Amino Transf (AST/SGOT) 36H, Alanine Aminotransferase (ALT/SGPT) 36, Alkaline Phosphatase 75, Total Protein 6.1L, Albumin 3.0L 07/24/18 06:25: White Blood Count 3.8L, Red Blood Count 3.37L, Hemoglobin 8.7L, Hematocrit 28L, Mean Corpuscular Volume 83, Mean Corpuscular Hemoglobin 26, Mean Corpuscular Hemoglobin Concent 31L, Red Cell Distribution Width 28.2H, Platelet Count 247, Mean Platelet Volume 10.6H, Neutrophils (%) (Auto) 50, Lymphocytes (%) (Auto) 29 , Monocytes (%) (Auto) 17H, Eosinophils (%) (Auto) 3, Basophils (%) (Auto) 1, Neutrophils # (Auto) 1.9, Lymphocytes # (Auto) 1.1, Monocytes # (Auto) 0.7, Eosinophils # (Auto) 0.1, Basophils # (Auto) 0.0, Sodium Level 140, Potassium Level 4.0, Chloride Level 103, Carbon Dioxide Level 27, Anion Gap 10, Blood Urea Nitrogen 20H, Creatinine 0.67, Estimat Glomerular Filtration Rate > 60, BUN /Creatinine Ratio 30, Glucose Level 93, Calcium Level 8.7, Corrected Calcium 9.3 , Total Bilirubin 1.2H, Aspartate Amino Transf (AST/SGOT) 35H, Alanine Aminotransferase (ALT/SGPT) 26, Alkaline Phosphatase 82, Total Protein 6.4, Albumin 3.2 07/26/18 09:00: White Blood Count 5.4, Red Blood Count 3.50L, Hemoglobin 9.2L, Hematocrit 29L, Mean Corpuscular Volume 83, Mean Corpuscular Hemoglobin 26, Mean Corpuscular Hemoglobin Concent 32, Red Cell Distribution Width 28.6H, Platelet Count 333, Mean Platelet Volume 10.5H, Neutrophils (%) (Auto) 61, Lymphocytes (%) (Auto) 19 , Monocytes (%) (Auto) 16H, Eosinophils (%) (Auto) 2, Basophils (%) (Auto) 2, Neutrophils # (Auto) 3.3, Lymphocytes # (Auto) 1.0, Monocytes # (Auto) 0.9, Eosinophils # (Auto) 0.1, Basophils # (Auto) 0.1, Sodium Level 138, Potassium Level 3.8, Chloride Level 101, Carbon Dioxide Level 29, Anion Gap 8, Blood Urea Nitrogen 21H, Creatinine 0.78, Estimat Glomerular Filtration Rate > 60, BUN/ Creatinine Ratio 27, Glucose Level 98, Calcium Level 8.9, Corrected Calcium 9.4 , Total Bilirubin 0.9, Aspartate Amino Transf (AST/SGOT) 36H, Alanine Aminotransferase (ALT/SGPT) 27, Alkaline Phosphatase 104, Total Protein 7.1, Albumin 3.4 07/30/18 05:10: White Blood Count 4.8, Red Blood Count 3.02L, Hemoglobin 7.8L, Hematocrit 25L, Mean Corpuscular Volume 83, Mean Corpuscular Hemoglobin 26, Mean Corpuscular Hemoglobin Concent 31L, Red Cell Distribution Width 28.3H, Platelet Count 309, Mean Platelet Volume 10.2, Neutrophils (%) (Auto) 56, Lymphocytes (%) (Auto) 21 , Monocytes (%) (Auto) 17H, Eosinophils (%) (Auto) 4, Basophils (%) (Auto) 3, Neutrophils # (Auto) 2.7, Lymphocytes # (Auto) 1.0, Monocytes # (Auto) 0.8, Eosinophils # (Auto) 0.2, Basophils # (Auto) 0.2H, Sodium Level 136, Potassium Level 4.0, Chloride Level 103, Carbon Dioxide Level 26, Anion Gap 7, Blood Urea Nitrogen 19H, Creatinine 0.64, Estimat Glomerular Filtration Rate > 60, BUN/ Creatinine Ratio 30, Glucose Level 76, Calcium Level 8.3L, Corrected Calcium 9.1 , Total Bilirubin 0.7, Aspartate Amino Transf (AST/SGOT) 36H, Alanine Aminotransferase (ALT/SGPT) 22, Alkaline Phosphatase 89, Total Protein 6.2L, Albumin 3.0L Microbiology 07/19/18 MRSA Screen - Final, Complete MRSA not isolated Pending Labs Microbiology Date/Time Source Procedure Growth Status 07/19/18 22:10 Nasal MRSA Screen - Final MRSA not isolated Complete 07/16/18 19:50 Nasal MRSA Screen - Final MRSA not isolated Complete Laboratory Tests 07/15/18 06:25: White Blood Count 1.6, Red Blood Count 3.10, Hemoglobin 7.9, Hematocrit 25, Mean Corpuscular Volume 80, Mean Corpuscular Hemoglobin 26, Mean Corpuscular Hemoglobin Concent 32, Red Cell Distribution Width 26.9, Platelet Count 144, Mean Platelet Volume , Neutrophils (%) (Auto) 60, Lymphocytes (%) (Auto) 17, Monocytes (%) (Auto) 7, Eosinophils (%) (Auto) 15, Basophils (%) (Auto) 1, Neutrophils # (Auto) 0.9, Lymphocytes # (Auto) 0.3, Monocytes # (Auto) 0.1, Eosinophils # (Auto) 0.2, Basophils # (Auto) 0.0, Neutrophils % (Manual) 52, Lymphocytes % (Manual) 6, Monocytes % (Manual) 8, Eosinophils % (Manual) 16, Band Neutrophils 18, Hypochromasia MODERATE, Anisocytosis MARKED, Sodium Level 130, Potassium Level 3.8, Chloride Level 99, Carbon Dioxide Level 24, Anion Gap 7, Blood Urea Nitrogen 11, Creatinine 0.74, Estimat Glomerular Filtration Rate > 60, BUN/Creatinine Ratio 15, Glucose Level 86, Calcium Level 7.9, Corrected Calcium 9.0, Iron Level 40, Total Bilirubin 0.4, Aspartate Amino Transf (AST/ SGOT) 96, Alanine Aminotransferase (ALT/SGPT) 61, Alkaline Phosphatase 60, Total Protein 5.7, Albumin 2.6 07/16/18 06:28: White Blood Count 2.4, Red Blood Count 3.05, Hemoglobin 7.8, Hematocrit 24, Mean Corpuscular Volume 80, Mean Corpuscular Hemoglobin 26, Mean Corpuscular Hemoglobin Concent 32, Red Cell Distribution Width 27.6, Platelet Count 169, Mean Platelet Volume , Neutrophils (%) (Auto) 69, Lymphocytes (%) (Auto) 12, Monocytes (%) (Auto) 7, Eosinophils (%) (Auto) 12, Basophils (%) (Auto) 0, Neutrophils # (Auto) 1.7, Lymphocytes # (Auto) 0.3, Monocytes # (Auto) 0.2, Eosinophils # (Auto) 0.3, Basophils # (Auto) 0.0, Sodium Level 134, Potassium Level 3.8, Chloride Level 102, Carbon Dioxide Level 22, Anion Gap 10, Blood Urea Nitrogen 12, Creatinine 0.77, Estimat Glomerular Filtration Rate > 60, BUN/ Creatinine Ratio 16, Glucose Level 87, Calcium Level 7.7, Corrected Calcium 8.8 , Total Bilirubin 0.3, Aspartate Amino Transf (AST/SGOT) 83, Alanine Aminotransferase (ALT/SGPT) 61, Alkaline Phosphatase 67, Total Protein 5.5, Albumin 2.6 07/18/18 05:55: White Blood Count 2.3, Red Blood Count 3.17, Hemoglobin 8.1, Hematocrit 25, Mean Corpuscular Volume 79, Mean Corpuscular Hemoglobin 26, Mean Corpuscular Hemoglobin Concent 32, Red Cell Distribution Width 27.7, Platelet Count 155, Mean Platelet Volume , Neutrophils (%) (Auto) 66, Lymphocytes (%) (Auto) 13, Monocytes (%) (Auto) 10, Eosinophils (%) (Auto) 11, Basophils (%) (Auto) 0, Neutrophils # (Auto) 1.5, Lymphocytes # (Auto) 0.3, Monocytes # (Auto) 0.2, Eosinophils # (Auto) 0.3, Basophils # (Auto) 0.0, Sodium Level 129, Potassium Level 4.0, Chloride Level 97, Carbon Dioxide Level 23, Anion Gap 9, Blood Urea Nitrogen 11, Creatinine 0.71, Estimat Glomerular Filtration Rate > 60, BUN/ Creatinine Ratio 15, Glucose Level 90, Calcium Level 7.8, Corrected Calcium 8.8 , Total Bilirubin 0.4, Aspartate Amino Transf (AST/SGOT) 64, Alanine Aminotransferase (ALT/SGPT) 58, Alkaline Phosphatase 73, Total Protein 5.8, Albumin 2.7 07/19/18 09:10: Sodium Level 134, Potassium Level 4.3, Chloride Level 100, Carbon Dioxide Level 25, Anion Gap 9, Blood Urea Nitrogen 12, Creatinine 0.87, Estimat Glomerular Filtration Rate > 60, BUN/Creatinine Ratio 14, Glucose Level 100, Calcium Level 8.4 07/21/18 06:00: White Blood Count 4.6, Red Blood Count 3.58, Hemoglobin 9.1, Hematocrit 29, Mean Corpuscular Volume 82, Mean Corpuscular Hemoglobin 25, Mean Corpuscular Hemoglobin Concent 31, Red Cell Distribution Width 27.9, Platelet Count 197, Mean Platelet Volume 10.8, Neutrophils (%) (Auto) 68, Lymphocytes (%) (Auto) 14 , Monocytes (%) (Auto) 12, Eosinophils (%) (Auto) 5, Basophils (%) (Auto) 0, Neutrophils # (Auto) 3.1, Lymphocytes # (Auto) 0.7, Monocytes # (Auto) 0.6, Eosinophils # (Auto) 0.3, Basophils # (Auto) 0.0, Sodium Level 135, Potassium Level 4.3, Chloride Level 101, Carbon Dioxide Level 25, Anion Gap 9, Blood Urea Nitrogen 17, Creatinine 0.72, Estimat Glomerular Filtration Rate > 60, BUN/ Creatinine Ratio 24, Glucose Level 84, Calcium Level 8.1, Corrected Calcium 8.9 , Total Bilirubin 0.9, Aspartate Amino Transf (AST/SGOT) 36, Alanine Aminotransferase (ALT/SGPT) 36, Alkaline Phosphatase 75, Total Protein 6.1, Albumin 3.0 07/24/18 06:25: White Blood Count 3.8, Red Blood Count 3.37, Hemoglobin 8.7, Hematocrit 28, Mean Corpuscular Volume 83, Mean Corpuscular Hemoglobin 26, Mean Corpuscular Hemoglobin Concent 31, Red Cell Distribution Width 28.2, Platelet Count 247, Mean Platelet Volume 10.6, Neutrophils (%) (Auto) 50, Lymphocytes (%) (Auto) 29 , Monocytes (%) (Auto) 17, Eosinophils (%) (Auto) 3, Basophils (%) (Auto) 1, Neutrophils # (Auto) 1.9, Lymphocytes # (Auto) 1.1, Monocytes # (Auto) 0.7, Eosinophils # (Auto) 0.1, Basophils # (Auto) 0.0, Sodium Level 140, Potassium Level 4.0, Chloride Level 103, Carbon Dioxide Level 27, Anion Gap 10, Blood Urea Nitrogen 20, Creatinine 0.67, Estimat Glomerular Filtration Rate > 60, BUN/ Creatinine Ratio 30, Glucose Level 93, Calcium Level 8.7, Corrected Calcium 9.3 , Total Bilirubin 1.2, Aspartate Amino Transf (AST/SGOT) 35, Alanine Aminotransferase (ALT/SGPT) 26, Alkaline Phosphatase 82, Total Protein 6.4, Albumin 3.2 07/26/18 09:00: White Blood Count 5.4, Red Blood Count 3.50, Hemoglobin 9.2, Hematocrit 29, Mean Corpuscular Volume 83, Mean Corpuscular Hemoglobin 26, Mean Corpuscular Hemoglobin Concent 32, Red Cell Distribution Width 28.6, Platelet Count 333, Mean Platelet Volume 10.5, Neutrophils (%) (Auto) 61, Lymphocytes (%) (Auto) 19 , Monocytes (%) (Auto) 16, Eosinophils (%) (Auto) 2, Basophils (%) (Auto) 2, Neutrophils # (Auto) 3.3, Lymphocytes # (Auto) 1.0, Monocytes # (Auto) 0.9, Eosinophils # (Auto) 0.1, Basophils # (Auto) 0.1, Sodium Level 138, Potassium Level 3.8, Chloride Level 101, Carbon Dioxide Level 29, Anion Gap 8, Blood Urea Nitrogen 21, Creatinine 0.78, Estimat Glomerular Filtration Rate > 60, BUN/ Creatinine Ratio 27, Glucose Level 98, Calcium Level 8.9, Corrected Calcium 9.4 , Total Bilirubin 0.9, Aspartate Amino Transf (AST/SGOT) 36, Alanine Aminotransferase (ALT/SGPT) 27, Alkaline Phosphatase 104, Total Protein 7.1, Albumin 3.4 07/30/18 05:10: White Blood Count 4.8, Red Blood Count 3.02, Hemoglobin 7.8, Hematocrit 25, Mean Corpuscular Volume 83, Mean Corpuscular Hemoglobin 26, Mean Corpuscular Hemoglobin Concent 31, Red Cell Distribution Width 28.3, Platelet Count 309, Mean Platelet Volume 10.2, Neutrophils (%) (Auto) 56, Lymphocytes (%) (Auto) 21 , Monocytes (%) (Auto) 17, Eosinophils (%) (Auto) 4, Basophils (%) (Auto) 3, Neutrophils # (Auto) 2.7, Lymphocytes # (Auto) 1.0, Monocytes # (Auto) 0.8, Eosinophils # (Auto) 0.2, Basophils # (Auto) 0.2, Sodium Level 136, Potassium Level 4.0, Chloride Level 103, Carbon Dioxide Level 26, Anion Gap 7, Blood Urea Nitrogen 19, Creatinine 0.64, Estimat Glomerular Filtration Rate > 60, BUN/ Creatinine Ratio 30, Glucose Level 76, Calcium Level 8.3, Corrected Calcium 9.1 , Total Bilirubin 0.7, Aspartate Amino Transf (AST/SGOT) 36, Alanine Aminotransferase (ALT/SGPT) 22, Alkaline Phosphatase 89, Total Protein 6.2, Albumin 3.0 Discharge Home Medications: Active Scripts Active Acidophilus-Pectin Capsule (Lactobacillus Acidophilus/Pect) 1 Each Capsule 2 Each PO BID WITH MEALS Sodium Chloride 1 Gm Tab 1 Gm PO TID Klor-Con M20 (Potassium Chloride) 20 Meq Tab.er.prt 20 Meq PO DAILY@0800 Flomax (Tamsulosin HCl) 0.4 Mg Cap 0.8 Mg PO DAILY@1800 Bethanechol Chloride 25 Mg Tablet 50 Mg PO ACHS 120 Days Minocycline HCl 100 Mg Tablet 100 Mg PO BID Meropenem-0.9% NaCl 1 Gram/50 (Meropenem-0.9% Sodium Chloride) 1 Gm/50 Ml Piggyback 1 Gm IV Q8H Instructions to patient/family Please see electronic discharge instructions given to patient. Diagnosis/Problems Diagnosis/Problems (1) Brain abscess (2) Nocardia infection (3) Pyelonephritis (4) Renal abscess (5) Neutropenia (6) Anemia (7) Hyponatremia (8) Weakness acquired in ICU (9) UTI (urinary tract infection) (10) PICC (peripherally inserted central catheter) in place (11) Urinary retention (12) Roberts catheter in place (13) Right bundle branch block (14) Elevated brain natriuretic peptide (BNP) level (15) Cerebral edema (16) Focal neurological deficit (17) S/P craniotomy (18) Appetite loss (19) Weight loss (20) Cachexia (21) Malnutrition (22) Status post insertion of percutaneous endoscopic gastrostomy (PEG) tube Clinical Quality Measures DVT/VTE Risk/Contraindication: Risk Factor Score Per Nursin RFS Level Per Nursing on Admit: 4+=Very High GERTRUDIS HERNANDES DO Aug 01, 2018 08:47
--- NOTE | 2018-08-01 10:50 | NUR ---
Pastoral care visit.
--- NOTE | 2018-08-01 11:00 | Therapy Team Discharge Summary ---
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 Prior to his initial hospital stay, he was indep with all mobility. Upon evaluation on this unit, he was min assist with transfer and SBA with gait and stairs. Treatment has focused on functional strength, balance and safety to promote indep with gait and transfers. Initially, he struggled with confusion and a few complications but has ultimately made excellent progress and has achieved all goals to a satisfactory level. He is mod indep to indep with mobility. He is discharging home with his with [facility] to follow. DC PT Occupational Therapy Decreased Activ Tolerance, Decreased Safety Aware, Decreased UE Strength, Impaired Bed Mobility, Impaired Funct Balance, Impaired Self-Care Skills PT Publishing Director Goals Publishing Director Goals PT Snf Goals Time Frame: Aug 14, 2018 Transfers (B,C,W/C) (FIM): 7 (pt scored a 6) Roll Left to Right (QC): 7 Sit to Lying (QC): 7 Lying-Sitting on Side/Bed(QC): 7 Sit to Stand (QC): 7 Chair/[id number] Xfer(QC): 7 Car Transfer (QC): 7 Does the Patient Walk: Yes Gait (FIM): 6 (met) Gait distance (FIM): 3=150 ft Distance: 1000' Walk 10 feet (QC): 7 Walk 10ft-Uneven Surface(QC): 7 Walk 50ft with 2 Turns (QC): 7 Walk 150 ft (QC): 7 Gait Level of Assist: 6 Gait Assistive Device: FWW Does the Pt use WC or Scooter?: No Stairs (FIM): 6 # of Steps: 12 1 Step (curb) (QC): 7 4 Steps (QC): 7 12 Steps (QC): 7 Stairs Level Of Assist: 6 Picking up an Object (QC): 7 all goals met to a satisfactory level. OT Snf Goals Publishing Director Goals Time Frame: Aug 05, 2018 Eating (FIM): 6 (7) Eating (QC): 6 (6) Oral Hygiene (QC): 6 (6) Grooming(FIM): 6 (7) Bathing(FIM): 6 (7) Bathing Location: L Arm, R Arm, L Upper Leg, R Upper Leg, L Lower Leg ( including foot), R Lower Leg (including foot), Chest, Abdomen, Buttocks, Perineal Area Shower/Bathe Self (QC): 6 (6) Upper Body Dressing(FIM): 6 (7) Upper Body Dressing (QC): 6 (6) Lower Body Dressing(FIM): 6 (7) Lower Body Dressing (QC): 6 (6) On/Off Footwear (QC): 6 (6) Toileting(FIM): 6 (7) Toileting Hygiene (QC): 6 (6) Transfers (B,C,W/C) (FIM): 6 (7) Toilet/Commode Transfer(FIM): 6 (7) Toilet/Commode Transfer (QC): 6 (6) Tub Transfer(FIM): 6 (7) Shower Transfer(FIM): 6 (7) Additional Goals: 1-Demonstrate ADL Tasks, 2-Verbalize Understanding, 3- ImproveStrength/[place] 1=Demonstrate adherence to instructed precautions during ADL tasks. 2=Patient will verbalize/demonstrate understanding of assistive devices/ modifications for ADL. 3=Patient will improve strength/tolerance for activity to enable patient to perform ADL's. Speech Publishing Director Goals Snf Goals Patient will increase cognitive communication skills for improved safety and independence. DAIJA BRASWELL PT Aug 01, 2018 11:00
--- NOTE | 2018-08-01 11:01 | NUR ---
WORKING FOREMAN met with patient to review IMM and patient choice letter for [facility] services. Patient and spouse chose [facility] yesterday and WORKING FOREMAN sent referral information. [facility] intends to start care this evening for late IV antibiotic dose. [facility] is scheduled to deliver IV meropenem and IV supplies to hospital prior to discharge today. Patient is hopeful to discharge after 2 p.m. dose. WORKING FOREMAN has requested RN to provide education to patient and spouse regarding IV home infusions due to inclement weather arising later this evening. Patient was scheduled for cysto today by Dr. Monroe however, Dr. Monroe advises patient to follow up in [place] in 2 weeks in regards to cysto. WORKING FOREMAN faxed discharge orders and med list to patient's pharmacy, [facility] and [facility]. Patient expresses no further concerns with discharge plans and is eager to return home. Please see discharge summary for further information. Addendum: 08/01/18 at 1119 by KELSEA LONGORIA SS Per information received yesterday from sarahi Coleman patient will no longer need tube feeding at discharge. PEG will remain intact with daily flushes. Addendum: 02/19/19 at 1620 by KELSEA CUMMINGS WORKING FOREMAN confirmed with Dr. Guevara regarding ability to discontinue tube feeding product. Information provided to RN and patient.
--- NOTE | 2018-08-01 13:02 | Therapy Team Discharge Summary ---
Therapy Discharge Summary Discharge Recommendations Date of Discharge Therapy D/C Recommendations: Home w/ Family Support, Occupational Therapy Home Care Occupational Therapy Decreased Activ Tolerance, Decreased Safety Aware, Decreased UE Strength, Impaired Bed Mobility, Impaired Funct Balance, Impaired Self-Care Skills PT Online Facilitator Goals Fdc Goals PT Online Facilitator Goals Time Frame: Aug 14, 2018 Transfers (B,C,W/C) (FIM): 7 (pt scored a 6) Sit to Lying (QC): 7 Lying-Sitting on Side/Bed(QC): 7 Sit to Stand (QC): 7 Rollin Chair/Qsx-ib-Hhhsu Xfer(QC): 7 Does the Patient Walk: Yes Gait (FIM): 6 (met) Gait distance (FIM): 3=150 ft Distance: 1000' Walk 50ft with 2 Turns (QC): 7 Walk 150 ft (QC): 7 Gait Level of Assist: 6 Gait Assistive Device: FWW Does the Pt use WC or Scooter?: No Stairs (FIM): 6 # of Steps: 12 Stairs Level Of Assist: 6 OT Online Facilitator Goals Fdc Goals Time Frame: Aug 05, 2018 Eating (FIM): 6 (7) Eating (QC): 6 (6) Groomin (7) Oral Hygiene (QC): 6 (6) Bathing(FIM): 6 (7) Bathing Location: L Arm, R Arm, L Upper Leg, R Upper Leg, L Lower Leg ( including foot), R Lower Leg (including foot), Chest, Abdomen, Buttocks, Perineal Area Upper Body Dressing(FIM): 6 (7) Lower Body Dressing(FIM): 6 (7) Toileting(FIM): 6 (7) Toileting Hygiene (QC): 6 (6) Transfers (B,C,W/C) (FIM): 6 (7) Toilet/Commode Transfer(FIM): 6 (7) Toilet/Commode Transfer (QC): 6 (6) Tub Transfer(FIM): 6 (7) Shower Transfer(FIM): 6 (7) Additional Goals: 1-Demonstrate ADL Tasks, 2-Verbalize Understanding, 3- ImproveStrength/[place] 1=Demonstrate adherence to instructed precautions during ADL tasks. 2=Patient will verbalize/demonstrate understanding of assistive devices/ modifications for ADL. 3=Patient will improve strength/tolerance for activity to enable patient to perform ADL's. . Speech Online Facilitator Goals Online Facilitator Goals Patient will increase cognitive communication skills for improved safety and independence. JEREMÍAS MACIAS OT Aug 01, 2018 13:02
--- NOTE | 2018-08-01 14:11 | Therapy Team Discharge Summary ---
Therapy Discharge Summary Discharge Recommendations Date of Discharge Therapy D/C Recommendations: Home w/ Family Support, Occupational Therapy Home Care Occupational Therapy Decreased Activ Tolerance, Decreased Safety Aware, Decreased UE Strength, Impaired Bed Mobility, Impaired Funct Balance, Impaired Self-Care Skills Speech-Language Pathology Patient was admitted to the ARU post brain surgery. At that time his memory and problem solving skills were significantly decreased. He made excellent gains in both areas and demo the ability to recall new and old information as well as safety precautions. Patient met all of his goals and was discharged to his home with his today. He will be receiving home health for his continuing needs. Patient is discharged from [facility] this date. PT Cooling Pan Tender Goals Cooling Pan Tender Goals PT Nursing Home Goals Time Frame: Aug 14, 2018 Transfers (B,C,W/C) (FIM): 7 (pt scored a 6) Roll Left to Right (QC): 7 Sit to Lying (QC): 7 Lying-Sitting on Side/Bed(QC): 7 Sit to Stand (QC): 7 Chair/Ymi-ee-Bexvz Xfer(QC): 7 Car Transfer (QC): 7 Does the Patient Walk: Yes Gait (FIM): 6 (met) Gait distance (FIM): 3=150 ft Distance: 1000' Walk 10 feet (QC): 7 Walk 10ft-Uneven Surface(QC): 7 Walk 50ft with 2 Turns (QC): 7 Walk 150 ft (QC): 7 Gait Level of Assist: 6 Gait Assistive Device: FWW Does the Pt use WC or Scooter?: No Stairs (FIM): 6 # of Steps: 12 1 Step (curb) (QC): 7 4 Steps (QC): 7 12 Steps (QC): 7 Stairs Level Of Assist: 6 Picking up an Object (QC): 7 OT Nursing Home Goals Cooling Pan Tender Goals Time Frame: Aug 05, 2018 Eating (FIM): 6 (7) Eating (QC): 6 (6) Oral Hygiene (QC): 6 (6) Grooming(FIM): 6 (7) Bathing(FIM): 6 (7) Bathing Location: L Arm, R Arm, L Upper Leg, R Upper Leg, L Lower Leg ( including foot), R Lower Leg (including foot), Chest, Abdomen, Buttocks, Perineal Area Shower/Bathe Self (QC): 6 (6) Upper Body Dressing(FIM): 6 (7) Upper Body Dressing (QC): 6 (6) Lower Body Dressing(FIM): 6 (7) Lower Body Dressing (QC): 6 (6) On/Off Footwear (QC): 6 (6) Toileting(FIM): 6 (7) Toileting Hygiene (QC): 6 (6) Transfers (B,C,W/C) (FIM): 6 (7) Toilet/Commode Transfer(FIM): 6 (7) Toilet/Commode Transfer (QC): 6 (6) Tub Transfer(FIM): 6 (7) Shower Transfer(FIM): 6 (7) Additional Goals: 1-Demonstrate ADL Tasks, 2-Verbalize Understanding, 3- ImproveStrength/[place] 1=Demonstrate adherence to instructed precautions during ADL tasks. 2=Patient will verbalize/demonstrate understanding of assistive devices/ modifications for ADL. 3=Patient will improve strength/tolerance for activity to enable patient to perform ADL's. Speech Cooling Pan Tender Goals Cooling Pan Tender Goals Patient will increase cognitive communication skills for improved safety and independence. Met VISHNU SIDDIQI Aug 01, 2018 14:11
[2018-08-01 15:45] VITALS: BP 146/75
--- NOTE | 2018-08-01 16:20 | NUR ---
ELI LINDQUIST demonstrates understanding of discharge instructions and accurately returns instructions upon questioning. Copy of Post-Discharge Instructions given to . ELI LINDQUIST is not able to manage continuing needs after discharge and will receive HHC/PT/OT. Patients belongings returned to . Patient discharged from [facility] on 08-01-18 at 1545. ELI LINDQUIST left floor via , accompanied by . Instructions for peg tube flushes and IV administration given to and pt. Home health stated would be there between 6-6:30.
== END 2018-08-01 17:03 | disposition home health service (06) | DRG 867 ==
PROVIDERS: ADMIT Internal Medicine; ATTEND Internal Medicine
PROC: 0TJB8ZZ Inspection of Bladder, Via Natural or Artificial Opening Endoscopic (ICD-10-PCS; principal; 2018-07-17 09:55)
PROC: 0DH64UZ Insertion of Feeding Device into Stomach, Percutaneous Endoscopic Approach (ICD-10-PCS; 2018-07-20)
DX: A43.8 Other forms of nocardiosis (principal); G06.0 Intracranial abscess and granuloma; N15.1 Renal and perinephric abscess; N12 Tubulo-interstitial nephritis, not specified as acute or chronic; G93.6 Cerebral edema; R41.0 Disorientation, unspecified; E87.1 Hypo-osmolality and hyponatremia; E46 Unspecified protein-calorie malnutrition; N40.1 Benign prostatic hyperplasia with lower urinary tract symptoms; R33.9 Retention of urine, unspecified; I45.10 Unspecified right bundle-branch block; D70.2 Other drug-induced agranulocytosis; D63.8 Anemia in other chronic diseases classified elsewhere; K44.9 Diaphragmatic hernia without obstruction or gangrene; M10.9 Gout, unspecified; F32.9 Major depressive disorder, single episode, unspecified; T37.0X5A Adverse effect of sulfonamides, initial encounter
CPT/HCPCS: 36415; 80048; 80053; 83540; 85007; 85025; 85027; 87081; 93005; 93306